=== PATIENT | female | born 1940 | race Hispanic/Latino ===

== ENCOUNTER 2021-02-22 10:42 | Inpatient (IN) | payer MEDICARE ==
--- NOTE | 2021-02-22 10:52 | Emergency Department Report ---
ED Shortness of Breath HPI - General Stated Complaint: SOB Time Seen by Provider: 02/22/21 10:47 - History of Present Illness Initial Comments: Patient presents by ambulance secondary to shortness of breath. She was at dialysis today and started feeling short of breath more so than usual. She was found to be hypoxic in the 70s on her nasal cannula. EMS was called. They did transition her ultimately to BiPAP and her pulse ox came up to 99%. Patient had been admitted last week secondary to COVID-19 infection. She was hypoxic. She was in the hospital for 6 days at another facility. She ultimately was able to go home on a nasal cannula at 3 L. She states she started feeling short of breath yesterday but it worsened today while at dialysis. They did not complete her dialysis treatment. They were using her AV fistula in the left arm. The right arm is clotted off and they have not been using that AV fistula. Patient denies chest pain. She has had no fever. She states that she does feel better on BiPAP currently. - Related Data Home Medications Medication Instructions Recorded Confirmed Last Taken AtorvaSTATin [Lipitor] 10 mg PO QHS 02/22/21 02/22/21 Unknown Calcium Acetate [Phoslo] 1,334 mg PO TID 02/22/21 02/22/21 Unknown Cetirizine HCl [Cetirizine 10mg 10 mg PO QDAY 02/22/21 02/22/21 Unknown chew] L. Acidophilus/Bifid. Animalis 1 each PO QDAY 02/22/21 02/22/21 Unknown [Dialyvite Chewable Probiotic] Levothyroxine [Synthroid] 50 mcg PO QAM 02/22/21 02/22/21 Unknown Pantoprazole [Protonix] 40 mg PO QDAY 02/22/21 02/22/21 Unknown Sucralfate [Carafate] 1 gm PO Q6HR 02/22/21 02/22/21 Unknown Temazepam [Restoril] 7.5 mg PO QHS 02/22/21 02/22/21 Unknown amLODIPine [Norvasc] 5 mg PO DAILY 02/22/21 02/22/21 Unknown atenoloL [Tenormin] 10 mg PO DAILY 02/22/21 02/22/21 Unknown traMADoL [Ultram] 50 mg PO Q6HR PRN 02/22/21 02/22/21 Unknown Allergies Allergy/AdvReac Type Severity Reaction Status Date / Time amoxicillin Allergy Unknown Verified 02/22/21 11:14 codeine Allergy Unknown Verified 02/22/21 11:14 Penicillins Allergy Unknown Verified 02/22/21 11:14 Sulfa (Sulfonamide Allergy Unknown Verified 02/22/21 11:14 Antibiotics) ED Review of Systems ROS: Stated complaint: SOB Other details as noted in HPI Comment: All other systems reviewed and negative Constitutional: denies: fever Eyes: denies: eye pain ENT: denies: throat pain Respiratory: denies: cough Cardiovascular: denies: chest pain Endocrine: denies: unexplained weight loss Gastrointestinal: denies: abdominal pain Musculoskeletal: denies: back pain Skin: denies: rash Neurological: denies: headache Hematological/Lymphatic: denies: easy bruising ED Past Medical Hx - Medications Home Medications: Home Medications Medication Instructions Recorded Confirmed Last Taken Type AtorvaSTATin [Lipitor] 10 mg PO QHS 02/22/21 02/22/21 Unknown History Calcium Acetate [Phoslo] 1,334 mg PO TID 02/22/21 02/22/21 Unknown History Cetirizine HCl [Cetirizine 10mg 10 mg PO QDAY 02/22/21 02/22/21 Unknown History chew] L. Acidophilus/Bifid. Animalis 1 each PO QDAY 02/22/21 02/22/21 Unknown History [Dialyvite Chewable Probiotic] Levothyroxine [Synthroid] 50 mcg PO QAM 02/22/21 02/22/21 Unknown History Pantoprazole [Protonix] 40 mg PO QDAY 02/22/21 02/22/21 Unknown History Sucralfate [Carafate] 1 gm PO Q6HR 02/22/21 02/22/21 Unknown History Temazepam [Restoril] 7.5 mg PO QHS 02/22/21 02/22/21 Unknown History amLODIPine [Norvasc] 5 mg PO DAILY 02/22/21 02/22/21 Unknown History atenoloL [Tenormin] 10 mg PO DAILY 02/22/21 02/22/21 Unknown History traMADoL [Ultram] 50 mg PO Q6HR PRN 02/22/21 02/22/21 Unknown History ED Physical Exam - General General appearance: alert, in distress (Mild on BiPAP) - Head Head exam: Present: atraumatic, normocephalic, normal inspection - Eye Eye exam: Present: normal appearance, EOMI. Absent: scleral icterus - ENT ENT exam: Present: normal exam, normal orophraynx, mucous membranes moist - Neck Neck exam: Present: normal inspection, other (No JVD). Absent: meningismus - Respiratory Respiratory exam: Present: respiratory distress (Mild) - Cardiovascular Cardiovascular Exam: Present: regular rate, normal rhythm - GI/Abdominal GI/Abdominal exam: Present: soft. Absent: distended, tenderness - Extremities Exam Extremities exam: Present: normal capillary refill - Back Exam Back exam: Absent: CVA tenderness (R), CVA tenderness (L) - Neurological Exam Neurological exam: Present: alert, oriented X3. Absent: motor sensory deficit - Psychiatric Psychiatric exam: Present: normal affect, normal mood - Skin Skin exam: Present: warm, dry ED Course Vital Signs 02/22/21 02/22/21 02/22/21 10:57 11:01 11:15 Temperature Pulse Rate 85 92 H 78 Respiratory 31 H 26 H 32 H Rate Blood Pressure 140/34 140/34 O2 Sat by Pulse 91 87 93 Oximetry 02/22/21 02/22/21 02/22/21 11:18 11:31 11:45 Temperature 97.8 F Pulse Rate 83 83 Respiratory 29 H 32 H Rate Blood Pressure 140/34 140/34 O2 Sat by Pulse 92 96 Oximetry 02/22/21 02/22/21 12:01 12:15 Temperature Pulse Rate 75 73 Respiratory 30 H 24 Rate Blood Pressure 150/70 140/34 O2 Sat by Pulse 98 89 Oximetry - Reevaluation(s) Reevaluation #1: 02/22/21 10:41 Sonu met upon arrival. IV and labs were ordered. BiPAP was continued. Reevaluation #2: 02/22/21 12:42 X-ray and labs have been reviewed. BNP is still pending. Case was discussed with Dr. Greco for admission. He is concerned for the patient's respiratory status and requested a blood gas. This is been completed. Clinically, this appears to be pulmonary edema. We will proceed with admission. ED Medical Decision Making - Lab Data Result diagrams: 02/22/21 11:31 02/22/21 11:31 - EKG Data -: EKG Interpreted by Me EKG shows normal: sinus rhythm Rate: normal - EKG Data 02/22/21 11:13 EKG shows a normal sinus rhythm at 79. Intervals are normal including a QRS of 95 and a QT corrected of 1-22. Patient has nonspecific T wave flattening. There is significant artifact noted. There is no ST elevation to suggest infarct. There is no ST depression suggestive of ischemia. There is no ectopy. - Medical Decision Making Patient presented by ambulance with respiratory distress. She has multiple issues that could be complicating this. She does have a recent diagnosis of coronavirus and is hypoxic from that. This could be related to a Covid infection. She does have leukocytosis. She has not had a fever, but certainly pneumonia could be a complicating factor. She does have tachypnea associated with this. She is also a renal failure patient that did not get dialysis completed today. This could be volume overload. Troponin is elevated and this could certainly represent some degree of NSTEMI or cardiac strain. Given the recent Covid infection and elevated D-dimer, there would also have to be consideration given to possible pulmonary embolism. These have been discussed with Dr. Greco, the hospitalist. He will admit and help discern the fundamental issues that is causing the patient to be hypoxic and dyspneic. Critical Care Time: Yes Critical care attestation.: If time is entered above; I have spent that time in minutes in the direct care of this critically ill patient, excluding procedure time. Critical Care Time: Critical care time of 55 minutes exclusive of all procedures based on respiratory failure and volume overload. ED Disposition Clinical Impression: Hypoxia, COVID-19 virus infection, ESRD (end stage renal disease) on dialysis Respiratory failure Qualifiers: Chronicity: acute Respiratory failure complication: hypoxia Qualified Code(s): J96.01 - Acute respiratory failure with hypoxia Leukocytosis Qualifiers: Leukocytosis type: other Qualified Code(s): D72.828 - Other elevated white blood cell count Pulmonary edema Qualifiers: Chronicity: acute Qualified Code(s): J81.0 - Acute pulmonary edema Disposition: 09 ADMITTED INPATIENT Is pt being admited?: Yes Does the pt Need Aspirin: Yes Condition: Stable Instructions: Pulmonary Edema (ED)
--- NOTE | 2021-02-22 11:37 | XRay Report ---
CHEST 1 VIEW 02/22/2021 10:17 AM INDICATION / CLINICAL INFORMATION: Hypoxia. COMPARISON: None available. FINDINGS: SUPPORT DEVICES: None. HEART / MEDIASTINUM: There is moderate cardiomegaly. Pulmonary vasculature is difficult to evaluate. There is calcification in the thoracic aorta without aneurysm. LUNGS / PLEURA: There are moderate diffuse patchy parenchymal opacities throughout both lungs, slight ly greater on the right than the left. No pleural effusion. No pneumothorax. ADDITIONAL FINDINGS: No significant additional findings. IMPRESSION: Moderate diffuse patchy parenchymal opacities throughout both lungs are nonspecific. Diff erential diagnosis includes atypical causes of pneumonia, asymmetric edema, and diffuse alveolar zainab ge. Signer Name: Everett Paul MD Signed: 02/22/2021 11:32 AM Workstation Name: [id number]
[2021-02-22 11:49] LABS: Hematocrit 30.5 % (30.3-42.9); Mean Corpuscular HGB Conc 33 % (30-34); Mean Corpuscular Volume 101 fl (79-97); Platelet Count 189 K/mm3 (140-440); Red Blood Count 3.01 M/mm3 (3.65-5.03); Red Cell Distribution Width 14.5 % (13.2-15.2)
[2021-02-22 11:59] LABS: Calcium 9.4 mg/dL (8.4-10.2)
[2021-02-22] MEDS ORDERED: ASPIRIN 325 MG TAB PO ONE (12:47)
--- NOTE | 2021-02-22 13:38 | History and Physical Report ---
History of Present Illness Chief complaint: I am having a hard time breathing History of present illness: 80 YO Female with ESRD on HD(T,R,Sa), GERD, Vascular Dementia, Cerebral Atherosclerosis, HTN, HLD, Hypothyroidism, Coronavirus Infection diagnosed 2 weeks ago presents to ED for evaluation. Patient reports "I am having a hard time breathing". Patient states that she has experienced fatigue, malaise, shortness of breath, body aches over the past 2 days with persistent and worsening symptoms over the same timeframe. Patient states that she presented to her dialysis clinic today for her routine scheduled dialysis and while undergoing dialysis the patient experienced worsening of the aforementioned symptoms. EMS was notified and upon arrival the patient was found to be in distress and subsequently placed on supplemental oxygen and transported to [facility] for further care and evaluation of the aforementioned symptoms. The patient was seen and evaluated in the emergency department. All lab and imaging studies reviewed. The patient was found to have a pulse oximetry of 86% while on supplemental oxygen via nasal cannula and was subsequently placed on high flow supplemental oxygen with mild improvement in symptoms. Patient symptoms found to be consistent with acute hypoxemic respiratory failure. Patient underwent chest x-ray which revealed bilateral pneumonia. Patient also found to have clinical symptoms consistent with CHF decompensation. Patient admitted to IMCU and initiated on pneumonia protocol as well as CHF protocol. Patient also found to have end-stage renal disease in need of urgent dialysis. Nephrology team consulted in ED. Patient denies fever, chills, palpitations, skin rash, recent ill contacts. No prior admission for review. All medication listed at time of admission has been reconciled. Advanced care planning conducted in ED. Pulmonology team consulted in ED. Cardiology team consulted in ED Past History Past Medical History: ESRD, GERD, hypertension, hyperlipidemia Past Surgical History: Other (Dialysis access) Social history: . denies: smoking, alcohol abuse, prescription drug abuse Family history: hypertension Medications and Allergies Allergies Allergy/AdvReac Type Severity Reaction Status Date / Time amoxicillin Allergy Unknown Verified 02/22/21 11:14 codeine Allergy Unknown Verified 02/22/21 11:14 Penicillins Allergy Unknown Verified 02/22/21 11:14 Sulfa (Sulfonamide Allergy Unknown Verified 02/22/21 11:14 Antibiotics) Home Medications Medication Instructions Recorded Confirmed Last Taken Type AtorvaSTATin [Lipitor] 10 mg PO QHS 02/22/21 02/22/21 Unknown History Calcium Acetate [Phoslo] 1,334 mg PO TID 02/22/21 02/22/21 Unknown History Cetirizine HCl [Cetirizine 10mg 10 mg PO QDAY 02/22/21 02/22/21 Unknown History chew] L. Acidophilus/Bifid. Animalis 1 each PO QDAY 02/22/21 02/22/21 Unknown History [Dialyvite Chewable Probiotic] Levothyroxine [Synthroid] 50 mcg PO QAM 02/22/21 02/22/21 Unknown History Pantoprazole [Protonix] 40 mg PO QDAY 02/22/21 02/22/21 Unknown History Sucralfate [Carafate] 1 gm PO Q6HR 02/22/21 02/22/21 Unknown History Temazepam [Restoril] 7.5 mg PO QHS 02/22/21 02/22/21 Unknown History amLODIPine [Norvasc] 5 mg PO DAILY 02/22/21 02/22/21 Unknown History atenoloL [Tenormin] 10 mg PO DAILY 02/22/21 02/22/21 Unknown History traMADoL [Ultram] 50 mg PO Q6HR PRN 02/22/21 02/22/21 Unknown History Review of Systems Constitutional: fatigue, weakness, malaise, lethargy, no weight loss, no weight gain, no fever, no chills Ears, nose, mouth and throat: no ear pain, no ear discharge, no nose pain Breasts: no change in shape Cardiovascular: orthopnea, shortness of breath, dyspnea on exertion, paroxysmal nocturnal dyspnea, decreased exercise tolerance, no chest pain, no rapid/irregular heart beat, no syncope Respiratory: no cough, no cough with sputum, no hemoptysis Gastrointestinal: no abdominal pain, no nausea, no vomiting, no constipation, no change in bowel habits Genitourinary Female: no pelvic pain, no flank pain, no dysuria, no urinary frequency, no urgency Rectal: no pain, no incontinence, no bleeding Musculoskeletal: no neck stiffness, no neck pain, no low back pain, no leg numbness/tingling, no redness of joints Integumentary: no rash, no redness, no sores Neurological: no head injury, no paralysis, no parathesias, no seizures, no tremors Psychiatric: no change in sleep habits, no insomnia, no hypersomnia, no change in libido, no hallucinations Endocrine: no cold intolerance, no polyphagia, no polydipsia, no polyuria, no excessive sweating, no weight change Hematologic/Lymphatic: no easy bruising, no easy bleeding, no lymphadenopathy Allergic/Immunologic: no urticaria, no wheezing Exam - Constitutional Vitals: Temp Pulse Resp BP Pulse Ox 97.8 F 73 24 140/34 99 02/22/21 11:18 02/22/21 12:15 02/22/21 12:15 02/22/21 12:15 02/22/21 13:22 General appearance: Present: mild distress, obese - EENT Eyes: Present: PERRL ENT: hearing intact, clear oral mucosa - Neck Neck: Present: supple, normal ROM - Respiratory Respiratory effort: labored, accessory muscle use Respiratory: bilateral: diminished, rhonchi - Cardiovascular Rhythm: regular Heart Sounds: Present: S1 & S2. Absent: rub, click - Extremities Extremities: pulses symmetrical Extremity abnormal: edema Peripheral Pulses: within normal limits - Abdominal General gastrointestinal: Present: soft, non-tender, non-distended, normal bowel sounds Female genitourinary: Present: normal - Integumentary Integumentary: Present: clear, warm, dry - Musculoskeletal Musculoskeletal: generalized weakness - Psychiatric Psychiatric: appropriate mood/affect, intact judgment & insight - Neurologic Neurologic: CNII-XII intact, moves all extremities HEART Score - HEART Score Troponin: Troponin T 0.097 ng/mL (0.00-0.029) H 02/22/21 11:31 Results - Labs CBC & Chem 7: 02/22/21 11:31 02/22/21 11:31 Labs: Abnormal lab results 02/22/21 02/22/21 02/22/21 Range/Units 11:31 11:31 11:31 WBC 12.9 H (4.5-11.0) K/mm3 RBC 3.01 L (3.65-5.03) M/mm3 Hgb 10.0 L (10.1-14.3) gm/dl MCV 101 H (79-97) fl MCH 33 H (28-32) pg D-Dimer 902.74 H (0-234) ng/mlDDU ABG pH (7.320-7.450) POC ABG pO2 (83-108) mmHg ABG Hemoglobin (12.0-17.5) ABG Oxyhemoglobin (94-98) ABG Sodium (136.0-145.0) mmol/L BUN 32 H (7-17) mg/dL Creatinine 4.7 H (0.6-1.2) mg/dL Troponin T 0.097 H (0.00-0.029) ng/mL NT-Pro-B Natriuret Pep 07247 H (0-900) pg/mL 02/22/21 Range/Units 13:21 WBC (4.5-11.0) K/mm3 RBC (3.65-5.03) M/mm3 Hgb (10.1-14.3) gm/dl MCV (79-97) fl MCH (28-32) pg D-Dimer (0-234) ng/mlDDU ABG pH 7.478 H (7.320-7.450) POC ABG pO2 70.7 L (83-108) mmHg ABG Hemoglobin 9.4 L (12.0-17.5) ABG Oxyhemoglobin 93.7 L (94-98) ABG Sodium 131.6 L (136.0-145.0) mmol/L BUN (7-17) mg/dL Creatinine (0.6-1.2) mg/dL Troponin T (0.00-0.029) ng/mL NT-Pro-B Natriuret Pep (0-900) pg/mL Assessment and Plan - Patient Problems (1) Acute hypoxemic respiratory failure Current Visit: Yes Status: Acute Plan to address problem: Supplemental oxygen, pulse oximetry, high flow supplemental oxygen at this time, pulmonary toilet, supportive care, chest x-ray. (2) CHF (congestive heart failure) Current Visit: Yes Status: Acute Qualifiers: Heart failure type: systolic Heart failure chronicity: acute Qualified Code(s): I50.21 - Acute systolic (congestive) heart failure Plan to address problem: Strict I's/O, monitor urine output every shift, blood pressure control, afterload reduction, echocardiogram ordered and is pending at time of admission, thyroid panel, magnesium level. Cardiology team consulted. (3) Pneumonia Current Visit: Yes Status: Acute Plan to address problem: Pneumonia protocol: Chest x-ray, CBC, CMP, supplemental oxygen, pulse oximetry, IV antibiotic therapy, nebulizer therapy, blood culture. (4) COVID-19 virus infection Current Visit: Yes Status: Acute Plan to address problem: Coronavirus protocol: IV antibiotic therapy, IV steroid therapy, supplemental oxygen, pulse oximetry, vitamin D therapy, vitamin C therapy, zinc therapy, prophylactic anticoagulation. (5) ESRD (end stage renal disease) on dialysis Current Visit: Yes Status: Acute Plan to address problem: Nephrology team consulted in ED, dialysis as per renal team, avoid nephrotoxic agents (6) DVT prophylaxis Current Visit: Yes Status: Acute Plan to address problem: SCDs bilateral lower extremities while in bed, prophylactic anticoagulation (7) Advance care planning Current Visit: Yes Status: Acute Plan to address problem: Disease education conducted, care plan discussed, diagnoses discussed, prognosis discussed, patient is full code, patient knowledges understanding and agree with care plan, +30 minutes.
[2021-02-22] MEDS ORDERED: ALBUTEROL 2.5 MG/3 ML NEBU IH PRN (14:26)
[2021-02-22] MEDS: AZITHROMYCIN/NS 500 MG/250 ML 500 MG/250 ML BAG IV SCH (15:49)
[2021-02-22] MEDS: FUROSEMIDE 20 MG/2 ML INJ IV SCH (17:45)
[2021-02-22] MEDS: ALPRAZolam 0.5 MG TAB PO PRN (17:45)
[2021-02-22] MEDS: oxyCODONE /ACETAMINOPHEN 5-325MG TAB PO PRN (17:50)
[2021-02-22] MEDS: SUCRALFATE 1 GM TAB PO SCH (18:54)
[2021-02-22] MEDS: CALCIUM ACETATE 667 MG CAP PO SCH (22:19)
[2021-02-22] MEDS: ASCORBIC ACID 500 MG TAB PO SCH (22:20)
[2021-02-22] MEDS: HEPARIN 5,000 UNIT/1 ML VIAL SUB-Q SCH (22:20)
[2021-02-22] MEDS: ZINC SULFATE 220 MG CAP PO SCH (22:20)
[2021-02-22] MEDS: methylPREDNISolone Sod Succinate 40 MG/1 ML INJ IV SCH (22:45)
[2021-02-23] MEDS: SUCRALFATE 1 GM TAB PO SCH ×4 (00:38→18:00)
[2021-02-23] MEDS: HYDROmorphone 1 MG/1 ML INJ IV PRN (01:55)
[2021-02-23 04:02] LABS: Basophils % (Auto) 0.7 % (0.0-1.8); Eosinophils % (Auto) 0.1 % (0.0-4.3); Hematocrit 25.1 % (30.3-42.9); Hemoglobin 8.3 gm/dl (10.1-14.3); Lymphocytes # (Auto) 0.3 K/mm3 (1.2-5.4); Lymphocytes % (Auto) 5.7 % (13.4-35.0); Mean Corpuscular HGB Conc 33 % (30-34); Mean Corpuscular Volume 100 fl (79-97); Monocytes # (Auto) 0.2 K/mm3 (0.0-0.8); Monocytes % (Auto) 3.7 % (0.0-7.3); Platelet Count 166 K/mm3 (140-440); Red Cell Distribution Width 14.5 % (13.2-15.2)
[2021-02-23 04:24] LABS: Calcium 8.8 mg/dL (8.4-10.2)
[2021-02-23] MEDS: ALPRAZolam 0.5 MG TAB PO PRN (06:52)
[2021-02-23] MEDS: FUROSEMIDE 20 MG/2 ML INJ IV SCH ×2 (07:04→18:02)
[2021-02-23] MEDS: methylPREDNISolone Sod Succinate 40 MG/1 ML INJ IV SCH ×3 (07:05→21:38)
--- NOTE | 2021-02-23 08:27 | Progress Note ---
Assessment and Plan Assessment and plan: #Acute on chronic hypoxic respiratory failure -currently on nasal cannula 10 L/min -diagnosed with Covid 2 weeks ago -discharge from outside hospital Wednesday -Pulmonology consulted, assistance appreciated -steroids -etiology secondary to COVID versus CHF #Congestive heart failure -Patient does not report previous history of CHF -BNP 70,000 -Euvolemic on exam -TTE ordered -Cardiology consulted assistance appreciated #Pneumonia -Continue antibiotics #COVID-19 infection -diagnosed 2 weeks ago -patient was discharged from outside hospital on last week -IV steroids #ESRD on HD -T//S schedule -only completed half session on 02/22 -HD today -Nephrology consulted, assistance appreciated History Interval history: No acute events. Stable on 10 L. Denies pain discomfort. Hospitalist Physical - Physical exam Narrative exam: GENERAL: Obese. Lying in bed in no acute distress. HEENT: NC @ 10LPM CHEST/LUNGS: Coarse breath sounds bilaterally. HEART/CARDIOVASCULAR: RRR. No murmur, rubs or gallops appreciated. ABDOMEN: +BS. NT/ND. SKIN: Bruising at LUE. [place] intact at old R AVF NEURO: No focal motor deficit. Follows all commands. MUSCULOSKELETAL: No joint effusion EXTREMITIES: R and L upper extremity AVF. No cyanosis, clubbing or edema. PSYCH: Cooperative. - Constitutional Vitals: Temp Pulse Resp BP Pulse Ox 97.9 F 54 L 22 99/45 99 02/22/21 19:54 02/22/21 19:01 02/22/21 19:01 02/22/21 19:01 02/22/21 20:25 General appearance: Present: mild distress, obese - Allied Health Allied health notes reviewed: nursing HEART Score - HEART Score Troponin: Troponin T 0.097 ng/mL (0.00-0.029) H 02/22/21 11:31 Results - Labs CBC & Chem 7: 02/23/21 03:40 02/23/21 03:40 Labs: Laboratory Last Values WBC 5.1 K/mm3 (4.5-11.0) 02/23/21 03:40 RBC 2.50 M/mm3 (3.65-5.03) L 02/23/21 03:40 Hgb 8.3 gm/dl (10.1-14.3) L 02/23/21 03:40 Hct 25.1 % (30.3-42.9) L 02/23/21 03:40 MCV 100 fl (79-97) H 02/23/21 03:40 MCH 33 pg (28-32) H 02/23/21 03:40 MCHC 33 % (30-34) 02/23/21 03:40 RDW 14.5 % (13.2-15.2) 02/23/21 03:40 Plt Count 166 K/mm3 (140-440) 02/23/21 03:40 Lymph % (Auto) 5.7 % (13.4-35.0) L 02/23/21 03:40 [place] % (Auto) 3.7 % (0.0-7.3) 02/23/21 03:40 Eos % (Auto) 0.1 % (0.0-4.3) 02/23/21 03:40 Baso % (Auto) 0.7 % (0.0-1.8) 02/23/21 03:40 Lymph # (Auto) 0.3 K/mm3 (1.2-5.4) L 02/23/21 03:40 Blaine # (Auto) 0.2 K/mm3 (0.0-0.8) 02/23/21 03:40 Eos # (Auto) 0.0 K/mm3 (0.0-0.4) 02/23/21 03:40 Baso # (Auto) 0.0 K/mm3 (0.0-0.1) 02/23/21 03:40 Seg Neutrophils % 89.8 % (40.0-70.0) H 02/23/21 03:40 Seg Neutrophils # 4.5 K/mm3 (1.8-7.7) 02/23/21 03:40 D-Dimer 902.74 ng/mlDDU (0-234) H 02/22/21 11:31 ABG pH 7.478 (7.320-7.450) H 02/22/21 13:21 POC ABG pCO2 33.5 mmHg (32.0-48.0) 02/22/21 13:21 POC ABG pO2 70.7 mmHg (83-108) L 02/22/21 13:21 POC ABG HCO3 24.3 02/22/21 13:21 ABG O2 Saturation 94.6 (0-100) 02/22/21 13:21 POC ABG Base Excess 1.0 02/22/21 13:21 ABG Hemoglobin 9.4 (12.0-17.5) L 02/22/21 13:21 ABG Oxyhemoglobin 93.7 (94-98) L 02/22/21 13:21 ABG Methemoglobin 0.3 (0.0-1.5) 02/22/21 13:21 ABG Sodium 131.6 mmol/L (136.0-145.0) L 02/22/21 13:21 ABG Potassium 4.0 mmol/L (3.40-4.50) 02/22/21 13:21 ABG Chloride 100.0 mmol/L (98-107) 02/22/21 13:21 ABG Glucose 87 mg/dL (65-95) 02/22/21 13:21 Carboxyhemoglobin 0.6 (0.5-1.5) 02/22/21 13:21 FiO2 % 70.0 02/22/21 13:21 Sodium 136 mmol/L (137-145) L 02/23/21 03:40 Potassium 4.9 mmol/L (3.6-5.0) 02/23/21 03:40 Chloride 99.1 mmol/L (98-107) 02/23/21 03:40 Carbon Dioxide 24 mmol/L (22-30) 02/23/21 03:40 Anion Gap 18 mmol/L 02/23/21 03:40 BUN 45 mg/dL (7-17) H 02/23/21 03:40 Creatinine 5.9 mg/dL (0.6-1.2) H 02/23/21 03:40 Estimated GFR 7 ml/min 02/23/21 03:40 BUN/Creatinine Ratio 8 % 02/23/21 03:40 Glucose 133 mg/dL (65-100) H 02/23/21 03:40 Calcium 8.8 mg/dL (8.4-10.2) 02/23/21 03:40 Troponin T 0.097 ng/mL (0.00-0.029) H 02/22/21 11:31 NT-Pro-B Natriuret Pep 73441 pg/mL (0-900) H 02/22/21 11:31 Arterial Blood Glucose 87 mg/dL (65-95) 02/22/21 13:21 Arterial Blood Ionized Calcium 4.7 mg/dL (4.6-5.3) 02/22/21 13:21 Active Medications - Current Medications Current Medications: Generic Name Dose Route Start Last Admin Trade Name Freq PRN Reason Stop Dose Admin Acetaminophen 650 mg 02/22/21 15:00 Acetaminophen 325 Mg Tab PO Q4H PRN Pain MILD(1-3)/Fever >100.5/GAUTAM Albuterol 2.5 mg 02/22/21 14:26 Albuterol 2.5 Mg/3 Ml Nebu IH Q4HRT PRN Shortness Of Breath Alprazolam 0.5 mg 02/22/21 14:29 02/23/21 06:52 Alprazolam 0.5 Mg Tab PO 0.5 mg Q8H PRN Administration Anxiety Amlodipine Besylate 5 mg 02/23/21 10:00 Amlodipine 5 Mg Tab PO DAILY DEVAN Ascorbic Acid 500 mg 02/22/21 22:00 02/22/21 22:20 Ascorbic Acid 500 Mg Tab PO 500 mg BID DEVAN Administration Atorvastatin Calcium 10 mg 02/22/21 22:00 02/22/21 22:20 Atorvastatin 10 Mg Tab PO 10 mg QHS DEVAN Administration Calcium Acetate 1,334 mg 02/22/21 20:00 02/22/21 22:19 Calcium Acetate 667 Mg Cap PO 1,334 mg TID DEVAN Administration Cetirizine HCl 10 mg 02/23/21 10:00 Cetirizine 10 Mg Tab PO DAILY DEVAN Cholecalciferol 1,000 unit 02/23/21 10:00 Cholecalciferol (Vit D3) 1000 Unit (25 Mcg) Tab PO QDAY DEVAN Furosemide 20 mg 02/22/21 18:00 02/23/21 07:04 Furosemide 20 Mg/2 Ml Inj IV 20 mg BID@0600,1800 DEVAN Administration Heparin Sodium (Porcine) 5,000 unit 02/22/21 22:00 02/22/21 22:20 Heparin 5,000 Unit/1 Ml Vial SUB-Q 5,000 unit Q12HR DEVAN Administration Hydromorphone HCl 0.5 mg 02/22/21 14:26 02/23/21 01:55 Hydromorphone 1 Mg/1 Ml Inj IV 0.5 mg Q12H PRN Administration Pain , Severe (7-10) Azithromycin 500 mg in 250 mls @ 250 mls/hr 02/22/21 15:00 02/22/21 15:49 Zithromax/Ns IV 250 mls/hr Q24H DEVAN Administration Protocol Levothyroxine Sodium 50 mcg 02/23/21 10:00 Levothyroxine 50 Mcg Tab PO QAM DEVAN Methylprednisolone Sodium Succinate 40 mg 02/22/21 22:00 02/23/21 07:05 Methylprednisolone Sod Succinate 40 Mg/1 Ml Inj IV 40 mg Q8HR DEVAN Administration Multivit/Ca Carb/B Cmplx/FA/Prenat 1 cap 02/23/21 10:00 Folic Acid/Vit B Comp W-C 1 Mg (Renal Caps) PO QDAY DEVAN Ondansetron HCl 4 mg 02/22/21 15:00 Ondansetron 4 Mg/2 Ml Inj IV Q8H PRN Nausea And Vomiting Oxycodone/Acetaminophen 1 tab 02/22/21 14:26 02/22/21 17:50 Oxycodone /Acetaminophen 5-325mg Tab PO 1 tab Q12H PRN Administration Pain, Moderate (4-6) Pantoprazole Sodium 40 mg 02/23/21 10:00 Pantoprazole 40 Mg Tab PO QDAY DEVAN Sodium Chloride 10 ml 02/22/21 22:00 02/22/21 22:20 Sodium Chloride 0.9% 10 Ml Flush Syringe IV 10 ml BID DEVAN Administration Sodium Chloride 10 ml 02/22/21 14:26 Sodium Chloride 0.9% 10 Ml Flush Syringe IV PRN PRN LINE FLUSH Sucralfate 1 gm 02/22/21 18:00 02/23/21 07:05 Sucralfate 1 Gm Tab PO 1 gm Q6HR DEVAN Administration Tramadol HCl 50 mg 02/22/21 15:00 Tramadol 50 Mg Tab PO Q6HR PRN PAIN Zinc Sulfate 220 mg 02/22/21 22:00 02/22/21 22:20 Zinc Sulfate 220 Mg Cap PO 220 mg BID DEVAN Administration
[2021-02-23] MEDS ORDERED: atenoloL 25 MG TAB PO SCH (10:00)
[2021-02-23] MEDS ORDERED: CHOLECALCIFEROL (VIT D3) 400 UNIT TAB PO SCH (10:00)
[2021-02-23] MEDS ORDERED: [UNRECOGNIZED DRUG - MIXTURE] PO SCH (10:00)
[2021-02-23] MEDS ORDERED: CETIRIZINE HCL 10 MG PO SCH (10:00)
[2021-02-23] MEDS: CALCIUM ACETATE 667 MG CAP PO SCH ×2 (10:34→16:29)
[2021-02-23] MEDS: ASCORBIC ACID 500 MG TAB PO SCH ×2 (10:35→21:38)
[2021-02-23] MEDS: CHOLECALCIFEROL (VIT D3) 1000 UNIT (25 mcg) TAB PO SCH (10:36)
[2021-02-23] MEDS: PANTOPRAZOLE 40 MG TAB PO SCH (10:36)
[2021-02-23] MEDS: ZINC SULFATE 220 MG CAP PO SCH ×2 (10:37→21:38)
[2021-02-23] MEDS: LEVOTHYROXINE 50 MCG TAB PO SCH (10:38)
[2021-02-23] MEDS: FOLIC ACID/VIT B COMP W-C 1 MG (RENAL CAPS) PO SCH (10:39)
[2021-02-23] MEDS: HEPARIN 5,000 UNIT/1 ML VIAL SUB-Q SCH ×2 (10:48→21:38)
[2021-02-23] MEDS: amLODIPine 5 MG TAB PO SCH ×2 (11:39→12:31)
--- NOTE | 2021-02-23 11:50 | Consultation ---
History of Present Illness History of present illness: This is an 80 yo female w hx of esrd onhd, copd who is admitted for sob. She reports that 5 weeks ago she moved into independent living facilty. A few weeks ago she had some pnd and chest congestion. She then had a revision of her graft. She reports that her pnd and chestion was worse. Since then she has had worsening of symptoms. She had complete HD treatment on but with her Sat t x she was unable to complete and was brought to the er bc of worening resp status and hypoxia. She was placed on o2. Presently she is feeling better she reports compliance with meds and fluid restrictions. Past History Past Medical History: ESRD, GERD, hypertension, hyperlipidemia Past Surgical History: Other (Dialysis access) Social history: . denies: smoking, alcohol abuse, prescription drug abus e Family history: hypertension Medications and Allergies Allergies Allergy/AdvReac Type Severity Reaction Status Date / Time amoxicillin Allergy Unknown Verified 02/22/21 11:14 codeine Allergy Unknown Verified 02/22/21 11:14 Penicillins Allergy Unknown Verified 02/22/21 11:14 Sulfa (Sulfonamide Allergy Unknown Verified 02/22/21 11:14 Antibiotics) Home Medications Medication Instructions Recorded Confirmed Last Taken Type AtorvaSTATin [Lipitor] 10 mg PO QHS 02/22/21 02/22/21 Unknown History Calcium Acetate [Phoslo] 1,334 mg PO TID 02/22/21 02/22/21 Unknown History Cetirizine HCl [Cetirizine 10mg 10 mg PO QDAY 02/22/21 02/22/21 Unknown History chew] L. Acidophilus/Bifid. Animalis 1 each PO QDAY 02/22/21 02/22/21 Unknown History [Dialyvite Chewable Probiotic] Levothyroxine [Synthroid] 50 mcg PO QAM 02/22/21 02/22/21 Unknown History Pantoprazole [Protonix] 40 mg PO QDAY 02/22/21 02/22/21 Unknown History Sucralfate [Carafate] 1 gm PO Q6HR 02/22/21 02/22/21 Unknown History Temazepam [Restoril] 7.5 mg PO QHS 02/22/21 02/22/21 Unknown History amLODIPine [Norvasc] 5 mg PO DAILY 02/22/21 02/22/21 Unknown History atenoloL [Tenormin] 10 mg PO DAILY 02/22/21 02/22/21 Unknown History traMADoL [Ultram] 50 mg PO Q6HR PRN 02/22/21 02/22/21 Unknown History Active Meds: Active Medications Acetaminophen (Acetaminophen 325 Mg Tab) 650 mg PO Q4H PRN PRN Reason: Pain MILD(1-3)/Fever >100.5/GAUTAM Albuterol (Albuterol 2.5 Mg/3 Ml Nebu) 2.5 mg IH Q4HRT PRN PRN Reason: Shortness Of Breath Alprazolam (Alprazolam 0.5 Mg Tab) 0.5 mg PO Q8H PRN PRN Reason: Anxiety Last Admin: 02/23/21 06:52 Dose: 0.5 mg Documented by: Amlodipine Besylate (Amlodipine 5 Mg Tab) 5 mg PO DAILY [facility] Last Admin: 02/23/21 11:39 Dose: Not Given Documented by: Ascorbic Acid (Ascorbic Acid 500 Mg Tab) 500 mg PO BID [facility] Last Admin: 02/23/21 10:35 Dose: 500 mg Documented by: Atorvastatin Calcium (Atorvastatin 10 Mg Tab) 10 mg PO QHS [facility] Last Admin: 02/22/21 22:20 Dose: 10 mg Documented by: Calcium Acetate (Calcium Acetate 667 Mg Cap) 1,334 mg PO TIDWM [facility] Cetirizine HCl (Cetirizine 10 Mg Tab) 10 mg PO DAILY [facility] Cholecalciferol (Cholecalciferol (Vit D3) 1000 Unit (25 Mcg) Tab) 1,000 unit PO QDAY [facility] Last Admin: 02/23/21 10:36 Dose: 1,000 unit Documented by: Furosemide (Furosemide 20 Mg/2 Ml Inj) 20 mg IV BID@0600,1800 [facility] Last Admin: 02/23/21 07:04 Dose: 20 mg Documented by: Heparin Sodium (Porcine) (Heparin 5,000 Unit/1 Ml Vial) 5,000 unit SUB-Q Q12HR [facility] Last Admin: 02/23/21 10:48 Dose: 5,000 unit Documented by: Hydromorphone HCl (Hydromorphone 1 Mg/1 Ml Inj) 0.5 mg IV Q12H PRN PRN Reason: Pain , Severe (7-10) Last Admin: 02/23/21 01:55 Dose: 0.5 mg Documented by: Azithromycin (Zithromax/Ns) 500 mg in 250 mls @ 250 mls/hr IV Q24H [facility]; Protocol Last Infusion: 02/22/21 16:49 Dose: Infused Documented by: Levothyroxine Sodium (Levothyroxine 50 Mcg Tab) 50 mcg PO QAM [facility] Last Admin: 02/23/21 10:38 Dose: 50 mcg Documented by: Methylprednisolone Sodium Succinate (Methylprednisolone Sod Succinate 40 Mg/1 Ml Inj) 40 mg IV Q8HR [facility] Last Admin: 02/23/21 07:05 Dose: 40 mg Documented by: Multivit/Ca Carb/B Cmplx/FA/Prenat (Folic Acid/Vit B Comp W-C 1 Mg (Renal Caps)) 1 cap PO QDAY [facility] Last Admin: 02/23/21 10:39 Dose: 1 cap Documented by: Ondansetron HCl (Ondansetron 4 Mg/2 Ml Inj) 4 mg IV Q8H PRN PRN Reason: Nausea And Vomiting Oxycodone/Acetaminophen (Oxycodone /Acetaminophen 5-325mg Tab) 1 tab PO Q12H PRN PRN Reason: Pain, Moderate (4-6) Last Admin: 02/22/21 17:50 Dose: 1 tab Documented by: Pantoprazole Sodium (Pantoprazole 40 Mg Tab) 40 mg PO QDAY [facility] Last Admin: 02/23/21 10:36 Dose: 40 mg Documented by: Sodium Chloride (Sodium Chloride 0.9% 10 Ml Flush Syringe) 10 ml IV BID [facility] Last Admin: 02/23/21 10:38 Dose: 10 ml Documented by: Sodium Chloride (Sodium Chloride 0.9% 10 Ml Flush Syringe) 10 ml IV PRN PRN PRN Reason: LINE FLUSH Sucralfate (Sucralfate 1 Gm Tab) 1 gm PO Q6HR [facility] Last Admin: 02/23/21 07:05 Dose: 1 gm Documented by: Tramadol HCl (Tramadol 50 Mg Tab) 50 mg PO Q6HR PRN PRN Reason: PAIN Zinc Sulfate (Zinc Sulfate 220 Mg Cap) 220 mg PO BID [facility] Last Admin: 02/23/21 10:37 Dose: 220 mg Documented by: Review of Systems Respiratory: shortness of breath, dyspnea on exertion, home oxygen Physical Examination Vital signs: Vital Signs Pulse Resp Pulse Ox 85 31 H 91 02/22/21 10:57 02/22/21 10:57 02/22/21 10:57 General appearance: no acute distress, alert ENT: oropharynx moist Neck: supple Ascultation: Bilateral: rales Cardiovascular: regular rate and rhythm Gastrointestinal: normoactive bowel sounds, non-tender, non-distended Extremities: no cyanosis mood appropriate, affect normal Results - Laboratory Findings CBC and BMP: 02/23/21 03:40 02/23/21 03:40 ABG ABG pH 7.478 (7.320-7.450) H 02/22/21 13:21 POC ABG pCO2 33.5 mmHg (32.0-48.0) 02/22/21 13:21 POC ABG pO2 70.7 mmHg (83-108) L 02/22/21 13:21 POC ABG HCO3 24.3 02/22/21 13:21 ABG O2 Saturation 94.6 (0-100) 02/22/21 13:21 PT/INR, D-dimer D-Dimer 902.74 ng/mlDDU (0-234) H 02/22/21 11:31 Abnormal lab findings: Abnormal Labs 02/22/21 02/22/21 02/22/21 11:31 11:31 11:31 WBC 12.9 H RBC 3.01 L Hgb 10.0 L Hct MCV 101 H MCH 33 H Lymph % (Auto) Lymph # (Auto) Seg Neutrophils % D-Dimer 902.74 H ABG pH POC ABG pO2 ABG Hemoglobin ABG Oxyhemoglobin ABG Sodium Sodium BUN 32 H Creatinine 4.7 H Glucose Troponin T 0.097 H NT-Pro-B Natriuret Pep 02382 H 02/22/21 02/23/21 02/23/21 13:21 03:40 03:40 WBC RBC 2.50 L Hgb 8.3 L Hct 25.1 L MCV 100 H MCH 33 H Lymph % (Auto) 5.7 L Lymph # (Auto) 0.3 L Seg Neutrophils % 89.8 H D-Dimer ABG pH 7.478 H POC ABG pO2 70.7 L ABG Hemoglobin 9.4 L ABG Oxyhemoglobin 93.7 L ABG Sodium 131.6 L Sodium 136 L BUN 45 H Creatinine 5.9 H Glucose 133 H Troponin T NT-Pro-B Natriuret Pep - Diagnostic Findings Chest x-ray: report reviewed, image reviewed Assessment and Plan - Patient Problems (1) Acute hypoxemic respiratory failure Current Visit: Yes Status: Acute (2) CHF (congestive heart failure) Current Visit: Yes Status: Acute Qualifiers: Heart failure type: systolic Heart failure chronicity: acute Qualified Code(s): I50.21 - Acute systolic (congestive) heart failure (3) ESRD (end stage renal disease) on dialysis Current Visit: Yes Status: Acute (4) Hypoxia Current Visit: Yes Status: Acute (5) Leukocytosis Current Visit: Yes Status: Acute Qualifiers: Leukocytosis type: other Qualified Code(s): D72.828 - Other elevated white blood cell count (6) Pneumonia Current Visit: Yes Status: Acute (7) Pulmonary edema Current Visit: Yes Status: Acute Qualifiers: Chronicity: acute Qualified Code(s): J81.0 - Acute pulmonary edema
--- NOTE | 2021-02-23 13:08 | Electrocardiograph Report ---
[facility] Test Date: 2021-02-22 Test Time: 11:06:07 Pat Name: YANIQUE CALDERON Department: Room: [place] [address] Gender: F [employer] Assistant: RAUL : 1940 Requested By: YOSEPH VEGA Order Number: [id number] Reading MD: Peng Munoz Measurements Intervals [place] Rate: 79 P: 43 NC: 196 QRS: 26 QRSD: 95 T: QT: 368 QTc: 422 Interpretive Statements Sinus rhythm Left atrial enlargement Nonspecific repol abnormality, lateral leads No previous ECG available for comparison Electronically Signed On 02-23-2021 13:08:37 EDT by Peng Munoz
[2021-02-23] MEDS: oxyCODONE /ACETAMINOPHEN 5-325MG TAB PO PRN (14:58)
[2021-02-23] MEDS: AZITHROMYCIN/NS 500 MG/250 ML 500 MG/250 ML BAG IV SCH (14:59)
[2021-02-23] MEDS: CETIRIZINE 10 MG TAB PO SCH (14:59)
[2021-02-23] MEDS ORDERED: hydrALAZINE 10 MG TAB PO PRN (22:06)
[2021-02-23] MEDS ORDERED: hydrALAZINE 20 MG/1 ML INJ IV PRN (22:27)
[2021-02-24] MEDS: SUCRALFATE 1 GM TAB PO SCH ×4 (01:06→17:38)
[2021-02-24] MEDS: traMADol 50 MG TAB PO PRN (01:19)
[2021-02-24] MEDS: ALPRAZolam 0.5 MG TAB PO PRN ×2 (01:35→22:12)
[2021-02-24] MEDS: FUROSEMIDE 20 MG/2 ML INJ IV SCH ×2 (06:38→17:31)
[2021-02-24] MEDS: methylPREDNISolone Sod Succinate 40 MG/1 ML INJ IV SCH ×3 (06:39→22:12)
[2021-02-24] MEDS: CALCIUM ACETATE 667 MG CAP PO SCH ×3 (08:02→16:46)
--- NOTE | 2021-02-24 08:07 | Progress Note ---
Assessment and Plan Assessment and plan: #Acute on chronic hypoxic respiratory failure -transitioned to high flow nasal cannula, patient was saturating in high 80s -diagnosed with Covid 2 weeks ago -Pulmonology consulted, assistance appreciated -steroids -etiology secondary to COVID versus CHF #Congestive heart failure -Patient does not report previous history of CHF -BNP 70,000 -Euvolemic on exam -TTE ordered -Cardiology consulted assistance appreciated #Pneumonia -Continue antibiotics #COVID-19 infection -diagnosed 2 weeks ago -patient was discharged from outside hospital on last week -IV steroids #ESRD on HD -// schedule -only completed half session on 02/22 -HD today -Nephrology consulted, assistance appreciated Total Time Spent with Patient (Minutes): 30 minutes History Interval history: No acute events. Now on high flow nasal cannula. Denies any discomfort or complaints at this time. Hospitalist Physical - Physical exam Narrative exam: GENERAL: Obese. Lying in bed in no acute distress. HEENT: HFNC @30 LPM, FiO2 100% CHEST/LUNGS: Coarse breath sounds bilaterally. HEART/CARDIOVASCULAR: RRR. No murmur, rubs or gallops appreciated. ABDOMEN: +BS. NT/ND. SKIN: Bruising at LUE. [place] intact at old R AVF NEURO: No focal motor deficit. Follows all commands. EXTREMITIES: R and L upper extremity AVF. No cyanosis, clubbing or edema. PSYCH: Cooperative. - Constitutional Vitals: Temp Pulse Resp BP Pulse Ox 97.6 F 61 17 127/53 91 02/23/21 10:42 02/24/21 07:31 02/24/21 07:31 02/24/21 07:31 02/24/21 07:59 General appearance: Present: mild distress, obese HEART Score - HEART Score Troponin: Troponin T 0.097 ng/mL (0.00-0.029) H 02/22/21 11:31 Results - Labs CBC & Chem 7: 02/23/21 03:40 02/23/21 03:40 Labs: Laboratory Last Values WBC 5.1 K/mm3 (4.5-11.0) 02/23/21 03:40 RBC 2.50 M/mm3 (3.65-5.03) L 02/23/21 03:40 Hgb 8.3 gm/dl (10.1-14.3) L 02/23/21 03:40 Hct 25.1 % (30.3-42.9) L 02/23/21 03:40 MCV 100 fl (79-97) H 02/23/21 03:40 MCH 33 pg (28-32) H 02/23/21 03:40 MCHC 33 % (30-34) 02/23/21 03:40 RDW 14.5 % (13.2-15.2) 02/23/21 03:40 Plt Count 166 K/mm3 (140-440) 02/23/21 03:40 Lymph % (Auto) 5.7 % (13.4-35.0) L 02/23/21 03:40 Nelson % (Auto) 3.7 % (0.0-7.3) 02/23/21 03:40 Eos % (Auto) 0.1 % (0.0-4.3) 02/23/21 03:40 Baso % (Auto) 0.7 % (0.0-1.8) 02/23/21 03:40 Lymph # (Auto) 0.3 K/mm3 (1.2-5.4) L 02/23/21 03:40 Nelson # (Auto) 0.2 K/mm3 (0.0-0.8) 02/23/21 03:40 Eos # (Auto) 0.0 K/mm3 (0.0-0.4) 02/23/21 03:40 Baso # (Auto) 0.0 K/mm3 (0.0-0.1) 02/23/21 03:40 Seg Neutrophils % 89.8 % (40.0-70.0) H 02/23/21 03:40 Seg Neutrophils # 4.5 K/mm3 (1.8-7.7) 02/23/21 03:40 D-Dimer 902.74 ng/mlDDU (0-234) H 02/22/21 11:31 ABG pH 7.478 (7.320-7.450) H 02/22/21 13:21 POC ABG pCO2 33.5 mmHg (32.0-48.0) 02/22/21 13:21 POC ABG pO2 70.7 mmHg (83-108) L 02/22/21 13:21 POC ABG HCO3 24.3 02/22/21 13:21 ABG O2 Saturation 94.6 (0-100) 02/22/21 13:21 POC ABG Base Excess 1.0 02/22/21 13:21 ABG Hemoglobin 9.4 (12.0-17.5) L 02/22/21 13:21 ABG Oxyhemoglobin 93.7 (94-98) L 02/22/21 13:21 ABG Methemoglobin 0.3 (0.0-1.5) 02/22/21 13:21 ABG Sodium 131.6 mmol/L (136.0-145.0) L 02/22/21 13:21 ABG Potassium 4.0 mmol/L (3.40-4.50) 02/22/21 13:21 ABG Chloride 100.0 mmol/L (98-107) 02/22/21 13:21 ABG Glucose 87 mg/dL (65-95) 02/22/21 13:21 Carboxyhemoglobin 0.6 (0.5-1.5) 02/22/21 13:21 FiO2 % 70.0 02/22/21 13:21 Sodium 136 mmol/L (137-145) L 02/23/21 03:40 Potassium 4.9 mmol/L (3.6-5.0) 02/23/21 03:40 Chloride 99.1 mmol/L (98-107) 02/23/21 03:40 Carbon Dioxide 24 mmol/L (22-30) 02/23/21 03:40 Anion Gap 18 mmol/L 02/23/21 03:40 BUN 45 mg/dL (7-17) H 02/23/21 03:40 Creatinine 5.9 mg/dL (0.6-1.2) H 02/23/21 03:40 Estimated GFR 7 ml/min 02/23/21 03:40 BUN/Creatinine Ratio 8 % 02/23/21 03:40 Glucose 133 mg/dL (65-100) H 02/23/21 03:40 Calcium 8.8 mg/dL (8.4-10.2) 02/23/21 03:40 Troponin T 0.097 ng/mL (0.00-0.029) H 02/22/21 11:31 NT-Pro-B Natriuret Pep 64347 pg/mL (0-900) H 02/22/21 11:31 Arterial Blood Glucose 87 mg/dL (65-95) 02/22/21 13:21 Arterial Blood Ionized Calcium 4.7 mg/dL (4.6-5.3) 02/22/21 13:21 Active Medications - Current Medications Current Medications: Generic Name Dose Route Start Last Admin Trade Name Freq PRN Reason Stop Dose Admin Acetaminophen 650 mg 02/22/21 15:00 Acetaminophen 325 Mg Tab PO Q4H PRN Pain MILD(1-3)/Fever >100.5/GAUTAM Albuterol 2.5 mg 02/22/21 14:26 02/23/21 21:41 Albuterol 2.5 Mg/3 Ml Nebu IH 2.5 mg Q4HRT PRN Administration Shortness Of Breath Alprazolam 0.5 mg 02/22/21 14:29 02/24/21 01:35 Alprazolam 0.5 Mg Tab PO 0.5 mg Q8H PRN Administration Anxiety Amlodipine Besylate 5 mg 02/23/21 10:00 02/23/21 12:31 Amlodipine 5 Mg Tab PO 5 mg DAILY DEVAN Administration Ascorbic Acid 500 mg 02/22/21 22:00 02/23/21 21:38 Ascorbic Acid 500 Mg Tab PO 500 mg BID DEVAN Administration Atorvastatin Calcium 10 mg 02/22/21 22:00 02/23/21 21:38 Atorvastatin 10 Mg Tab PO 10 mg QHS DEVAN Administration Calcium Acetate 1,334 mg 02/23/21 17:00 02/24/21 08:02 Calcium Acetate 667 Mg Cap PO 1,334 mg TIDWM DEVAN Administration Cetirizine HCl 10 mg 02/23/21 10:00 02/23/21 14:59 Cetirizine 10 Mg Tab PO Not Given DAILY DEVAN Cholecalciferol 1,000 unit 02/23/21 10:00 02/23/21 10:36 Cholecalciferol (Vit D3) 1000 Unit (25 Mcg) Tab PO 1,000 unit QDAY DEVAN Administration Furosemide 20 mg 02/22/21 18:00 02/24/21 06:38 Furosemide 20 Mg/2 Ml Inj IV 20 mg BID@0600,1800 DEVAN Administration Heparin Sodium (Porcine) 5,000 unit 02/22/21 22:00 02/23/21 21:38 Heparin 5,000 Unit/1 Ml Vial SUB-Q 5,000 unit Q12HR DEVAN Administration Hydralazine HCl 10 mg 02/23/21 22:06 Hydralazine 10 Mg Tab PO Q4H PRN HTN Hydralazine HCl 10 mg 02/23/21 22:27 Hydralazine 20 Mg/1 Ml Inj IV Q4HR PRN Blood Pressure Hydromorphone HCl 0.5 mg 02/22/21 14:26 02/23/21 01:55 Hydromorphone 1 Mg/1 Ml Inj IV 0.5 mg Q12H PRN Administration Pain , Severe (7-10) Azithromycin 500 mg in 250 mls @ 250 mls/hr 02/22/21 15:00 02/23/21 15:59 Zithromax/Ns IV Infused Q24H DEVAN Infusion Protocol Levothyroxine Sodium 50 mcg 02/23/21 10:00 02/23/21 10:38 Levothyroxine 50 Mcg Tab PO 50 mcg QAM DEVAN Administration Methylprednisolone Sodium Succinate 40 mg 02/22/21 22:00 02/24/21 06:39 Methylprednisolone Sod Succinate 40 Mg/1 Ml Inj IV 40 mg Q8HR DEVAN Administration Multivit/Ca Carb/B Cmplx/FA/Prenat 1 cap 02/23/21 10:00 02/23/21 10:39 Folic Acid/Vit B Comp W-C 1 Mg (Renal Caps) PO 1 cap QDAY DEVAN Administration Ondansetron HCl 4 mg 02/22/21 15:00 Ondansetron 4 Mg/2 Ml Inj IV Q8H PRN Nausea And Vomiting Oxycodone/Acetaminophen 1 tab 02/22/21 14:26 02/23/21 14:58 Oxycodone /Acetaminophen 5-325mg Tab PO 1 tab Q12H PRN Administration Pain, Moderate (4-6) Pantoprazole Sodium 40 mg 02/23/21 10:00 02/23/21 10:36 Pantoprazole 40 Mg Tab PO 40 mg QDAY DEVAN Administration Sodium Chloride 10 ml 02/22/21 22:00 02/23/21 21:38 Sodium Chloride 0.9% 10 Ml Flush Syringe IV 10 ml BID DEVAN Administration Sodium Chloride 10 ml 02/22/21 14:26 Sodium Chloride 0.9% 10 Ml Flush Syringe IV PRN PRN LINE FLUSH Sucralfate 1 gm 02/22/21 18:00 02/24/21 06:37 Sucralfate 1 Gm Tab PO 1 gm Q6HR DEVAN Administration Tramadol HCl 50 mg 02/22/21 15:00 Tramadol 50 Mg Tab PO Q6HR PRN PAIN Zinc Sulfate 220 mg 02/22/21 22:00 02/23/21 21:38 Zinc Sulfate 220 Mg Cap PO 220 mg BID DEVAN Administration
[2021-02-24] MEDS: HEPARIN 5,000 UNIT/1 ML VIAL SUB-Q SCH ×2 (09:30→22:12)
[2021-02-24] MEDS: amLODIPine 5 MG TAB PO SCH (09:30)
[2021-02-24] MEDS: ZINC SULFATE 220 MG CAP PO SCH ×2 (09:32→22:12)
[2021-02-24] MEDS: PANTOPRAZOLE 40 MG TAB PO SCH (09:32)
[2021-02-24] MEDS: CHOLECALCIFEROL (VIT D3) 1000 UNIT (25 mcg) TAB PO SCH (09:32)
[2021-02-24] MEDS: ASCORBIC ACID 500 MG TAB PO SCH ×2 (09:32→22:12)
[2021-02-24] MEDS: FOLIC ACID/VIT B COMP W-C 1 MG (RENAL CAPS) PO SCH (09:47)
[2021-02-24] MEDS: LEVOTHYROXINE 50 MCG TAB PO SCH (09:50)
[2021-02-24] MEDS: CETIRIZINE 10 MG TAB PO SCH (09:50)
--- NOTE | 2021-02-24 10:54 | Consultation ---
History of Present Illness - Reason for Consult Consult date: 02/24/21 end stage renal disease - History of Present Illness This is a 80 year old female who presents to the hospital with a chief complaint of shortness of breath and bodyaches for a few days. Patient was recently diagnosed with COVID infection at another hospital 2 weeks ago. Her COVID test here is currently pending. Patient states her Machine Engineer is Dr. Sibley from [facility]. Patient has ESRD and on HD every ,,. Her treatment was terminated early on Wednesday per report. We are being consulted for management of this patient's ESRD. Past History Past Medical History: dialysis, ESRD, GERD, hypertension, hyperlipidemia Past Surgical History: Other (Dialysis access) Social history: . denies: smoking, alcohol abuse, prescription drug abuse Family history: hypertension Medications and Allergies Allergies Allergy/AdvReac Type Severity Reaction Status Date / Time amoxicillin Allergy Unknown Verified 02/22/21 11:14 codeine Allergy Unknown Verified 02/22/21 11:14 Penicillins Allergy Unknown Verified 02/22/21 11:14 Sulfa (Sulfonamide Allergy Unknown Verified 02/22/21 11:14 Antibiotics) Home Medications Medication Instructions Recorded Confirmed Last Taken Type AtorvaSTATin [Lipitor] 10 mg PO QHS 02/22/21 02/22/21 Unknown History Calcium Acetate [Phoslo] 1,334 mg PO TID 02/22/21 02/22/21 Unknown History Cetirizine HCl [Cetirizine 10mg 10 mg PO QDAY 02/22/21 02/22/21 Unknown History chew] L. Acidophilus/Bifid. Animalis 1 each PO QDAY 02/22/21 02/22/21 Unknown History [Dialyvite Chewable Probiotic] Levothyroxine [Synthroid] 50 mcg PO QAM 02/22/21 02/22/21 Unknown History Pantoprazole [Protonix] 40 mg PO QDAY 02/22/21 02/22/21 Unknown History Sucralfate [Carafate] 1 gm PO Q6HR 02/22/21 02/22/21 Unknown History Temazepam [Restoril] 7.5 mg PO QHS 02/22/21 02/22/21 Unknown History amLODIPine [Norvasc] 5 mg PO DAILY 02/22/21 02/22/21 Unknown History atenoloL [Tenormin] 10 mg PO DAILY 02/22/21 02/22/21 Unknown History traMADoL [Ultram] 50 mg PO Q6HR PRN 02/22/21 02/22/21 Unknown History Active Meds: Active Medications Acetaminophen (Acetaminophen 325 Mg Tab) 650 mg PO Q4H PRN PRN Reason: Pain MILD(1-3)/Fever >100.5/GAUTAM Albuterol (Albuterol 2.5 Mg/3 Ml Nebu) 2.5 mg IH Q4HRT PRN PRN Reason: Shortness Of Breath Last Admin: 02/23/21 21:41 Dose: 2.5 mg Documented by: Alprazolam (Alprazolam 0.5 Mg Tab) 0.5 mg PO Q8H PRN PRN Reason: Anxiety Last Admin: 02/24/21 01:35 Dose: 0.5 mg Documented by: Amlodipine Besylate (Amlodipine 5 Mg Tab) 5 mg PO DAILY [facility] Last Admin: 02/24/21 09:30 Dose: Not Given Documented by: Ascorbic Acid (Ascorbic Acid 500 Mg Tab) 500 mg PO BID [facility] Last Admin: 02/24/21 09:32 Dose: 500 mg Documented by: Atorvastatin Calcium (Atorvastatin 10 Mg Tab) 10 mg PO QHS [facility] Last Admin: 02/23/21 21:38 Dose: 10 mg Documented by: Calcium Acetate (Calcium Acetate 667 Mg Cap) 1,334 mg PO TIDWM [facility] Last Admin: 02/24/21 08:02 Dose: 1,334 mg Documented by: Cetirizine HCl (Cetirizine 10 Mg Tab) 10 mg PO DAILY [facility] Last Admin: 02/24/21 09:50 Dose: 10 mg Documented by: Cholecalciferol (Cholecalciferol (Vit D3) 1000 Unit (25 Mcg) Tab) 1,000 unit PO QDAY [facility] Last Admin: 02/24/21 09:32 Dose: 1,000 unit Documented by: Furosemide (Furosemide 20 Mg/2 Ml Inj) 20 mg IV BID@0600,1800 [facility] Last Admin: 02/24/21 06:38 Dose: 20 mg Documented by: Heparin Sodium (Porcine) (Heparin 5,000 Unit/1 Ml Vial) 5,000 unit SUB-Q Q12HR [facility] Last Admin: 02/24/21 09:30 Dose: 5,000 unit Documented by: Hydralazine HCl (Hydralazine 10 Mg Tab) 10 mg PO Q4H PRN PRN Reason: SBP >/=165; DBP >/=110 Hydralazine HCl (Hydralazine 20 Mg/1 Ml Inj) 10 mg IV Q4HR PRN PRN Reason: SBP >/=165; DBP >/=110 Hydromorphone HCl (Hydromorphone 1 Mg/1 Ml Inj) 0.5 mg IV Q12H PRN PRN Reason: Pain , Severe (7-10) Last Admin: 02/23/21 01:55 Dose: 0.5 mg Documented by: Azithromycin (Zithromax/Ns) 500 mg in 250 mls @ 250 mls/hr IV Q24H [facility]; Protocol Stop: 02/26/21 15:59 Last Infusion: 02/23/21 15:59 Dose: Infused Documented by: Levothyroxine Sodium (Levothyroxine 50 Mcg Tab) 50 mcg PO QAM [facility] Last Admin: 02/24/21 09:50 Dose: 50 mcg Documented by: Methylprednisolone Sodium Succinate (Methylprednisolone Sod Succinate 40 Mg/1 Ml Inj) 40 mg IV Q8HR [facility] Stop: 03/04/21 14:01 Last Admin: 02/24/21 06:39 Dose: 40 mg Documented by: Multivit/Ca Carb/B Cmplx/FA/Prenat (Folic Acid/Vit B Comp W-C 1 Mg (Renal Caps)) 1 cap PO QDAY [facility] Last Admin: 02/24/21 09:47 Dose: 1 cap Documented by: Ondansetron HCl (Ondansetron 4 Mg/2 Ml Inj) 4 mg IV Q8H PRN PRN Reason: Nausea And Vomiting Oxycodone/Acetaminophen (Oxycodone /Acetaminophen 5-325mg Tab) 1 tab PO Q12H PRN PRN Reason: Pain, Moderate (4-6) Last Admin: 02/23/21 14:58 Dose: 1 tab Documented by: Pantoprazole Sodium (Pantoprazole 40 Mg Tab) 40 mg PO QDAY [facility] Last Admin: 02/24/21 09:32 Dose: 40 mg Documented by: Sodium Chloride (Sodium Chloride 0.9% 10 Ml Flush Syringe) 10 ml IV BID [facility] Last Admin: 02/24/21 09:30 Dose: 10 ml Documented by: Sodium Chloride (Sodium Chloride 0.9% 10 Ml Flush Syringe) 10 ml IV PRN PRN PRN Reason: LINE FLUSH Sucralfate (Sucralfate 1 Gm Tab) 1 gm PO Q6HR [facility] Last Admin: 02/24/21 06:37 Dose: 1 gm Documented by: Tramadol HCl (Tramadol 50 Mg Tab) 50 mg PO Q6HR PRN PRN Reason: Pain, Moderate (4-6) Zinc Sulfate (Zinc Sulfate 220 Mg Cap) 220 mg PO BID [facility] Last Admin: 02/24/21 09:32 Dose: 220 mg Documented by: Review of Systems Constitutional: fatigue, weakness, no weight loss, no weight gain, no fever, no chills, no sweats Ears, nose, mouth and throat: no ear pain, no ear discharge, no tinnitis, no decreased hearing, no nose pain, no nasal congestion, no nasal discharge Breasts: deferred Cardiovascular: edema, shortness of breath, no chest pain, no orthopnea, no palpitations Respiratory: shortness of breath, dyspnea on exertion, no cough, no cough with sputum, no excessive sputum Gastrointestinal: no abdominal pain, no nausea, no vomiting, no diarrhea, no constipation, no change in bowel habits Genitourinary Female: no pelvic pain, no flank pain, no menorrhagia, no dysuria, no urinary frequency, no urgency Rectal: no pain, no incontinence, no bleeding Musculoskeletal: no neck stiffness, no neck pain, no shooting arm pain, no arm numbness/tingling, no low back pain, no shooting leg pain Integumentary: no rash, no pruritis, no redness, no sores, no wounds Neurological: weakness, no head injury, no transient paralysis, no paralysis, no parathesias, no numbness, no tingling, no syncope Psychiatric: no anxiety, no memory loss, no change in sleep habits, no sleep disturbances, no insomnia, no hypersomnia, no change in appetite Endocrine: no cold intolerance, no heat intolerance, no polyphagia, no excessive thirst, no polydipsia, no polyuria Hematologic/Lymphatic: no easy bruising, no easy bleeding, no lymphadenopathy, no lymphedema Exam - Vital Signs Vital signs: Vital Signs Pulse Resp Pulse Ox 85 31 H 91 02/22/21 10:57 02/22/21 10:57 02/22/21 10:57 - General Appearance General appearance: well-developed, appears stated age, fatigue EENT: ATNC, PERRL, hearing intact, vision intact Neck: Present: neck supple, trachea midline Respiratory: Decreased Breath Sounds Heart: S1S2 Gastrointestinal: Present: normoactive bowel sounds Integumentary: warm and dry Neurologic: alert and oriented x3 Musculoskeletal: Present: joint swelling Results - Lab Results 02/23/21 03:40 02/23/21 03:40 Most recent lab results ABG pH 7.478 (7.320-7.450) H 02/22/21 13:21 ABG O2 Saturation 94.6 (0-100) 02/22/21 13:21 Calcium 8.8 mg/dL (8.4-10.2) 02/23/21 03:40 Assessment and Plan Assessment: End Stage Renal Disease on Hemodialysis Acute Hypoxic Respiratory failure Recent COVID-19 Infection Hypertension CHF Plan: Hemodialysis today for UF and clearance Patient consented to continuation of hemodialysis throughout hospitalization Fluid restriction of 1 liter per day Obtain daily weights Monitor I/O's daily Renally dose medications Assess dialysis needs daily Plan of care reviewed by Dr. Young
[2021-02-24] MEDS ORDERED: SODIUM CHLORIDE 0.9% 100 ML IV PRN (11:55)
[2021-02-24] MEDS: AZITHROMYCIN/NS 500 MG/250 ML 500 MG/250 ML BAG IV SCH (14:44)
--- NOTE | 2021-02-24 16:42 | Consultation ---
History of Present Illness Consult date: 02/24/21 Requesting physician: NEYMAR MCGUIRE Consult reason: congestive heart failure History of present illness: Patient is an 80 y/o female with a PMHx of ESRD on HD,HTN, hypothyroidism, chronic respiratory failure, interstitial lung disease, and COVID+ diagnosed last week. The patient reports progressively worsening SOB, malaise, aches, and fatigue for several days. Patient was at dialysis on 02/22 when her symptoms worsened. EMS was notified and she was brought to [facility]. CXR showed bilateral PNA. Of note the patient was admitted at [facility] on 02/14/2021 where she was diagnosed with COVID. She was discharged on 02/19/2021 with home O2. Cardiology is being consulted for CHF. The patient is previously unknown to our practice. Past History Past Medical History: dialysis, ESRD, GERD, hypertension, hyperlipidemia, other (interstitial lung disease) Past Surgical History: Other (Dialysis access) Social history: . denies: smoking, alcohol abuse, prescription drug abuse Family history: hypertension Medications and Allergies Allergies Allergy/AdvReac Type Severity Reaction Status Date / Time amoxicillin Allergy Unknown Verified 02/22/21 11:14 codeine Allergy Unknown Verified 02/22/21 11:14 Penicillins Allergy Unknown Verified 02/22/21 11:14 Sulfa (Sulfonamide Allergy Unknown Verified 02/22/21 11:14 Antibiotics) Home Medications Medication Instructions Recorded Confirmed Last Taken Type AtorvaSTATin [Lipitor] 10 mg PO QHS 02/22/21 02/22/21 Unknown History Calcium Acetate [Phoslo] 1,334 mg PO TID 02/22/21 02/22/21 Unknown History Cetirizine HCl [Cetirizine 10mg 10 mg PO QDAY 02/22/21 02/22/21 Unknown History chew] L. Acidophilus/Bifid. Animalis 1 each PO QDAY 02/22/21 02/22/21 Unknown History [Dialyvite Chewable Probiotic] Levothyroxine [Synthroid] 50 mcg PO QAM 02/22/21 02/22/21 Unknown History Pantoprazole [Protonix] 40 mg PO QDAY 02/22/21 02/22/21 Unknown History Sucralfate [Carafate] 1 gm PO Q6HR 02/22/21 02/22/21 Unknown History Temazepam [Restoril] 7.5 mg PO QHS 02/22/21 02/22/21 Unknown History amLODIPine [Norvasc] 5 mg PO DAILY 02/22/21 02/22/21 Unknown History atenoloL [Tenormin] 10 mg PO DAILY 02/22/21 02/22/21 Unknown History traMADoL [Ultram] 50 mg PO Q6HR PRN 02/22/21 02/22/21 Unknown History Active Meds: Active Medications Acetaminophen (Acetaminophen 325 Mg Tab) 650 mg PO Q4H PRN PRN Reason: Pain MILD(1-3)/Fever >100.5/GAUTAM Albuterol (Albuterol 2.5 Mg/3 Ml Nebu) 2.5 mg IH Q4HRT PRN PRN Reason: Shortness Of Breath Last Admin: 02/23/21 21:41 Dose: 2.5 mg Documented by: Alprazolam (Alprazolam 0.5 Mg Tab) 0.5 mg PO Q8H PRN PRN Reason: Anxiety Last Admin: 02/24/21 01:35 Dose: 0.5 mg Documented by: Amlodipine Besylate (Amlodipine 5 Mg Tab) 5 mg PO DAILY [facility] Last Admin: 02/24/21 09:30 Dose: Not Given Documented by: Ascorbic Acid (Ascorbic Acid 500 Mg Tab) 500 mg PO BID [facility] Last Admin: 02/24/21 09:32 Dose: 500 mg Documented by: Atorvastatin Calcium (Atorvastatin 10 Mg Tab) 10 mg PO QHS [facility] Last Admin: 02/23/21 21:38 Dose: 10 mg Documented by: Calcium Acetate (Calcium Acetate 667 Mg Cap) 1,334 mg PO TIDWM [facility] Last Admin: 02/24/21 13:45 Dose: 1,334 mg Documented by: Cetirizine HCl (Cetirizine 10 Mg Tab) 10 mg PO DAILY [facility] Last Admin: 02/24/21 09:50 Dose: 10 mg Documented by: Cholecalciferol (Cholecalciferol (Vit D3) 1000 Unit (25 Mcg) Tab) 1,000 unit PO QDAY [facility] Last Admin: 02/24/21 09:32 Dose: 1,000 unit Documented by: Furosemide (Furosemide 20 Mg/2 Ml Inj) 20 mg IV BID@0600,1800 [facility] Last Admin: 02/24/21 06:38 Dose: 20 mg Documented by: Guaifenesin (Guaifenesin 200 Mg Tab) 200 mg PO Q6H PRN PRN Reason: Cough Heparin Sodium (Porcine) (Heparin 5,000 Unit/1 Ml Vial) 5,000 unit SUB-Q Q12HR [facility] Last Admin: 02/24/21 09:30 Dose: 5,000 unit Documented by: Hydralazine HCl (Hydralazine 10 Mg Tab) 10 mg PO Q4H PRN PRN Reason: SBP >/=165; DBP >/=110 Hydralazine HCl (Hydralazine 20 Mg/1 Ml Inj) 10 mg IV Q4HR PRN PRN Reason: SBP >/=165; DBP >/=110 Hydromorphone HCl (Hydromorphone 1 Mg/1 Ml Inj) 0.5 mg IV Q12H PRN PRN Reason: Pain , Severe (7-10) Last Admin: 02/23/21 01:55 Dose: 0.5 mg Documented by: Azithromycin (Zithromax/Ns) 500 mg in 250 mls @ 250 mls/hr IV Q24H [facility]; Protocol Stop: 02/26/21 15:59 Last Admin: 02/24/21 14:44 Dose: 250 mls/hr Documented by: Sodium Chloride (Nacl 0.9%) 100 mls @ 999 mls/hr IV JUAN PRN PRN Reason: Hypotension Levothyroxine Sodium (Levothyroxine 50 Mcg Tab) 50 mcg PO QAM [facility] Last Admin: 02/24/21 09:50 Dose: 50 mcg Documented by: Methylprednisolone Sodium Succinate (Methylprednisolone Sod Succinate 40 Mg/1 Ml Inj) 40 mg IV Q8HR [facility] Stop: 03/04/21 14:01 Last Admin: 02/24/21 13:45 Dose: 40 mg Documented by: Multivit/Ca Carb/B Cmplx/FA/Prenat (Folic Acid/Vit B Comp W-C 1 Mg (Renal Caps)) 1 cap PO QDAY [facility] Last Admin: 02/24/21 09:47 Dose: 1 cap Documented by: Ondansetron HCl (Ondansetron 4 Mg/2 Ml Inj) 4 mg IV Q8H PRN PRN Reason: Nausea And Vomiting Oxycodone/Acetaminophen (Oxycodone /Acetaminophen 5-325mg Tab) 1 tab PO Q12H PRN PRN Reason: Pain, Moderate (4-6) Last Admin: 02/23/21 14:58 Dose: 1 tab Documented by: Pantoprazole Sodium (Pantoprazole 40 Mg Tab) 40 mg PO QDAY [facility] Last Admin: 02/24/21 09:32 Dose: 40 mg Documented by: Sodium Chloride (Sodium Chloride 0.9% 10 Ml Flush Syringe) 10 ml IV BID [facility] Last Admin: 02/24/21 09:30 Dose: 10 ml Documented by: Sodium Chloride (Sodium Chloride 0.9% 10 Ml Flush Syringe) 10 ml IV PRN PRN PRN Reason: LINE FLUSH Sucralfate (Sucralfate 1 Gm Tab) 1 gm PO Q6HR [facility] Last Admin: 02/24/21 13:45 Dose: 1 gm Documented by: Tramadol HCl (Tramadol 50 Mg Tab) 50 mg PO Q6HR PRN PRN Reason: Pain, Moderate (4-6) Zinc Sulfate (Zinc Sulfate 220 Mg Cap) 220 mg PO BID [facility] Last Admin: 02/24/21 09:32 Dose: 220 mg Documented by: Review of Systems All systems: negative Constitutional: fatigue, malaise, no weight loss, no weight gain, no fever, no chills Ears, nose, mouth and throat: no nasal congestion, no nasal discharge, no sinus pressure, no sinus pain Cardiovascular: shortness of breath, dyspnea on exertion, no chest pain, no orthopnea, no palpitations Respiratory: cough, shortness of breath, dyspnea on exertion Gastrointestinal: no nausea, no vomiting, no diarrhea Musculoskeletal: no neck stiffness, no neck pain, no shooting arm pain, no arm numbness/tingling Integumentary: no rash, no pruritis, no redness Neurological: no head injury, no transient paralysis, no paralysis, no weakness Psychiatric: no anxiety, no memory loss Endocrine: no cold intolerance, no heat intolerance Hematologic/Lymphatic: no easy bruising, no easy bleeding Physical Examination Vital Signs Pulse Resp Pulse Ox 85 31 H 91 02/22/21 10:57 02/22/21 10:57 02/22/21 10:57 General appearance: no acute distress HEENT: Positive: PERRL Neck: Positive: neck supple Cardiac: Positive: Reg Rate and Rhythm, Audible Murmur Lungs: Positive: Decreased Breath Sounds Neuro: Positive: Grossly Intact Abdomen: Positive: Soft, Active Bowel Sounds Extremities: Present: upper extr. pulses, lower extr. pulses Results 02/23/21 03:40 02/23/21 03:40 - Imaging and Cardiology Echo: pending EKG: report reviewed, image reviewed EKG interpretations - Telemetry EKG Rhythm: Sinus Rhythm - EKG Sinus rhythms and dysrhythmias: sinus rhythm Assessment and Plan Patient is a 80 y/o female with PMHx of of ESRD on HD,HTN, hypothyroidism, chronic respiratory failure, interstitial lung disease, and COVID+ CHF * BNP noted to be elevated in setting of missing incomplete HD session. EKG shows sinus 79 with no acute ischemic changes. * Troponins minimally elevated in setting of incomplete HD session. Patient has no complaint of chest pain * Echo 06/11/2020- LVEF of 60-65%. LV diastolic function is indeterminate given severe MAC. Diastolic predominant pulmonary venous flow suggesting elevated filling pressures. RV systolic function is normal. LA is severely-enlarged in volume. RA is mildly-enlarged in volume. Aortic valve with moderately- thickened and calcified leaflets. Mild to moderate aortic stenosis. No aortic regurgitation. Mitral valve with severely thickened and calcified leaflets (image 80). Severe calcific non-rheumatic mitral stenosis (MG = 10mmHg at 67 BPM). No mitral regurgitation. Severe concentric mitral annular calcification extending into the leaflets, the aortomitral continuity and he posterior left atrium. Calcified pap muscle. Normal tricuspid valve morphology. No tricuspid regurgitation. Pulmonic valve not well seen. No pulmonic regurgitation * Echo pending HTN * Patient currently on Amlodipine 5mg PO QD ESRD on HD * Nephrology following h/o COVID PNA Acute on Chronic Respiratory failure * COVD PCR pending * Patient at [place] last week for COVID * Pulmonology consulted Echo pending. Patient seen in conjunction with Dr. Marcum who agrees with this plan of care
--- NOTE | 2021-02-24 16:44 | Progress Note ---
Assessment and Plan 80 y/o female with ESRD and ILD, now with worsening volume overload secondary to incomplete dialysis and not having HD yesterday, plus COVID with combination respiratory failure from volume and COVID. 1. Needs HD 2. Just left hospital less than a week ago, should be still on on steroids 3. wean FiO2 for sats >88%. Was discharged on 4 liters. 4. Guarded prognosis Subjective Date of service: 02/24/21 Interval history: No acute events. Objective Vital Signs - 12hr 02/24/21 02/24/21 02/24/21 04:31 05:01 05:31 Pulse Rate 143 H 65 68 Respiratory 17 22 23 Rate Blood Pressure 43/24 126/48 115/64 O2 Sat by Pulse 97 97 95 Oximetry 02/24/21 02/24/21 02/24/21 06:01 06:31 07:01 Pulse Rate 72 70 65 Respiratory 24 16 22 Rate Blood Pressure 131/43 121/46 114/58 O2 Sat by Pulse 97 94 97 Oximetry 02/24/21 02/24/21 02/24/21 07:31 07:59 08:01 Pulse Rate 61 66 Respiratory 17 24 Rate Blood Pressure 127/53 147/44 O2 Sat by Pulse 96 91 82 L Oximetry 02/24/21 02/24/21 02/24/21 08:31 09:01 09:09 Pulse Rate 69 75 Respiratory 26 H 24 Rate Blood Pressure 135/39 150/50 O2 Sat by Pulse 85 81 L 97 Oximetry 02/24/21 02/24/21 02/24/21 09:31 10:01 10:31 Pulse Rate 66 68 65 Respiratory 23 14 18 Rate Blood Pressure 110/89 188/88 158/66 O2 Sat by Pulse 92 98 99 Oximetry 02/24/21 02/24/21 02/24/21 11:01 11:31 11:57 Pulse Rate 66 68 Respiratory 14 20 Rate Blood Pressure 169/70 156/78 O2 Sat by Pulse 98 99 96 Oximetry 02/24/21 02/24/21 02/24/21 12:01 12:31 13:01 Pulse Rate 74 76 68 Respiratory 25 H 26 H 25 H Rate Blood Pressure 137/80 179/74 179/74 O2 Sat by Pulse 97 93 96 Oximetry 02/24/21 13:31 Pulse Rate 79 Respiratory 23 Rate Blood Pressure 179/74 O2 Sat by Pulse 90 Oximetry Constitutional: no acute distress, alert ENT: oropharynx moist Neck: supple Ascultation: Bilateral: rales Cardiovascular: regular rate and rhythm Gastrointestinal: normoactive bowel sounds, non-tender, non-distended Extremities: no cyanosis Psychiatric: mood appropriate, affect normal CBC and BMP: 03/03/21 08:41 03/03/21 08:41 ABG, PT/INR, D-dimer: ABG ABG pH 7.478 (7.320-7.450) H 02/22/21 13:21 POC ABG pCO2 33.5 mmHg (32.0-48.0) 02/22/21 13:21 POC ABG pO2 70.7 mmHg (83-108) L 02/22/21 13: POC ABG HCO3 24.3 02/22/21 13:21 ABG O2 Saturation 94.6 (0-100) 02/22/21 13:21 PT/INR, D-dimer D-Dimer 902.74 ng/mlDDU (0-234) H 02/22/21 11:31 Abnormal lab findings: Abnormal Labs 02/22/21 02/22/21 02/22/21 11:31 11:31 11:31 WBC 12.9 H RBC 3.01 L Hgb 10.0 L Hct MCV 101 H MCH 33 H Lymph % (Auto) Lymph # (Auto) Seg Neutrophils % D-Dimer 902.74 H ABG pH POC ABG pO2 ABG Hemoglobin ABG Oxyhemoglobin ABG Sodium Sodium BUN 32 H Creatinine 4.7 H Glucose Troponin T 0.097 H NT-Pro-B Natriuret Pep 45814 H Coronavirus (PCR) 02/22/21 02/23/21 02/23/21 13:21 03:40 03:40 WBC RBC 2.50 L Hgb 8.3 L Hct 25.1 L MCV 100 H MCH 33 H Lymph % (Auto) 5.7 L Lymph # (Auto) 0.3 L Seg Neutrophils % 89.8 H D-Dimer ABG pH 7.478 H POC ABG pO2 70.7 L ABG Hemoglobin 9.4 L ABG Oxyhemoglobin 93.7 L ABG Sodium 131.6 L Sodium 136 L BUN 45 H Creatinine 5.9 H Glucose 133 H Troponin T NT-Pro-B Natriuret Pep Coronavirus (PCR) 02/24/21 Unknown WBC RBC Hgb Hct MCV MCH Lymph % (Auto) Lymph # (Auto) Seg Neutrophils % D-Dimer ABG pH POC ABG pO2 ABG Hemoglobin ABG Oxyhemoglobin ABG Sodium Sodium BUN Creatinine Glucose Troponin T NT-Pro-B Natriuret Pep Coronavirus (PCR) Positive A
[2021-02-24] MEDS: ACETAMINOPHEN 325 MG TAB PO PRN (22:12)
[2021-02-25] MEDS: SUCRALFATE 1 GM TAB PO SCH ×6 (03:04→22:44)
[2021-02-25] MEDS: methylPREDNISolone Sod Succinate 40 MG/1 ML INJ IV SCH ×3 (06:07→22:30)
[2021-02-25] MEDS: FUROSEMIDE 20 MG/2 ML INJ IV SCH ×2 (06:08→18:22)
[2021-02-25] MEDS: CALCIUM ACETATE 667 MG CAP PO SCH ×3 (09:23→18:22)
[2021-02-25] MEDS: PANTOPRAZOLE 40 MG TAB PO SCH (09:23)
[2021-02-25] MEDS: FOLIC ACID/VIT B COMP W-C 1 MG (RENAL CAPS) PO SCH (09:23)
[2021-02-25] MEDS: ASCORBIC ACID 500 MG TAB PO SCH ×2 (09:23→22:30)
[2021-02-25] MEDS: ZINC SULFATE 220 MG CAP PO SCH ×2 (09:24→22:30)
[2021-02-25] MEDS: amLODIPine 5 MG TAB PO SCH (09:24)
[2021-02-25] MEDS: CHOLECALCIFEROL (VIT D3) 1000 UNIT (25 mcg) TAB PO SCH (09:24)
[2021-02-25] MEDS: HEPARIN 5,000 UNIT/1 ML VIAL SUB-Q SCH (09:25)
[2021-02-25] MEDS: CETIRIZINE 10 MG TAB PO SCH (09:25)
[2021-02-25] MEDS: LEVOTHYROXINE 50 MCG TAB PO SCH (09:25)
--- NOTE | 2021-02-25 09:49 | Progress Note ---
Assessment and Plan 80 y/o female with ESRD and ILD, now with worsening volume overload secondary to incomplete dialysis and not having HD yesterday, plus COVID with combination respiratory failure from volume and COVID. 1. Needs HD 2. Just left hospital less than a week ago, should be still on on steroids 3. wean FiO2 for sats >88%. Was discharged on 4 liters. 4. Guarded prognosis Subjective Date of service: 02/25/21 Interval history: No acute events. Did not get HD on yesterday. Still on HFNC at 30 and 70 but sat is 97. Currently lying on side. Objective Vital Signs - 12hr 02/24/21 02/24/21 02/24/21 22:01 22:31 23:01 Pulse Rate 86 93 H 84 Pulse Rate [ From Monitor] Pulse Rate [ Right Posterior Tibial] Respiratory 17 28 H 22 Rate Blood Pressure 172/76 172/76 172/76 O2 Sat by Pulse 93 93 96 Oximetry 02/24/21 02/25/21 02/25/21 23:31 00:01 00:31 Pulse Rate 90 83 78 Pulse Rate [ From Monitor] Pulse Rate [ Right Posterior Tibial] Respiratory 23 22 21 Rate Blood Pressure 172/76 172/76 172/76 O2 Sat by Pulse 96 97 96 Oximetry 02/25/21 02/25/21 02/25/21 01:01 02:16 02:35 Pulse Rate 90 78 Pulse Rate [ From Monitor] Pulse Rate [ 85 Right Posterior Tibial] Respiratory 29 H 22 19 Rate Blood Pressure 172/76 172/76 126/60 O2 Sat by Pulse 76 L 98 100 Oximetry 02/25/21 02/25/21 02/25/21 03:00 03:01 03:56 Pulse Rate 97 H Pulse Rate [ 85 From Monitor] Pulse Rate [ 85 Right Posterior Tibial] Respiratory 22 22 Rate Blood Pressure 137/63 O2 Sat by Pulse 100 100 96 Oximetry 02/25/21 02/25/21 02/25/21 04:30 05:36 05:45 Pulse Rate 74 79 Pulse Rate [ From Monitor] Pulse Rate [ 87 Right Posterior Tibial] Respiratory 20 22 19 Rate Blood Pressure 108/45 O2 Sat by Pulse 97 97 98 Oximetry 02/25/21 02/25/21 02/25/21 06:01 06:10 06:31 Pulse Rate 94 H 82 82 Pulse Rate [ From Monitor] Pulse Rate [ Right Posterior Tibial] Respiratory 21 20 Rate Blood Pressure 107/44 93/43 O2 Sat by Pulse 96 Oximetry 02/25/21 02/25/21 02/25/21 07:01 08:50 09:02 Pulse Rate 76 Pulse Rate [ From Monitor] Pulse Rate [ Right Posterior Tibial] Respiratory 19 Rate Blood Pressure 110/51 O2 Sat by Pulse 99 96 97 Oximetry 02/25/21 09:24 Pulse Rate 70 Pulse Rate [ From Monitor] Pulse Rate [ Right Posterior Tibial] Respiratory Rate Blood Pressure 90/39 O2 Sat by Pulse Oximetry Constitutional: no acute distress, alert ENT: oropharynx moist Neck: supple Ascultation: Bilateral: rales Cardiovascular: regular rate and rhythm Gastrointestinal: normoactive bowel sounds, non-tender, non-distended Extremities: no cyanosis Psychiatric: mood appropriate, affect normal CBC and BMP: 02/23/21 03:40 02/23/21 03:40 ABG, PT/INR, D-dimer: ABG ABG pH 7.478 (7.320-7.450) H 02/22/21 13:21 POC ABG pCO2 33.5 mmHg (32.0-48.0) 02/22/21 13:21 POC ABG pO2 70.7 mmHg (83-108) L 02/22/21 13:21 POC ABG HCO3 24.3 02/22/21 13:21 ABG O2 Saturation 94.6 (0-100) 02/22/21 13:21 PT/INR, D-dimer D-Dimer 902.74 ng/mlDDU (0-234) H 02/22/21 11:31 Abnormal lab findings: Abnormal Labs 02/22/21 02/22/21 02/22/21 11:31 11:31 11:31 WBC 12.9 H RBC 3.01 L Hgb 10.0 L Hct MCV 101 H MCH 33 H Lymph % (Auto) Lymph # (Auto) Seg Neutrophils % D-Dimer 902.74 H ABG pH POC ABG pO2 ABG Hemoglobin ABG Oxyhemoglobin ABG Sodium Sodium BUN 32 H Creatinine 4.7 H Glucose Troponin T 0.097 H NT-Pro-B Natriuret Pep 51473 H Coronavirus (PCR) 02/22/21 02/23/21 02/23/21 13:21 03:40 03:40 WBC RBC 2.50 L Hgb 8.3 L Hct 25.1 L MCV 100 H MCH 33 H Lymph % (Auto) 5.7 L Lymph # (Auto) 0.3 L Seg Neutrophils % 89.8 H D-Dimer ABG pH 7.478 H POC ABG pO2 70.7 L ABG Hemoglobin 9.4 L ABG Oxyhemoglobin 93.7 L ABG Sodium 131.6 L Sodium 136 L BUN 45 H Creatinine 5.9 H Glucose 133 H Troponin T NT-Pro-B Natriuret Pep Coronavirus (PCR) 02/24/21 Unknown WBC RBC Hgb Hct MCV MCH Lymph % (Auto) Lymph # (Auto) Seg Neutrophils % D-Dimer ABG pH POC ABG pO2 ABG Hemoglobin ABG Oxyhemoglobin ABG Sodium Sodium BUN Creatinine Glucose Troponin T NT-Pro-B Natriuret Pep Coronavirus (PCR) Positive A
[2021-02-25] MEDS ORDERED: HYDROCORTISONE SOD SUCC 100 MG/2 ML VIAL IV SCH (11:00)
--- NOTE | 2021-02-25 11:42 | Electrocardiograph Report ---
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
--- NOTE | 2021-02-25 12:22 | Progress Note ---
Assessment and Plan Patient is a 80 y/o female with PMHx of of ESRD on HD,HTN, hypothyroidism, chronic respiratory failure, interstitial lung disease, and COVID+ Volume overload * BNP noted to be elevated in setting of missing incomplete HD session. EKG shows sinus 79 with no acute ischemic changes. * Troponins minimally elevated in setting of incomplete HD session. Patient has no complaint of chest pain * Echo 06/11/2020- LVEF of 60-65%. LV diastolic function is indeterminate given severe MAC. Diastolic predominant pulmonary venous flow suggesting elevated filling pressures. RV systolic function is normal. LA is severely-enlarged in volume. RA is mildly-enlarged in volume. Aortic valve with moderately- thickened and calcified leaflets. Mild to moderate aortic stenosis. No aortic regurgitation. Mitral valve with severely thickened and calcified leaflets (image 80). Severe calcific non-rheumatic mitral stenosis (MG = 10mmHg at 67 BPM). No mitral regurgitation. Severe concentric mitral annular calcification extending into the leaflets, the aortomitral continuity and he posterior left atrium. Calcified pap muscle. Normal tricuspid valve morphology. No tricuspid regurgitation. Pulmonic valve not well seen. No pulmonic regurgitation * Echo- - EF 50 to 55%, mild diastolic dysfunction impaired relaxation pattern, right ventricle systolic function is normal, right ventricle mildly dilated left and right atrium are normal in size, there is aortic valve leaflet calcification no aortic valvular stenosis, mitral valve leaflets are calcified mild mitral regurgitation, moderate mitral stenosis, mild to moderate tricuspid regurgitation. COVID-19 PNA Acute on Chronic Respiratory failure * COVD PCR positive * Patient at [facility] last week for COVID * Pulmonology following New onset Afib * Telemetry reviewed: Patient currently afib 70s * Most recent EKG: shows Afib rate [address]-T abnormalities HTN * Patient currently on Amlodipine 5mg PO QD ESRD on HD * Nephrology following Plan: In setting of new onset afib initiated amio 200mg PO BID and Eliquis for anticoagualtion. BMP,LFT, and CBC in AM Patient seen in conjunction with Dr. Marcum who agrees with this plan of care. will continue to follow - Patient Problems (1) Afib Current Visit: Yes Status: Acute (2) Acute hypoxemic respiratory failure Current Visit: Yes Status: Acute (3) COVID-19 virus infection Current Visit: Yes Status: Acute (4) ESRD (end stage renal disease) on dialysis Current Visit: Yes Status: Acute (5) Hypoxia Current Visit: Yes Status: Acute (6) Leukocytosis Current Visit: Yes Status: Acute Qualifiers: Leukocytosis type: other Qualified Code(s): D72.828 - Other elevated white blood cell count (7) Pneumonia Current Visit: Yes Status: Acute (8) Pulmonary edema Current Visit: Yes Status: Acute Qualifiers: Chronicity: acute Qualified Code(s): J81.0 - Acute pulmonary edema Subjective Date of service: 02/25/21 Principal diagnosis: ESRD, Volume overload, AFIB Interval history: Patient lying in bed. Patient now Afib 70s on monitor Objective Last Vital Signs Temp 97.1 F L 02/25/21 08:00 Pulse 77 02/25/21 11:01 Resp 27 H 02/25/21 11:01 BP 90/14 02/25/21 11:01 Pulse Ox 95 02/25/21 11:01 - Physical Examination General: No Apparent Distress HEENT: Positive: PERRL Neck: Positive: neck supple Cardiac: Positive: irregularly irregular, Systolic Murmur Lungs: Positive: Decreased Breath Sounds Neuro: Positive: Grossly Intact Abdomen: Positive: Soft, Active Bowel Sounds Extremities: Present: upper extr. pulses, lower extr. pulses - Imaging and Cardiology EKG: report reviewed, image reviewed Echo: report reviewed - Telemetry EKG Rhythm: Atrial Fibrillation - EKG Supraventricular dysrhythmia: atrial fibrillation Repolarization changes or abnormalities: nonspecific abnormality, ST segment, and/or T wave
--- NOTE | 2021-02-25 12:58 | Progress Note ---
Assessment and Plan End Stage Renal Disease on Hemodialysis Acute Hypoxic Respiratory failure Recent COVID-19 Infection Hypertension CHF Plan: Hemodialysis today for UF and clearance, will order again for tomorrow Fluid restriction of 1 liter per day Obtain daily weights Monitor I/O's daily Renally dose medications Assess dialysis needs daily Subjective Date of service: 02/25/21 Principal diagnosis: ESRD, Volume overload, AFIB Interval history: cont to require Oxygen Objective - Vital Signs Vital signs: Vital Signs - 12hr 02/25/21 02/25/21 02/25/21 01:01 02:16 02:35 Temperature Pulse Rate 90 78 Pulse Rate [ From Monitor] Pulse Rate [ 85 Right Posterior Tibial] Respiratory 29 H 22 19 Rate Blood Pressure 172/76 172/76 126/60 O2 Sat by Pulse 76 L 98 100 Oximetry 02/25/21 02/25/21 02/25/21 03:00 03:01 03:56 Temperature Pulse Rate 97 H Pulse Rate [ 85 From Monitor] Pulse Rate [ 85 Right Posterior Tibial] Respiratory 22 22 Rate Blood Pressure 137/63 O2 Sat by Pulse 100 100 96 Oximetry 02/25/21 02/25/21 02/25/21 04:30 05:36 05:45 Temperature Pulse Rate 74 79 Pulse Rate [ From Monitor] Pulse Rate [ 87 Right Posterior Tibial] Respiratory 20 22 19 Rate Blood Pressure 108/45 O2 Sat by Pulse 97 97 98 Oximetry 02/25/21 02/25/21 02/25/21 06:01 06:10 06:31 Temperature Pulse Rate 94 H 82 82 Pulse Rate [ From Monitor] Pulse Rate [ Right Posterior Tibial] Respiratory 21 20 Rate Blood Pressure 107/44 93/43 O2 Sat by Pulse 96 Oximetry 02/25/21 02/25/21 02/25/21 07:01 07:31 07:39 Temperature Pulse Rate 76 99 H Pulse Rate [ 72 From Monitor] Pulse Rate [ Right Posterior Tibial] Respiratory 19 20 22 Rate Blood Pressure 110/51 110/51 O2 Sat by Pulse 99 100 Oximetry 02/25/21 02/25/21 02/25/21 08:00 08:01 08:31 Temperature 97.1 F L Pulse Rate 78 84 Pulse Rate [ From Monitor] Pulse Rate [ Right Posterior Tibial] Respiratory 25 H 18 Rate Blood Pressure 117/52 117/52 O2 Sat by Pulse 96 96 Oximetry 02/25/21 02/25/21 02/25/21 08:50 09:01 09:02 Temperature Pulse Rate 70 Pulse Rate [ From Monitor] Pulse Rate [ Right Posterior Tibial] Respiratory 21 Rate Blood Pressure 90/39 O2 Sat by Pulse 96 97 97 Oximetry 02/25/21 02/25/21 02/25/21 09:24 09:31 10:00 Temperature Pulse Rate 70 69 78 Pulse Rate [ From Monitor] Pulse Rate [ Right Posterior Tibial] Respiratory 20 Rate Blood Pressure 90/39 90/39 O2 Sat by Pulse 97 Oximetry 02/25/21 02/25/21 02/25/21 10:01 10:30 11:00 Temperature Pulse Rate 71 76 Pulse Rate [ 72 From Monitor] Pulse Rate [ Right Posterior Tibial] Respiratory 21 19 22 Rate Blood Pressure 85/40 93/45 O2 Sat by Pulse 97 96 100 Oximetry 02/25/21 02/25/21 11:01 12:00 Temperature 97.0 F L Pulse Rate 77 Pulse Rate [ From Monitor] Pulse Rate [ Right Posterior Tibial] Respiratory 27 H Rate Blood Pressure 90/14 O2 Sat by Pulse 95 Oximetry - Lab 02/23/21 03:40 02/23/21 03:40 Most recent lab results ABG pH 7.478 (7.320-7.450) H 02/22/21 13:21 ABG O2 Saturation 94.6 (0-100) 02/22/21 13:21 Calcium 8.8 mg/dL (8.4-10.2) 02/23/21 03:40 Medications & Allergies - Medications Allergies/Adverse Reactions: Allergies amoxicillin Allergy (Verified 02/22/21 11:14) Unknown codeine Allergy (Verified 02/22/21 11:14) Unknown Penicillins Allergy (Verified 02/22/21 11:14) Unknown Sulfa (Sulfonamide Antibiotics) Allergy (Verified 02/22/21 11:14) Unknown Home Medications: Home Medications Medication Instructions Recorded Confirmed Last Taken Type AtorvaSTATin [Lipitor] 10 mg PO QHS 02/22/21 02/22/21 Unknown History Calcium Acetate [Phoslo] 1,334 mg PO TID 02/22/21 02/22/21 Unknown History Cetirizine HCl [Cetirizine 10mg 10 mg PO QDAY 02/22/21 02/22/21 Unknown History chew] L. Acidophilus/Bifid. Animalis 1 each PO QDAY 02/22/21 02/22/21 Unknown History [Dialyvite Chewable Probiotic] Levothyroxine [Synthroid] 50 mcg PO QAM 02/22/21 02/22/21 Unknown History Pantoprazole [Protonix] 40 mg PO QDAY 02/22/21 02/22/21 Unknown History Sucralfate [Carafate] 1 gm PO Q6HR 02/22/21 02/22/21 Unknown History Temazepam [Restoril] 7.5 mg PO QHS 02/22/21 02/22/21 Unknown History amLODIPine [Norvasc] 5 mg PO DAILY 02/22/21 02/22/21 Unknown History atenoloL [Tenormin] 10 mg PO DAILY 02/22/21 02/22/21 Unknown History traMADoL [Ultram] 50 mg PO Q6HR PRN 02/22/21 02/22/21 Unknown History Active Medications: Generic Name Dose Route Start Last Admin Trade Name Freq PRN Reason Stop Dose Admin Acetaminophen 650 mg 02/22/21 15:00 02/24/21 22:12 Acetaminophen 325 Mg Tab PO 650 mg Q4H PRN Administration Pain MILD(1-3)/Fever >100.5/GAUTAM Albuterol 2.5 mg 02/22/21 14:26 02/23/21 21:41 Albuterol 2.5 Mg/3 Ml Nebu IH 2.5 mg Q4HRT PRN Administration Shortness Of Breath Alprazolam 0.5 mg 02/22/21 14:29 02/24/21 22:12 Alprazolam 0.5 Mg Tab PO 0.5 mg Q8H PRN Administration Anxiety Amiodarone HCl 200 mg 02/25/21 12:00 Amiodarone 200 Mg Tab PO BID DEVAN Amlodipine Besylate 5 mg 02/23/21 10:00 02/25/21 09:24 Amlodipine 5 Mg Tab PO Not Given DAILY DEVAN Apixaban 2.5 mg 02/25/21 22:00 Apixaban 2.5 Mg Tab PO Q12HR [facility] Protocol Ascorbic Acid 500 mg 02/22/21 22:00 02/25/21 09:23 Ascorbic Acid 500 Mg Tab PO 500 mg BID DEVAN Administration Atorvastatin Calcium 10 mg 02/22/21 22:00 02/24/21 23:27 Atorvastatin 10 Mg Tab PO Not Given QHS [facility] Calcium Acetate 1,334 mg 02/23/21 17:00 02/25/21 11:56 Calcium Acetate 667 Mg Cap PO 1,334 mg TIDWM DEVAN Administration Cetirizine HCl 10 mg 02/23/21 10:00 02/25/21 09:25 Cetirizine 10 Mg Tab PO 10 mg DAILY DEVAN Administration Cholecalciferol 1,000 unit 02/23/21 10:00 02/25/21 09:24 Cholecalciferol (Vit D3) 1000 Unit (25 Mcg) Tab PO 1,000 unit QDAY DEVAN Administration Furosemide 20 mg 02/22/21 18:00 02/25/21 06:08 Furosemide 20 Mg/2 Ml Inj IV 20 mg BID@0600,1800 DEVAN Administration Guaifenesin 200 mg 02/24/21 13:10 Guaifenesin 200 Mg Tab PO Q6H PRN Cough Hydralazine HCl 10 mg 02/23/21 22:06 Hydralazine 10 Mg Tab PO Q4H PRN SBP >/=165; DBP >/=110 Hydralazine HCl 10 mg 02/23/21 22:27 Hydralazine 20 Mg/1 Ml Inj IV Q4HR PRN SBP >/=165; DBP >/=110 Hydrocortisone Sodium Succinate 100 mg 02/25/21 11:00 02/25/21 11:56 Hydrocortisone Sod Succ 100 Mg/2 Ml Vial IV 02/25/21 15:00 100 mg ONCE@1100 DEVAN Administration Hydromorphone HCl 0.5 mg 02/22/21 14:26 02/23/21 01:55 Hydromorphone 1 Mg/1 Ml Inj IV 0.5 mg Q12H PRN Administration Pain , Severe (7-10) Azithromycin 500 mg in 250 mls @ 250 mls/hr 02/22/21 15:00 02/24/21 14:44 Zithromax/Ns IV 02/26/21 15:59 250 mls/hr Q24H DEVAN Administration Protocol Sodium Chloride 100 mls @ 999 mls/hr 02/24/21 11:55 Nacl 0.9% IV JUAN PRN Hypotension Levothyroxine Sodium 50 mcg 02/23/21 10:00 02/25/21 09:25 Levothyroxine 50 Mcg Tab PO 50 mcg QAM [facility] Administration Methylprednisolone Sodium Succinate 40 mg 02/22/21 22:00 02/25/21 06:07 Methylprednisolone Sod Succinate 40 Mg/1 Ml Inj IV 03/04/21 14:01 40 mg Q8HR DEVAN Administration Multivit/Ca Carb/B Cmplx/FA/Prenat 1 cap 02/23/21 10:00 02/25/21 09:23 Folic Acid/Vit B Comp W-C 1 Mg (Renal Caps) PO 1 cap QDAY DEVAN Administration Ondansetron HCl 4 mg 02/22/21 15:00 Ondansetron 4 Mg/2 Ml Inj IV Q8H PRN Nausea And Vomiting Oxycodone/Acetaminophen 1 tab 02/22/21 14:26 02/23/21 14:58 Oxycodone /Acetaminophen 5-325mg Tab PO 1 tab Q12H PRN Administration Pain, Moderate (4-6) Pantoprazole Sodium 40 mg 02/23/21 10:00 02/25/21 09:23 Pantoprazole 40 Mg Tab PO 40 mg QDAY DEVAN Administration Sodium Chloride 10 ml 02/22/21 22:00 02/25/21 09:25 Sodium Chloride 0.9% 10 Ml Flush Syringe IV 10 ml BID DEVAN Administration Sodium Chloride 10 ml 02/22/21 14:26 Sodium Chloride 0.9% 10 Ml Flush Syringe IV PRN PRN LINE FLUSH Sucralfate 1 gm 02/22/21 18:00 02/25/21 11:56 Sucralfate 1 Gm Tab PO Not Given Q6HR DEVAN Tramadol HCl 50 mg 02/22/21 15:00 Tramadol 50 Mg Tab PO Q6HR PRN Pain, Moderate (4-6) Zinc Sulfate 220 mg 02/22/21 22:00 02/25/21 09:24 Zinc Sulfate 220 Mg Cap PO 220 mg BID DEVAN Administration
[2021-02-25] MEDS: AZITHROMYCIN/NS 500 MG/250 ML 500 MG/250 ML BAG IV SCH (14:16)
[2021-02-25] MEDS: AMIODARONE 200 MG TAB PO SCH ×2 (14:16→22:30)
--- NOTE | 2021-02-25 18:10 | Progress Note ---
Assessment and Plan Assessment and plan: #Acute on chronic hypoxic respiratory failure -transitioned to high flow nasal cannula, patient was saturating in high 80s -diagnosed with Covid 2 weeks ago -Pulmonology consulted, assistance appreciated -Continue steroids -etiology secondary to COVID versus CHF #Congestive heart failure -Patient does not report previous history of CHF -BNP 70,000 -Euvolemic on exam -TTE ordered -Cardiology consulted assistance appreciated #Pneumonia -Continue antibiotics #COVID-19 infection -diagnosed 2 weeks ago -patient was discharged from outside hospital on last week -IV steroids #ESRD on HD -// schedule -only completed half session on 02/22 -HD unable to be performed today due to low blood pressures; will reassess tomorrow -Nephrology consulted, assistance appreciated Disposition Plan: Pending clinical improvement Total Time Spent with Patient (Minutes): 30 History Interval history: Patient was unable to receive hemodialysis today or yesterday. No acute events over night. The patient denies fevers, chills, nausea, vomiting, abdominal pain, chest pain/pressure, shortness of breath, urinary symptoms, weakness, or confusion. Hospitalist Physical - Constitutional Vitals: Temp Pulse Resp BP Pulse Ox 97.0 F L 72 24 89/36 88 02/25/21 12:00 02/25/21 17:31 02/25/21 17:31 02/25/21 17:31 02/25/21 17:31 General appearance: Present: no acute distress - EENT Eyes: Present: PERRL, EOM intact ENT: hearing intact, clear oral mucosa, dentition normal - Neck Neck: Present: supple, normal ROM - Respiratory Respiratory effort: normal Respiratory: bilateral: diminished, rhonchi - Cardiovascular Rhythm: regular Heart Sounds: Present: S1 & S2 - Extremities Extremities: no ischemia, pulses intact, pulses symmetrical, No edema Peripheral Pulses: within normal limits - Abdominal General gastrointestinal: soft, non-tender, non-distended, normal bowel sounds - Integumentary Integumentary: Present: clear, warm, dry - Psychiatric Psychiatric: appropriate mood/affect, intact judgment & insight, memory intact, cooperative - Neurologic Neurologic: CNII-XII intact, moves all extremities - Allied Health Allied health notes reviewed: nursing HEART Score - HEART Score History: Moderately suspicious EKG: Non-specific Age: > 65 Risk factors: > 3 risk factors or hx of atherosclerotic disease Troponin: Troponin T 0.097 ng/mL (0.00-0.029) H 02/22/21 11:31 Troponin: < normal limit HEART Score: 6 - Critical Actions Critical Actions: 4-6 pts:12-16.6% risk of adverse cardiac event. Should be admitted Results - Labs CBC & Chem 7: 02/23/21 03:40 02/23/21 03:40 Labs: Laboratory Last Values WBC 5.1 K/mm3 (4.5-11.0) 02/23/21 03:40 RBC 2.50 M/mm3 (3.65-5.03) L 02/23/21 03:40 Hgb 8.3 gm/dl (10.1-14.3) L 02/23/21 03:40 Hct 25.1 % (30.3-42.9) L 02/23/21 03:40 MCV 100 fl (79-97) H 02/23/21 03:40 MCH 33 pg (28-32) H 02/23/21 03:40 MCHC 33 % (30-34) 02/23/21 03:40 RDW 14.5 % (13.2-15.2) 02/23/21 03:40 Plt Count 166 K/mm3 (140-440) 02/23/21 03:40 Lymph % (Auto) 5.7 % (13.4-35.0) L 02/23/21 03:40 Teller % (Auto) 3.7 % (0.0-7.3) 02/23/21 03:40 Eos % (Auto) 0.1 % (0.0-4.3) 02/23/21 03:40 Baso % (Auto) 0.7 % (0.0-1.8) 02/23/21 03:40 Lymph # (Auto) 0.3 K/mm3 (1.2-5.4) L 02/23/21 03:40 Teller # (Auto) 0.2 K/mm3 (0.0-0.8) 02/23/21 03:40 Eos # (Auto) 0.0 K/mm3 (0.0-0.4) 02/23/21 03:40 Baso # (Auto) 0.0 K/mm3 (0.0-0.1) 02/23/21 03:40 Seg Neutrophils % 89.8 % (40.0-70.0) H 02/23/21 03:40 Seg Neutrophils # 4.5 K/mm3 (1.8-7.7) 02/23/21 03:40 D-Dimer 902.74 ng/mlDDU (0-234) H 02/22/21 11:31 ABG pH 7.478 (7.320-7.450) H 02/22/21 13:21 POC ABG pCO2 33.5 mmHg (32.0-48.0) 02/22/21 13:21 POC ABG pO2 70.7 mmHg (83-108) L 02/22/21 13:21 POC ABG HCO3 24.3 02/22/21 13:21 ABG O2 Saturation 94.6 (0-100) 02/22/21 13:21 POC ABG Base Excess 1.0 02/22/21 13:21 ABG Hemoglobin 9.4 (12.0-17.5) L 02/22/21 13:21 ABG Oxyhemoglobin 93.7 (94-98) L 02/22/21 13:21 ABG Methemoglobin 0.3 (0.0-1.5) 02/22/21 13:21 ABG Sodium 131.6 mmol/L (136.0-145.0) L 02/22/21 13:21 ABG Potassium 4.0 mmol/L (3.40-4.50) 02/22/21 13:21 ABG Chloride 100.0 mmol/L (98-107) 02/22/21 13:21 ABG Glucose 87 mg/dL (65-95) 02/22/21 13:21 Carboxyhemoglobin 0.6 (0.5-1.5) 02/22/21 13:21 FiO2 % 70.0 02/22/21 13:21 Sodium 136 mmol/L (137-145) L 02/23/21 03:40 Potassium 4.9 mmol/L (3.6-5.0) 02/23/21 03:40 Chloride 99.1 mmol/L (98-107) 02/23/21 03:40 Carbon Dioxide 24 mmol/L (22-30) 02/23/21 03:40 Anion Gap 18 mmol/L 02/23/21 03:40 BUN 45 mg/dL (7-17) H 02/23/21 03:40 Creatinine 5.9 mg/dL (0.6-1.2) H 02/23/21 03:40 Estimated GFR 7 ml/min 02/23/21 03:40 BUN/Creatinine Ratio 8 % 02/23/21 03:40 Glucose 133 mg/dL (65-100) H 02/23/21 03:40 Calcium 8.8 mg/dL (8.4-10.2) 02/23/21 03:40 Troponin T 0.097 ng/mL (0.00-0.029) H 02/22/21 11:31 NT-Pro-B Natriuret Pep 31261 pg/mL (0-900) H 02/22/21 11:31 Arterial Blood Glucose 87 mg/dL (65-95) 02/22/21 13:21 Arterial Blood Ionized Calcium 4.7 mg/dL (4.6-5.3) 02/22/21 13:21 Coronavirus (PCR) Positive (Negative) A 02/24/21 Unknown Bullard/IV: Voiding Method Incontinent Active Medications - Current Medications Current Medications: Generic Name Dose Route Start Last Admin Trade Name Freq PRN Reason Stop Dose Admin Acetaminophen 650 mg 02/22/21 15:00 02/24/21 22:12 Acetaminophen 325 Mg Tab PO 650 mg Q4H PRN Administration Pain MILD(1-3)/Fever >100.5/GAUTAM Albuterol 2.5 mg 02/22/21 14:26 02/23/21 21:41 Albuterol 2.5 Mg/3 Ml Nebu IH 2.5 mg Q4HRT PRN Administration Shortness Of Breath Alprazolam 0.5 mg 02/22/21 14:29 02/24/21 22:12 Alprazolam 0.5 Mg Tab PO 0.5 mg Q8H PRN Administration Anxiety Amiodarone HCl 200 mg 02/25/21 12:00 02/25/21 14:16 Amiodarone 200 Mg Tab PO 200 mg BID EDVAN Administration Amlodipine Besylate 5 mg 02/23/21 10:00 02/25/21 09:24 Amlodipine 5 Mg Tab PO Not Given DAILY DEVAN Apixaban 2.5 mg 02/25/21 22:00 Apixaban 2.5 Mg Tab PO Q12HR [facility] Protocol Ascorbic Acid 500 mg 02/22/21 22:00 02/25/21 09:23 Ascorbic Acid 500 Mg Tab PO 500 mg BID DEVAN Administration Atorvastatin Calcium 10 mg 02/22/21 22:00 02/24/21 23:27 Atorvastatin 10 Mg Tab PO Not Given QHS [facility] Calcium Acetate 1,334 mg 02/23/21 17:00 02/25/21 11:56 Calcium Acetate 667 Mg Cap PO 1,334 mg TIDWM DEVAN Administration Cetirizine HCl 10 mg 02/23/21 10:00 02/25/21 09:25 Cetirizine 10 Mg Tab PO 10 mg DAILY DEVAN Administration Cholecalciferol 1,000 unit 02/23/21 10:00 02/25/21 09:24 Cholecalciferol (Vit D3) 1000 Unit (25 Mcg) Tab PO 1,000 unit QDAY [facility] Administration Furosemide 20 mg 02/22/21 18:00 02/25/21 06:08 Furosemide 20 Mg/2 Ml Inj IV 20 mg BID@0600,1800 DEVAN Administration Guaifenesin 200 mg 02/24/21 13:10 Guaifenesin 200 Mg Tab PO Q6H PRN Cough Hydralazine HCl 10 mg 02/23/21 22:06 Hydralazine 10 Mg Tab PO Q4H PRN SBP >/=165; DBP >/=110 Hydralazine HCl 10 mg 02/23/21 22:27 Hydralazine 20 Mg/1 Ml Inj IV Q4HR PRN SBP >/=165; DBP >/=110 Hydromorphone HCl 0.5 mg 02/22/21 14:26 02/23/21 01:55 Hydromorphone 1 Mg/1 Ml Inj IV 0.5 mg Q12H PRN Administration Pain , Severe (7-10) Azithromycin 500 mg in 250 mls @ 250 mls/hr 02/22/21 15:00 02/25/21 14:16 Zithromax/Ns IV 02/26/21 15:59 250 mls/hr Q24H DEVAN Administration Protocol Sodium Chloride 100 mls @ 999 mls/hr 02/24/21 11:55 Nacl 0.9% IV JUAN PRN Hypotension Levothyroxine Sodium 50 mcg 02/23/21 10:00 02/25/21 09:25 Levothyroxine 50 Mcg Tab PO 50 mcg QAM DEVAN Administration Methylprednisolone Sodium Succinate 40 mg 02/22/21 22:00 02/25/21 14:16 Methylprednisolone Sod Succinate 40 Mg/1 Ml Inj IV 03/04/21 14:01 40 mg Q8HR DEVAN Administration Multivit/Ca Carb/B Cmplx/FA/Prenat 1 cap 02/23/21 10:00 02/25/21 09:23 Folic Acid/Vit B Comp W-C 1 Mg (Renal Caps) PO 1 cap QDAY DEVAN Administration Ondansetron HCl 4 mg 02/22/21 15:00 Ondansetron 4 Mg/2 Ml Inj IV Q8H PRN Nausea And Vomiting Oxycodone/Acetaminophen 1 tab 02/22/21 14:26 02/23/21 14:58 Oxycodone /Acetaminophen 5-325mg Tab PO 1 tab Q12H PRN Administration Pain, Moderate (4-6) Pantoprazole Sodium 40 mg 02/23/21 10:00 02/25/21 09:23 Pantoprazole 40 Mg Tab PO 40 mg QDAY DEVAN Administration Sodium Chloride 10 ml 02/22/21 22:00 02/25/21 09:25 Sodium Chloride 0.9% 10 Ml Flush Syringe IV 10 ml BID DEVAN Administration Sodium Chloride 10 ml 02/22/21 14:26 Sodium Chloride 0.9% 10 Ml Flush Syringe IV PRN PRN LINE FLUSH Sucralfate 1 gm 02/22/21 18:00 02/25/21 11:56 Sucralfate 1 Gm Tab PO Not Given Q6HR DEVAN Tramadol HCl 50 mg 02/22/21 15:00 Tramadol 50 Mg Tab PO Q6HR PRN Pain, Moderate (4-6) Zinc Sulfate 220 mg 02/22/21 22:00 02/25/21 09:24 Zinc Sulfate 220 Mg Cap PO 220 mg BID DEVAN Administration
[2021-02-25] MEDS ORDERED: APIXABAN 5 MG TAB PO SCH (22:00)
[2021-02-25] MEDS: APIXABAN 2.5 MG TAB PO SCH (22:30)
[2021-02-25] MEDS: guaiFENesin 200 MG TAB PO PRN (22:34)
[2021-02-25] MEDS: ACETAMINOPHEN 325 MG TAB PO PRN (23:35)
[2021-02-25] MEDS: ONDANSETRON 4 MG/2 ML INJ IV PRN (23:35)
[2021-02-26] MEDS: SUCRALFATE 1 GM TAB PO SCH ×4 (03:09→18:27)
[2021-02-26 03:28] LABS: Hematocrit 27.2 % (30.3-42.9); Hemoglobin 8.7 gm/dl (10.1-14.3); Mean Corpuscular HGB Conc 32 % (30-34); Mean Corpuscular Volume 101 fl (79-97); Platelet Count 201 K/mm3 (140-440); Red Blood Count 2.71 M/mm3 (3.65-5.03); Red Cell Distribution Width 14.7 % (13.2-15.2)
[2021-02-26 03:37] LABS: INR 1.28 (0.87-1.13)
[2021-02-26 03:38] LABS: Partial Thromboplastin Time 34.2 Sec. (24.2-36.6)
[2021-02-26 03:39] LABS: Alanine Aminotransferase 47 units/L (7-56); Albumin 2.8 g/dL (3.9-5); Blood Urea Nitrogen 98 mg/dL (7-17); Calcium 9.4 mg/dL (8.4-10.2); Hemolysis Index 16
[2021-02-26 03:41] LABS: BUN/Creatinine Ratio 11; Bilirubin,Direct < 0.2 mg/dL (0-0.2)
[2021-02-26 04:29] LABS: Total Cells Counted 100
[2021-02-26 04:32] LABS: Burr Cells 1+; Hepatitis C Virus Antibody Non-Reactive (NonReactive); Ovalocytes 1+; Target Cells Few
[2021-02-26 04:35] LABS: Platelet Estimate Consistent w Auto
[2021-02-26 04:36] LABS: Hepatitis B Surface Antigen Nonreactive (Negative)
[2021-02-26] MEDS: FUROSEMIDE 20 MG/2 ML INJ IV SCH (05:43)
[2021-02-26] MEDS: methylPREDNISolone Sod Succinate 40 MG/1 ML INJ IV SCH ×3 (05:43→21:18)
[2021-02-26] MEDS: guaiFENesin 200 MG TAB PO PRN (05:44)
[2021-02-26] MEDS: ACETAMINOPHEN 325 MG TAB PO PRN (05:44)
[2021-02-26] MEDS: APIXABAN 2.5 MG TAB PO SCH ×2 (09:07→21:09)
[2021-02-26] MEDS: ASCORBIC ACID 500 MG TAB PO SCH ×2 (09:07→21:09)
[2021-02-26] MEDS: CETIRIZINE 10 MG TAB PO SCH (09:07)
[2021-02-26] MEDS: ZINC SULFATE 220 MG CAP PO SCH ×2 (09:07→21:09)
[2021-02-26] MEDS: CHOLECALCIFEROL (VIT D3) 1000 UNIT (25 mcg) TAB PO SCH (09:07)
[2021-02-26] MEDS: CALCIUM ACETATE 667 MG CAP PO SCH ×3 (09:07→18:27)
[2021-02-26] MEDS: FOLIC ACID/VIT B COMP W-C 1 MG (RENAL CAPS) PO SCH (09:07)
[2021-02-26] MEDS: PANTOPRAZOLE 40 MG TAB PO SCH (09:07)
[2021-02-26] MEDS: LEVOTHYROXINE 50 MCG TAB PO SCH (09:08)
--- NOTE | 2021-02-26 09:11 | Progress Note ---
Assessment and Plan 80 y/o female with ESRD and ILD, now with worsening volume overload secondary to incomplete dialysis and not having HD yesterday, plus COVID with combination respiratory failure from volume and COVID. 1. Needs HD 2. Just left hospital less than a week ago, should be still on on steroids 3. wean FiO2 for sats >88%. Was discharged on 4 liters. 4. Guarded prognosis Subjective Date of service: 02/26/21 Principal diagnosis: ESRD, Volume overload, AFIB Interval history: Did not get HD yesterday secondary to marginal BP's. Objective Vital Signs - 12hr 02/25/21 02/25/21 02/25/21 21:30 22:01 22:21 Temperature Pulse Rate 71 76 75 Pulse Rate [ From Monitor] Respiratory 19 23 21 Rate Blood Pressure 107/39 107/39 107/39 O2 Sat by Pulse 97 97 92 Oximetry 02/25/21 02/25/21 02/25/21 22:31 23:01 23:31 Temperature Pulse Rate 74 69 76 Pulse Rate [ From Monitor] Respiratory 22 15 19 Rate Blood Pressure 107/39 95/47 143/112 O2 Sat by Pulse 94 94 94 Oximetry 02/25/21 02/26/21 02/26/21 23:56 00:00 00:25 Temperature 97.5 F L Pulse Rate 69 73 Pulse Rate [ 69 From Monitor] Respiratory 21 Rate Blood Pressure 152/57 O2 Sat by Pulse 95 Oximetry 02/26/21 02/26/21 02/26/21 00:31 01:01 01:31 Temperature Pulse Rate 70 72 72 Pulse Rate [ From Monitor] Respiratory 19 16 22 Rate Blood Pressure 162/62 162/62 139/59 O2 Sat by Pulse 95 93 95 Oximetry 02/26/21 02/26/21 02/26/21 02:00 02:30 03:01 Temperature Pulse Rate 70 66 69 Pulse Rate [ From Monitor] Respiratory 20 14 19 Rate Blood Pressure 141/55 139/80 139/80 O2 Sat by Pulse 94 93 94 Oximetry 02/26/21 02/26/21 02/26/21 03:02 03:30 03:44 Temperature 97.7 F Pulse Rate 71 Pulse Rate [ From Monitor] Respiratory 18 Rate Blood Pressure 121/52 O2 Sat by Pulse 96 94 Oximetry 02/26/21 02/26/21 02/26/21 04:00 04:01 04:30 Temperature Pulse Rate 70 68 81 Pulse Rate [ From Monitor] Respiratory 23 15 Rate Blood Pressure 121/52 104/73 O2 Sat by Pulse 96 89 Oximetry 02/26/21 02/26/21 02/26/21 05:00 05:31 06:01 Temperature Pulse Rate 70 69 71 Pulse Rate [ From Monitor] Respiratory 19 22 20 Rate Blood Pressure 108/67 108/67 92/38 O2 Sat by Pulse 93 95 Oximetry 02/26/21 02/26/21 02/26/21 06:31 07:00 07:30 Temperature Pulse Rate 67 69 69 Pulse Rate [ From Monitor] Respiratory 26 H 12 20 Rate Blood Pressure 92/38 110/41 112/44 O2 Sat by Pulse 93 100 96 Oximetry 02/26/21 07:52 Temperature 97.6 F Pulse Rate Pulse Rate [ From Monitor] Respiratory Rate Blood Pressure O2 Sat by Pulse Oximetry Constitutional: no acute distress, alert ENT: oropharynx moist Neck: supple Ascultation: Bilateral: rales Cardiovascular: regular rate and rhythm Gastrointestinal: normoactive bowel sounds, non-tender, non-distended Extremities: no cyanosis Psychiatric: mood appropriate, affect normal CBC and BMP: 03/03/21 08:41 03/03/21 08:41 ABG, PT/INR, D-dimer: ABG ABG pH 7.478 (7.320-7.450) H 02/22/21 13:21 POC ABG pCO2 33.5 mmHg (32.0-48.0) 02/22/21 13:21 POC ABG pO2 70.7 mmHg (83-108) L 02/22/21 13:21 POC ABG HCO3 24.3 02/22/21 13:21 ABG O2 Saturation 94.6 (0-100) 02/22/21 13:21 PT/INR, D-dimer PT 16.5 Sec. (12.2-14.9) H 02/26/21 03:06 INR 1.28 (0.87-1.13) H 02/26/21 03:06 D-Dimer 902.74 ng/mlDDU (0-234) H 02/22/21 11:31 Abnormal lab findings: Abnormal Labs 02/22/21 02/22/21 02/22/21 11:31 11:31 11:31 WBC 12.9 H RBC 3.01 L Hgb 10.0 L Hct MCV 101 H MCH 33 H Lymph % (Auto) Lymph # (Auto) Seg Neutrophils % Seg Neuts % (Manual) Lymphocytes % (Manual) Seg Neutrophils # Man Lymphocytes # (Manual) PT INR D-Dimer 902.74 H ABG pH POC ABG pO2 ABG Hemoglobin ABG Oxyhemoglobin ABG Sodium Sodium Potassium Chloride Carbon Dioxide BUN 32 H Creatinine 4.7 H Glucose Phosphorus Magnesium Troponin T 0.097 H NT-Pro-B Natriuret Pep 63952 H Total Protein Albumin Coronavirus (PCR) 02/22/21 02/23/21 02/23/21 13:21 03:40 03:40 WBC RBC 2.50 L Hgb 8.3 L Hct 25.1 L MCV 100 H MCH 33 H Lymph % (Auto) 5.7 L Lymph # (Auto) 0.3 L Seg Neutrophils % 89.8 H Seg Neuts % (Manual) Lymphocytes % (Manual) Seg Neutrophils # Man Lymphocytes # (Manual) PT INR D-Dimer ABG pH 7.478 H POC ABG pO2 70.7 L ABG Hemoglobin 9.4 L ABG Oxyhemoglobin 93.7 L ABG Sodium 131.6 L Sodium 136 L Potassium Chloride Carbon Dioxide BUN 45 H Creatinine 5.9 H Glucose 133 H Phosphorus Magnesium Troponin T NT-Pro-B Natriuret Pep Total Protein Albumin Coronavirus (PCR) 02/24/21 02/26/21 02/26/21 Unknown 03:06 03:06 WBC 11.5 H RBC 2.71 L Hgb 8.7 L Hct 27.2 L MCV 101 H MCH Lymph % (Auto) Lymph # (Auto) Seg Neutrophils % Seg Neuts % (Manual) 95.0 H Lymphocytes % (Manual) 5.0 L Seg Neutrophils # Man 10.9 H Lymphocytes # (Manual) 0.6 L PT 16.5 H INR 1.28 H D-Dimer ABG pH POC ABG pO2 ABG Hemoglobin ABG Oxyhemoglobin ABG Sodium Sodium Potassium Chloride Carbon Dioxide BUN Creatinine Glucose Phosphorus Magnesium Troponin T NT-Pro-B Natriuret Pep Total Protein Albumin Coronavirus (PCR) Positive A 02/26/21 03:06 WBC RBC Hgb Hct MCV MCH Lymph % (Auto) Lymph # (Auto) Seg Neutrophils % Seg Neuts % (Manual) Lymphocytes % (Manual) Seg Neutrophils # Man Lymphocytes # (Manual) PT INR D-Dimer ABG pH POC ABG pO2 ABG Hemoglobin ABG Oxyhemoglobin ABG Sodium Sodium 130 L Potassium 6.0 H D Chloride 92.6 L Carbon Dioxide 17 L D BUN 98 H Creatinine 8.6 H Glucose 181 H Phosphorus 5.10 H Magnesium 2.50 H Troponin T NT-Pro-B Natriuret Pep Total Protein 6.0 L Albumin 2.8 L Coronavirus (PCR)
[2021-02-26] MEDS ORDERED: SODIUM POLYSTYRENE 15 GM/60 ML ORAL LIQD PO SCH (10:00)
--- NOTE | 2021-02-26 10:09 | Electrocardiograph Report ---
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
--- NOTE | 2021-02-26 13:19 | Progress Note ---
Assessment and Plan Patient is a 80 y/o female with PMHx of of ESRD on HD,HTN, hypothyroidism, chronic respiratory failure, interstitial lung disease, and COVID+ Volume overload * BNP noted to be elevated in setting of missing incomplete HD session. EKG shows sinus 79 with no acute ischemic changes. * Troponins minimally elevated in setting of incomplete HD session. Patient has no complaint of chest pain * Echo 06/11/2020- LVEF of 60-65%. LV diastolic function is indeterminate given severe MAC. Diastolic predominant pulmonary venous flow suggesting elevated filling pressures. RV systolic function is normal. LA is severely-enlarged in volume. RA is mildly-enlarged in volume. Aortic valve with moderately- thickened and calcified leaflets. Mild to moderate aortic stenosis. No aortic regurgitation. Mitral valve with severely thickened and calcified leaflets (image 80). Severe calcific non-rheumatic mitral stenosis (MG = 10mmHg at 67 BPM). No mitral regurgitation. Severe concentric mitral annular calcification extending into the leaflets, the aortomitral continuity and he posterior left atrium. Calcified pap muscle. Normal tricuspid valve morphology. No tricuspid regurgitation. Pulmonic valve not well seen. No pulmonic regurgitation * Echo- - EF 50 to 55%, mild diastolic dysfunction impaired relaxation pattern, right ventricle systolic function is normal, right ventricle mildly dilated left and right atrium are normal in size, there is aortic valve leaflet calcification no aortic valvular stenosis, mitral valve leaflets are calcified mild mitral regurgitation, moderate mitral stenosis, mild to moderate tricuspid regurgitation. COVID-19 PNA Acute on Chronic Respiratory failure * COVD PCR positive * Patient at [facility] last week for COVID * Pulmonology following New onset Afib * Telemetry reviewed: Patient currently afib 60s-70s * Most recent EKG: shows Afib rate [address]-T abnormalities HTN * Patient currently hypotensive. Agree with holding BP meds ESRD on HD * Nephrology following Plan: Continue amio 200mg PO BID and Eliquis for anticoagualtion. BMP,LFT, and CBC in AM Patient seen in conjunction with Dr. Marcum who agrees with this plan of care. Will continue to follow - Patient Problems (1) Afib Current Visit: Yes Status: Acute (2) Acute hypoxemic respiratory failure Current Visit: Yes Status: Acute (3) COVID-19 virus infection Current Visit: Yes Status: Acute (4) ESRD (end stage renal disease) on dialysis Current Visit: Yes Status: Acute (5) Hypoxia Current Visit: Yes Status: Acute (6) Leukocytosis Current Visit: Yes Status: Acute Qualifiers: Leukocytosis type: other Qualified Code(s): D72.828 - Other elevated white blood cell count (7) Pneumonia Current Visit: Yes Status: Acute (8) Pulmonary edema Current Visit: Yes Status: Acute Qualifiers: Chronicity: acute Qualified Code(s): J81.0 - Acute pulmonary edema Subjective Date of service: 02/26/21 Principal diagnosis: ESRD, Volume overload, AFIB Interval history: Patient lying in bed. Patient Afib 60s-70s on monitor Objective Last Vital Signs Temp 97.5 F L 02/26/21 12:00 Pulse 65 02/26/21 11:01 Resp 17 02/26/21 11:01 BP 114/32 02/26/21 11:01 Pulse Ox 97 02/26/21 11:01 - Physical Examination General: No Apparent Distress HEENT: Positive: PERRL Neck: Positive: neck supple Cardiac: Positive: irregularly irregular Lungs: Positive: Decreased Breath Sounds Neuro: Positive: Grossly Intact Abdomen: Positive: Soft, Active Bowel Sounds Extremities: Present: upper extr. pulses, lower extr. pulses - Labs and Meds Cardiac Enzymes 02/26/21 Range/Units 03:06 AST 20 (5-40) units/L Coagulation 02/26/21 Range/Units 03:06 PT 16.5 H (12.2-14.9) Sec. INR 1.28 H (0.87-1.13) APTT 34.2 (24.2-36.6) Sec. CBC 02/26/21 Range/Units 03:06 WBC 11.5 H (4.5-11.0) K/mm3 RBC 2.71 L (3.65-5.03) M/mm3 Hgb 8.7 L (10.1-14.3) gm/dl Hct 27.2 L (30.3-42.9) % Plt Count 201 (140-440) K/mm3 Comprehensive Metabolic Panel 02/26/21 Range/Units 03:06 Sodium 130 L (137-145) mmol/L Potassium 6.0 H D (3.6-5.0) mmol/L Chloride 92.6 L (98-107) mmol/L Carbon Dioxide 17 L D (22-30) mmol/L BUN 98 H (7-17) mg/dL Creatinine 8.6 H (0.6-1.2) mg/dL Glucose 181 H (65-100) mg/dL Calcium 9.4 (8.4-10.2) mg/dL Direct Bilirubin < 0.2 (0-0.2) mg/dL Indirect Bilirubin 0.1 mg/dL AST 20 (5-40) units/L ALT 47 (7-56) units/L Alkaline Phosphatase 88 (35-129) units/L Total Protein 6.0 L (6.3-8.2) g/dL Albumin 2.8 L (3.9-5) g/dL - Imaging and Cardiology EKG: report reviewed, image reviewed Echo: report reviewed - Telemetry EKG Rhythm: Atrial Fibrillation - EKG Supraventricular dysrhythmia: atrial fibrillation Repolarization changes or abnormalities: nonspecific abnormality, ST segment, and/or T wave
[2021-02-26] MEDS: AZITHROMYCIN/NS 500 MG/250 ML 500 MG/250 ML BAG IV SCH (14:16)
--- NOTE | 2021-02-26 14:48 | Progress Note ---
Assessment and Plan End Stage Renal Disease on Hemodialysis Acute Hypoxic Respiratory failure Recent COVID-19 Infection Hypertension CHF Plan: will attempt HD again today Fluid restriction of 1 liter per day Obtain daily weights Monitor I/O's daily Renally dose medications Assess dialysis needs daily Subjective Date of service: 02/26/21 Principal diagnosis: ESRD, Volume overload, AFIB Interval history: HD yesterday could not be done due to low BP Objective - Vital Signs Vital signs: Vital Signs - 12hr 02/26/21 02/26/21 02/26/21 03:01 03:02 03:30 Temperature Pulse Rate 69 71 Pulse Rate [ From Monitor] Respiratory 19 18 Rate Blood Pressure 139/80 121/52 O2 Sat by Pulse 94 96 94 Oximetry 02/26/21 02/26/21 02/26/21 03:44 04:00 04:01 Temperature 97.7 F Pulse Rate 70 68 Pulse Rate [ From Monitor] Respiratory 23 Rate Blood Pressure 121/52 O2 Sat by Pulse 96 Oximetry 02/26/21 02/26/21 02/26/21 04:30 05:00 05:31 Temperature Pulse Rate 81 70 69 Pulse Rate [ From Monitor] Respiratory 15 19 22 Rate Blood Pressure 104/73 108/67 108/67 O2 Sat by Pulse 89 93 Oximetry 02/26/21 02/26/21 02/26/21 06:01 06:31 07:00 Temperature Pulse Rate 71 67 69 Pulse Rate [ 76 From Monitor] Respiratory 20 26 H 20 Rate Blood Pressure 92/38 92/38 110/41 O2 Sat by Pulse 95 93 96 Oximetry 02/26/21 02/26/21 02/26/21 07:30 07:52 08:01 Temperature 97.6 F Pulse Rate 69 72 Pulse Rate [ From Monitor] Respiratory 20 20 Rate Blood Pressure 112/44 107/38 O2 Sat by Pulse 96 95 Oximetry 02/26/21 02/26/21 02/26/21 08:30 09:01 09:31 Temperature Pulse Rate 69 74 75 Pulse Rate [ From Monitor] Respiratory 21 22 25 H Rate Blood Pressure 123/42 115/46 130/35 O2 Sat by Pulse 96 94 98 Oximetry 02/26/21 02/26/21 02/26/21 10:00 10:01 10:30 Temperature Pulse Rate 76 72 70 Pulse Rate [ From Monitor] Respiratory 18 19 Rate Blood Pressure 119/48 126/94 O2 Sat by Pulse 98 96 Oximetry 02/26/21 02/26/21 02/26/21 11:00 11:01 11:31 Temperature Pulse Rate 65 68 Pulse Rate [ 78 From Monitor] Respiratory 22 17 20 Rate Blood Pressure 114/32 131/47 O2 Sat by Pulse 95 97 95 Oximetry 02/26/21 02/26/21 02/26/21 12:00 12:01 12:31 Temperature 97.5 F L Pulse Rate 71 78 Pulse Rate [ From Monitor] Respiratory 22 20 Rate Blood Pressure 117/52 127/49 O2 Sat by Pulse 95 90 Oximetry 02/26/21 02/26/21 13:01 13:31 Temperature Pulse Rate 73 71 Pulse Rate [ From Monitor] Respiratory 21 20 Rate Blood Pressure 127/49 128/76 O2 Sat by Pulse 96 95 Oximetry - Lab 02/26/21 03:06 02/26/21 03:06 Most recent lab results ABG pH 7.478 (7.320-7.450) H 02/22/21 13:21 ABG O2 Saturation 94.6 (0-100) 02/22/21 13:21 Calcium 9.4 mg/dL (8.4-10.2) 02/26/21 03:06 Phosphorus 5.10 mg/dL (2.5-4.5) H 02/26/21 03:06 Magnesium 2.50 mg/dL (1.7-2.3) H 02/26/21 03:06 Medications & Allergies - Medications Allergies/Adverse Reactions: Allergies amoxicillin Allergy (Verified 02/22/21 11:14) Unknown codeine Allergy (Verified 02/22/21 11:14) Unknown Penicillins Allergy (Verified 02/22/21 11:14) Unknown Sulfa (Sulfonamide Antibiotics) Allergy (Verified 02/22/21 11:14) Unknown Home Medications: Home Medications Medication Instructions Recorded Confirmed Last Taken Type AtorvaSTATin [Lipitor] 10 mg PO QHS 02/22/21 02/22/21 Unknown History Calcium Acetate [Phoslo] 1,334 mg PO TID 02/22/21 02/22/21 Unknown History Cetirizine HCl [Cetirizine 10mg 10 mg PO QDAY 02/22/21 02/22/21 Unknown History chew] L. Acidophilus/Bifid. Animalis 1 each PO QDAY 02/22/21 02/22/21 Unknown History [Dialyvite Chewable Probiotic] Levothyroxine [Synthroid] 50 mcg PO QAM 02/22/21 02/22/21 Unknown History Pantoprazole [Protonix] 40 mg PO QDAY 02/22/21 02/22/21 Unknown History Sucralfate [Carafate] 1 gm PO Q6HR 02/22/21 02/22/21 Unknown History Temazepam [Restoril] 7.5 mg PO QHS 02/22/21 02/22/21 Unknown History amLODIPine [Norvasc] 5 mg PO DAILY 02/22/21 02/22/21 Unknown History atenoloL [Tenormin] 10 mg PO DAILY 02/22/21 02/22/21 Unknown History traMADoL [Ultram] 50 mg PO Q6HR PRN 02/22/21 02/22/21 Unknown History Active Medications: Generic Name Dose Route Start Last Admin Trade Name Freq PRN Reason Stop Dose Admin Acetaminophen 650 mg 02/22/21 15:00 02/26/21 05:44 Acetaminophen 325 Mg Tab PO 650 mg Q4H PRN Administration Pain MILD(1-3)/Fever >100.5/GAUTAM Albuterol 2.5 mg 02/22/21 14:26 02/23/21 21:41 Albuterol 2.5 Mg/3 Ml Nebu IH 2.5 mg Q4HRT PRN Administration Shortness Of Breath Alprazolam 0.5 mg 02/22/21 14:29 02/24/21 22:12 Alprazolam 0.5 Mg Tab PO 0.5 mg Q8H PRN Administration Anxiety Amiodarone HCl 200 mg 02/25/21 12:00 02/25/21 22:30 Amiodarone 200 Mg Tab PO Not Given BID DEVAN Apixaban 2.5 mg 02/25/21 22:00 02/26/21 09:07 Apixaban 2.5 Mg Tab PO 2.5 mg Q12HR DEVAN Administration Protocol Ascorbic Acid 500 mg 02/22/21 22:00 02/26/21 09:07 Ascorbic Acid 500 Mg Tab PO 500 mg BID DEVAN Administration Atorvastatin Calcium 10 mg 02/22/21 22:00 02/25/21 22:29 Atorvastatin 10 Mg Tab PO 10 mg QHS DEVAN Administration Calcium Acetate 1,334 mg 02/23/21 17:00 02/26/21 13:47 Calcium Acetate 667 Mg Cap PO 1,334 mg TIDWM DEVAN Administration Cetirizine HCl 10 mg 02/23/21 10:00 02/26/21 09:07 Cetirizine 10 Mg Tab PO 10 mg DAILY DEVAN Administration Cholecalciferol 1,000 unit 02/23/21 10:00 02/26/21 09:07 Cholecalciferol (Vit D3) 1000 Unit (25 Mcg) Tab PO 1,000 unit QDAY DEVAN Administration Guaifenesin 200 mg 02/24/21 13:10 02/26/21 05:44 Guaifenesin 200 Mg Tab PO 200 mg Q6H PRN Administration Cough Hydralazine HCl 10 mg 02/23/21 22:06 Hydralazine 10 Mg Tab PO Q4H PRN SBP >/=165; DBP >/=110 Hydralazine HCl 10 mg 02/23/21 22:27 Hydralazine 20 Mg/1 Ml Inj IV Q4HR PRN SBP >/=165; DBP >/=110 Hydromorphone HCl 0.5 mg 02/22/21 14:26 02/23/21 01:55 Hydromorphone 1 Mg/1 Ml Inj IV 0.5 mg Q12H PRN Administration Pain , Severe (7-10) Azithromycin 500 mg in 250 mls @ 250 mls/hr 02/22/21 15:00 02/26/21 14:16 Zithromax/Ns IV 02/26/21 15:59 250 mls/hr Q24H DEVAN Administration Protocol Sodium Chloride 100 mls @ 999 mls/hr 02/24/21 11:55 Nacl 0.9% IV JUAN PRN Hypotension Levothyroxine Sodium 50 mcg 02/23/21 10:00 02/26/21 09:08 Levothyroxine 50 Mcg Tab PO 50 mcg QAM DEVAN Administration Methylprednisolone Sodium Succinate 40 mg 02/22/21 22:00 02/26/21 13:47 Methylprednisolone Sod Succinate 40 Mg/1 Ml Inj IV 03/04/21 14:01 40 mg Q8HR DEVAN Administration Multivit/Ca Carb/B Cmplx/FA/Prenat 1 cap 02/23/21 10:00 02/26/21 09:07 Folic Acid/Vit B Comp W-C 1 Mg (Renal Caps) PO 1 cap QDAY DEVAN Administration Ondansetron HCl 4 mg 02/22/21 15:00 02/25/21 23:35 Ondansetron 4 Mg/2 Ml Inj IV 4 mg Q8H PRN Administration Nausea And Vomiting Oxycodone/Acetaminophen 1 tab 02/22/21 14:26 02/23/21 14:58 Oxycodone /Acetaminophen 5-325mg Tab PO 1 tab Q12H PRN Administration Pain, Moderate (4-6) Pantoprazole Sodium 40 mg 02/23/21 10:00 02/26/21 09:07 Pantoprazole 40 Mg Tab PO 40 mg QDAY DEVAN Administration Sodium Chloride 10 ml 02/22/21 22:00 02/26/21 09:06 Sodium Chloride 0.9% 10 Ml Flush Syringe IV 10 ml BID DEVAN Administration Sodium Chloride 10 ml 02/22/21 14:26 Sodium Chloride 0.9% 10 Ml Flush Syringe IV PRN PRN LINE FLUSH Sucralfate 1 gm 02/22/21 18:00 02/26/21 13:47 Sucralfate 1 Gm Tab PO 1 gm Q6HR DEVAN Administration Tramadol HCl 50 mg 02/22/21 15:00 Tramadol 50 Mg Tab PO Q6HR PRN Pain, Moderate (4-6) Zinc Sulfate 220 mg 02/22/21 22:00 02/26/21 09:07 Zinc Sulfate 220 Mg Cap PO 220 mg BID DEVAN Administration
--- NOTE | 2021-02-26 14:57 | Progress Note ---
Assessment and Plan Assessment and plan: #Acute on chronic hypoxic respiratory failure -Transitioned from high flow nasal cannula to 5 L nasal cannula; saturating in 80s -diagnosed with Covid 2 weeks ago -Pulmonology consulted, assistance appreciated -Continue steroids -etiology secondary to COVID versus CHF #Hyperkalemia -Potassium 6 -Hyperkalemia worsened due to inability to obtain hemodialysis yesterday -Status post Kayexalate x1 this morning with EKG -Pending repeat potassium -Should improve if hemodialysis is performed today #Congestive heart failure -Patient does not report previous history of CHF -BNP 70,000 -Euvolemic on exam -TTE ordered -Cardiology consulted assistance appreciated #Pneumonia -Continue antibiotics #COVID-19 infection -diagnosed 2 weeks ago -patient was discharged from outside hospital on last week -IV steroids #ESRD on HD - schedule -only completed half session on 02/22 -HD unable to be performed today due to low blood pressures; undergoing hemodialysis today -Nephrology consulted, assistance appreciated Disposition Plan: Continue medical management History Interval history: Patient unable to receive hemodialysis yesterday due to low blood pressures. Hospitalist Physical - Constitutional Vitals: Temp Pulse Resp BP Pulse Ox 97.5 F L 71 20 128/76 95 02/26/21 12:00 02/26/21 13:31 02/26/21 13:31 02/26/21 13:31 02/26/21 13:31 General appearance: Present: no acute distress - EENT Eyes: Present: PERRL, EOM intact ENT: hearing intact, clear oral mucosa, dentition normal - Neck Neck: Present: supple, normal ROM - Respiratory Respiratory effort: normal Respiratory: bilateral: diminished, negative: CTA, rales, rhonchi, wheezing, other - Cardiovascular Rhythm: regular Heart Sounds: Present: S1 & S2 - Extremities Extremities: no ischemia, pulses intact, pulses symmetrical, No edema, normal temperature, normal color Peripheral Pulses: within normal limits - Abdominal General gastrointestinal: soft, non-tender, non-distended, normal bowel sounds - Integumentary Integumentary: Present: clear, warm, dry - Psychiatric Psychiatric: appropriate mood/affect, intact judgment & insight, memory intact, cooperative - Neurologic Neurologic: CNII-XII intact - Allied Health Allied health notes reviewed: nursing HEART Score - HEART Score History: Moderately suspicious EKG: Non-specific Age: > 65 Risk factors: > 3 risk factors or hx of atherosclerotic disease Troponin: Troponin T 0.097 ng/mL (0.00-0.029) H 02/22/21 11:31 Troponin: < normal limit HEART Score: 6 - Critical Actions Critical Actions: 4-6 pts:12-16.6% risk of adverse cardiac event. Should be admitted Results - Labs CBC & Chem 7: 02/26/21 03:06 02/26/21 03:06 Labs: Laboratory Last Values WBC 11.5 K/mm3 (4.5-11.0) H 02/26/21 03:06 RBC 2.71 M/mm3 (3.65-5.03) L 02/26/21 03:06 Hgb 8.7 gm/dl (10.1-14.3) L 02/26/21 03:06 Hct 27.2 % (30.3-42.9) L 02/26/21 03:06 MCV 101 fl (79-97) H 02/26/21 03:06 MCH 32 pg (28-32) 02/26/21 03:06 MCHC 32 % (30-34) 02/26/21 03:06 RDW 14.7 % (13.2-15.2) 02/26/21 03:06 Plt Count 201 K/mm3 (140-440) 02/26/21 03:06 Lymph % (Auto) 5.7 % (13.4-35.0) L 02/23/21 03:40 [place] % (Auto) 3.7 % (0.0-7.3) 02/23/21 03:40 Eos % (Auto) 0.1 % (0.0-4.3) 02/23/21 03:40 Baso % (Auto) 0.7 % (0.0-1.8) 02/23/21 03:40 Lymph # (Auto) 0.3 K/mm3 (1.2-5.4) L 02/23/21 03:40 [place] # (Auto) 0.2 K/mm3 (0.0-0.8) 02/23/21 03:40 Eos # (Auto) 0.0 K/mm3 (0.0-0.4) 02/23/21 03:40 Baso # (Auto) 0.0 K/mm3 (0.0-0.1) 02/23/21 03:40 Add Manual Diff Complete 02/26/21 03:06 Total Counted 100 02/26/21 03:06 Seg Neutrophils % Database Technician 02/26/21 03:06 Seg Neuts % (Manual) 95.0 % (40.0-70.0) H 02/26/21 03:06 Lymphocytes % (Manual) 5.0 % (13.4-35.0) L 02/26/21 03:06 Nucleated RBC % Not Reportable 02/26/21 03:06 Seg Neutrophils # 4.5 K/mm3 (1.8-7.7) 02/23/21 03:40 Seg Neutrophils # Man 10.9 K/mm3 (1.8-7.7) H 02/26/21 03:06 Band Neutrophils # 0.0 K/mm3 02/26/21 03:06 Lymphocytes # (Manual) 0.6 K/mm3 (1.2-5.4) L 02/26/21 03:06 Abs React Lymphs (Man) 0.0 K/mm3 02/26/21 03:06 Monocytes # (Manual) 0.0 K/mm3 (0.0-0.8) 02/26/21 03:06 Eosinophils # (Manual) 0.0 K/mm3 (0.0-0.4) 02/26/21 03:06 Basophils # (Manual) 0.0 K/mm3 (0.0-0.1) 02/26/21 03:06 Metamyelocytes # 0.0 K/mm3 02/26/21 03:06 Myelocytes # 0.0 K/mm3 02/26/21 03:06 Promyelocytes # 0.0 K/mm3 02/26/21 03:06 Blast Cells # 0.0 K/mm3 02/26/21 03:06 WBC Morphology Not Reportable 02/26/21 03:06 Hypersegmented Neuts Not Reportable 02/26/21 03:06 Hyposegmented Neuts Not Reportable 02/26/21 03:06 Hypogranular Neuts Not Reportable 02/26/21 03:06 Smudge Cells Not Reportable 02/26/21 03:06 Toxic Granulation Not Reportable 02/26/21 03:06 Toxic Vacuolation Not Reportable 02/26/21 03:06 Dohle Bodies Not Reportable 02/26/21 03:06 Pelger-Huet Anomaly Not Reportable 02/26/21 03:06 Sumeet Rods Not Reportable 02/26/21 03:06 Platelet Estimate Consistent w auto 02/26/21 03:06 Clumped Platelets Not Reportable 02/26/21 03:06 Plt Clumps, EDTA Not Reportable 02/26/21 03:06 Large Platelets Not Reportable 02/26/21 03:06 Giant Platelets Not Reportable 02/26/21 03:06 Platelet Satelliting Not Reportable 02/26/21 03:06 Plt Morphology Comment Not Reportable 02/26/21 03:06 RBC Morphology Not Reportable 02/26/21 03:06 Dimorphic RBCs Not Reportable 02/26/21 03:06 Polychromasia Not Reportable 02/26/21 03:06 Hypochromasia Not Reportable 02/26/21 03:06 Poikilocytosis Not Reportable 02/26/21 03:06 Anisocytosis Not Reportable 02/26/21 03:06 Microcytosis Not Reportable 02/26/21 03:06 Macrocytosis Not Reportable 02/26/21 03:06 Spherocytes Not Reportable 02/26/21 03:06 Pappenheimer Bodies Not Reportable 02/26/21 03:06 Sickle Cells Not Reportable 02/26/21 03:06 Target Cells Few 02/26/21 03:06 Tear Drop Cells Not Reportable 02/26/21 03:06 Ovalocytes 1+ 02/26/21 03:06 Helmet Cells Not Reportable 02/26/21 03:06 Amezquita-Concepcion Bodies Not Reportable 02/26/21 03:06 [place] Rings Not Reportable 02/26/21 03:06 Gopi Cells 1+ 02/26/21 03:06 Bite Cells Not Reportable 02/26/21 03:06 Crenated Cell Not Reportable 02/26/21 03:06 Elliptocytes Not Reportable 02/26/21 03:06 Acanthocytes (Spur) Not Reportable 02/26/21 03:06 Rouleaux Not Reportable 02/26/21 03:06 Hemoglobin C Crystals Not Reportable 02/26/21 03:06 Schistocytes Not Reportable 02/26/21 03:06 Malaria parasites Not Reportable 02/26/21 03:06 Ervin Bodies Not Reportable 02/26/21 03:06 Hem Pathologist Commnt No 02/26/21 03:06 PT 16.5 Sec. (12.2-14.9) H 02/26/21 03:06 INR 1.28 (0.87-1.13) H 02/26/21 03:06 APTT 34.2 Sec. (24.2-36.6) 02/26/21 03:06 D-Dimer 902.74 ng/mlDDU (0-234) H 02/22/21 11:31 ABG pH 7.478 (7.320-7.450) H 02/22/21 13:21 POC ABG pCO2 33.5 mmHg (32.0-48.0) 02/22/21 13:21 POC ABG pO2 70.7 mmHg (83-108) L 02/22/21 13:21 POC ABG HCO3 24.3 02/22/21 13:21 ABG O2 Saturation 94.6 (0-100) 02/22/21 13:21 POC ABG Base Excess 1.0 02/22/21 13:21 ABG Hemoglobin 9.4 (12.0-17.5) L 02/22/21 13:21 ABG Oxyhemoglobin 93.7 (94-98) L 02/22/21 13:21 ABG Methemoglobin 0.3 (0.0-1.5) 02/22/21 13:21 ABG Sodium 131.6 mmol/L (136.0-145.0) L 02/22/21 13:21 ABG Potassium 4.0 mmol/L (3.40-4.50) 02/22/21 13:21 ABG Chloride 100.0 mmol/L (98-107) 02/22/21 13:21 ABG Glucose 87 mg/dL (65-95) 02/22/21 13:21 Carboxyhemoglobin 0.6 (0.5-1.5) 02/22/21 13:21 FiO2 % 70.0 02/22/21 13:21 Sodium 130 mmol/L (137-145) L 02/26/21 03:06 Potassium 6.0 mmol/L (3.6-5.0) H D 02/26/21 03:06 Chloride 92.6 mmol/L (98-107) L 02/26/21 03:06 Carbon Dioxide 17 mmol/L (22-30) L D 02/26/21 03:06 Anion Gap 26 mmol/L 02/26/21 03:06 BUN 98 mg/dL (7-17) H 02/26/21 03:06 Creatinine 8.6 mg/dL (0.6-1.2) H 02/26/21 03:06 Estimated GFR 4 ml/min 02/26/21 03:06 BUN/Creatinine Ratio 11 % 02/26/21 03:06 Glucose 181 mg/dL (65-100) H 02/26/21 03:06 Calcium 9.4 mg/dL (8.4-10.2) 02/26/21 03:06 Phosphorus 5.10 mg/dL (2.5-4.5) H 02/26/21 03:06 Magnesium 2.50 mg/dL (1.7-2.3) H 02/26/21 03:06 Total Bilirubin 0.30 mg/dL (0.1-1.2) 02/26/21 03:06 Direct Bilirubin < 0.2 mg/dL (0-0.2) 02/26/21 03:06 Indirect Bilirubin 0.1 mg/dL 02/26/21 03:06 AST 20 units/L (5-40) 02/26/21 03:06 ALT 47 units/L (7-56) 02/26/21 03:06 Alkaline Phosphatase 88 units/L (35-129) 02/26/21 03:06 Troponin T 0.097 ng/mL (0.00-0.029) H 02/22/21 11:31 C-Reactive Protein 4.60 mg/dL (0.00-1.30) H 02/26/21 09:08 NT-Pro-B Natriuret Pep 55899 pg/mL (0-900) H 02/22/21 11:31 Total Protein 6.0 g/dL (6.3-8.2) L 02/26/21 03:06 Albumin 2.8 g/dL (3.9-5) L 02/26/21 03:06 Albumin/Globulin Ratio 0.9 % 02/26/21 03:06 Arterial Blood Glucose 87 mg/dL (65-95) 02/22/21 13:21 Arterial Blood Ionized Calcium 4.7 mg/dL (4.6-5.3) 02/22/21 13:21 Coronavirus (PCR) Positive (Negative) A 02/24/21 Unknown Hepatitis A IgM Ab Non-reactive (NonReactive) 02/26/21 03:06 Hep Bs Antigen Nonreactive (Negative) 02/26/21 03:06 Hep B Core IgM Ab Non-reactive (NonReactive) 02/26/21 03:06 Hepatitis C Antibody Non-reactive (NonReactive) 02/26/21 03:06 [place]/IV: Voiding Method Incontinent Active Medications - Current Medications Current Medications: Generic Name Dose Route Start Last Admin Trade Name Freq PRN Reason Stop Dose Admin Acetaminophen 650 mg 02/22/21 15:00 02/26/21 05:44 Acetaminophen 325 Mg Tab PO 650 mg Q4H PRN Administration Pain MILD(1-3)/Fever >100.5/GAUTAM Albuterol 2.5 mg 02/22/21 14:26 02/23/21 21:41 Albuterol 2.5 Mg/3 Ml Nebu IH 2.5 mg Q4HRT PRN Administration Shortness Of Breath Alprazolam 0.5 mg 02/22/21 14:29 02/24/21 22:12 Alprazolam 0.5 Mg Tab PO 0.5 mg Q8H PRN Administration Anxiety Amiodarone HCl 200 mg 02/25/21 12:00 02/25/21 22:30 Amiodarone 200 Mg Tab PO Not Given BID DEVAN Apixaban 2.5 mg 02/25/21 22:00 02/26/21 09:07 Apixaban 2.5 Mg Tab PO 2.5 mg Q12HR DEVAN Administration Protocol Ascorbic Acid 500 mg 02/22/21 22:00 02/26/21 09:07 Ascorbic Acid 500 Mg Tab PO 500 mg BID DEVAN Administration Atorvastatin Calcium 10 mg 02/22/21 22:00 02/25/21 22:29 Atorvastatin 10 Mg Tab PO 10 mg QHS DEVAN Administration Calcium Acetate 1,334 mg 02/23/21 17:00 02/26/21 13:47 Calcium Acetate 667 Mg Cap PO 1,334 mg TIDWM DEVAN Administration Cetirizine HCl 10 mg 02/23/21 10:00 02/26/21 09:07 Cetirizine 10 Mg Tab PO 10 mg DAILY DEVAN Administration Cholecalciferol 1,000 unit 02/23/21 10:00 02/26/21 09:07 Cholecalciferol (Vit D3) 1000 Unit (25 Mcg) Tab PO 1,000 unit QDAY DEVAN Administration Guaifenesin 200 mg 02/24/21 13:10 02/26/21 05:44 Guaifenesin 200 Mg Tab PO 200 mg Q6H PRN Administration Cough Hydralazine HCl 10 mg 02/23/21 22:06 Hydralazine 10 Mg Tab PO Q4H PRN SBP >/=165; DBP >/=110 Hydralazine HCl 10 mg 02/23/21 22:27 Hydralazine 20 Mg/1 Ml Inj IV Q4HR PRN SBP >/=165; DBP >/=110 Hydromorphone HCl 0.5 mg 02/22/21 14:26 02/23/21 01:55 Hydromorphone 1 Mg/1 Ml Inj IV 0.5 mg Q12H PRN Administration Pain , Severe (7-10) Azithromycin 500 mg in 250 mls @ 250 mls/hr 02/22/21 15:00 02/26/21 14:16 Zithromax/Ns IV 02/26/21 15:59 250 mls/hr Q24H DEVAN Administration Protocol Sodium Chloride 100 mls @ 999 mls/hr 02/24/21 11:55 Nacl 0.9% IV JUAN PRN Hypotension Levothyroxine Sodium 50 mcg 02/23/21 10:00 02/26/21 09:08 Levothyroxine 50 Mcg Tab PO 50 mcg QAM DEVAN Administration Methylprednisolone Sodium Succinate 40 mg 02/22/21 22:00 02/26/21 13:47 Methylprednisolone Sod Succinate 40 Mg/1 Ml Inj IV 03/04/21 14:01 40 mg Q8HR DEVAN Administration Multivit/Ca Carb/B Cmplx/FA/Prenat 1 cap 02/23/21 10:00 02/26/21 09:07 Folic Acid/Vit B Comp W-C 1 Mg (Renal Caps) PO 1 cap QDAY DEVAN Administration Ondansetron HCl 4 mg 02/22/21 15:00 02/25/21 23:35 Ondansetron 4 Mg/2 Ml Inj IV 4 mg Q8H PRN Administration Nausea And Vomiting Oxycodone/Acetaminophen 1 tab 02/22/21 14:26 02/23/21 14:58 Oxycodone /Acetaminophen 5-325mg Tab PO 1 tab Q12H PRN Administration Pain, Moderate (4-6) Pantoprazole Sodium 40 mg 02/23/21 10:00 02/26/21 09:07 Pantoprazole 40 Mg Tab PO 40 mg QDAY DEVAN Administration Sodium Chloride 10 ml 02/22/21 22:00 02/26/21 09:06 Sodium Chloride 0.9% 10 Ml Flush Syringe IV 10 ml BID DEVAN Administration Sodium Chloride 10 ml 02/22/21 14:26 Sodium Chloride 0.9% 10 Ml Flush Syringe IV PRN PRN LINE FLUSH Sucralfate 1 gm 02/22/21 18:00 02/26/21 13:47 Sucralfate 1 Gm Tab PO 1 gm Q6HR DEVAN Administration Tramadol HCl 50 mg 02/22/21 15:00 Tramadol 50 Mg Tab PO Q6HR PRN Pain, Moderate (4-6) Zinc Sulfate 220 mg 02/22/21 22:00 02/26/21 09:07 Zinc Sulfate 220 Mg Cap PO 220 mg BID DEVAN Administration
[2021-02-26] MEDS ORDERED: SODIUM CHLORIDE 0.9% 1000 ML 1,000 ML ONE (17:27)
[2021-02-26] MEDS: AMIODARONE 200 MG TAB PO SCH ×2 (18:24→21:05)
[2021-02-27] MEDS: SUCRALFATE 1 GM TAB PO SCH ×5 (00:30→23:00)
[2021-02-27 05:50] LABS: Hematocrit 25.1 % (30.3-42.9); Hemoglobin 8.5 gm/dl (10.1-14.3); Mean Corpuscular HGB Conc 34 % (30-34); Mean Corpuscular Volume 99 fl (79-97); Platelet Count 161 K/mm3 (140-440); Red Blood Count 2.55 M/mm3 (3.65-5.03); Red Cell Distribution Width 13.9 % (13.2-15.2)
[2021-02-27] MEDS: methylPREDNISolone Sod Succinate 40 MG/1 ML INJ IV SCH ×3 (06:07→22:07)
[2021-02-27 06:20] LABS: Alanine Aminotransferase 46 units/L (7-56); Albumin 2.8 g/dL (3.9-5); Blood Urea Nitrogen 60 mg/dL (7-17); Calcium 8.7 mg/dL (8.4-10.2); Hemolysis Index 3
[2021-02-27 06:27] LABS: BUN/Creatinine Ratio 10; Bilirubin,Direct < 0.2 mg/dL (0-0.2)
[2021-02-27] MEDS: CALCIUM ACETATE 667 MG CAP PO SCH ×3 (08:20→17:19)
[2021-02-27] MEDS: CHOLECALCIFEROL (VIT D3) 1000 UNIT (25 mcg) TAB PO SCH (09:53)
[2021-02-27] MEDS: FOLIC ACID/VIT B COMP W-C 1 MG (RENAL CAPS) PO SCH (09:53)
[2021-02-27] MEDS: CETIRIZINE 10 MG TAB PO SCH (09:54)
[2021-02-27] MEDS: PANTOPRAZOLE 40 MG TAB PO SCH (09:54)
[2021-02-27] MEDS: APIXABAN 2.5 MG TAB PO SCH ×2 (09:54→22:08)
[2021-02-27] MEDS: ZINC SULFATE 220 MG CAP PO SCH ×2 (09:54→22:07)
[2021-02-27] MEDS: ASCORBIC ACID 500 MG TAB PO SCH ×2 (09:54→22:07)
[2021-02-27] MEDS: LEVOTHYROXINE 50 MCG TAB PO SCH (09:56)
[2021-02-27] MEDS: AMIODARONE 200 MG TAB PO SCH ×2 (09:59→23:25)
[2021-02-27] MEDS: HYDROmorphone 1 MG/1 ML INJ IV PRN (11:36)
[2021-02-27] MEDS: oxyCODONE /ACETAMINOPHEN 5-325MG TAB PO PRN (11:52)
[2021-02-27] MEDS: ONDANSETRON 4 MG/2 ML INJ IV PRN ×2 (11:53→17:25)
--- NOTE | 2021-02-27 12:04 | Progress Note ---
Assessment and Plan End Stage Renal Disease on Hemodialysis Acute Hypoxic Respiratory failure Recent COVID-19 Infection Hypertension CHF Plan: HD again today for clearance and volume removal Fluid restriction of 1 liter per day Obtain daily weights Monitor I/O's daily Renally dose medications Assess dialysis needs daily Subjective Date of service: 02/27/21 Principal diagnosis: ESRD, Volume overload, AFIB Interval history: tolerated HD yesterday Objective - Vital Signs Vital signs: Vital Signs - 12hr 02/27/21 02/27/21 02/27/21 00:31 01:00 01:30 Temperature Pulse Rate 87 94 H 88 Respiratory 20 20 20 Rate Blood Pressure 112/58 90/55 99/57 O2 Sat by Pulse 96 96 96 Oximetry 02/27/21 02/27/21 02/27/21 02:00 02:31 03:01 Temperature Pulse Rate 92 H 95 H 93 H Respiratory 21 21 20 Rate Blood Pressure 92/55 105/54 86/55 O2 Sat by Pulse 94 96 94 Oximetry 02/27/21 02/27/21 02/27/21 03:31 03:42 04:00 Temperature 97.5 F L Pulse Rate 85 100 H Respiratory 19 21 Rate Blood Pressure 105/72 116/78 O2 Sat by Pulse 95 95 Oximetry 02/27/21 02/27/21 02/27/21 04:30 05:01 05:31 Temperature Pulse Rate 94 H 103 H 104 H Respiratory 18 15 21 Rate Blood Pressure 99/37 113/94 118/56 O2 Sat by Pulse 95 96 96 Oximetry 02/27/21 02/27/21 02/27/21 06:01 06:30 07:01 Temperature Pulse Rate 99 H 93 H 95 H Respiratory 20 23 20 Rate Blood Pressure 126/56 133/77 67/43 O2 Sat by Pulse 96 90 94 Oximetry 02/27/21 02/27/21 02/27/21 07:30 08:00 08:01 Temperature 97.6 F Pulse Rate 96 H 94 H Respiratory 20 19 Rate Blood Pressure 86/39 120/81 O2 Sat by Pulse 98 95 Oximetry 02/27/21 02/27/21 02/27/21 08:31 09:00 09:31 Temperature Pulse Rate 105 H 101 H 99 H Respiratory 20 20 18 Rate Blood Pressure 108/24 107/75 103/46 O2 Sat by Pulse 94 95 97 Oximetry 02/27/21 02/27/21 02/27/21 10:01 10:31 11:01 Temperature Pulse Rate 98 H 103 H 95 H Respiratory 17 23 Rate Blood Pressure 104/49 107/56 128/38 O2 Sat by Pulse 97 97 82 L Oximetry - Lab 02/27/21 05:12 02/27/21 05:12 Most recent lab results ABG pH 7.478 (7.320-7.450) H 02/22/21 13:21 ABG O2 Saturation 94.6 (0-100) 02/22/21 13:21 Calcium 8.7 mg/dL (8.4-10.2) 02/27/21 05:12 Phosphorus 5.10 mg/dL (2.5-4.5) H 02/26/21 03:06 Magnesium 2.50 mg/dL (1.7-2.3) H 02/26/21 03:06 Medications & Allergies - Medications Allergies/Adverse Reactions: Allergies amoxicillin Allergy (Verified 02/22/21 11:14) Unknown codeine Allergy (Verified 02/22/21 11:14) Unknown Penicillins Allergy (Verified 02/22/21 11:14) Unknown Sulfa (Sulfonamide Antibiotics) Allergy (Verified 02/22/21 11:14) Unknown Home Medications: Home Medications Medication Instructions Recorded Confirmed Last Taken Type AtorvaSTATin [Lipitor] 10 mg PO QHS 02/22/21 02/22/21 Unknown History Calcium Acetate [Phoslo] 1,334 mg PO TID 02/22/21 02/22/21 Unknown History Cetirizine HCl [Cetirizine 10mg 10 mg PO QDAY 02/22/21 02/22/21 Unknown History chew] L. Acidophilus/Bifid. Animalis 1 each PO QDAY 02/22/21 02/22/21 Unknown History [Dialyvite Chewable Probiotic] Levothyroxine [Synthroid] 50 mcg PO QAM 02/22/21 02/22/21 Unknown History Pantoprazole [Protonix] 40 mg PO QDAY 02/22/21 02/22/21 Unknown History Sucralfate [Carafate] 1 gm PO Q6HR 02/22/21 02/22/21 Unknown History Temazepam [Restoril] 7.5 mg PO QHS 02/22/21 02/22/21 Unknown History amLODIPine [Norvasc] 5 mg PO DAILY 02/22/21 02/22/21 Unknown History atenoloL [Tenormin] 10 mg PO DAILY 02/22/21 02/22/21 Unknown History traMADoL [Ultram] 50 mg PO Q6HR PRN 02/22/21 02/22/21 Unknown History Active Medications: Generic Name Dose Route Start Last Admin Trade Name Freq PRN Reason Stop Dose Admin Acetaminophen 650 mg 02/22/21 15:00 02/26/21 05:44 Acetaminophen 325 Mg Tab PO 650 mg Q4H PRN Administration Pain MILD(1-3)/Fever >100.5/GAUTAM Albuterol 2.5 mg 02/22/21 14:26 02/23/21 21:41 Albuterol 2.5 Mg/3 Ml Nebu IH 2.5 mg Q4HRT PRN Administration Shortness Of Breath Alprazolam 0.5 mg 02/22/21 14:29 02/24/21 22:12 Alprazolam 0.5 Mg Tab PO 0.5 mg Q8H PRN Administration Anxiety Amiodarone HCl 200 mg 02/27/21 22:00 Amiodarone 200 Mg Tab PO BID DEVAN Apixaban 2.5 mg 02/25/21 22:00 02/27/21 09:54 Apixaban 2.5 Mg Tab PO 2.5 mg Q12HR DEVAN Administration Protocol Ascorbic Acid 500 mg 02/22/21 22:00 02/27/21 09:54 Ascorbic Acid 500 Mg Tab PO 500 mg BID DEVAN Administration Atorvastatin Calcium 10 mg 02/22/21 22:00 02/26/21 21:09 Atorvastatin 10 Mg Tab PO 10 mg QHS DEVAN Administration Calcium Acetate 1,334 mg 02/23/21 17:00 02/27/21 11:35 Calcium Acetate 667 Mg Cap PO 1,334 mg TIDWM DEVAN Administration Cetirizine HCl 10 mg 02/23/21 10:00 02/27/21 09:54 Cetirizine 10 Mg Tab PO 10 mg DAILY DEVAN Administration Cholecalciferol 1,000 unit 02/23/21 10:00 02/27/21 09:53 Cholecalciferol (Vit D3) 1000 Unit (25 Mcg) Tab PO 1,000 unit QDAY DEVAN Administration Guaifenesin 200 mg 02/24/21 13:10 02/26/21 05:44 Guaifenesin 200 Mg Tab PO 200 mg Q6H PRN Administration Cough Hydralazine HCl 10 mg 02/23/21 22:06 Hydralazine 10 Mg Tab PO Q4H PRN SBP >/=165; DBP >/=110 Hydralazine HCl 10 mg 02/23/21 22:27 Hydralazine 20 Mg/1 Ml Inj IV Q4HR PRN SBP >/=165; DBP >/=110 Hydromorphone HCl 0.5 mg 02/22/21 14:26 02/23/21 01:55 Hydromorphone 1 Mg/1 Ml Inj IV 0.5 mg Q12H PRN Administration Pain , Severe (7-10) Levothyroxine Sodium 50 mcg 02/23/21 10:00 02/27/21 09:56 Levothyroxine 50 Mcg Tab PO 50 mcg QAM DEVAN Administration Methylprednisolone Sodium Succinate 40 mg 02/22/21 22:00 02/27/21 06:07 Methylprednisolone Sod Succinate 40 Mg/1 Ml Inj IV 03/04/21 14:01 40 mg Q8HR DEVAN Administration Multivit/Ca Carb/B Cmplx/FA/Prenat 1 cap 02/23/21 10:00 02/27/21 09:53 Folic Acid/Vit B Comp W-C 1 Mg (Renal Caps) PO 1 cap QDAY DEVAN Administration Ondansetron HCl 4 mg 02/22/21 15:00 02/27/21 11:53 Ondansetron 4 Mg/2 Ml Inj IV 4 mg Q8H PRN Administration Nausea And Vomiting Oxycodone/Acetaminophen 1 tab 02/22/21 14:26 02/27/21 11:52 Oxycodone /Acetaminophen 5-325mg Tab PO 1 tab Q12H PRN Administration Pain, Moderate (4-6) Pantoprazole Sodium 40 mg 02/23/21 10:00 02/27/21 09:54 Pantoprazole 40 Mg Tab PO 40 mg QDAY DEVAN Administration Sodium Chloride 10 ml 02/22/21 22:00 02/27/21 09:56 Sodium Chloride 0.9% 10 Ml Flush Syringe IV 10 ml BID DEVAN Administration Sodium Chloride 10 ml 02/22/21 14:26 Sodium Chloride 0.9% 10 Ml Flush Syringe IV PRN PRN LINE FLUSH Sucralfate 1 gm 02/22/21 18:00 02/27/21 11:36 Sucralfate 1 Gm Tab PO 1 gm Q6HR DEVAN Administration Tramadol HCl 50 mg 02/22/21 15:00 Tramadol 50 Mg Tab PO Q6HR PRN Pain, Moderate (4-6) Zinc Sulfate 220 mg 02/22/21 22:00 02/27/21 09:54 Zinc Sulfate 220 Mg Cap PO 220 mg BID DEVAN Administration
--- NOTE | 2021-02-27 12:49 | Progress Note ---
Assessment and Plan Assessment and plan: #Acute on chronic hypoxic respiratory failure-improving -Weaned from 5 L nasal cannula to 4 L nasal cannula; saturating at 92 -diagnosed with Covid 2 weeks ago -Pulmonology consulted, assistance appreciated -Continue steroids -etiology secondary to COVID versus CHF #Hyperkalemia-improving -Potassium 5.1 -Likely improved after obtaining hemodialysis yesterday -We will likely improve if hemodialysis is performed again today -We will continue to monitor #Congestive heart failure -Patient does not report previous history of CHF -BNP 70,000 -Euvolemic on exam -TTE ordered -Cardiology consulted assistance appreciated #COVID-19 pneumonia -Antibiotic course completed -Patient currently stable; will continue to monitor #COVID-19 infection -diagnosed 2 weeks ago -patient was discharged from outside hospital on last week -IV steroids #ESRD on HD - schedule -only completed half session on 02/22; last hemodialysis session on 02/27/2020 -Need for hemodialysis as assessed daily by nephrology -Nephrology consulted, assistance appreciated Disposition Plan: Pending transfer to floor History Interval history: No acute events overnight. The patient tolerated hemodialysis yesterday. Hospitalist Physical - Constitutional Vitals: Temp Pulse Resp BP Pulse Ox 97.6 F 99 H 21 116/69 95 02/27/21 08:00 02/27/21 12:00 02/27/21 12:00 02/27/21 12:00 02/27/21 12:00 General appearance: Present: no acute distress - EENT Eyes: Present: PERRL, EOM intact ENT: hearing intact, clear oral mucosa, dentition normal - Neck Neck: Present: supple, normal ROM - Respiratory Respiratory: bilateral: diminished, negative: CTA, rales, wheezing Details: Currently on 4 L nasal cannula - Cardiovascular Rhythm: regular Heart Sounds: Present: S1 & S2 - Extremities Extremities: no ischemia, pulses intact, pulses symmetrical, No edema, normal temperature, normal color Peripheral Pulses: within normal limits - Abdominal General gastrointestinal: soft, non-tender, non-distended, normal bowel sounds - Integumentary Integumentary: Present: clear (Appropriate age-related skin change), warm, dry - Psychiatric Psychiatric: appropriate mood/affect, intact judgment & insight, memory intact, cooperative - Neurologic Neurologic: CNII-XII intact, moves all extremities - Allied Health Allied health notes reviewed: nursing HEART Score - HEART Score History: Moderately suspicious EKG: Non-specific Age: > 65 Risk factors: > 3 risk factors or hx of atherosclerotic disease Troponin: Troponin T 0.097 ng/mL (0.00-0.029) H 02/22/21 11:31 Troponin: < normal limit HEART Score: 6 - Critical Actions Critical Actions: 4-6 pts:12-16.6% risk of adverse cardiac event. Should be admitted Results - Labs CBC & Chem 7: 02/27/21 05:12 02/27/21 05:12 Labs: Laboratory Last Values WBC 10.5 K/mm3 (4.5-11.0) 02/27/21 05:12 RBC 2.55 M/mm3 (3.65-5.03) L 02/27/21 05:12 Hgb 8.5 gm/dl (10.1-14.3) L 02/27/21 05:12 Hct 25.1 % (30.3-42.9) L 02/27/21 05:12 MCV 99 fl (79-97) H 02/27/21 05:12 MCH 33 pg (28-32) H 02/27/21 05:12 MCHC 34 % (30-34) 02/27/21 05:12 RDW 13.9 % (13.2-15.2) 02/27/21 05:12 Plt Count 161 K/mm3 (140-440) 02/27/21 05:12 Lymph % (Auto) 5.7 % (13.4-35.0) L 02/23/21 03:40 [place] % (Auto) 3.7 % (0.0-7.3) 02/23/21 03:40 Eos % (Auto) 0.1 % (0.0-4.3) 02/23/21 03:40 Baso % (Auto) 0.7 % (0.0-1.8) 02/23/21 03:40 Lymph # (Auto) 0.3 K/mm3 (1.2-5.4) L 02/23/21 03:40 [place] # (Auto) 0.2 K/mm3 (0.0-0.8) 02/23/21 03:40 Eos # (Auto) 0.0 K/mm3 (0.0-0.4) 02/23/21 03:40 Baso # (Auto) 0.0 K/mm3 (0.0-0.1) 02/23/21 03:40 Add Manual Diff Complete 02/26/21 03:06 Total Counted 100 02/26/21 03:06 Seg Neutrophils % Inpatient Services Director 02/26/21 03:06 Seg Neuts % (Manual) 95.0 % (40.0-70.0) H 02/26/21 03:06 Lymphocytes % (Manual) 5.0 % (13.4-35.0) L 02/26/21 03:06 Nucleated RBC % Not Reportable 02/26/21 03:06 Seg Neutrophils # 4.5 K/mm3 (1.8-7.7) 02/23/21 03:40 Seg Neutrophils # Man 10.9 K/mm3 (1.8-7.7) H 02/26/21 03:06 Band Neutrophils # 0.0 K/mm3 02/26/21 03:06 Lymphocytes # (Manual) 0.6 K/mm3 (1.2-5.4) L 02/26/21 03:06 Abs React Lymphs (Man) 0.0 K/mm3 02/26/21 03:06 Monocytes # (Manual) 0.0 K/mm3 (0.0-0.8) 02/26/21 03:06 Eosinophils # (Manual) 0.0 K/mm3 (0.0-0.4) 02/26/21 03:06 Basophils # (Manual) 0.0 K/mm3 (0.0-0.1) 02/26/21 03:06 Metamyelocytes # 0.0 K/mm3 02/26/21 03:06 Myelocytes # 0.0 K/mm3 02/26/21 03:06 Promyelocytes # 0.0 K/mm3 02/26/21 03:06 Blast Cells # 0.0 K/mm3 02/26/21 03:06 WBC Morphology Not Reportable 02/26/21 03:06 Hypersegmented Neuts Not Reportable 02/26/21 03:06 Hyposegmented Neuts Not Reportable 02/26/21 03:06 Hypogranular Neuts Not Reportable 02/26/21 03:06 Smudge Cells Not Reportable 02/26/21 03:06 Toxic Granulation Not Reportable 02/26/21 03:06 Toxic Vacuolation Not Reportable 02/26/21 03:06 Dohle Bodies Not Reportable 02/26/21 03:06 Pelger-Huet Anomaly Not Reportable 02/26/21 03:06 Sumeet Rods Not Reportable 02/26/21 03:06 Platelet Estimate Consistent w auto 02/26/21 03:06 Clumped Platelets Not Reportable 02/26/21 03:06 Plt Clumps, EDTA Not Reportable 02/26/21 03:06 Large Platelets Not Reportable 02/26/21 03:06 Giant Platelets Not Reportable 02/26/21 03:06 Platelet Satelliting Not Reportable 02/26/21 03:06 Plt Morphology Comment Not Reportable 02/26/21 03:06 RBC Morphology Not Reportable 02/26/21 03:06 Dimorphic RBCs Not Reportable 02/26/21 03:06 Polychromasia Not Reportable 02/26/21 03:06 Hypochromasia Not Reportable 02/26/21 03:06 Poikilocytosis Not Reportable 02/26/21 03:06 Anisocytosis Not Reportable 02/26/21 03:06 Microcytosis Not Reportable 02/26/21 03:06 Macrocytosis Not Reportable 02/26/21 03:06 Spherocytes Not Reportable 02/26/21 03:06 Pappenheimer Bodies Not Reportable 02/26/21 03:06 Sickle Cells Not Reportable 02/26/21 03:06 Target Cells Few 02/26/21 03:06 Tear Drop Cells Not Reportable 02/26/21 03:06 Ovalocytes 1+ 02/26/21 03:06 Helmet Cells Not Reportable 02/26/21 03:06 [place] Bodies Not Reportable 02/26/21 03:06 [place] Rings Not Reportable 02/26/21 03:06 [place] Cells 1+ 02/26/21 03:06 Bite Cells Not Reportable 02/26/21 03:06 Crenated Cell Not Reportable 02/26/21 03:06 Elliptocytes Not Reportable 02/26/21 03:06 Acanthocytes (Spur) Not Reportable 02/26/21 03:06 Rouleaux Not Reportable 02/26/21 03:06 Hemoglobin C Crystals Not Reportable 02/26/21 03:06 Schistocytes Not Reportable 02/26/21 03:06 Malaria parasites Not Reportable 02/26/21 03:06 Ervin Bodies Not Reportable 02/26/21 03:06 Hem Pathologist Commnt No 02/26/21 03:06 PT 16.5 Sec. (12.2-14.9) H 02/26/21 03:06 INR 1.28 (0.87-1.13) H 02/26/21 03:06 APTT 34.2 Sec. (24.2-36.6) 02/26/21 03:06 D-Dimer 902.74 ng/mlDDU (0-234) H 02/22/21 11:31 ABG pH 7.478 (7.320-7.450) H 02/22/21 13:21 POC ABG pCO2 33.5 mmHg (32.0-48.0) 02/22/21 13:21 POC ABG pO2 70.7 mmHg (83-108) L 02/22/21 13:21 POC ABG HCO3 24.3 02/22/21 13:21 ABG O2 Saturation 94.6 (0-100) 02/22/21 13:21 POC ABG Base Excess 1.0 02/22/21 13:21 ABG Hemoglobin 9.4 (12.0-17.5) L 02/22/21 13:21 ABG Oxyhemoglobin 93.7 (94-98) L 02/22/21 13:21 ABG Methemoglobin 0.3 (0.0-1.5) 02/22/21 13:21 ABG Sodium 131.6 mmol/L (136.0-145.0) L 02/22/21 13:21 ABG Potassium 4.0 mmol/L (3.40-4.50) 02/22/21 13:21 ABG Chloride 100.0 mmol/L (98-107) 02/22/21 13:21 ABG Glucose 87 mg/dL (65-95) 02/22/21 13:21 Carboxyhemoglobin 0.6 (0.5-1.5) 02/22/21 13:21 FiO2 % 70.0 02/22/21 13:21 Sodium 132 mmol/L (137-145) L 02/27/21 05:12 Potassium 5.1 mmol/L (3.6-5.0) H 02/27/21 05:12 Chloride 93.3 mmol/L (98-107) L 02/27/21 05:12 Carbon Dioxide 24 mmol/L (22-30) D 02/27/21 05:12 Anion Gap 20 mmol/L 02/27/21 05:12 BUN 60 mg/dL (7-17) H 02/27/21 05:12 Creatinine 5.8 mg/dL (0.6-1.2) H 02/27/21 05:12 Estimated GFR 7 ml/min 02/27/21 05:12 BUN/Creatinine Ratio 10 % 02/27/21 05:12 Glucose 183 mg/dL (65-100) H 02/27/21 05:12 POC Glucose 210 mg/dL (70-105) H 02/27/21 11:52 Calcium 8.7 mg/dL (8.4-10.2) 02/27/21 05:12 Phosphorus 5.10 mg/dL (2.5-4.5) H 02/26/21 03:06 Magnesium 2.50 mg/dL (1.7-2.3) H 02/26/21 03:06 Total Bilirubin 0.40 mg/dL (0.1-1.2) 02/27/21 05:12 Direct Bilirubin < 0.2 mg/dL (0-0.2) 02/27/21 05:12 Indirect Bilirubin 0.2 mg/dL 02/27/21 05:12 AST 18 units/L (5-40) 02/27/21 05:12 ALT 46 units/L (7-56) 02/27/21 05:12 Alkaline Phosphatase 82 units/L (35-129) 02/27/21 05:12 Troponin T 0.097 ng/mL (0.00-0.029) H 02/22/21 11:31 C-Reactive Protein 4.60 mg/dL (0.00-1.30) H 02/26/21 09:08 NT-Pro-B Natriuret Pep 06841 pg/mL (0-900) H 02/22/21 11:31 Total Protein 5.4 g/dL (6.3-8.2) L 02/27/21 05:12 Albumin 2.8 g/dL (3.9-5) L 02/27/21 05:12 Albumin/Globulin Ratio 1.1 % 02/27/21 05:12 Arterial Blood Glucose 87 mg/dL (65-95) 02/22/21 13:21 Arterial Blood Ionized Calcium 4.7 mg/dL (4.6-5.3) 02/22/21 13:21 Coronavirus (PCR) Positive (Negative) A 02/24/21 Unknown Hepatitis A IgM Ab Non-reactive (NonReactive) 02/26/21 03:06 Hep Bs Antigen Nonreactive (Negative) 02/26/21 03:06 Hep B Core IgM Ab Non-reactive (NonReactive) 02/26/21 03:06 Hepatitis C Antibody Non-reactive (NonReactive) 02/26/21 03:06 [place]/IV: Voiding Method Incontinent Active Medications - Current Medications Current Medications: Generic Name Dose Route Start Last Admin Trade Name Freq PRN Reason Stop Dose Admin Acetaminophen 650 mg 02/22/21 15:00 02/26/21 05:44 Acetaminophen 325 Mg Tab PO 650 mg Q4H PRN Administration Pain MILD(1-3)/Fever >100.5/GAUTAM Albuterol 2.5 mg 02/22/21 14:26 02/23/21 21:41 Albuterol 2.5 Mg/3 Ml Nebu IH 2.5 mg Q4HRT PRN Administration Shortness Of Breath Alprazolam 0.5 mg 02/22/21 14:29 02/24/21 22:12 Alprazolam 0.5 Mg Tab PO 0.5 mg Q8H PRN Administration Anxiety Amiodarone HCl 200 mg 02/27/21 22:00 Amiodarone 200 Mg Tab PO BID DEVAN Apixaban 2.5 mg 02/25/21 22:00 02/27/21 09:54 Apixaban 2.5 Mg Tab PO 2.5 mg Q12HR DEVAN Administration Protocol Ascorbic Acid 500 mg 02/22/21 22:00 02/27/21 09:54 Ascorbic Acid 500 Mg Tab PO 500 mg BID DEVAN Administration Atorvastatin Calcium 10 mg 02/22/21 22:00 02/26/21 21:09 Atorvastatin 10 Mg Tab PO 10 mg QHS DEVAN Administration Calcium Acetate 1,334 mg 02/23/21 17:00 02/27/21 11:35 Calcium Acetate 667 Mg Cap PO 1,334 mg TIDWM DEVAN Administration Cetirizine HCl 10 mg 02/23/21 10:00 02/27/21 09:54 Cetirizine 10 Mg Tab PO 10 mg DAILY DEVAN Administration Cholecalciferol 1,000 unit 02/23/21 10:00 02/27/21 09:53 Cholecalciferol (Vit D3) 1000 Unit (25 Mcg) Tab PO 1,000 unit QDAY DEVAN Administration Guaifenesin 200 mg 02/24/21 13:10 02/26/21 05:44 Guaifenesin 200 Mg Tab PO 200 mg Q6H PRN Administration Cough Hydralazine HCl 10 mg 02/23/21 22:06 Hydralazine 10 Mg Tab PO Q4H PRN SBP >/=165; DBP >/=110 Hydralazine HCl 10 mg 02/23/21 22:27 Hydralazine 20 Mg/1 Ml Inj IV Q4HR PRN SBP >/=165; DBP >/=110 Hydromorphone HCl 0.5 mg 02/22/21 14:26 02/23/21 01:55 Hydromorphone 1 Mg/1 Ml Inj IV 0.5 mg Q12H PRN Administration Pain , Severe (7-10) Levothyroxine Sodium 50 mcg 02/23/21 10:00 02/27/21 09:56 Levothyroxine 50 Mcg Tab PO 50 mcg QAM DEVAN Administration Methylprednisolone Sodium Succinate 40 mg 02/22/21 22:00 02/27/21 06:07 Methylprednisolone Sod Succinate 40 Mg/1 Ml Inj IV 03/04/21 14:01 40 mg Q8HR DEVAN Administration Multivit/Ca Carb/B Cmplx/FA/Prenat 1 cap 02/23/21 10:00 02/27/21 09:53 Folic Acid/Vit B Comp W-C 1 Mg (Renal Caps) PO 1 cap QDAY DEVAN Administration Ondansetron HCl 4 mg 02/22/21 15:00 02/27/21 11:53 Ondansetron 4 Mg/2 Ml Inj IV 4 mg Q8H PRN Administration Nausea And Vomiting Oxycodone/Acetaminophen 1 tab 02/22/21 14:26 02/27/21 11:52 Oxycodone /Acetaminophen 5-325mg Tab PO 1 tab Q12H PRN Administration Pain, Moderate (4-6) Pantoprazole Sodium 40 mg 02/23/21 10:00 02/27/21 09:54 Pantoprazole 40 Mg Tab PO 40 mg QDAY DEVAN Administration Sodium Chloride 10 ml 02/22/21 22:00 02/27/21 09:56 Sodium Chloride 0.9% 10 Ml Flush Syringe IV 10 ml BID DEVAN Administration Sodium Chloride 10 ml 02/22/21 14:26 Sodium Chloride 0.9% 10 Ml Flush Syringe IV PRN PRN LINE FLUSH Sucralfate 1 gm 02/22/21 18:00 02/27/21 11:36 Sucralfate 1 Gm Tab PO 1 gm Q6HR DEVAN Administration Tramadol HCl 50 mg 02/22/21 15:00 Tramadol 50 Mg Tab PO Q6HR PRN Pain, Moderate (4-6) Zinc Sulfate 220 mg 02/22/21 22:00 02/27/21 09:54 Zinc Sulfate 220 Mg Cap PO 220 mg BID DEVAN Administration
--- NOTE | 2021-02-27 13:17 | Progress Note ---
Assessment and Plan 80 y/o female with ESRD and ILD, now with worsening volume overload secondary to incomplete dialysis and not having HD yesterday, plus COVID with combination respiratory failure from volume and COVID. 02/27/21: Agree with transfer to COVID floor. HD per renal. Continue steroids. Prone if tolerated. 1. Needs HD 2. Just left hospital less than a week ago, should be still on on steroids 3. wean FiO2 for sats >88%. Was discharged on 4 liters. 4. Guarded prognosis Subjective Date of service: 02/27/21 Principal diagnosis: ESRD, Volume overload, AFIB Interval history: Down to 4 liters nasal cannula. Objective Vital Signs - 12hr 02/27/21 02/27/21 02/27/21 01:30 02:00 02:31 Temperature Pulse Rate 88 92 H 95 H Respiratory 20 21 21 Rate Blood Pressure 99/57 92/55 105/54 O2 Sat by Pulse 96 94 96 Oximetry 02/27/21 02/27/21 02/27/21 03:01 03:31 03:42 Temperature 97.5 F L Pulse Rate 93 H 85 Respiratory 20 19 Rate Blood Pressure 86/55 105/72 O2 Sat by Pulse 94 95 Oximetry 02/27/21 02/27/21 02/27/21 04:00 04:30 05:01 Temperature Pulse Rate 100 H 94 H 103 H Respiratory 21 18 15 Rate Blood Pressure 116/78 99/37 113/94 O2 Sat by Pulse 95 95 96 Oximetry 02/27/21 02/27/21 02/27/21 05:31 06:01 06:30 Temperature Pulse Rate 104 H 99 H 93 H Respiratory 21 20 23 Rate Blood Pressure 118/56 126/56 133/77 O2 Sat by Pulse 96 96 90 Oximetry 02/27/21 02/27/21 02/27/21 07:01 07:30 08:00 Temperature 97.6 F Pulse Rate 95 H 96 H Respiratory 20 20 Rate Blood Pressure 67/43 86/39 O2 Sat by Pulse 94 98 96 Oximetry 02/27/21 02/27/21 02/27/21 08:01 08:31 09:00 Temperature Pulse Rate 94 H 105 H 101 H Respiratory 19 20 20 Rate Blood Pressure 120/81 108/24 107/75 O2 Sat by Pulse 95 94 95 Oximetry 02/27/21 02/27/21 02/27/21 09:31 10:00 10:01 Temperature Pulse Rate 99 H 104 H 98 H Respiratory 18 17 Rate Blood Pressure 103/46 104/49 O2 Sat by Pulse 97 97 Oximetry 02/27/21 02/27/21 02/27/21 10:31 11:01 11:31 Temperature Pulse Rate 103 H 95 H 98 H Respiratory 21 23 14 Rate Blood Pressure 107/56 128/38 94/71 O2 Sat by Pulse 97 82 L 82 L Oximetry 02/27/21 12:00 Temperature Pulse Rate 99 H Respiratory 21 Rate Blood Pressure 116/69 O2 Sat by Pulse 95 Oximetry Constitutional: no acute distress, alert ENT: oropharynx moist Neck: supple Ascultation: Bilateral: rales Cardiovascular: regular rate and rhythm Gastrointestinal: normoactive bowel sounds, non-tender, non-distended Extremities: no cyanosis Psychiatric: mood appropriate, affect normal CBC and BMP: 02/27/21 05:12 02/27/21 05:12 ABG, PT/INR, D-dimer: ABG ABG pH 7.478 (7.320-7.450) H 02/22/21 13:21 POC ABG pCO2 33.5 mmHg (32.0-48.0) 02/22/21 13:21 POC ABG pO2 70.7 mmHg (83-108) L 02/22/21 13:21 POC ABG HCO3 24.3 02/22/21 13:21 ABG O2 Saturation 94.6 (0-100) 02/22/21 13:21 PT/INR, D-dimer PT 16.5 Sec. (12.2-14.9) H 02/26/21 03:06 INR 1.28 (0.87-1.13) H 02/26/21 03:06 D-Dimer 902.74 ng/mlDDU (0-234) H 02/22/21 11:31 Abnormal lab findings: Abnormal Labs 02/22/21 02/22/21 02/22/21 11:31 11:31 11:31 WBC 12.9 H RBC 3.01 L Hgb 10.0 L Hct MCV 101 H MCH 33 H Lymph % (Auto) Lymph # (Auto) Seg Neutrophils % Seg Neuts % (Manual) Lymphocytes % (Manual) Seg Neutrophils # Man Lymphocytes # (Manual) PT INR D-Dimer 902.74 H ABG pH POC ABG pO2 ABG Hemoglobin ABG Oxyhemoglobin ABG Sodium Sodium Potassium Chloride Carbon Dioxide BUN 32 H Creatinine 4.7 H Glucose POC Glucose Phosphorus Magnesium Troponin T 0.097 H C-Reactive Protein NT-Pro-B Natriuret Pep 27113 H Total Protein Albumin Coronavirus (PCR) 02/22/21 02/23/21 02/23/21 13:21 03:40 03:40 WBC RBC 2.50 L Hgb 8.3 L Hct 25.1 L MCV 100 H MCH 33 H Lymph % (Auto) 5.7 L Lymph # (Auto) 0.3 L Seg Neutrophils % 89.8 H Seg Neuts % (Manual) Lymphocytes % (Manual) Seg Neutrophils # Man Lymphocytes # (Manual) PT INR D-Dimer ABG pH 7.478 H POC ABG pO2 70.7 L ABG Hemoglobin 9.4 L ABG Oxyhemoglobin 93.7 L ABG Sodium 131.6 L Sodium 136 L Potassium Chloride Carbon Dioxide BUN 45 H Creatinine 5.9 H Glucose 133 H POC Glucose Phosphorus Magnesium Troponin T C-Reactive Protein NT-Pro-B Natriuret Pep Total Protein Albumin Coronavirus (PCR) 02/24/21 02/26/21 02/26/21 Unknown 03:06 03:06 WBC 11.5 H RBC 2.71 L Hgb 8.7 L Hct 27.2 L MCV 101 H MCH Lymph % (Auto) Lymph # (Auto) Seg Neutrophils % Seg Neuts % (Manual) 95.0 H Lymphocytes % (Manual) 5.0 L Seg Neutrophils # Man 10.9 H Lymphocytes # (Manual) 0.6 L PT 16.5 H INR 1.28 H D-Dimer ABG pH POC ABG pO2 ABG Hemoglobin ABG Oxyhemoglobin ABG Sodium Sodium Potassium Chloride Carbon Dioxide BUN Creatinine Glucose POC Glucose Phosphorus Magnesium Troponin T C-Reactive Protein NT-Pro-B Natriuret Pep Total Protein Albumin Coronavirus (PCR) Positive A 02/26/21 02/26/21 02/26/21 03:06 09:08 16:30 WBC RBC Hgb Hct MCV MCH Lymph % (Auto) Lymph # (Auto) Seg Neutrophils % Seg Neuts % (Manual) Lymphocytes % (Manual) Seg Neutrophils # Man Lymphocytes # (Manual) PT INR D-Dimer ABG pH POC ABG pO2 ABG Hemoglobin ABG Oxyhemoglobin ABG Sodium Sodium 130 L Potassium 6.0 H D 6.3 H* Chloride 92.6 L Carbon Dioxide 17 L D BUN 98 H Creatinine 8.6 H Glucose 181 H POC Glucose Phosphorus 5.10 H Magnesium 2.50 H Troponin T C-Reactive Protein 4.60 H NT-Pro-B Natriuret Pep Total Protein 6.0 L Albumin 2.8 L Coronavirus (PCR) 02/27/21 02/27/21 02/27/21 05:12 05:12 07:58 WBC RBC 2.55 L Hgb 8.5 L Hct 25.1 L MCV 99 H MCH 33 H Lymph % (Auto) Lymph # (Auto) Seg Neutrophils % Seg Neuts % (Manual) Lymphocytes % (Manual) Seg Neutrophils # Man Lymphocytes # (Manual) PT INR D-Dimer ABG pH POC ABG pO2 ABG Hemoglobin ABG Oxyhemoglobin ABG Sodium Sodium 132 L Potassium 5.1 H Chloride 93.3 L Carbon Dioxide BUN 60 H Creatinine 5.8 H Glucose 183 H POC Glucose 165 H Phosphorus Magnesium Troponin T C-Reactive Protein NT-Pro-B Natriuret Pep Total Protein 5.4 L Albumin 2.8 L Coronavirus (PCR) 02/27/21 11:52 WBC RBC Hgb Hct MCV MCH Lymph % (Auto) Lymph # (Auto) Seg Neutrophils % Seg Neuts % (Manual) Lymphocytes % (Manual) Seg Neutrophils # Man Lymphocytes # (Manual) PT INR D-Dimer ABG pH POC ABG pO2 ABG Hemoglobin ABG Oxyhemoglobin ABG Sodium Sodium Potassium Chloride Carbon Dioxide BUN Creatinine Glucose POC Glucose 210 H Phosphorus Magnesium Troponin T C-Reactive Protein NT-Pro-B Natriuret Pep Total Protein Albumin Coronavirus (PCR)
--- NOTE | 2021-02-27 13:45 | Progress Note ---
Assessment and Plan Patient is a 80 y/o female with PMHx of of ESRD on HD,HTN, hypothyroidism, chronic respiratory failure, interstitial lung disease, and COVID+ ESRD on HD Volume overload * BNP noted to be elevated in setting of missing incomplete HD session. EKG shows sinus 79 with no acute ischemic changes. * Troponins minimally elevated in setting of incomplete HD session. Patient has no complaint of chest pain * Echo 06/11/2020- LVEF of 60-65%. LV diastolic function is indeterminate given severe MAC. Diastolic predominant pulmonary venous flow suggesting elevated filling pressures. RV systolic function is normal. LA is severely-enlarged in volume. RA is mildly-enlarged in volume. Aortic valve with moderately- thickened and calcified leaflets. Mild to moderate aortic stenosis. No aortic regurgitation. Mitral valve with severely thickened and calcified leaflets (image 80). Severe calcific non-rheumatic mitral stenosis (MG = 10mmHg at 67 BPM). No mitral regurgitation. Severe concentric mitral annular calcification extending into the leaflets, the aortomitral continuity and he posterior left atrium. Calcified pap muscle. Normal tricuspid valve morphology. No tricuspid regurgitation. Pulmonic valve not well seen. No pulmonic regurgitation * Echo- - EF 50 to 55%, mild diastolic dysfunction impaired relaxation pattern, right ventricle systolic function is normal, right ventricle mildly dilated left and right atrium are normal in size, there is aortic valve leaflet calcification no aortic valvular stenosis, mitral valve leaflets are calcified mild mitral regurgitation, moderate mitral stenosis, mild to moderate tricuspid regurgitation. * Nephrology following COVID-19 PNA Acute on Chronic Respiratory failure * COVD PCR positive * Patient at [facility] last week for COVID * Pulmonology following New onset Afib * Telemetry reviewed: Patient currently afib 90s * Most recent EKG: shows Afib rate [address]-T abnormalities HTN * Patient currently hypotensive. Agree with holding BP meds Plan: Continue amio 200mg PO BID and Eliquis for anticoagualtion. BMP,LFT, and CBC in AM Patient seen in conjunction with Dr. Marcum who agrees with this plan of care. Will continue to follow - Patient Problems (1) Afib Current Visit: Yes Status: Acute (2) Acute hypoxemic respiratory failure Current Visit: Yes Status: Acute (3) COVID-19 virus infection Current Visit: Yes Status: Acute (4) ESRD (end stage renal disease) on dialysis Current Visit: Yes Status: Acute (5) Hypoxia Current Visit: Yes Status: Acute (6) Leukocytosis Current Visit: Yes Status: Acute Qualifiers: Leukocytosis type: other Qualified Code(s): D72.828 - Other elevated white blood cell count (7) Pneumonia Current Visit: Yes Status: Acute (8) Pulmonary edema Current Visit: Yes Status: Acute Qualifiers: Chronicity: acute Qualified Code(s): J81.0 - Acute pulmonary edema Subjective Date of service: 02/27/21 Principal diagnosis: ESRD, Volume overload, AFIB Interval history: Patient lying in bed. Patient Afib 90s on monitor Objective Last Vital Signs Temp 97.6 F 02/27/21 08:00 Pulse 99 H 02/27/21 12:00 Resp 21 02/27/21 12:00 BP 116/69 02/27/21 12:00 Pulse Ox 95 02/27/21 12:00 - Physical Examination General: No Apparent Distress HEENT: Positive: PERRL Neck: Positive: neck supple Cardiac: Positive: irregularly irregular Lungs: Positive: Decreased Breath Sounds Neuro: Positive: Grossly Intact Abdomen: Positive: Soft, Active Bowel Sounds Extremities: Present: upper extr. pulses, lower extr. pulses - Labs and Meds Cardiac Enzymes 02/27/21 Range/Units 05:12 AST 18 (5-40) units/L CBC 02/27/21 Range/Units 05:12 WBC 10.5 (4.5-11.0) K/mm3 RBC 2.55 L (3.65-5.03) M/mm3 Hgb 8.5 L (10.1-14.3) gm/dl Hct 25.1 L (30.3-42.9) % Plt Count 161 (140-440) K/mm3 Comprehensive Metabolic Panel 02/26/21 02/27/21 Range/Units 16:30 05:12 Sodium 132 L (137-145) mmol/L Potassium 6.3 H* 5.1 H (3.6-5.0) mmol/L Chloride 93.3 L (98-107) mmol/L Carbon Dioxide 24 D (22-30) mmol/L BUN 60 H (7-17) mg/dL Creatinine 5.8 H (0.6-1.2) mg/dL Glucose 183 H (65-100) mg/dL Calcium 8.7 (8.4-10.2) mg/dL Direct Bilirubin < 0.2 (0-0.2) mg/dL Indirect Bilirubin 0.2 mg/dL AST 18 (5-40) units/L ALT 46 (7-56) units/L Alkaline Phosphatase 82 (35-129) units/L Total Protein 5.4 L (6.3-8.2) g/dL Albumin 2.8 L (3.9-5) g/dL - Imaging and Cardiology EKG: report reviewed, image reviewed Echo: report reviewed - Telemetry EKG Rhythm: Atrial Fibrillation - EKG Supraventricular dysrhythmia: atrial fibrillation Repolarization changes or abnormalities: nonspecific abnormality, ST segment, and/or T wave
[2021-02-27] MEDS: guaiFENesin 200 MG TAB PO PRN (22:06)
[2021-02-27] MEDS: ALPRAZolam 0.5 MG TAB PO PRN (22:07)
[2021-02-27] MEDS: traMADol 50 MG TAB PO PRN (22:07)
[2021-02-28] MEDS ORDERED: SODIUM CHLORIDE 0.9% 250ML 250 ML IV ONE (05:51)
[2021-02-28] MEDS: SUCRALFATE 1 GM TAB PO SCH ×4 (06:19→18:58)
[2021-02-28] MEDS: methylPREDNISolone Sod Succinate 40 MG/1 ML INJ IV SCH ×3 (06:19→21:41)
--- NOTE | 2021-02-28 06:31 | Progress Note ---
Assessment and Plan Assessment and plan: #Acute on chronic hypoxic respiratory failure-improving -Weaned from 5 L nasal cannula to 4 L nasal cannula; saturating at 92 -diagnosed with Covid 2 weeks ago -Pulmonology consulted, assistance appreciated -Continue steroids -etiology secondary to COVID versus CHF #Hyperkalemia-improving -Potassium 5.1 -Likely improved after obtaining hemodialysis yesterday -We will likely improve if hemodialysis is performed again today -We will continue to monitor #Congestive heart failure -Patient does not report previous history of CHF -BNP 70,000 -Euvolemic on exam -TTE ordered -Cardiology consulted assistance appreciated #COVID-19 pneumonia -Antibiotic course completed -Patient currently stable; will continue to monitor #COVID-19 infection -diagnosed 2 weeks ago -patient was discharged from outside hospital on last week -IV steroids #ESRD on HD - schedule -only completed half session on 02/22; last hemodialysis session on 02/27/2020 -Need for hemodialysis as assessed daily by nephrology -Nephrology consulted, assistance appreciated Hospitalist Physical - Constitutional Vitals: Temp Pulse Resp BP Pulse Ox 97.9 F 106 H 18 93/52 93 02/28/21 05:00 02/28/21 05:00 02/28/21 05:00 02/28/21 05:00 02/28/21 05:17 General appearance: Present: no acute distress HEART Score - HEART Score EKG: Non-specific Age: > 65 Risk factors: > 3 risk factors or hx of atherosclerotic disease Troponin: Troponin T 0.097 ng/mL (0.00-0.029) H 02/22/21 11:31 Troponin: < normal limit - Critical Actions Critical Actions: 4-6 pts:12-16.6% risk of adverse cardiac event. Should be admitted Results - Labs CBC & Chem 7: 02/27/21 05:12 02/27/21 05:12 Labs: Laboratory Last Values WBC 10.5 K/mm3 (4.5-11.0) 02/27/21 05:12 RBC 2.55 M/mm3 (3.65-5.03) L 02/27/21 05:12 Hgb 8.5 gm/dl (10.1-14.3) L 02/27/21 05:12 Hct 25.1 % (30.3-42.9) L 02/27/21 05:12 MCV 99 fl (79-97) H 02/27/21 05:12 MCH 33 pg (28-32) H 02/27/21 05:12 MCHC 34 % (30-34) 02/27/21 05:12 RDW 13.9 % (13.2-15.2) 02/27/21 05:12 Plt Count 161 K/mm3 (140-440) 02/27/21 05:12 Lymph % (Auto) 5.7 % (13.4-35.0) L 02/23/21 03:40 [place] % (Auto) 3.7 % (0.0-7.3) 02/23/21 03:40 Eos % (Auto) 0.1 % (0.0-4.3) 02/23/21 03:40 Baso % (Auto) 0.7 % (0.0-1.8) 02/23/21 03:40 Lymph # (Auto) 0.3 K/mm3 (1.2-5.4) L 02/23/21 03:40 [place] # (Auto) 0.2 K/mm3 (0.0-0.8) 02/23/21 03:40 Eos # (Auto) 0.0 K/mm3 (0.0-0.4) 02/23/21 03:40 Baso # (Auto) 0.0 K/mm3 (0.0-0.1) 02/23/21 03:40 Add Manual Diff Complete 02/26/21 03:06 Total Counted 100 02/26/21 03:06 Seg Neutrophils % Assisted Living Coordinator 02/26/21 03:06 Seg Neuts % (Manual) 95.0 % (40.0-70.0) H 02/26/21 03:06 Lymphocytes % (Manual) 5.0 % (13.4-35.0) L 02/26/21 03:06 Nucleated RBC % Not Reportable 02/26/21 03:06 Seg Neutrophils # 4.5 K/mm3 (1.8-7.7) 02/23/21 03:40 Seg Neutrophils # Man 10.9 K/mm3 (1.8-7.7) H 02/26/21 03:06 Band Neutrophils # 0.0 K/mm3 02/26/21 03:06 Lymphocytes # (Manual) 0.6 K/mm3 (1.2-5.4) L 02/26/21 03:06 Abs React Lymphs (Man) 0.0 K/mm3 02/26/21 03:06 Monocytes # (Manual) 0.0 K/mm3 (0.0-0.8) 02/26/21 03:06 Eosinophils # (Manual) 0.0 K/mm3 (0.0-0.4) 02/26/21 03:06 Basophils # (Manual) 0.0 K/mm3 (0.0-0.1) 02/26/21 03:06 Metamyelocytes # 0.0 K/mm3 02/26/21 03:06 Myelocytes # 0.0 K/mm3 02/26/21 03:06 Promyelocytes # 0.0 K/mm3 02/26/21 03:06 Blast Cells # 0.0 K/mm3 02/26/21 03:06 WBC Morphology Not Reportable 02/26/21 03:06 Hypersegmented Neuts Not Reportable 02/26/21 03:06 Hyposegmented Neuts Not Reportable 02/26/21 03:06 Hypogranular Neuts Not Reportable 02/26/21 03:06 Smudge Cells Not Reportable 02/26/21 03:06 Toxic Granulation Not Reportable 02/26/21 03:06 Toxic Vacuolation Not Reportable 02/26/21 03:06 Dohle Bodies Not Reportable 02/26/21 03:06 Pelger-Huet Anomaly Not Reportable 02/26/21 03:06 Sumeet Rods Not Reportable 02/26/21 03:06 Platelet Estimate Consistent w auto 02/26/21 03:06 Clumped Platelets Not Reportable 02/26/21 03:06 Plt Clumps, EDTA Not Reportable 02/26/21 03:06 Large Platelets Not Reportable 02/26/21 03:06 Giant Platelets Not Reportable 02/26/21 03:06 Platelet Satelliting Not Reportable 02/26/21 03:06 Plt Morphology Comment Not Reportable 02/26/21 03:06 RBC Morphology Not Reportable 02/26/21 03:06 Dimorphic RBCs Not Reportable 02/26/21 03:06 Polychromasia Not Reportable 02/26/21 03:06 Hypochromasia Not Reportable 02/26/21 03:06 Poikilocytosis Not Reportable 02/26/21 03:06 Anisocytosis Not Reportable 02/26/21 03:06 Microcytosis Not Reportable 02/26/21 03:06 Macrocytosis Not Reportable 02/26/21 03:06 Spherocytes Not Reportable 02/26/21 03:06 Pappenheimer Bodies Not Reportable 02/26/21 03:06 Sickle Cells Not Reportable 02/26/21 03:06 Target Cells Few 02/26/21 03:06 Tear Drop Cells Not Reportable 02/26/21 03:06 Ovalocytes 1+ 02/26/21 03:06 Helmet Cells Not Reportable 02/26/21 03:06 Amezquita-Ferguson Bodies Not Reportable 02/26/21 03:06 [place] Rings Not Reportable 02/26/21 03:06 Gopi Cells 1+ 02/26/21 03:06 Bite Cells Not Reportable 02/26/21 03:06 Crenated Cell Not Reportable 02/26/21 03:06 Elliptocytes Not Reportable 02/26/21 03:06 Acanthocytes (Spur) Not Reportable 02/26/21 03:06 Rouleaux Not Reportable 02/26/21 03:06 Hemoglobin C Crystals Not Reportable 02/26/21 03:06 Schistocytes Not Reportable 02/26/21 03:06 Malaria parasites Not Reportable 02/26/21 03:06 Ervin Bodies Not Reportable 02/26/21 03:06 Hem Pathologist Commnt No 02/26/21 03:06 PT 16.5 Sec. (12.2-14.9) H 02/26/21 03:06 INR 1.28 (0.87-1.13) H 02/26/21 03:06 APTT 34.2 Sec. (24.2-36.6) 02/26/21 03:06 D-Dimer 902.74 ng/mlDDU (0-234) H 02/22/21 11:31 ABG pH 7.478 (7.320-7.450) H 02/22/21 13:21 POC ABG pCO2 33.5 mmHg (32.0-48.0) 02/22/21 13:21 POC ABG pO2 70.7 mmHg (83-108) L 02/22/21 13:21 POC ABG HCO3 24.3 02/22/21 13:21 ABG O2 Saturation 94.6 (0-100) 02/22/21 13:21 POC ABG Base Excess 1.0 02/22/21 13:21 ABG Hemoglobin 9.4 (12.0-17.5) L 02/22/21 13:21 ABG Oxyhemoglobin 93.7 (94-98) L 02/22/21 13:21 ABG Methemoglobin 0.3 (0.0-1.5) 02/22/21 13:21 ABG Sodium 131.6 mmol/L (136.0-145.0) L 02/22/21 13:21 ABG Potassium 4.0 mmol/L (3.40-4.50) 02/22/21 13:21 ABG Chloride 100.0 mmol/L (98-107) 02/22/21 13:21 ABG Glucose 87 mg/dL (65-95) 02/22/21 13:21 Carboxyhemoglobin 0.6 (0.5-1.5) 02/22/21 13:21 FiO2 % 70.0 02/22/21 13:21 Sodium 132 mmol/L (137-145) L 02/27/21 05:12 Potassium 5.1 mmol/L (3.6-5.0) H 02/27/21 05:12 Chloride 93.3 mmol/L (98-107) L 02/27/21 05:12 Carbon Dioxide 24 mmol/L (22-30) D 02/27/21 05:12 Anion Gap 20 mmol/L 02/27/21 05:12 BUN 60 mg/dL (7-17) H 02/27/21 05:12 Creatinine 5.8 mg/dL (0.6-1.2) H 02/27/21 05:12 Estimated GFR 7 ml/min 02/27/21 05:12 BUN/Creatinine Ratio 10 % 02/27/21 05:12 Glucose 183 mg/dL (65-100) H 02/27/21 05:12 POC Glucose 210 mg/dL (70-105) H 02/27/21 11:52 Calcium 8.7 mg/dL (8.4-10.2) 02/27/21 05:12 Phosphorus 5.10 mg/dL (2.5-4.5) H 02/26/21 03:06 Magnesium 2.50 mg/dL (1.7-2.3) H 02/26/21 03:06 Total Bilirubin 0.40 mg/dL (0.1-1.2) 02/27/21 05:12 Direct Bilirubin < 0.2 mg/dL (0-0.2) 02/27/21 05:12 Indirect Bilirubin 0.2 mg/dL 02/27/21 05:12 AST 18 units/L (5-40) 02/27/21 05:12 ALT 46 units/L (7-56) 02/27/21 05:12 Alkaline Phosphatase 82 units/L (35-129) 02/27/21 05:12 Troponin T 0.097 ng/mL (0.00-0.029) H 02/22/21 11:31 C-Reactive Protein 4.60 mg/dL (0.00-1.30) H 02/26/21 09:08 NT-Pro-B Natriuret Pep 78739 pg/mL (0-900) H 02/22/21 11:31 Total Protein 5.4 g/dL (6.3-8.2) L 02/27/21 05:12 Albumin 2.8 g/dL (3.9-5) L 02/27/21 05:12 Albumin/Globulin Ratio 1.1 % 02/27/21 05:12 Arterial Blood Glucose 87 mg/dL (65-95) 02/22/21 13:21 Arterial Blood Ionized Calcium 4.7 mg/dL (4.6-5.3) 02/22/21 13:21 Coronavirus (PCR) Positive (Negative) A 02/24/21 Unknown Hepatitis A IgM Ab Non-reactive (NonReactive) 02/26/21 03:06 Hep Bs Antigen Nonreactive (Negative) 02/26/21 03:06 Hep B Core IgM Ab Non-reactive (NonReactive) 02/26/21 03:06 Hepatitis C Antibody Non-reactive (NonReactive) 02/26/21 03:06 [place]/IV: Voiding Method Diaper Active Medications - Current Medications Current Medications: Generic Name Dose Route Start Last Admin Trade Name Freq PRN Reason Stop Dose Admin Acetaminophen 650 mg 02/22/21 15:00 02/26/21 05:44 Acetaminophen 325 Mg Tab PO 650 mg Q4H PRN Administration Pain MILD(1-3)/Fever >100.5/GAUTAM Albuterol 2.5 mg 02/22/21 14:26 02/23/21 21:41 Albuterol 2.5 Mg/3 Ml Nebu IH 2.5 mg Q4HRT PRN Administration Shortness Of Breath Alprazolam 0.5 mg 02/22/21 14:29 02/27/21 22:07 Alprazolam 0.5 Mg Tab PO 0.5 mg Q8H PRN Administration Anxiety Amiodarone HCl 200 mg 02/27/21 22:00 02/27/21 23:25 Amiodarone 200 Mg Tab PO Not Given BID DEVAN Apixaban 2.5 mg 02/25/21 22:00 02/27/21 22:08 Apixaban 2.5 Mg Tab PO 2.5 mg Q12HR DEVAN Administration Protocol Ascorbic Acid 500 mg 02/22/21 22:00 02/27/21 22:07 Ascorbic Acid 500 Mg Tab PO 500 mg BID DEVAN Administration Atorvastatin Calcium 10 mg 02/22/21 22:00 02/27/21 22:08 Atorvastatin 10 Mg Tab PO 10 mg QHS DEVAN Administration Calcium Acetate 1,334 mg 02/23/21 17:00 02/27/21 17:19 Calcium Acetate 667 Mg Cap PO Not Given TIDWM [facility] Cetirizine HCl 10 mg 02/23/21 10:00 02/27/21 09:54 Cetirizine 10 Mg Tab PO 10 mg DAILY DEVAN Administration Cholecalciferol 1,000 unit 02/23/21 10:00 02/27/21 09:53 Cholecalciferol (Vit D3) 1000 Unit (25 Mcg) Tab PO 1,000 unit QDAY DEVAN Administration Guaifenesin 200 mg 02/24/21 13:10 02/27/21 22:06 Guaifenesin 200 Mg Tab PO 200 mg Q6H PRN Administration Cough Hydralazine HCl 10 mg 02/23/21 22:06 Hydralazine 10 Mg Tab PO Q4H PRN SBP >/=165; DBP >/=110 Hydralazine HCl 10 mg 02/23/21 22:27 Hydralazine 20 Mg/1 Ml Inj IV Q4HR PRN SBP >/=165; DBP >/=110 Hydromorphone HCl 0.5 mg 02/22/21 14:26 02/23/21 01:55 Hydromorphone 1 Mg/1 Ml Inj IV 0.5 mg Q12H PRN Administration Pain , Severe (7-10) Levothyroxine Sodium 50 mcg 02/23/21 10:00 02/27/21 09:56 Levothyroxine 50 Mcg Tab PO 50 mcg QAM DEVAN Administration Methylprednisolone Sodium Succinate 40 mg 02/22/21 22:00 02/28/21 06:19 Methylprednisolone Sod Succinate 40 Mg/1 Ml Inj IV 03/04/21 14:01 40 mg Q8HR DEVAN Administration Midodrine 10 mg 02/28/21 10:00 Midodrine 5 Mg Tab PO BID DEVAN Multivit/Ca Carb/B Cmplx/FA/Prenat 1 cap 02/23/21 10:00 02/27/21 09:53 Folic Acid/Vit B Comp W-C 1 Mg (Renal Caps) PO 1 cap QDAY DEVAN Administration Ondansetron HCl 4 mg 02/22/21 15:00 02/27/21 17:25 Ondansetron 4 Mg/2 Ml Inj IV 4 mg Q8H PRN Administration Nausea And Vomiting Oxycodone/Acetaminophen 1 tab 02/22/21 14:26 02/27/21 11:52 Oxycodone /Acetaminophen 5-325mg Tab PO 1 tab Q12H PRN Administration Pain, Moderate (4-6) Pantoprazole Sodium 40 mg 02/23/21 10:00 02/27/21 09:54 Pantoprazole 40 Mg Tab PO 40 mg QDAY DEVAN Administration Sodium Chloride 10 ml 02/22/21 22:00 02/27/21 22:06 Sodium Chloride 0.9% 10 Ml Flush Syringe IV 10 ml BID DEVAN Administration Sodium Chloride 10 ml 02/22/21 14:26 Sodium Chloride 0.9% 10 Ml Flush Syringe IV PRN PRN LINE FLUSH Sucralfate 1 gm 02/22/21 18:00 02/28/21 06:19 Sucralfate 1 Gm Tab PO 1 gm Q6HR DEVAN Administration Tramadol HCl 50 mg 02/22/21 15:00 02/27/21 22:07 Tramadol 50 Mg Tab PO 50 mg Q6HR PRN Administration Pain, Moderate (4-6) Zinc Sulfate 220 mg 02/22/21 22:00 02/27/21 22:07 Zinc Sulfate 220 Mg Cap PO 220 mg BID DEVAN Administration Nutrition/Malnutrition Assess - Dietary Evaluation Nutrition/Malnutrition Findings: Nutrition Notes Start: 02/27/21 13:22 Freq: Status: Active Protocol: Document 02/27/21 13:30 EB (Rec: 02/27/21 13:50 EB [id number]) Nutrition Notes Need for Assessment generated from: LOS Initial or Follow up Assessment Current Diagnosis CKD (stage V CKD),Heart Failure,Respiratory Failure Other Pertinent Diagnosis Covid +, Pneumonia, A. fib Current Diet Cardiac Labs/Tests K 5.1 Glu 183 Na 132 BUN 60 Cr 5.8 Pertinent Medications Vit. C Vit. D Solu-medrol Zinc Height 5 ft 2.99 in Weight 85.5 kg [place] Body Weight (kg) 52.25 BMI 33.4 Intake Prior to Admission Fair Weight Status Obese Subjective/Other Information RD screen for LOS. Skin risk documented in chart is 14. Pt ESRD on HD, T, Amalia, Sat. Per nurse notes, pt is able to feed herself, but has low appetite. Per RN report today via phone, pt appetite has declined and will only drink Nepro. Percent of energy/protein needs met: 31%/27% Burn Absent Trauma Absent GI Symptoms Nausea Current % PO Poor (25-49%) Minimum of two criteria No #1 Nutrition Diagnosis Increased nutrient needs ( specify in comment below) Comments: Protein Etiology ESRD As Evidenced by Signs and Symptoms on HD T, Th, Sat Is patient on ventilator? No Is Patient Ambulatory and/or Out of Bed No REE-([facility]-confined to bed) 1553.556 Kcal/Kg value to use for calculation 21 Approximate Energy Requirements Using 1796 kcal/Kg Calculation Used for Recommendations Kcal/kg Additional Notes Protein: 78-104 g/day (1.5-2 g /kg IBW) Fluids 1 mL/kcal or per MD order Nutrition Intervention Add Supplement/Snack (indicate name/kcal Nepro TID /protein ) Provides kCal: 1,260 Provides Protein (gm) 57 Goal #1 Meet at least 75-100% of syed and protein needs via PO and ONS intake Anticipated Discharge Needs: Renal/Cardiac diet Follow-Up By: 03/03/[address] to follow for PO and ONS intake - Attestation Statement I have reviewed and agreed w/ Malnutrition eval & tx plan: Yes
[2021-02-28] MEDS: CALCIUM ACETATE 667 MG CAP PO SCH ×3 (08:00→18:58)
[2021-02-28 08:42] LABS: Mean Corpuscular HGB Conc 33 % (30-34); Mean Corpuscular Volume 97 fl (79-97); Platelet Count 148 K/mm3 (140-440); Red Blood Count 2.47 M/mm3 (3.65-5.03); Red Cell Distribution Width 14.7 % (13.2-15.2)
[2021-02-28 09:09] LABS: Calcium 8.7 mg/dL (8.4-10.2)
[2021-02-28] MEDS ORDERED: AMIODARONE 200 MG TAB PO SCH (10:00)
--- NOTE | 2021-02-28 11:09 | Progress Note ---
Assessment and Plan End Stage Renal Disease on Hemodialysis Acute Hypoxic Respiratory failure Recent COVID-19 Infection Hypertension CHF Plan: no indication for HD today Fluid restriction of 1 liter per day Obtain daily weights Monitor I/O's daily Renally dose medications Assess dialysis needs daily Subjective Date of service: 02/28/21 Principal diagnosis: ESRD, Volume overload, AFIB Interval history: low blood pressure reported this AM Objective - Vital Signs Vital signs: Vital Signs - 12hr 02/28/21 02/28/21 05:00 05:17 Temperature 97.9 F Pulse Rate 106 H Respiratory 18 Rate Blood Pressure 93/52 O2 Sat by Pulse 97 93 Oximetry - Lab 02/28/21 08:33 02/28/21 08:33 Most recent lab results ABG pH 7.478 (7.320-7.450) H 02/22/21 13:21 ABG O2 Saturation 94.6 (0-100) 02/22/21 13:21 Calcium 8.7 mg/dL (8.4-10.2) 02/28/21 08:33 Phosphorus 4.90 mg/dL (2.5-4.5) H 02/28/21 08:33 Magnesium 1.90 mg/dL (1.7-2.3) 02/28/21 08:33 Medications & Allergies - Medications Allergies/Adverse Reactions: Allergies amoxicillin Allergy (Verified 02/22/21 11:14) Unknown codeine Allergy (Verified 02/22/21 11:14) Unknown Penicillins Allergy (Verified 02/22/21 11:14) Unknown Sulfa (Sulfonamide Antibiotics) Allergy (Verified 02/22/21 11:14) Unknown Home Medications: Home Medications Medication Instructions Recorded Confirmed Last Taken Type AtorvaSTATin [Lipitor] 10 mg PO QHS 02/22/21 02/22/21 Unknown History Calcium Acetate [Phoslo] 1,334 mg PO TID 02/22/21 02/22/21 Unknown History Cetirizine HCl [Cetirizine 10mg 10 mg PO QDAY 02/22/21 02/22/21 Unknown History chew] L. Acidophilus/Bifid. Animalis 1 each PO QDAY 02/22/21 02/22/21 Unknown History [Dialyvite Chewable Probiotic] Levothyroxine [Synthroid] 50 mcg PO QAM 02/22/21 02/22/21 Unknown History Pantoprazole [Protonix] 40 mg PO QDAY 02/22/21 02/22/21 Unknown History Sucralfate [Carafate] 1 gm PO Q6HR 02/22/21 02/22/21 Unknown History Temazepam [Restoril] 7.5 mg PO QHS 02/22/21 02/22/21 Unknown History amLODIPine [Norvasc] 5 mg PO DAILY 02/22/21 02/22/21 Unknown History atenoloL [Tenormin] 10 mg PO DAILY 02/22/21 02/22/21 Unknown History traMADoL [Ultram] 50 mg PO Q6HR PRN 02/22/21 02/22/21 Unknown History Active Medications: Generic Name Dose Route Start Last Admin Trade Name Freq PRN Reason Stop Dose Admin Acetaminophen 650 mg 02/22/21 15:00 02/26/21 05:44 Acetaminophen 325 Mg Tab PO 650 mg Q4H PRN Administration Pain MILD(1-3)/Fever >100.5/GAUTAM Albuterol 2.5 mg 02/22/21 14:26 02/23/21 21:41 Albuterol 2.5 Mg/3 Ml Nebu IH 2.5 mg Q4HRT PRN Administration Shortness Of Breath Alprazolam 0.5 mg 02/22/21 14:29 02/27/21 22:07 Alprazolam 0.5 Mg Tab PO 0.5 mg Q8H PRN Administration Anxiety Amiodarone HCl 200 mg 02/27/21 22:00 02/27/21 23:25 Amiodarone 200 Mg Tab PO Not Given BID DEVAN Apixaban 2.5 mg 02/25/21 22:00 02/27/21 22:08 Apixaban 2.5 Mg Tab PO 2.5 mg Q12HR DEVAN Administration Protocol Ascorbic Acid 500 mg 02/22/21 22:00 02/27/21 22:07 Ascorbic Acid 500 Mg Tab PO 500 mg BID DEVAN Administration Atorvastatin Calcium 10 mg 02/22/21 22:00 02/27/21 22:08 Atorvastatin 10 Mg Tab PO 10 mg QHS DEVAN Administration Calcium Acetate 1,334 mg 02/23/21 17:00 02/27/21 17:19 Calcium Acetate 667 Mg Cap PO Not Given TIDWM DEVAN Cetirizine HCl 10 mg 02/23/21 10:00 02/27/21 09:54 Cetirizine 10 Mg Tab PO 10 mg DAILY DEVAN Administration Cholecalciferol 1,000 unit 02/23/21 10:00 02/27/21 09:53 Cholecalciferol (Vit D3) 1000 Unit (25 Mcg) Tab PO 1,000 unit QDAY DEVAN Administration Docusate Sodium 100 mg 02/28/21 11:00 Docusate Sodium 100 Mg Cap PO BID DEVAN Guaifenesin 200 mg 02/24/21 13:10 02/27/21 22:06 Guaifenesin 200 Mg Tab PO 200 mg Q6H PRN Administration Cough Hydralazine HCl 10 mg 02/23/21 22:06 Hydralazine 10 Mg Tab PO Q4H PRN SBP >/=165; DBP >/=110 Hydralazine HCl 10 mg 02/23/21 22:27 Hydralazine 20 Mg/1 Ml Inj IV Q4HR PRN SBP >/=165; DBP >/=110 Hydromorphone HCl 0.5 mg 02/22/21 14:26 02/23/21 01:55 Hydromorphone 1 Mg/1 Ml Inj IV 0.5 mg Q12H PRN Administration Pain , Severe (7-10) Levothyroxine Sodium 50 mcg 02/23/21 10:00 02/27/21 09:56 Levothyroxine 50 Mcg Tab PO 50 mcg QAM [facility] Administration Methylprednisolone Sodium Succinate 40 mg 02/22/21 22:00 02/28/21 06:19 Methylprednisolone Sod Succinate 40 Mg/1 Ml Inj IV 03/04/21 14:01 40 mg Q8HR DEVAN Administration Midodrine 10 mg 02/28/21 10:00 Midodrine 5 Mg Tab PO BID@1000,1800 [facility] Multivit/Ca Carb/B Cmplx/FA/Prenat 1 cap 02/23/21 10:00 02/27/21 09:53 Folic Acid/Vit B Comp W-C 1 Mg (Renal Caps) PO 1 cap QDAY DEVAN Administration Ondansetron HCl 4 mg 02/22/21 15:00 02/27/21 17:25 Ondansetron 4 Mg/2 Ml Inj IV 4 mg Q8H PRN Administration Nausea And Vomiting Oxycodone/Acetaminophen 1 tab 02/22/21 14:26 02/27/21 11:52 Oxycodone /Acetaminophen 5-325mg Tab PO 1 tab Q12H PRN Administration Pain, Moderate (4-6) Pantoprazole Sodium 40 mg 02/23/21 10:00 02/27/21 09:54 Pantoprazole 40 Mg Tab PO 40 mg QDAY DEVAN Administration Senna 8.6 mg 02/28/21 11:00 Sennosides 8.6 Mg Tab PO Q12H DEVAN Sodium Chloride 10 ml 02/22/21 22:00 02/27/21 22:06 Sodium Chloride 0.9% 10 Ml Flush Syringe IV 10 ml BID DEVAN Administration Sodium Chloride 10 ml 02/22/21 14:26 Sodium Chloride 0.9% 10 Ml Flush Syringe IV PRN PRN LINE FLUSH Sucralfate 1 gm 02/22/21 18:00 02/28/21 06:19 Sucralfate 1 Gm Tab PO 1 gm Q6HR DEVAN Administration Tramadol HCl 50 mg 02/22/21 15:00 02/27/21 22:07 Tramadol 50 Mg Tab PO 50 mg Q6HR PRN Administration Pain, Moderate (4-6) Zinc Sulfate 220 mg 02/22/21 22:00 02/27/21 22:07 Zinc Sulfate 220 Mg Cap PO 220 mg BID DEVAN Administration
[2021-02-28] MEDS: CETIRIZINE 10 MG TAB PO SCH (11:38)
[2021-02-28] MEDS: CHOLECALCIFEROL (VIT D3) 1000 UNIT (25 mcg) TAB PO SCH (11:38)
[2021-02-28] MEDS: FOLIC ACID/VIT B COMP W-C 1 MG (RENAL CAPS) PO SCH (11:38)
[2021-02-28] MEDS: APIXABAN 2.5 MG TAB PO SCH ×2 (11:39→21:44)
[2021-02-28] MEDS: ASCORBIC ACID 500 MG TAB PO SCH ×2 (11:39→21:41)
[2021-02-28] MEDS: ZINC SULFATE 220 MG CAP PO SCH ×2 (11:39→21:41)
[2021-02-28] MEDS: SENNOSIDES 8.6 MG TAB PO SCH ×2 (11:39→23:10)
[2021-02-28] MEDS: PANTOPRAZOLE 40 MG TAB PO SCH (11:39)
[2021-02-28] MEDS: LEVOTHYROXINE 50 MCG TAB PO SCH (11:41)
[2021-02-28] MEDS: DOCUSATE SODIUM 100 MG CAP PO SCH ×2 (11:41→21:44)
--- NOTE | 2021-02-28 11:43 | Progress Note ---
Assessment and Plan Assessment and plan: #Acute on chronic hypoxic respiratory failure-resolved -Currently on 3 L nasal cannula (baseline home oxygen requirements); saturating at 94+% -diagnosed with Covid 2 weeks ago; patient is technically out of infectious timeframe. -Pulmonology consulted, assistance appreciated -etiology secondary to COVID versus CHF #Hyperkalemia-stable -Potassium 4.8 -Likely improved after obtaining hemodialysis yesterday -We will likely improve if hemodialysis is performed again today -We will continue to monitor #Congestive heart failure-stable -Patient does not report previous history of CHF -BNP 70,000 -Euvolemic on exam -TTE ordered -Cardiology consulted assistance appreciated #COVID-19 pneumonia-resolved -Antibiotic course completed -Patient currently stable; will continue to monitor #COVID-19 infection-stable -diagnosed 2 weeks ago -patient was discharged from outside hospital on last week -IV steroids (completed) #ESRD on HD -/ schedule -Need for hemodialysis as assessed daily by nephrology -Nephrology consulted, assistance appreciated #Constipation -Increasing bowel regimen to include docusate and senna; patient prefers not to use MiraLAX #Discharge planning -Pending repeat COVID-19 test in order to be accepted back at assisted living facility -Pending PT evaluation; patient utilizes rolling walker at home -Patient states she is ready for discharge whenever deemed medically cleared Disposition Plan: Pending PT and repeat Covid test. Close to discharge. History Interval history: No acute events overnight Hospitalist Physical - Constitutional Vitals: Temp Pulse Resp BP Pulse Ox 97.9 F 106 H 18 93/52 93 02/28/21 05:00 02/28/21 05:00 02/28/21 05:00 02/28/21 05:00 02/28/21 05:17 General appearance: Present: no acute distress - EENT Eyes: Present: PERRL, EOM intact ENT: hearing intact, clear oral mucosa, dentition normal - Neck Neck: Present: supple, normal ROM - Respiratory Respiratory effort: normal Respiratory: bilateral: rhonchi, negative: diminished, rales, wheezing - Cardiovascular Rhythm: irregularly irregular Heart Sounds: Present: S1 & S2 Details: Permacath and upper chest with clean dry site of insertion - Extremities Extremities: no ischemia, pulses intact, pulses symmetrical, No edema, normal temperature, normal color Extremity abnormal: edema, cyanosis, clubbing Peripheral Pulses: within normal limits - Abdominal General gastrointestinal: soft, non-tender, non-distended, normal bowel sounds - Integumentary Integumentary: Present: clear (Age-appropriate skin change), warm, dry - Psychiatric Psychiatric: appropriate mood/affect, intact judgment & insight, memory intact, cooperative - Neurologic Neurologic: CNII-XII intact, moves all extremities - Allied Health Allied health notes reviewed: nursing HEART Score - HEART Score EKG: Non-specific Age: > 65 Risk factors: > 3 risk factors or hx of atherosclerotic disease Troponin: Troponin T 0.097 ng/mL (0.00-0.029) H 02/22/21 11:31 Troponin: < normal limit - Critical Actions Critical Actions: 4-6 pts:12-16.6% risk of adverse cardiac event. Should be admitted Results - Labs CBC & Chem 7: 02/28/21 08:33 02/28/21 08:33 Labs: Laboratory Last Values WBC 11.1 K/mm3 (4.5-11.0) H 02/28/21 08:33 RBC 2.47 M/mm3 (3.65-5.03) L 02/28/21 08:33 Hgb 8.0 gm/dl (10.1-14.3) L 02/28/21 08:33 Hct 24.0 % (30.3-42.9) L 02/28/21 08:33 MCV 97 fl (79-97) 02/28/21 08:33 MCH 32 pg (28-32) 02/28/21 08:33 MCHC 33 % (30-34) 02/28/21 08:33 RDW 14.7 % (13.2-15.2) 02/28/21 08:33 Plt Count 148 K/mm3 (140-440) 02/28/21 08:33 Lymph % (Auto) 5.7 % (13.4-35.0) L 02/23/21 03:40 Graves % (Auto) 3.7 % (0.0-7.3) 02/23/21 03:40 Eos % (Auto) 0.1 % (0.0-4.3) 02/23/21 03:40 Baso % (Auto) 0.7 % (0.0-1.8) 02/23/21 03:40 Lymph # (Auto) 0.3 K/mm3 (1.2-5.4) L 02/23/21 03:40 Graves # (Auto) 0.2 K/mm3 (0.0-0.8) 02/23/21 03:40 Eos # (Auto) 0.0 K/mm3 (0.0-0.4) 02/23/21 03:40 Baso # (Auto) 0.0 K/mm3 (0.0-0.1) 02/23/21 03:40 Add Manual Diff Complete 02/26/21 03:06 Total Counted 100 02/26/21 03:06 Seg Neutrophils % Internet Programmer 02/28/21 08:33 Seg Neuts % (Manual) 95.0 % (40.0-70.0) H 02/26/21 03:06 Lymphocytes % (Manual) 5.0 % (13.4-35.0) L 02/26/21 03:06 Nucleated RBC % Not Reportable 02/26/21 03:06 Seg Neutrophils # 4.5 K/mm3 (1.8-7.7) 02/23/21 03:40 Seg Neutrophils # Man 10.9 K/mm3 (1.8-7.7) H 02/26/21 03:06 Band Neutrophils # 0.0 K/mm3 02/26/21 03:06 Lymphocytes # (Manual) 0.6 K/mm3 (1.2-5.4) L 02/26/21 03:06 Abs React Lymphs (Man) 0.0 K/mm3 02/26/21 03:06 Monocytes # (Manual) 0.0 K/mm3 (0.0-0.8) 02/26/21 03:06 Eosinophils # (Manual) 0.0 K/mm3 (0.0-0.4) 02/26/21 03:06 Basophils # (Manual) 0.0 K/mm3 (0.0-0.1) 02/26/21 03:06 Metamyelocytes # 0.0 K/mm3 02/26/21 03:06 Myelocytes # 0.0 K/mm3 02/26/21 03:06 Promyelocytes # 0.0 K/mm3 02/26/21 03:06 Blast Cells # 0.0 K/mm3 02/26/21 03:06 WBC Morphology Not Reportable 02/26/21 03:06 Hypersegmented Neuts Not Reportable 02/26/21 03:06 Hyposegmented Neuts Not Reportable 02/26/21 03:06 Hypogranular Neuts Not Reportable 02/26/21 03:06 Smudge Cells Not Reportable 02/26/21 03:06 Toxic Granulation Not Reportable 02/26/21 03:06 Toxic Vacuolation Not Reportable 02/26/21 03:06 Dohle Bodies Not Reportable 02/26/21 03:06 Pelger-Huet Anomaly Not Reportable 02/26/21 03:06 Sumeet Rods Not Reportable 02/26/21 03:06 Platelet Estimate Consistent w auto 02/26/21 03:06 Clumped Platelets Not Reportable 02/26/21 03:06 Plt Clumps, EDTA Not Reportable 02/26/21 03:06 Large Platelets Not Reportable 02/26/21 03:06 Giant Platelets Not Reportable 02/26/21 03:06 Platelet Satelliting Not Reportable 02/26/21 03:06 Plt Morphology Comment Not Reportable 02/26/21 03:06 RBC Morphology Not Reportable 02/26/21 03:06 Dimorphic RBCs Not Reportable 02/26/21 03:06 Polychromasia Not Reportable 02/26/21 03:06 Hypochromasia Not Reportable 02/26/21 03:06 Poikilocytosis Not Reportable 02/26/21 03:06 Anisocytosis Not Reportable 02/26/21 03:06 Microcytosis Not Reportable 02/26/21 03:06 Macrocytosis Not Reportable 02/26/21 03:06 Spherocytes Not Reportable 02/26/21 03:06 Pappenheimer Bodies Not Reportable 02/26/21 03:06 Sickle Cells Not Reportable 02/26/21 03:06 Target Cells Few 02/26/21 03:06 Tear Drop Cells Not Reportable 02/26/21 03:06 Ovalocytes 1+ 02/26/21 03:06 Helmet Cells Not Reportable 02/26/21 03:06 [place] Anchor Bodies Not Reportable 02/26/21 03:06 [place] Rings Not Reportable 02/26/21 03:06 [place]is Cells 1+ 02/26/21 03:06 Bite Cells Not Reportable 02/26/21 03:06 Crenated Cell Not Reportable 02/26/21 03:06 Elliptocytes Not Reportable 02/26/21 03:06 Acanthocytes (Spur) Not Reportable 02/26/21 03:06 Rouleaux Not Reportable 02/26/21 03:06 Hemoglobin C Crystals Not Reportable 02/26/21 03:06 Schistocytes Not Reportable 02/26/21 03:06 Malaria parasites Not Reportable 02/26/21 03:06 Ervin Bodies Not Reportable 02/26/21 03:06 Hem Pathologist Commnt No 02/26/21 03:06 PT 16.5 Sec. (12.2-14.9) H 02/26/21 03:06 INR 1.28 (0.87-1.13) H 02/26/21 03:06 APTT 34.2 Sec. (24.2-36.6) 02/26/21 03:06 D-Dimer 902.74 ng/mlDDU (0-234) H 02/22/21 11:31 ABG pH 7.478 (7.320-7.450) H 02/22/21 13:21 POC ABG pCO2 33.5 mmHg (32.0-48.0) 02/22/21 13:21 POC ABG pO2 70.7 mmHg (83-108) L 02/22/21 13:21 POC ABG HCO3 24.3 02/22/21 13:21 ABG O2 Saturation 94.6 (0-100) 02/22/21 13:21 POC ABG Base Excess 1.0 02/22/21 13:21 ABG Hemoglobin 9.4 (12.0-17.5) L 02/22/21 13:21 ABG Oxyhemoglobin 93.7 (94-98) L 02/22/21 13:21 ABG Methemoglobin 0.3 (0.0-1.5) 02/22/21 13:21 ABG Sodium 131.6 mmol/L (136.0-145.0) L 02/22/21 13:21 ABG Potassium 4.0 mmol/L (3.40-4.50) 02/22/21 13:21 ABG Chloride 100.0 mmol/L (98-107) 02/22/21 13:21 ABG Glucose 87 mg/dL (65-95) 02/22/21 13:21 Carboxyhemoglobin 0.6 (0.5-1.5) 02/22/21 13:21 FiO2 % 70.0 02/22/21 13:21 Sodium 134 mmol/L (137-145) L 02/28/21 08:33 Potassium 4.8 mmol/L (3.6-5.0) 02/28/21 08:33 Chloride 96.7 mmol/L (98-107) L 02/28/21 08:33 Carbon Dioxide 24 mmol/L (22-30) 02/28/21 08:33 Anion Gap 18 mmol/L 02/28/21 08:33 BUN 56 mg/dL (7-17) H 02/28/21 08:33 Creatinine 4.4 mg/dL (0.6-1.2) H 02/28/21 08:33 Creatinine 4.5 mg/dL (0.6-1.2) H 02/28/21 08:33 Estimated GFR 9 ml/min 02/28/21 08:33 Estimated GFR 10 ml/min 02/28/21 08:33 BUN/Creatinine Ratio 13 % 02/28/21 08:33 Glucose 196 mg/dL (65-100) H 02/28/21 08:33 POC Glucose 210 mg/dL (70-105) H 02/27/21 11:52 Calcium 8.7 mg/dL (8.4-10.2) 02/28/21 08:33 Phosphorus 4.90 mg/dL (2.5-4.5) H 02/28/21 08:33 Magnesium 1.90 mg/dL (1.7-2.3) 02/28/21 08:33 Total Bilirubin 0.40 mg/dL (0.1-1.2) 02/27/21 05:12 Direct Bilirubin < 0.2 mg/dL (0-0.2) 02/27/21 05:12 Indirect Bilirubin 0.2 mg/dL 02/27/21 05:12 AST 18 units/L (5-40) 02/27/21 05:12 ALT 46 units/L (7-56) 02/27/21 05:12 Alkaline Phosphatase 82 units/L (35-129) 02/27/21 05:12 Troponin T 0.097 ng/mL (0.00-0.029) H 02/22/21 11:31 C-Reactive Protein 4.60 mg/dL (0.00-1.30) H 02/26/21 09:08 NT-Pro-B Natriuret Pep 21372 pg/mL (0-900) H 02/22/21 11:31 Total Protein 5.4 g/dL (6.3-8.2) L 02/27/21 05:12 Albumin 2.8 g/dL (3.9-5) L 02/27/21 05:12 Albumin/Globulin Ratio 1.1 % 02/27/21 05:12 Arterial Blood Glucose 87 mg/dL (65-95) 02/22/21 13:21 Arterial Blood Ionized Calcium 4.7 mg/dL (4.6-5.3) 02/22/21 13:21 Nasal Screen MRSA (PCR) Negative (Negative) 02/25/21 06:30 Coronavirus (PCR) Positive (Negative) A 02/24/21 Unknown Hepatitis A IgM Ab Non-reactive (NonReactive) 02/26/21 03:06 Hep Bs Antigen Nonreactive (Negative) 02/26/21 03:06 Hep B Core IgM Ab Non-reactive (NonReactive) 02/26/21 03:06 Hepatitis C Antibody Non-reactive (NonReactive) 02/26/21 03:06 [place]/IV: Voiding Method Diaper Active Medications - Current Medications Current Medications: Generic Name Dose Route Start Last Admin Trade Name Freq PRN Reason Stop Dose Admin Acetaminophen 650 mg 02/22/21 15:00 02/26/21 05:44 Acetaminophen 325 Mg Tab PO 650 mg Q4H PRN Administration Pain MILD(1-3)/Fever >100.5/GAUTAM Albuterol 2.5 mg 02/22/21 14:26 02/23/21 21:41 Albuterol 2.5 Mg/3 Ml Nebu IH 2.5 mg Q4HRT PRN Administration Shortness Of Breath Alprazolam 0.5 mg 02/22/21 14:29 02/27/21 22:07 Alprazolam 0.5 Mg Tab PO 0.5 mg Q8H PRN Administration Anxiety Amiodarone HCl 200 mg 02/27/21 22:00 02/27/21 23:25 Amiodarone 200 Mg Tab PO Not Given BID DEVAN Apixaban 2.5 mg 02/25/21 22:00 02/27/21 22:08 Apixaban 2.5 Mg Tab PO 2.5 mg Q12HR DEVAN Administration Protocol Ascorbic Acid 500 mg 02/22/21 22:00 02/27/21 22:07 Ascorbic Acid 500 Mg Tab PO 500 mg BID DEVAN Administration Atorvastatin Calcium 10 mg 02/22/21 22:00 02/27/21 22:08 Atorvastatin 10 Mg Tab PO 10 mg QHS DEVAN Administration Calcium Acetate 1,334 mg 02/23/21 17:00 02/27/21 17:19 Calcium Acetate 667 Mg Cap PO Not Given [facility] Cetirizine HCl 10 mg 02/23/21 10:00 02/27/21 09:54 Cetirizine 10 Mg Tab PO 10 mg DAILY DEVAN Administration Cholecalciferol 1,000 unit 02/23/21 10:00 02/27/21 09:53 Cholecalciferol (Vit D3) 1000 Unit (25 Mcg) Tab PO 1,000 unit [facility] Administration Docusate Sodium 100 mg 02/28/21 11:00 Docusate Sodium 100 Mg Cap PO BID DEVAN Guaifenesin 200 mg 02/24/21 13:10 02/27/21 22:06 Guaifenesin 200 Mg Tab PO 200 mg Q6H PRN Administration Cough Hydralazine HCl 10 mg 02/23/21 22:06 Hydralazine 10 Mg Tab PO Q4H PRN SBP >/=165; DBP >/=110 Hydralazine HCl 10 mg 02/23/21 22:27 Hydralazine 20 Mg/1 Ml Inj IV Q4HR PRN SBP >/=165; DBP >/=110 Hydromorphone HCl 0.5 mg 02/22/21 14:26 02/23/21 01:55 Hydromorphone 1 Mg/1 Ml Inj IV 0.5 mg Q12H PRN Administration Pain , Severe (7-10) Levothyroxine Sodium 50 mcg 02/23/21 10:00 02/27/21 09:56 Levothyroxine 50 Mcg Tab PO 50 mcg QAM DEVAN Administration Methylprednisolone Sodium Succinate 40 mg 02/22/21 22:00 02/28/21 06:19 Methylprednisolone Sod Succinate 40 Mg/1 Ml Inj IV 03/04/21 14:01 40 mg Q8HR DEVAN Administration Midodrine 10 mg 02/28/21 10:00 Midodrine 5 Mg Tab PO BID@1000,1800 [facility] Multivit/Ca Carb/B Cmplx/FA/Prenat 1 cap 02/23/21 10:00 02/27/21 09:53 Folic Acid/Vit B Comp W-C 1 Mg (Renal Caps) PO 1 cap QDAY DEVAN Administration Ondansetron HCl 4 mg 02/22/21 15:00 02/27/21 17:25 Ondansetron 4 Mg/2 Ml Inj IV 4 mg Q8H PRN Administration Nausea And Vomiting Oxycodone/Acetaminophen 1 tab 02/22/21 14:26 02/27/21 11:52 Oxycodone /Acetaminophen 5-325mg Tab PO 1 tab Q12H PRN Administration Pain, Moderate (4-6) Pantoprazole Sodium 40 mg 02/23/21 10:00 02/27/21 09:54 Pantoprazole 40 Mg Tab PO 40 mg QDAY DEVAN Administration Senna 8.6 mg 02/28/21 11:00 Sennosides 8.6 Mg Tab PO Q12H DEVAN Sodium Chloride 10 ml 02/22/21 22:00 02/27/21 22:06 Sodium Chloride 0.9% 10 Ml Flush Syringe IV 10 ml BID DEVAN Administration Sodium Chloride 10 ml 02/22/21 14:26 Sodium Chloride 0.9% 10 Ml Flush Syringe IV PRN PRN LINE FLUSH Sucralfate 1 gm 02/22/21 18:00 02/28/21 06:19 Sucralfate 1 Gm Tab PO 1 gm Q6HR DEVAN Administration Tramadol HCl 50 mg 02/22/21 15:00 02/27/21 22:07 Tramadol 50 Mg Tab PO 50 mg Q6HR PRN Administration Pain, Moderate (4-6) Zinc Sulfate 220 mg 02/22/21 22:00 02/27/21 22:07 Zinc Sulfate 220 Mg Cap PO 220 mg BID DEVAN Administration Nutrition/Malnutrition Assess - Dietary Evaluation Nutrition/Malnutrition Findings: Nutrition Notes Start: 02/27/21 13:22 Freq: Status: Active Protocol: Document 02/27/21 13:30 EB (Rec: 02/27/21 13:50 EB [id number]) Nutrition Notes Need for Assessment generated from: LOS Initial or Follow up Assessment Current Diagnosis CKD (stage V CKD),Heart Failure,Respiratory Failure Other Pertinent Diagnosis Covid +, Pneumonia, A. fib Current Diet Cardiac Labs/Tests K 5.1 Glu 183 Na 132 BUN 60 Cr 5.8 Pertinent Medications Vit. C Vit. D Solu-medrol Zinc Height 5 ft 2.99 in Weight 85.5 kg [place] Body Weight (kg) 52.25 BMI 33.4 Intake Prior to Admission Fair Weight Status Obese Subjective/Other Information RD screen for LOS. Skin risk documented in chart is 14. Pt ESRD on HD, T, Amalia, Sat. Per nurse notes, pt is able to feed herself, but has low appetite. Per RN report today via phone, pt appetite has declined and will only drink Nepro. Percent of energy/protein needs met: 31%/27% Burn Absent Trauma Absent GI Symptoms Nausea Current % PO Poor (25-49%) Minimum of two criteria No #1 Nutrition Diagnosis Increased nutrient needs ( specify in comment below) Comments: Protein Etiology ESRD As Evidenced by Signs and Symptoms on HD T, Th, Sat Is patient on ventilator? No Is Patient Ambulatory and/or Out of Bed No REE-(We[place]-St. Jeor-confined to bed) 1553.556 Kcal/Kg value to use for calculation 21 Approximate Energy Requirements Using 1796 kcal/Kg Calculation Used for Recommendations Kcal/kg Additional Notes Protein: 78-104 g/day (1.5-2 g /kg IBW) Fluids 1 mL/kcal or per MD order Nutrition Intervention Add Supplement/Snack (indicate name/kcal Nepro TID /protein ) Provides kCal: 1,260 Provides Protein (gm) 57 Goal #1 Meet at least 75-100% of syed and protein needs via PO and ONS intake Anticipated Discharge Needs: Renal/Cardiac diet Follow-Up By: 03/03/[address] to follow for PO and ONS intake - Attestation Statement I have reviewed and agreed w/ Malnutrition eval & tx plan: Yes
[2021-02-28] MEDS: MIDODRINE 5 MG TAB PO SCH ×3 (11:47→18:58)
[2021-02-28] MEDS: AMIODARONE 200 MG TAB PO SCH ×2 (11:48→21:44)
--- NOTE | 2021-02-28 12:23 | Progress Note ---
Assessment and Plan Patient is a 80 y/o female with PMHx of of ESRD on HD,HTN, hypothyroidism, chronic respiratory failure, interstitial lung disease, and COVID+ ESRD on HD Volume overload * BNP noted to be elevated in setting of missing incomplete HD session. EKG shows sinus 79 with no acute ischemic changes. * Troponins minimally elevated in setting of incomplete HD session. Patient has no complaint of chest pain * Echo 06/11/2020- LVEF of 60-65%. LV diastolic function is indeterminate given severe MAC. Diastolic predominant pulmonary venous flow suggesting elevated filling pressures. RV systolic function is normal. LA is severely-enlarged in volume. RA is mildly-enlarged in volume. Aortic valve with moderately- thickened and calcified leaflets. Mild to moderate aortic stenosis. No aortic regurgitation. Mitral valve with severely thickened and calcified leaflets (image 80). Severe calcific non-rheumatic mitral stenosis (MG = 10mmHg at 67 BPM). No mitral regurgitation. Severe concentric mitral annular calcification extending into the leaflets, the aortomitral continuity and he posterior left atrium. Calcified pap muscle. Normal tricuspid valve morphology. No tricuspid regurgitation. Pulmonic valve not well seen. No pulmonic regurgitation * Echo- - EF 50 to 55%, mild diastolic dysfunction impaired relaxation pattern, right ventricle systolic function is normal, right ventricle mildly dilated left and right atrium are normal in size, there is aortic valve leaflet calcification no aortic valvular stenosis, mitral valve leaflets are calcified mild mitral regurgitation, moderate mitral stenosis, mild to moderate tricuspid regurgitation. * Nephrology following COVID-19 PNA Acute on Chronic Respiratory failure * COVD PCR positive * Patient at [facility] last week for COVID * Pulmonology following New onset Afib * Telemetry reviewed: Patient currently afib 90s * Most recent EKG: shows Afib rate [address]-T abnormalities HTN * Patient currently hypotensive. Agree with holding BP meds Plan: Continue amio 200mg PO BID and Eliquis for anticoagualtion. Patient seen in conjunction with Dr. Marcum who agrees with this plan of care. Will see as needed over the weekend - Patient Problems (1) Afib Current Visit: Yes Status: Acute (2) Acute hypoxemic respiratory failure Current Visit: Yes Status: Acute (3) COVID-19 virus infection Current Visit: Yes Status: Acute (4) ESRD (end stage renal disease) on dialysis Current Visit: Yes Status: Acute (5) Hypoxia Current Visit: Yes Status: Acute (6) Leukocytosis Current Visit: Yes Status: Acute Qualifiers: Leukocytosis type: other Qualified Code(s): D72.828 - Other elevated white blood cell count (7) Pneumonia Current Visit: Yes Status: Acute (8) Pulmonary edema Current Visit: Yes Status: Acute Qualifiers: Chronicity: acute Qualified Code(s): J81.0 - Acute pulmonary edema Subjective Date of service: 02/28/21 Principal diagnosis: ESRD, Volume overload, AFIB Interval history: Patient lying in bed reports feeling much better Patient Afib 90s on monitor Objective Last Vital Signs Temp 97.9 F 02/28/21 05:00 Pulse 106 H 02/28/21 05:00 Resp 18 02/28/21 05:00 BP 93/52 02/28/21 05:00 Pulse Ox 93 02/28/21 05:17 - Physical Examination General: No Apparent Distress HEENT: Positive: PERRL Neck: Positive: neck supple Cardiac: Positive: Irregularly Regular Lungs: Positive: Decreased Breath Sounds Neuro: Positive: Grossly Intact Abdomen: Positive: Soft, Active Bowel Sounds Skin: Positive: Bruising. Negative: Rash, Suspicious Lesions, Ulceration Extremities: Present: upper extr. pulses, lower extr. pulses. Absent: edema - Labs and Meds CBC 02/28/21 Range/Units 08:33 WBC 11.1 H (4.5-11.0) K/mm3 RBC 2.47 L (3.65-5.03) M/mm3 Hgb 8.0 L (10.1-14.3) gm/dl Hct 24.0 L (30.3-42.9) % Plt Count 148 (140-440) K/mm3 Comprehensive Metabolic Panel 02/28/21 02/28/21 Range/Units 08:33 08:33 Sodium 134 L (137-145) mmol/L Potassium 4.8 (3.6-5.0) mmol/L Chloride 96.7 L (98-107) mmol/L Carbon Dioxide 24 (22-30) mmol/L BUN 56 H (7-17) mg/dL Creatinine 4.5 H 4.4 H (0.6-1.2) mg/dL Glucose 196 H (65-100) mg/dL Calcium 8.7 (8.4-10.2) mg/dL - Imaging and Cardiology EKG: report reviewed, image reviewed Echo: report reviewed - Telemetry EKG Rhythm: Atrial Fibrillation - EKG Supraventricular dysrhythmia: atrial fibrillation Repolarization changes or abnormalities: nonspecific abnormality, ST segment, and/or T wave
--- NOTE | 2021-02-28 12:33 | Progress Note ---
Assessment and Plan 80 y/o female with ESRD and ILD, now with worsening volume overload secondary to incomplete dialysis and not having HD yesterday, plus COVID with combination respiratory failure from volume and COVID. 03/01/21: COntinue supplemental oxygen. 4 liters is what she was discharged with from [facility]. Patient was on steroids in [place] so should be close to completing 10 days of therapy. HD per renal. Hopeful discharge soon. 02/28/21: Wean FiO2 as tolerated. HD per renal. 02/27/21: Agree with transfer to COVID floor. HD per renal. Continue steroids. Prone if tolerated. 1. Needs HD 2. Just left hospital less than a week ago, should be still on on steroids 3. wean FiO2 for sats >88%. Was discharged on 4 liters. 4. Guarded prognosis Subjective Date of service: 02/28/21 Principal diagnosis: ESRD, Volume overload, AFIB Interval history: Successful transfer to floor. Pulm status is stable to improved. Objective Vital Signs - 12hr 02/28/21 02/28/21 05:00 05:17 Temperature 97.9 F Pulse Rate 106 H Respiratory 18 Rate Blood Pressure 93/52 O2 Sat by Pulse 97 93 Oximetry Constitutional: no acute distress, alert ENT: oropharynx moist Neck: supple Ascultation: Bilateral: rales Cardiovascular: regular rate and rhythm Gastrointestinal: normoactive bowel sounds, non-tender, non-distended Extremities: no cyanosis Psychiatric: mood appropriate, affect normal CBC and BMP: 03/01/21 09:40 03/01/21 09:40 ABG, PT/INR, D-dimer: ABG ABG pH 7.478 (7.320-7.450) H 02/22/21 13:21 POC ABG pCO2 33.5 mmHg (32.0-48.0) 02/22/21 13:21 POC ABG pO2 70.7 mmHg (83-108) L 02/22/21 13: POC ABG HCO3 24.3 02/22/21 13:21 ABG O2 Saturation 94.6 (0-100) 02/22/21 13:21 PT/INR, D-dimer PT 16.5 Sec. (12.2-14.9) H 02/26/21 03:06 INR 1.28 (0.87-1.13) H 02/26/21 03:06 D-Dimer 902.74 ng/mlDDU (0-234) H 02/22/21 11:31 Abnormal lab findings: Abnormal Labs 02/22/21 02/22/21 02/22/21 11:31 11:31 11:31 WBC 12.9 H RBC 3.01 L Hgb 10.0 L Hct MCV 101 H MCH 33 H Lymph % (Auto) Lymph # (Auto) Seg Neutrophils % Seg Neuts % (Manual) Lymphocytes % (Manual) Seg Neutrophils # Man Lymphocytes # (Manual) PT INR D-Dimer 902.74 H ABG pH POC ABG pO2 ABG Hemoglobin ABG Oxyhemoglobin ABG Sodium Sodium Potassium Chloride Carbon Dioxide BUN 32 H Creatinine 4.7 H Glucose POC Glucose Phosphorus Magnesium Troponin T 0.097 H C-Reactive Protein NT-Pro-B Natriuret Pep 44980 H Total Protein Albumin Coronavirus (PCR) 02/22/21 02/23/21 02/23/21 13:21 03:40 03:40 WBC RBC 2.50 L Hgb 8.3 L Hct 25.1 L MCV 100 H MCH 33 H Lymph % (Auto) 5.7 L Lymph # (Auto) 0.3 L Seg Neutrophils % 89.8 H Seg Neuts % (Manual) Lymphocytes % (Manual) Seg Neutrophils # Man Lymphocytes # (Manual) PT INR D-Dimer ABG pH 7.478 H POC ABG pO2 70.7 L ABG Hemoglobin 9.4 L ABG Oxyhemoglobin 93.7 L ABG Sodium 131.6 L Sodium 136 L Potassium Chloride Carbon Dioxide BUN 45 H Creatinine 5.9 H Glucose 133 H POC Glucose Phosphorus Magnesium Troponin T C-Reactive Protein NT-Pro-B Natriuret Pep Total Protein Albumin Coronavirus (PCR) 02/24/21 02/26/21 02/26/21 Unknown 03:06 03:06 WBC 11.5 H RBC 2.71 L Hgb 8.7 L Hct 27.2 L MCV 101 H MCH Lymph % (Auto) Lymph # (Auto) Seg Neutrophils % Seg Neuts % (Manual) 95.0 H Lymphocytes % (Manual) 5.0 L Seg Neutrophils # Man 10.9 H Lymphocytes # (Manual) 0.6 L PT 16.5 H INR 1.28 H D-Dimer ABG pH POC ABG pO2 ABG Hemoglobin ABG Oxyhemoglobin ABG Sodium Sodium Potassium Chloride Carbon Dioxide BUN Creatinine Glucose POC Glucose Phosphorus Magnesium Troponin T C-Reactive Protein NT-Pro-B Natriuret Pep Total Protein Albumin Coronavirus (PCR) Positive A 02/26/21 02/26/21 02/26/21 03:06 09:08 16:30 WBC RBC Hgb Hct MCV MCH Lymph % (Auto) Lymph # (Auto) Seg Neutrophils % Seg Neuts % (Manual) Lymphocytes % (Manual) Seg Neutrophils # Man Lymphocytes # (Manual) PT INR D-Dimer ABG pH POC ABG pO2 ABG Hemoglobin ABG Oxyhemoglobin ABG Sodium Sodium 130 L Potassium 6.0 H D 6.3 H* Chloride 92.6 L Carbon Dioxide 17 L D BUN 98 H Creatinine 8.6 H Glucose 181 H POC Glucose Phosphorus 5.10 H Magnesium 2.50 H Troponin T C-Reactive Protein 4.60 H NT-Pro-B Natriuret Pep Total Protein 6.0 L Albumin 2.8 L Coronavirus (PCR) 02/27/21 02/27/21 02/27/21 05:12 05:12 07:58 WBC RBC 2.55 L Hgb 8.5 L Hct 25.1 L MCV 99 H MCH 33 H Lymph % (Auto) Lymph # (Auto) Seg Neutrophils % Seg Neuts % (Manual) Lymphocytes % (Manual) Seg Neutrophils # Man Lymphocytes # (Manual) PT INR D-Dimer ABG pH POC ABG pO2 ABG Hemoglobin ABG Oxyhemoglobin ABG Sodium Sodium 132 L Potassium 5.1 H Chloride 93.3 L Carbon Dioxide BUN 60 H Creatinine 5.8 H Glucose 183 H POC Glucose 165 H Phosphorus Magnesium Troponin T C-Reactive Protein NT-Pro-B Natriuret Pep Total Protein 5.4 L Albumin 2.8 L Coronavirus (PCR) 02/27/21 02/28/21 02/28/21 11:52 08:33 08:33 WBC 11.1 H RBC 2.47 L Hgb 8.0 L Hct 24.0 L MCV MCH Lymph % (Auto) Lymph # (Auto) Seg Neutrophils % Seg Neuts % (Manual) Lymphocytes % (Manual) Seg Neutrophils # Man Lymphocytes # (Manual) PT INR D-Dimer ABG pH POC ABG pO2 ABG Hemoglobin ABG Oxyhemoglobin ABG Sodium Sodium Potassium Chloride Carbon Dioxide BUN Creatinine 4.5 H Glucose POC Glucose 210 H Phosphorus Magnesium Troponin T C-Reactive Protein NT-Pro-B Natriuret Pep Total Protein Albumin Coronavirus (PCR) 02/28/21 08:33 WBC RBC Hgb Hct MCV MCH Lymph % (Auto) Lymph # (Auto) Seg Neutrophils % Seg Neuts % (Manual) Lymphocytes % (Manual) Seg Neutrophils # Man Lymphocytes # (Manual) PT INR D-Dimer ABG pH POC ABG pO2 ABG Hemoglobin ABG Oxyhemoglobin ABG Sodium Sodium 134 L Potassium Chloride 96.7 L Carbon Dioxide BUN 56 H Creatinine 4.4 H Glucose 196 H POC Glucose Phosphorus 4.90 H Magnesium Troponin T C-Reactive Protein NT-Pro-B Natriuret Pep Total Protein Albumin Coronavirus (PCR)
[2021-02-28] MEDS: ALPRAZolam 0.5 MG TAB PO PRN (15:13)
[2021-02-28 20:12] LABS: Band Neutrophils # (Manual) 0.3 K/mm3; Ovalocytes 2+; Platelet Estimate Consistent w Auto; Total Cells Counted 100
[2021-02-28] MEDS: ONDANSETRON 4 MG/2 ML INJ IV PRN (21:42)
[2021-02-28] MEDS: oxyCODONE /ACETAMINOPHEN 5-325MG TAB PO PRN (21:54)
[2021-03-01] MEDS: SUCRALFATE 1 GM TAB PO SCH ×5 (00:32→22:59)
[2021-03-01] MEDS: methylPREDNISolone Sod Succinate 40 MG/1 ML INJ IV SCH ×3 (05:33→22:59)
[2021-03-01] MEDS: MIDODRINE 5 MG TAB PO SCH ×2 (09:44→18:24)
[2021-03-01] MEDS: CALCIUM ACETATE 667 MG CAP PO SCH ×3 (09:44→16:47)
[2021-03-01] MEDS: FOLIC ACID/VIT B COMP W-C 1 MG (RENAL CAPS) PO SCH (09:44)
[2021-03-01] MEDS: APIXABAN 2.5 MG TAB PO SCH ×2 (09:45→22:59)
[2021-03-01] MEDS: DOCUSATE SODIUM 100 MG CAP PO SCH ×2 (09:45→22:59)
[2021-03-01] MEDS: ASCORBIC ACID 500 MG TAB PO SCH ×2 (09:45→23:02)
[2021-03-01] MEDS: PANTOPRAZOLE 40 MG TAB PO SCH (09:45)
[2021-03-01] MEDS: CETIRIZINE 10 MG TAB PO SCH (09:45)
[2021-03-01] MEDS: ZINC SULFATE 220 MG CAP PO SCH ×2 (09:45→22:59)
[2021-03-01] MEDS: CHOLECALCIFEROL (VIT D3) 1000 UNIT (25 mcg) TAB PO SCH (09:45)
[2021-03-01] MEDS: LEVOTHYROXINE 50 MCG TAB PO SCH (09:57)
[2021-03-01] MEDS: SENNOSIDES 8.6 MG TAB PO SCH (10:12)
[2021-03-01 10:27] LABS: Hematocrit 26.8 % (30.3-42.9); Hemoglobin 8.6 gm/dl (10.1-14.3); Mean Corpuscular HGB Conc 32 % (30-34); Mean Corpuscular Volume 101 fl (79-97); Platelet Count 151 K/mm3 (140-440); Red Blood Count 2.65 M/mm3 (3.65-5.03); Red Cell Distribution Width 14.8 % (13.2-15.2)
[2021-03-01 10:44] LABS: C-Reactive Protein 0.9 mg/dL (0.00-1.30); Calcium 9.1 mg/dL (8.4-10.2)
--- NOTE | 2021-03-01 11:12 | Progress Note ---
Assessment and Plan End Stage Renal Disease on Hemodialysis Acute Hypoxic Respiratory failure Recent COVID-19 Infection Hypertension CHF Plan: HD today Fluid restriction of 1 liter per day Low K diet Obtain daily weights Monitor I/O's daily Renally dose medications Assess dialysis needs daily Subjective Date of service: 03/01/21 Principal diagnosis: ESRD, Volume overload, AFIB Interval history: HD today, NAD. Objective - Exam Narrative Exam: General appearance: Present: no acute distress - EENT Eyes: Present: PERRL, EOM intact ENT: hearing intact, clear oral mucosa, dentition normal - Neck Neck: Present: supple, normal ROM - Respiratory Respiratory effort: normal Respiratory: bilateral: rhonchi, negative: diminished, rales, wheezing - Cardiovascular Rhythm: irregularly irregular Heart Sounds: Present: S1 & S2 Details: Permacath and upper chest with clean dry site of insertion - Extremities Extremities: no ischemia, pulses intact, pulses symmetrical, No edema, normal temperature, normal color Extremity abnormal: edema, cyanosis, clubbing Peripheral Pulses: within normal limits - Abdominal General gastrointestinal: soft, non-tender, non-distended, normal bowel sounds - Integumentary Integumentary: Present: clear (Age-appropriate skin change), warm, dry - Psychiatric Psychiatric: appropriate mood/affect, intact judgment & insight, memory intact, cooperative - Neurologic Neurologic: CNII-XII intact, moves all extremities - Allied Health Allied health notes reviewed: nursing - Vital Signs Vital signs: Vital Signs - 12hr 02/28/21 03/01/21 03/01/21 23:56 04:14 06:05 Temperature 97.8 F 98.2 F Pulse Rate 97 H 99 H Respiratory 18 18 Rate Blood Pressure 80/37 86/32 96/46 O2 Sat by Pulse 94 98 Oximetry 03/01/21 06:06 Temperature Pulse Rate Respiratory Rate Blood Pressure 107/50 O2 Sat by Pulse Oximetry - Lab 03/01/21 09:40 03/01/21 09:40 Most recent lab results ABG pH 7.478 (7.320-7.450) H 02/22/21 13:21 ABG O2 Saturation 94.6 (0-100) 02/22/21 13:21 Calcium 9.1 mg/dL (8.4-10.2) 03/01/21 09:40 Phosphorus 6.40 mg/dL (2.5-4.5) H D 03/01/21 09:40 Magnesium 2.10 mg/dL (1.7-2.3) 03/01/21 09:40 Medications & Allergies - Medications Allergies/Adverse Reactions: Allergies amoxicillin Allergy (Verified 02/22/21 11:14) Unknown codeine Allergy (Verified 02/22/21 11:14) Unknown Penicillins Allergy (Verified 02/22/21 11:14) Unknown Sulfa (Sulfonamide Antibiotics) Allergy (Verified 02/22/21 11:14) Unknown Home Medications: Home Medications Medication Instructions Recorded Confirmed Last Taken Type AtorvaSTATin [Lipitor] 10 mg PO QHS 02/22/21 02/22/21 Unknown History Calcium Acetate [Phoslo] 1,334 mg PO TID 02/22/21 02/22/21 Unknown History Cetirizine HCl [Cetirizine 10mg 10 mg PO QDAY 02/22/21 02/22/21 Unknown History chew] L. Acidophilus/Bifid. Animalis 1 each PO QDAY 02/22/21 02/22/21 Unknown History [Dialyvite Chewable Probiotic] Levothyroxine [Synthroid] 50 mcg PO QAM 02/22/21 02/22/21 Unknown History Pantoprazole [Protonix] 40 mg PO QDAY 02/22/21 02/22/21 Unknown History Sucralfate [Carafate] 1 gm PO Q6HR 02/22/21 02/22/21 Unknown History Temazepam [Restoril] 7.5 mg PO QHS 02/22/21 02/22/21 Unknown History amLODIPine [Norvasc] 5 mg PO DAILY 02/22/21 02/22/21 Unknown History atenoloL [Tenormin] 10 mg PO DAILY 02/22/21 02/22/21 Unknown History traMADoL [Ultram] 50 mg PO Q6HR PRN 02/22/21 02/22/21 Unknown History Active Medications: Generic Name Dose Route Start Last Admin Trade Name Freq PRN Reason Stop Dose Admin Acetaminophen 650 mg 02/22/21 15:00 02/26/21 05:44 Acetaminophen 325 Mg Tab PO 650 mg Q4H PRN Administration Pain MILD(1-3)/Fever >100.5/GAUTAM Albuterol 2.5 mg 02/22/21 14:26 02/23/21 21:41 Albuterol 2.5 Mg/3 Ml Nebu IH 2.5 mg Q4HRT PRN Administration Shortness Of Breath Alprazolam 0.5 mg 02/22/21 14:29 02/28/21 15:13 Alprazolam 0.5 Mg Tab PO 0.5 mg Q8H PRN Administration Anxiety Amiodarone HCl 200 mg 02/27/21 22:00 02/28/21 21:44 Amiodarone 200 Mg Tab PO 200 mg BID DEVAN Administration Apixaban 2.5 mg 02/25/21 22:00 03/01/21 09:45 Apixaban 2.5 Mg Tab PO 2.5 mg Q12HR DEVAN Administration Protocol Ascorbic Acid 500 mg 02/22/21 22:00 03/01/21 09:45 Ascorbic Acid 500 Mg Tab PO 500 mg BID DEVAN Administration Atorvastatin Calcium 10 mg 02/22/21 22:00 02/28/21 21:41 Atorvastatin 10 Mg Tab PO 10 mg QHS DEVAN Administration Calcium Acetate 1,334 mg 02/23/21 17:00 03/01/21 09:44 Calcium Acetate 667 Mg Cap PO 1,334 mg TIDWM DEVAN Administration Cetirizine HCl 10 mg 02/23/21 10:00 03/01/21 09:45 Cetirizine 10 Mg Tab PO 10 mg DAILY DEVAN Administration Cholecalciferol 1,000 unit 02/23/21 10:00 03/01/21 09:45 Cholecalciferol (Vit D3) 1000 Unit (25 Mcg) Tab PO 1,000 unit QDAY DEVAN Administration Docusate Sodium 100 mg 02/28/21 11:00 03/01/21 09:45 Docusate Sodium 100 Mg Cap PO 100 mg BID DEVAN Administration Guaifenesin 200 mg 02/24/21 13:10 02/27/21 22:06 Guaifenesin 200 Mg Tab PO 200 mg Q6H PRN Administration Cough Hydralazine HCl 10 mg 02/23/21 22:06 Hydralazine 10 Mg Tab PO Q4H PRN SBP >/=165; DBP >/=110 Hydralazine HCl 10 mg 02/23/21 22:27 Hydralazine 20 Mg/1 Ml Inj IV Q4HR PRN SBP >/=165; DBP >/=110 Hydromorphone HCl 0.5 mg 02/22/21 14:26 02/23/21 01:55 Hydromorphone 1 Mg/1 Ml Inj IV 0.5 mg Q12H PRN Administration Pain , Severe (7-10) Levothyroxine Sodium 50 mcg 02/23/21 10:00 03/01/21 09:57 Levothyroxine 50 Mcg Tab PO Not Given QAM DEVAN Methylprednisolone Sodium Succinate 40 mg 02/22/21 22:00 03/01/21 05:33 Methylprednisolone Sod Succinate 40 Mg/1 Ml Inj IV 03/04/21 14:01 40 mg Q8HR DEVAN Administration Midodrine 10 mg 02/28/21 10:00 03/01/21 09:44 Midodrine 5 Mg Tab PO 10 mg BID@1000,1800 DEVAN Administration Multivit/Ca Carb/B Cmplx/FA/Prenat 1 cap 02/23/21 10:00 03/01/21 09:44 Folic Acid/Vit B Comp W-C 1 Mg (Renal Caps) PO 1 cap QDAY DEVAN Administration Ondansetron HCl 4 mg 02/22/21 15:00 02/28/21 21:42 Ondansetron 4 Mg/2 Ml Inj IV 4 mg Q8H PRN Administration Nausea And Vomiting Oxycodone/Acetaminophen 1 tab 02/22/21 14:26 02/28/21 21:54 Oxycodone /Acetaminophen 5-325mg Tab PO 1 tab Q12H PRN Administration Pain, Moderate (4-6) Pantoprazole Sodium 40 mg 02/23/21 10:00 03/01/21 09:45 Pantoprazole 40 Mg Tab PO 40 mg QDAY DEVAN Administration Senna 8.6 mg 02/28/21 11:00 03/01/21 10:12 Sennosides 8.6 Mg Tab PO Not Given Q12H DEVAN Sodium Chloride 10 ml 02/22/21 22:00 03/01/21 09:46 Sodium Chloride 0.9% 10 Ml Flush Syringe IV 10 ml BID DEVAN Administration Sodium Chloride 10 ml 02/22/21 14:26 Sodium Chloride 0.9% 10 Ml Flush Syringe IV PRN PRN LINE FLUSH Sucralfate 1 gm 02/22/21 18:00 03/01/21 05:33 Sucralfate 1 Gm Tab PO 1 gm Q6HR DEVAN Administration Tramadol HCl 50 mg 02/22/21 15:00 02/27/21 22:07 Tramadol 50 Mg Tab PO 50 mg Q6HR PRN Administration Pain, Moderate (4-6) Zinc Sulfate 220 mg 02/22/21 22:00 03/01/21 09:45 Zinc Sulfate 220 Mg Cap PO 220 mg BID DEVAN Administration
--- NOTE | 2021-03-01 12:22 | Electrocardiograph Report ---
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
[2021-03-01] MEDS: AMIODARONE 200 MG TAB PO SCH (12:47)
[2021-03-01] MEDS ORDERED: DEXTROSE 50% IN WATER (25GM) 50 ML SYRINGE IV PRN (13:28)
--- NOTE | 2021-03-01 13:32 | Progress Note ---
Assessment and Plan Assessment and plan: #Acute on chronic hypoxic respiratory failure-resolved -Currently on 3-4 L nasal cannula (baseline home oxygen requirements); saturating at 94+% -diagnosed with Covid 2 weeks ago; patient is technically out of infectious timeframe. -Pulmonology consulted, assistance appreciated -etiology secondary to COVID versus CHF #Hyperkalemia-stable -Potassium 5.6 (will be resolved with hemodialysis -Likely improved after obtaining hemodialysis yesterday -We will likely improve if hemodialysis is performed again today -We will continue to monitor #Congestive heart failure-stable -Patient does not report previous history of CHF -BNP 70,000 -Euvolemic on exam -TTE ordered -Cardiology consulted assistance appreciated #COVID-19 pneumonia-resolved -Antibiotic course completed -Patient currently stable; will continue to monitor #COVID-19 infection-stable -diagnosed 2 weeks ago -patient was discharged from outside hospital on last week -IV steroids (completed) #ESRD on HD -// schedule -Need for hemodialysis as assessed daily by nephrology -Nephrology consulted, assistance appreciated #Constipation -Increasing bowel regimen to include docusate and senna; patient prefers not to use MiraLAX #Discharge planning -Pending repeat COVID-19 test in order to be accepted back at assisted living facility -Pending PT evaluation; patient utilizes rolling walker at home -Patient states she is ready for discharge whenever deemed medically cleared Disposition Plan: Pending PT evaluation in order to be safely discharged History Interval history: No acute events overnight Hospitalist Physical - Constitutional Vitals: Temp Pulse Resp BP Pulse Ox 97.7 F 80 18 123/37 94 03/01/21 11:21 03/01/21 12:53 03/01/21 11:21 03/01/21 12:53 03/01/21 13:20 General appearance: Present: no acute distress - EENT Eyes: Present: PERRL, EOM intact ENT: hearing intact, clear oral mucosa, dentition normal - Neck Neck: Present: supple, normal ROM - Respiratory Respiratory effort: normal (Currently on 4 to 5 L nasal can) - Cardiovascular Rhythm: irregularly irregular Heart Sounds: Present: S1 & S2 - Extremities Extremities: no ischemia, pulses intact, pulses symmetrical, No edema, normal temperature, normal color Peripheral Pulses: within normal limits - Abdominal General gastrointestinal: soft, non-tender, non-distended, normal bowel sounds - Integumentary Integumentary: Present: clear (Age-related skin change), warm, dry - Psychiatric Psychiatric: appropriate mood/affect, intact judgment & insight, memory intact, cooperative - Neurologic Neurologic: CNII-XII intact, moves all extremities - Allied Health Allied health notes reviewed: nursing HEART Score - HEART Score EKG: Non-specific Age: > 65 Risk factors: > 3 risk factors or hx of atherosclerotic disease Troponin: Troponin T 0.097 ng/mL (0.00-0.029) H 02/22/21 11:31 Troponin: < normal limit - Critical Actions Critical Actions: 4-6 pts:12-16.6% risk of adverse cardiac event. Should be admitted Results - Labs CBC & Chem 7: 03/01/21 09:40 03/01/21 09:40 Labs: Laboratory Last Values WBC 13.9 K/mm3 (4.5-11.0) H 03/01/21 09:40 RBC 2.65 M/mm3 (3.65-5.03) L 03/01/21 09:40 Hgb 8.6 gm/dl (10.1-14.3) L 03/01/21 09:40 Hct 26.8 % (30.3-42.9) L 03/01/21 09:40 MCV 101 fl (79-97) H 03/01/21 09:40 MCH 32 pg (28-32) 03/01/21 09:40 MCHC 32 % (30-34) 03/01/21 09:40 RDW 14.8 % (13.2-15.2) 03/01/21 09:40 Plt Count 151 K/mm3 (140-440) 03/01/21 09:40 Lymph % (Auto) 5.7 % (13.4-35.0) L 02/23/21 03:40 [place] % (Auto) 3.7 % (0.0-7.3) 02/23/21 03:40 Eos % (Auto) 0.1 % (0.0-4.3) 02/23/21 03:40 Baso % (Auto) 0.7 % (0.0-1.8) 02/23/21 03:40 Lymph # (Auto) 0.3 K/mm3 (1.2-5.4) L 02/23/21 03:40 [place] # (Auto) 0.2 K/mm3 (0.0-0.8) 02/23/21 03:40 Eos # (Auto) 0.0 K/mm3 (0.0-0.4) 02/23/21 03:40 Baso # (Auto) 0.0 K/mm3 (0.0-0.1) 02/23/21 03:40 Add Manual Diff Complete 02/28/21 08:33 Total Counted 100 02/28/21 08:33 Seg Neutrophils % Purchasing/Receiving 03/01/21 09:40 Seg Neuts % (Manual) 94.0 % (40.0-70.0) H 02/28/21 08:33 Band Neutrophils % 3.0 % 02/28/21 08:33 Lymphocytes % (Manual) 5.0 % (13.4-35.0) L 02/26/21 03:06 Reactive Lymphs % (Man) 1.0 % 02/28/21 08:33 Monocytes % (Manual) 2.0 % (0.0-7.3) 02/28/21 08:33 Nucleated RBC % Not Reportable 02/28/21 08:33 Seg Neutrophils # 4.5 K/mm3 (1.8-7.7) 02/23/21 03:40 Seg Neutrophils # Man 10.4 K/mm3 (1.8-7.7) H 02/28/21 08:33 Band Neutrophils # 0.3 K/mm3 02/28/21 08:33 Lymphocytes # (Manual) 0.0 K/mm3 (1.2-5.4) L 02/28/21 08:33 Abs React Lymphs (Man) 0.1 K/mm3 02/28/21 08:33 Monocytes # (Manual) 0.2 K/mm3 (0.0-0.8) 02/28/21 08:33 Eosinophils # (Manual) 0.0 K/mm3 (0.0-0.4) 02/28/21 08:33 Basophils # (Manual) 0.0 K/mm3 (0.0-0.1) 02/28/21 08:33 Metamyelocytes # 0.0 K/mm3 02/28/21 08:33 Myelocytes # 0.0 K/mm3 02/28/21 08:33 Promyelocytes # 0.0 K/mm3 02/28/21 08:33 Blast Cells # 0.0 K/mm3 02/28/21 08:33 WBC Morphology TNR 03/01/21 09:40 Hypersegmented Neuts Not Reportable 02/28/21 08:33 Hyposegmented Neuts Not Reportable 02/28/21 08:33 Hypogranular Neuts Not Reportable 02/28/21 08:33 Smudge Cells Not Reportable 02/28/21 08:33 Toxic Granulation Not Reportable 02/28/21 08:33 Toxic Vacuolation Not Reportable 02/28/21 08:33 Dohle Bodies Not Reportable 02/28/21 08:33 Pelger-Huet Anomaly Not Reportable 02/28/21 08:33 Sumeet Rods Not Reportable 02/28/21 08:33 Platelet Estimate Consistent w auto 02/28/21 08:33 Clumped Platelets Not Reportable 02/28/21 08:33 Plt Clumps, EDTA Not Reportable 02/28/21 08:33 Large Platelets Not Reportable 02/28/21 08:33 Giant Platelets Not Reportable 02/28/21 08:33 Platelet Satelliting Not Reportable 02/28/21 08:33 Plt Morphology Comment Not Reportable 02/28/21 08:33 RBC Morphology Not Reportable 02/28/21 08:33 Dimorphic RBCs Not Reportable 02/28/21 08:33 Polychromasia Not Reportable 02/28/21 08:33 Hypochromasia Not Reportable 02/28/21 08:33 Poikilocytosis Not Reportable 02/28/21 08:33 Anisocytosis Not Reportable 02/28/21 08:33 Microcytosis Not Reportable 02/28/21 08:33 Macrocytosis Not Reportable 02/28/21 08:33 Spherocytes Not Reportable 02/28/21 08:33 Pappenheimer Bodies Not Reportable 02/28/21 08:33 Sickle Cells Not Reportable 02/28/21 08:33 Target Cells Not Reportable 02/28/21 08:33 Tear Drop Cells Not Reportable 02/28/21 08:33 Ovalocytes 2+ 02/28/21 08:33 Helmet Cells Not Reportable 02/28/21 08:33 Amezquita-Stephan Bodies Not Reportable 02/28/21 08:33 [place] Rings Not Reportable 02/28/21 08:33 Gopi Cells Not Reportable 02/28/21 08:33 Bite Cells Not Reportable 02/28/21 08:33 Crenated Cell Not Reportable 02/28/21 08:33 Elliptocytes Not Reportable 02/28/21 08:33 Acanthocytes (Spur) Not Reportable 02/28/21 08:33 Rouleaux Not Reportable 02/28/21 08:33 Hemoglobin C Crystals Not Reportable 02/28/21 08:33 Schistocytes Not Reportable 02/28/21 08:33 Malaria parasites Not Reportable 02/28/21 08:33 Ervin Bodies Not Reportable 02/28/21 08:33 Hem Pathologist Commnt No 02/28/21 08:33 PT 16.5 Sec. (12.2-14.9) H 02/26/21 03:06 INR 1.28 (0.87-1.13) H 02/26/21 03:06 APTT 34.2 Sec. (24.2-36.6) 02/26/21 03:06 D-Dimer 721.62 ng/mlDDU (0-234) H 03/01/21 09:40 ABG pH 7.478 (7.320-7.450) H 02/22/21 13:21 POC ABG pCO2 33.5 mmHg (32.0-48.0) 02/22/21 13:21 POC ABG pO2 70.7 mmHg (83-108) L 02/22/21 13:21 POC ABG HCO3 24.3 02/22/21 13:21 ABG O2 Saturation 94.6 (0-100) 02/22/21 13:21 POC ABG Base Excess 1.0 02/22/21 13:21 ABG Hemoglobin 9.4 (12.0-17.5) L 02/22/21 13:21 ABG Oxyhemoglobin 93.7 (94-98) L 02/22/21 13:21 ABG Methemoglobin 0.3 (0.0-1.5) 02/22/21 13:21 ABG Sodium 131.6 mmol/L (136.0-145.0) L 02/22/21 13:21 ABG Potassium 4.0 mmol/L (3.40-4.50) 02/22/21 13:21 ABG Chloride 100.0 mmol/L (98-107) 02/22/21 13:21 ABG Glucose 87 mg/dL (65-95) 02/22/21 13:21 Carboxyhemoglobin 0.6 (0.5-1.5) 02/22/21 13:21 FiO2 % 70.0 02/22/21 13:21 Sodium 133 mmol/L (137-145) L 03/01/21 09:40 Potassium 5.6 mmol/L (3.6-5.0) H 03/01/21 09:40 Chloride 93.8 mmol/L (98-107) L 03/01/21 09:40 Carbon Dioxide 24 mmol/L (22-30) 03/01/21 09:40 Anion Gap 21 mmol/L 03/01/21 09:40 BUN 89 mg/dL (7-17) H 03/01/21 09:40 Creatinine 5.9 mg/dL (0.6-1.2) H 03/01/21 09:40 Estimated GFR 7 ml/min 03/01/21 09:40 BUN/Creatinine Ratio 15 % 03/01/21 09:40 Glucose 203 mg/dL (65-100) H 03/01/21 09:40 POC Glucose 210 mg/dL (70-105) H 02/27/21 11:52 Calcium 9.1 mg/dL (8.4-10.2) 03/01/21 09:40 Phosphorus 6.40 mg/dL (2.5-4.5) H D 03/01/21 09:40 Magnesium 2.10 mg/dL (1.7-2.3) 03/01/21 09:40 Ferritin 2112.0 ng/mL (10.0-200.0) H 03/01/21 09:40 Total Bilirubin 0.40 mg/dL (0.1-1.2) 02/27/21 05:12 Direct Bilirubin < 0.2 mg/dL (0-0.2) 02/27/21 05:12 Indirect Bilirubin 0.2 mg/dL 02/27/21 05:12 AST 18 units/L (5-40) 02/27/21 05:12 ALT 46 units/L (7-56) 02/27/21 05:12 Alkaline Phosphatase 82 units/L (35-129) 02/27/21 05:12 Lactate Dehydrogenase 284 units/L (91-180) H 03/01/21 09:40 Troponin T 0.097 ng/mL (0.00-0.029) H 02/22/21 11:31 C-Reactive Protein 0.90 mg/dL (0.00-1.30) 03/01/21 09:40 NT-Pro-B Natriuret Pep 36663 pg/mL (0-900) H 02/22/21 11:31 Total Protein 5.4 g/dL (6.3-8.2) L 02/27/21 05:12 Albumin 2.8 g/dL (3.9-5) L 02/27/21 05:12 Albumin/Globulin Ratio 1.1 % 02/27/21 05:12 Arterial Blood Glucose 87 mg/dL (65-95) 02/22/21 13:21 Arterial Blood Ionized Calcium 4.7 mg/dL (4.6-5.3) 02/22/21 13:21 Nasal Screen MRSA (PCR) Negative (Negative) 02/25/21 06:30 Coronavirus (PCR) Positive (Negative) A 02/24/21 Unknown Hepatitis A IgM Ab Non-reactive (NonReactive) 02/26/21 03:06 Hep Bs Antigen Nonreactive (Negative) 02/26/21 03:06 Hep B Core IgM Ab Non-reactive (NonReactive) 02/26/21 03:06 Hepatitis C Antibody Non-reactive (NonReactive) 02/26/21 03:06 [place]/IV: Voiding Method Diaper Active Medications - Current Medications Current Medications: Generic Name Dose Route Start Last Admin Trade Name Freq PRN Reason Stop Dose Admin Acetaminophen 650 mg 02/22/21 15:00 02/26/21 05:44 Acetaminophen 325 Mg Tab PO 650 mg Q4H PRN Administration Pain MILD(1-3)/Fever >100.5/GAUTAM Albuterol 2.5 mg 02/22/21 14:26 02/23/21 21:41 Albuterol 2.5 Mg/3 Ml Nebu IH 2.5 mg Q4HRT PRN Administration Shortness Of Breath Alprazolam 0.5 mg 02/22/21 14:29 02/28/21 15:13 Alprazolam 0.5 Mg Tab PO 0.5 mg Q8H PRN Administration Anxiety Amiodarone HCl 200 mg 02/27/21 22:00 03/01/21 12:47 Amiodarone 200 Mg Tab PO 200 mg BID DEVAN Administration Apixaban 2.5 mg 02/25/21 22:00 03/01/21 09:45 Apixaban 2.5 Mg Tab PO 2.5 mg Q12HR DEVAN Administration Protocol Ascorbic Acid 500 mg 02/22/21 22:00 03/01/21 09:45 Ascorbic Acid 500 Mg Tab PO 500 mg BID DEVAN Administration Atorvastatin Calcium 10 mg 02/22/21 22:00 02/28/21 21:41 Atorvastatin 10 Mg Tab PO 10 mg QHS DEVAN Administration Calcium Acetate 1,334 mg 02/23/21 17:00 03/01/21 12:04 Calcium Acetate 667 Mg Cap PO Not Given TIDWM DEVAN Cetirizine HCl 10 mg 02/23/21 10:00 03/01/21 09:45 Cetirizine 10 Mg Tab PO 10 mg DAILY DEVAN Administration Cholecalciferol 1,000 unit 02/23/21 10:00 03/01/21 09:45 Cholecalciferol (Vit D3) 1000 Unit (25 Mcg) Tab PO 1,000 unit QDAY DEVAN Administration Dextrose 50 ml 03/01/21 13:28 Dextrose 50% In Water (25gm) 50 Ml Syringe IV Q30MIN PRN Hypoglycemia Protocol Docusate Sodium 100 mg 02/28/21 11:00 03/01/21 09:45 Docusate Sodium 100 Mg Cap PO 100 mg BID DEVAN Administration Guaifenesin 200 mg 02/24/21 13:10 02/27/21 22:06 Guaifenesin 200 Mg Tab PO 200 mg Q6H PRN Administration Cough Hydralazine HCl 10 mg 02/23/21 22:06 Hydralazine 10 Mg Tab PO Q4H PRN SBP >/=165; DBP >/=110 Hydralazine HCl 10 mg 02/23/21 22:27 Hydralazine 20 Mg/1 Ml Inj IV Q4HR PRN SBP >/=165; DBP >/=110 Hydromorphone HCl 0.5 mg 02/22/21 14:26 02/23/21 01:55 Hydromorphone 1 Mg/1 Ml Inj IV 0.5 mg Q12H PRN Administration Pain , Severe (7-10) Insulin Human Regular 0 units 03/01/21 16:30 Insulin Regular, Human 100 Units/1 Ml SUB-Q ACHS [facility] Protocol Levothyroxine Sodium 50 mcg 02/23/21 10:00 03/01/21 09:57 Levothyroxine 50 Mcg Tab PO Not Given QAM DEVAN Methylprednisolone Sodium Succinate 40 mg 02/22/21 22:00 03/01/21 05:33 Methylprednisolone Sod Succinate 40 Mg/1 Ml Inj IV 03/04/21 14:01 40 mg Q8HR DEVAN Administration Midodrine 10 mg 02/28/21 10:00 03/01/21 09:44 Midodrine 5 Mg Tab PO 10 mg BID@1000,1800 DEVAN Administration Multivit/Ca Carb/B Cmplx/FA/Prenat 1 cap 02/23/21 10:00 03/01/21 09:44 Folic Acid/Vit B Comp W-C 1 Mg (Renal Caps) PO 1 cap QDAY DEVAN Administration Ondansetron HCl 4 mg 02/22/21 15:00 02/28/21 21:42 Ondansetron 4 Mg/2 Ml Inj IV 4 mg Q8H PRN Administration Nausea And Vomiting Oxycodone/Acetaminophen 1 tab 02/22/21 14:26 02/28/21 21:54 Oxycodone /Acetaminophen 5-325mg Tab PO 1 tab Q12H PRN Administration Pain, Moderate (4-6) Pantoprazole Sodium 40 mg 02/23/21 10:00 03/01/21 09:45 Pantoprazole 40 Mg Tab PO 40 mg QDAY DEVAN Administration Senna 8.6 mg 02/28/21 11:00 03/01/21 10:12 Sennosides 8.6 Mg Tab PO Not Given Q12H DEVAN Sodium Chloride 10 ml 02/22/21 22:00 03/01/21 09:46 Sodium Chloride 0.9% 10 Ml Flush Syringe IV 10 ml BID DEVAN Administration Sodium Chloride 10 ml 02/22/21 14:26 Sodium Chloride 0.9% 10 Ml Flush Syringe IV PRN PRN LINE FLUSH Sucralfate 1 gm 02/22/21 18:00 03/01/21 12:47 Sucralfate 1 Gm Tab PO 1 gm Q6HR DEVAN Administration Tramadol HCl 50 mg 02/22/21 15:00 02/27/21 22:07 Tramadol 50 Mg Tab PO 50 mg Q6HR PRN Administration Pain, Moderate (4-6) Zinc Sulfate 220 mg 02/22/21 22:00 03/01/21 09:45 Zinc Sulfate 220 Mg Cap PO 220 mg BID DEVAN Administration Nutrition/Malnutrition Assess - Dietary Evaluation Nutrition/Malnutrition Findings: Nutrition Notes Start: 02/27/21 13:22 Freq: Status: Active Protocol: Document 02/27/21 13:30 EB (Rec: 02/27/21 13:50 EB [id number]) Nutrition Notes Need for Assessment generated from: LOS Initial or Follow up Assessment Current Diagnosis CKD (stage V CKD),Heart Failure,Respiratory Failure Other Pertinent Diagnosis Covid +, Pneumonia, A. fib Current Diet Cardiac Labs/Tests K 5.1 Glu 183 Na 132 BUN 60 Cr 5.8 Pertinent Medications Vit. C Vit. D Solu-medrol Zinc Height 5 ft 2.99 in Weight 85.5 kg [place] Body Weight (kg) 52.25 BMI 33.4 Intake Prior to Admission Fair Weight Status Obese Subjective/Other Information RD screen for LOS. Skin risk documented in chart is 14. Pt ESRD on HD, T, Amalia, Sat. Per nurse notes, pt is able to feed herself, but has low appetite. Per RN report today via phone, pt appetite has declined and will only drink Nepro. Percent of energy/protein needs met: 31%/27% Burn Absent Trauma Absent GI Symptoms Nausea Current % PO Poor (25-49%) Minimum of two criteria No #1 Nutrition Diagnosis Increased nutrient needs ( specify in comment below) Comments: Protein Etiology ESRD As Evidenced by Signs and Symptoms on HD T, Th, Sat Is patient on ventilator? No Is Patient Ambulatory and/or Out of Bed No REE-([facility]-confined to bed) 1553.556 Kcal/Kg value to use for calculation 21 Approximate Energy Requirements Using 1796 kcal/Kg Calculation Used for Recommendations Kcal/kg Additional Notes Protein: 78-104 g/day (1.5-2 g /kg IBW) Fluids 1 mL/kcal or per MD order Nutrition Intervention Add Supplement/Snack (indicate name/kcal Nepro TID /protein ) Provides kCal: 1,260 Provides Protein (gm) 57 Goal #1 Meet at least 75-100% of syed and protein needs via PO and ONS intake Anticipated Discharge Needs: Renal/Cardiac diet Follow-Up By: 03/03/[address] to follow for PO and ONS intake - Attestation Statement I have reviewed and agreed w/ Malnutrition eval & tx plan: Yes
[2021-03-01] MEDS: INSULIN REGULAR, HUMAN 100 UNITS/1 ML SUB-Q SCH ×2 (16:30→23:25)
[2021-03-01 16:36] LABS: Total Cells Counted 100
[2021-03-01 16:37] LABS: Anisocytosis 1+; Band Neutrophils # (Manual) 0.1 K/mm3; Ovalocytes 1+
[2021-03-01] MEDS: ALPRAZolam 0.5 MG TAB PO PRN (22:59)
[2021-03-02] MEDS: AMIODARONE 200 MG TAB PO SCH ×3 (01:33→22:03)
[2021-03-02] MEDS: SENNOSIDES 8.6 MG TAB PO SCH ×2 (01:34→11:00)
[2021-03-02] MEDS: SUCRALFATE 1 GM TAB PO SCH ×3 (05:30→17:23)
[2021-03-02] MEDS: methylPREDNISolone Sod Succinate 40 MG/1 ML INJ IV SCH ×3 (05:30→21:41)
[2021-03-02] MEDS: INSULIN REGULAR, HUMAN 100 UNITS/1 ML SUB-Q SCH ×4 (07:30→21:59)
[2021-03-02] MEDS: CALCIUM ACETATE 667 MG CAP PO SCH ×3 (08:00→17:22)
--- NOTE | 2021-03-02 09:33 | Progress Note ---
Assessment and Plan End Stage Renal Disease on Hemodialysis Acute Hypoxic Respiratory failure Recent COVID-19 Infection Hypertension CHF Plan: s/p HD yesterday, no HD today K 5.2, Kayxelate ordered. Fluid restriction of 1 liter per day Low K diet Obtain daily weights Monitor I/O's daily Renally dose medications Assess dialysis needs daily Subjective Date of service: 03/02/21 Principal diagnosis: ESRD, Volume overload, AFIB Interval history: Tolerated HD yesterday, NAD. Objective - Exam Narrative Exam: General appearance: Present: no acute distress - EENT Eyes: Present: PERRL, EOM intact ENT: hearing intact, clear oral mucosa, dentition normal - Neck Neck: Present: supple, normal ROM - Respiratory Respiratory effort: normal Respiratory: bilateral: rhonchi, negative: diminished, rales, wheezing - Cardiovascular Rhythm: irregularly irregular Heart Sounds: Present: S1 & S2 Details: Permacath and upper chest with clean dry site of insertion - Extremities Extremities: no ischemia, pulses intact, pulses symmetrical, No edema, normal temperature, normal color Extremity abnormal: edema, cyanosis, clubbing Peripheral Pulses: within normal limits - Abdominal General gastrointestinal: soft, non-tender, non-distended, normal bowel sounds - Integumentary Integumentary: Present: clear (Age-appropriate skin change), warm, dry - Psychiatric Psychiatric: appropriate mood/affect, intact judgment & insight, memory intact, cooperative - Neurologic Neurologic: CNII-XII intact, moves all extremities - Allied Health Allied health notes reviewed: nursing - Vital Signs Vital signs: Vital Signs - 12hr 03/01/21 03/01/21 03/01/21 21:45 21:55 22:20 Temperature 98.2 F Pulse Rate 90 90 92 H Respiratory 18 Rate Blood Pressure 124/40 108/42 107/34 O2 Sat by Pulse Oximetry O2 Sat by Pulse 99 Oximetry [ Anterior Bilateral Throughout] O2 Sat by Pulse 99 Oximetry [ Posterior Bilateral Throughout] 03/02/21 03/02/21 01:00 06:09 Temperature 97.8 F Pulse Rate 88 Respiratory 18 Rate Blood Pressure 102/43 O2 Sat by Pulse 98 96 Oximetry O2 Sat by Pulse Oximetry [ Anterior Bilateral Throughout] O2 Sat by Pulse Oximetry [ Posterior Bilateral Throughout] - Lab 03/02/21 10:22 03/02/21 10:22 Most recent lab results ABG pH 7.478 (7.320-7.450) H 02/22/21 13:21 ABG O2 Saturation 94.6 (0-100) 02/22/21 13:21 Calcium 9.1 mg/dL (8.4-10.2) 03/01/21 09:40 Phosphorus 6.40 mg/dL (2.5-4.5) H D 03/01/21 09:40 Magnesium 2.10 mg/dL (1.7-2.3) 03/01/21 09:40 Medications & Allergies - Medications Allergies/Adverse Reactions: Allergies amoxicillin Allergy (Verified 02/22/21 11:14) Unknown codeine Allergy (Verified 02/22/21 11:14) Unknown Penicillins Allergy (Verified 02/22/21 11:14) Unknown Sulfa (Sulfonamide Antibiotics) Allergy (Verified 02/22/21 11:14) Unknown Home Medications: Home Medications Medication Instructions Recorded Confirmed Last Taken Type AtorvaSTATin [Lipitor] 10 mg PO QHS 02/22/21 02/22/21 Unknown History Calcium Acetate [Phoslo] 1,334 mg PO TID 02/22/21 02/22/21 Unknown History Cetirizine HCl [Cetirizine 10mg 10 mg PO QDAY 02/22/21 02/22/21 Unknown History chew] L. Acidophilus/Bifid. Animalis 1 each PO QDAY 02/22/21 02/22/21 Unknown History [Dialyvite Chewable Probiotic] Levothyroxine [Synthroid] 50 mcg PO QAM 02/22/21 02/22/21 Unknown History Pantoprazole [Protonix] 40 mg PO QDAY 02/22/21 02/22/21 Unknown History Sucralfate [Carafate] 1 gm PO Q6HR 02/22/21 02/22/21 Unknown History Temazepam [Restoril] 7.5 mg PO QHS 02/22/21 02/22/21 Unknown History amLODIPine [Norvasc] 5 mg PO DAILY 02/22/21 02/22/21 Unknown History atenoloL [Tenormin] 10 mg PO DAILY 02/22/21 02/22/21 Unknown History traMADoL [Ultram] 50 mg PO Q6HR PRN 02/22/21 02/22/21 Unknown History Active Medications: Generic Name Dose Route Start Last Admin Trade Name Freq PRN Reason Stop Dose Admin Acetaminophen 650 mg 02/22/21 15:00 02/26/21 05:44 Acetaminophen 325 Mg Tab PO 650 mg Q4H PRN Administration Pain MILD(1-3)/Fever >100.5/GAUTAM Albuterol 2.5 mg 02/22/21 14:26 02/23/21 21:41 Albuterol 2.5 Mg/3 Ml Nebu IH 2.5 mg Q4HRT PRN Administration Shortness Of Breath Alprazolam 0.5 mg 02/22/21 14:29 03/01/21 22:59 Alprazolam 0.5 Mg Tab PO 0.5 mg Q8H PRN Administration Anxiety Amiodarone HCl 200 mg 02/27/21 22:00 03/02/21 01:33 Amiodarone 200 Mg Tab PO Not Given BID DEVAN Apixaban 2.5 mg 02/25/21 22:00 03/01/21 22:59 Apixaban 2.5 Mg Tab PO 2.5 mg Q12HR DEVAN Administration Protocol Ascorbic Acid 500 mg 02/22/21 22:00 03/01/21 23:02 Ascorbic Acid 500 Mg Tab PO 500 mg BID DEVAN Administration Atorvastatin Calcium 10 mg 02/22/21 22:00 03/01/21 23:00 Atorvastatin 10 Mg Tab PO 10 mg QHS DEVAN Administration Calcium Acetate 1,334 mg 02/23/21 17:00 03/01/21 16:47 Calcium Acetate 667 Mg Cap PO Not Given TIDWM DEVAN Cetirizine HCl 10 mg 02/23/21 10:00 03/01/21 09:45 Cetirizine 10 Mg Tab PO 10 mg DAILY DEVAN Administration Cholecalciferol 1,000 unit 02/23/21 10:00 03/01/21 09:45 Cholecalciferol (Vit D3) 1000 Unit (25 Mcg) Tab PO 1,000 unit QDAY DEVAN Administration Dextrose 50 ml 03/01/21 13:28 Dextrose 50% In Water (25gm) 50 Ml Syringe IV Q30MIN PRN Hypoglycemia Protocol Docusate Sodium 100 mg 02/28/21 11:00 03/01/21 22:59 Docusate Sodium 100 Mg Cap PO 100 mg BID DEVAN Administration Guaifenesin 200 mg 02/24/21 13:10 09/23/21 22:06 Guaifenesin 200 Mg Tab PO 200 mg Q6H PRN Administration Cough Hydralazine HCl 10 mg 02/23/21 22:06 Hydralazine 10 Mg Tab PO Q4H PRN SBP >/=165; DBP >/=110 Hydralazine HCl 10 mg 02/23/21 22:27 Hydralazine 20 Mg/1 Ml Inj IV Q4HR PRN SBP >/=165; DBP >/=110 Hydromorphone HCl 0.5 mg 02/22/21 14:26 02/23/21 01:55 Hydromorphone 1 Mg/1 Ml Inj IV 0.5 mg Q12H PRN Administration Pain , Severe (7-10) Insulin Human Regular 0 units 03/01/21 16:30 03/01/21 23:25 Insulin Regular, Human 100 Units/1 Ml SUB-Q 2 units ACHS DEVAN Administration Protocol Levothyroxine Sodium 50 mcg 02/23/21 10:00 03/01/21 09:57 Levothyroxine 50 Mcg Tab PO Not Given QAM [facility] Methylprednisolone Sodium Succinate 40 mg 02/22/21 22:00 03/02/21 05:30 Methylprednisolone Sod Succinate 40 Mg/1 Ml Inj IV 03/04/21 14:01 40 mg Q8HR DEVAN Administration Midodrine 10 mg 02/28/21 10:00 03/01/21 18:24 Midodrine 5 Mg Tab PO 10 mg BID@1000,1800 DEVAN Administration Multivit/Ca Carb/B Cmplx/FA/Prenat 1 cap 02/23/21 10:00 03/01/21 09:44 Folic Acid/Vit B Comp W-C 1 Mg (Renal Caps) PO 1 cap QDAY DEVAN Administration Ondansetron HCl 4 mg 02/22/21 15:00 02/28/21 21:42 Ondansetron 4 Mg/2 Ml Inj IV 4 mg Q8H PRN Administration Nausea And Vomiting Oxycodone/Acetaminophen 1 tab 02/22/21 14:26 02/28/21 21:54 Oxycodone /Acetaminophen 5-325mg Tab PO 1 tab Q12H PRN Administration Pain, Moderate (4-6) Pantoprazole Sodium 40 mg 02/23/21 10:00 03/01/21 09:45 Pantoprazole 40 Mg Tab PO 40 mg QDAY DEVAN Administration Senna 8.6 mg 02/28/21 11:00 03/02/21 01:34 Sennosides 8.6 Mg Tab PO Not Given Q12H DEVAN Sodium Chloride 10 ml 02/22/21 22:00 03/01/21 23:00 Sodium Chloride 0.9% 10 Ml Flush Syringe IV 10 ml BID DEVAN Administration Sodium Chloride 10 ml 02/22/21 14:26 Sodium Chloride 0.9% 10 Ml Flush Syringe IV PRN PRN LINE FLUSH Sucralfate 1 gm 02/22/21 18:00 03/02/21 05:30 Sucralfate 1 Gm Tab PO 1 gm Q6HR DEVAN Administration Tramadol HCl 50 mg 02/22/21 15:00 02/27/21 22:07 Tramadol 50 Mg Tab PO 50 mg Q6HR PRN Administration Pain, Moderate (4-6) Zinc Sulfate 220 mg 02/22/21 22:00 03/01/21 22:59 Zinc Sulfate 220 Mg Cap PO 220 mg BID DEVAN Administration
[2021-03-02] MEDS: MIDODRINE 5 MG TAB PO SCH ×2 (09:39→17:23)
[2021-03-02] MEDS: LEVOTHYROXINE 50 MCG TAB PO SCH (09:40)
[2021-03-02] MEDS: FOLIC ACID/VIT B COMP W-C 1 MG (RENAL CAPS) PO SCH (09:40)
[2021-03-02] MEDS: PANTOPRAZOLE 40 MG TAB PO SCH (09:40)
[2021-03-02] MEDS: ZINC SULFATE 220 MG CAP PO SCH ×2 (09:41→21:41)
[2021-03-02] MEDS: DOCUSATE SODIUM 100 MG CAP PO SCH (09:41)
[2021-03-02] MEDS: ASCORBIC ACID 500 MG TAB PO SCH ×2 (09:42→21:42)
[2021-03-02] MEDS: APIXABAN 2.5 MG TAB PO SCH ×2 (09:42→21:42)
[2021-03-02] MEDS: CHOLECALCIFEROL (VIT D3) 1000 UNIT (25 mcg) TAB PO SCH (09:42)
[2021-03-02] MEDS: CETIRIZINE 10 MG TAB PO SCH (09:43)
[2021-03-02 10:38] LABS: Hematocrit 25.5 % (30.3-42.9); Hemoglobin 8.3 gm/dl (10.1-14.3); Mean Corpuscular HGB Conc 32 % (30-34); Mean Corpuscular Volume 102 fl (79-97); Platelet Count 138 K/mm3 (140-440); Red Blood Count 2.51 M/mm3 (3.65-5.03); Red Cell Distribution Width 15.1 % (13.2-15.2)
[2021-03-02 10:57] LABS: Calcium 8.7 mg/dL (8.4-10.2)
[2021-03-02 12:53] LABS: Total Cells Counted 100
[2021-03-02 12:54] LABS: Platelet Estimate Consistent w Auto
[2021-03-02] MEDS ORDERED: SODIUM POLYSTYRENE 15 GM/60 ML ORAL LIQD PO ONE (13:24)
[2021-03-02] MEDS ORDERED: SENNOSIDES 8.6 MG TAB PO PRN (14:42)
--- NOTE | 2021-03-02 14:48 | Progress Note ---
Assessment and Plan Assessment and plan: #Acute on chronic hypoxic respiratory failure-resolved -Currently on 3-4 L nasal cannula (baseline home oxygen requirements); saturating at 94+% -diagnosed with Covid 2 weeks ago; patient is technically out of infectious timeframe. -Pulmonology consulted, assistance appreciated -etiology secondary to COVID versus CHF #Diarrhea -Changing scheduled senna and docusate to as needed; low clinical suspicion for infectious etiology -Administering 1 dose of loperamide for symptomatic relief -We will continue to monitor #Hyperkalemia-stable -Potassium 5.2 (will be resolved with hemodialysis) -Likely improved after obtaining hemodialysis yesterday -We will likely improve if hemodialysis is performed again today -We will continue to monitor #Congestive heart failure-stable -Patient does not report previous history of CHF -BNP 70,000 -Euvolemic on exam -TTE ordered -Cardiology consulted assistance appreciated #COVID-19 pneumonia-resolved -Antibiotic course completed -Patient currently stable; will continue to monitor #COVID-19 infection-stable -diagnosed 2 weeks ago -patient was discharged from outside hospital on last week -IV steroids (completed) #ESRD on HD -// schedule -Need for hemodialysis as assessed daily by nephrology -Nephrology consulted, assistance appreciated #Constipation -Increasing bowel regimen to include docusate and senna; patient prefers not to use MiraLAX #Deconditioning -patient utilizes rolling walker at home -PT recommends rehab for approximately 4 weeks prior to discharge home #Discharge planning -Pending repeat COVID-19 test in order to be accepted at rehab center; hopefully results will be in on 03/03/2021 -Case management currently working on rehab placement -Patient states she is ready for discharge whenever deemed medically cleared Disposition Plan: Pending rehab placement Total Time Spent with Patient (Minutes): 30 min History Interval history: No acute events over night Hospitalist Physical - Constitutional Vitals: Temp Pulse Resp BP Pulse Ox 97.8 F 88 18 102/43 96 03/02/21 06:09 03/02/21 06:09 03/02/21 06:09 03/02/21 06:09 03/02/21 06:09 General appearance: Present: no acute distress - EENT Eyes: Present: PERRL, EOM intact ENT: hearing intact, clear oral mucosa, edentulous - Neck Neck: Present: supple, normal ROM - Respiratory Respiratory effort: normal (On 4 L nasal cannula) Respiratory: bilateral: rhonchi, negative: CTA, rales, wheezing - Cardiovascular Rhythm: irregularly irregular Heart Sounds: Present: S1 & S2 - Extremities Extremities: no ischemia, pulses intact, pulses symmetrical, No edema, normal temperature, normal color Peripheral Pulses: within normal limits - Abdominal General gastrointestinal: soft, non-tender, non-distended, normal bowel sounds - Integumentary Integumentary: Present: clear (Age-related skin changes), warm, dry - Psychiatric Psychiatric: appropriate mood/affect, intact judgment & insight, memory intact, cooperative - Neurologic Neurologic: CNII-XII intact, moves all extremities - Allied Health Allied health notes reviewed: nursing HEART Score - HEART Score EKG: Non-specific Age: > 65 Risk factors: > 3 risk factors or hx of atherosclerotic disease Troponin: Troponin T 0.097 ng/mL (0.00-0.029) H 02/22/21 11:31 Troponin: < normal limit - Critical Actions Critical Actions: 4-6 pts:12-16.6% risk of adverse cardiac event. Should be admitted Results - Labs CBC & Chem 7: 03/02/21 10:22 03/02/21 10:22 Labs: Laboratory Last Values WBC 12.2 K/mm3 (4.5-11.0) H 03/02/21 10:22 RBC 2.51 M/mm3 (3.65-5.03) L 03/02/21 10:22 Hgb 8.3 gm/dl (10.1-14.3) L 03/02/21 10:22 Hct 25.5 % (30.3-42.9) L 03/02/21 10:22 MCV 102 fl (79-97) H 03/02/21 10:22 MCH 33 pg (28-32) H 03/02/21 10:22 MCHC 32 % (30-34) 03/02/21 10:22 RDW 15.1 % (13.2-15.2) 03/02/21 10:22 Plt Count 138 K/mm3 (140-440) L 03/02/21 10:22 Lymph % (Auto) 5.7 % (13.4-35.0) L 02/23/21 03:40 [place] % (Auto) 3.7 % (0.0-7.3) 02/23/21 03:40 Eos % (Auto) 0.1 % (0.0-4.3) 02/23/21 03:40 Baso % (Auto) 0.7 % (0.0-1.8) 02/23/21 03:40 Lymph # (Auto) 0.3 K/mm3 (1.2-5.4) L 02/23/21 03:40 [place] # (Auto) 0.2 K/mm3 (0.0-0.8) 02/23/21 03:40 Eos # (Auto) 0.0 K/mm3 (0.0-0.4) 02/23/21 03:40 Baso # (Auto) 0.0 K/mm3 (0.0-0.1) 02/23/21 03:40 Add Manual Diff Complete 03/02/21 10:22 Total Counted 100 03/02/21 10:22 Seg Neutrophils % Building [employer]ist 03/02/21 10:22 Seg Neuts % (Manual) 98.0 % (40.0-70.0) H 03/02/21 10:22 Band Neutrophils % 1.0 % 03/01/21 09:40 Lymphocytes % (Manual) 1.0 % (13.4-35.0) L 03/02/21 10:22 Reactive Lymphs % (Man) 1.0 % 02/28/21 08:33 Monocytes % (Manual) 1.0 % (0.0-7.3) 03/02/21 10:22 Nucleated RBC % Not Reportable 03/02/21 10:22 Seg Neutrophils # 4.5 K/mm3 (1.8-7.7) 02/23/21 03:40 Seg Neutrophils # Man 12.0 K/mm3 (1.8-7.7) H 03/02/21 10:22 Band Neutrophils # 0.0 K/mm3 03/02/21 10:22 Lymphocytes # (Manual) 0.1 K/mm3 (1.2-5.4) L 03/02/21 10:22 Abs React Lymphs (Man) 0.0 K/mm3 03/02/21 10:22 Monocytes # (Manual) 0.1 K/mm3 (0.0-0.8) 03/02/21 10:22 Eosinophils # (Manual) 0.0 K/mm3 (0.0-0.4) 03/02/21 10:22 Basophils # (Manual) 0.0 K/mm3 (0.0-0.1) 03/02/21 10:22 Metamyelocytes # 0.0 K/mm3 03/02/21 10:22 Myelocytes # 0.0 K/mm3 03/02/21 10:22 Promyelocytes # 0.0 K/mm3 03/02/21 10:22 Blast Cells # 0.0 K/mm3 03/02/21 10:22 WBC Morphology Not Reportable 03/02/21 10:22 WBC Morphology TNR 03/02/21 10:22 Hypersegmented Neuts Not Reportable 03/02/21 10:22 Hyposegmented Neuts Not Reportable 03/02/21 10:22 Hypogranular Neuts Not Reportable 03/02/21 10:22 Smudge Cells Not Reportable 03/02/21 10:22 Toxic Granulation Not Reportable 03/02/21 10:22 Toxic Vacuolation Not Reportable 03/02/21 10:22 Dohle Bodies Not Reportable 03/02/21 10:22 Pelger-Huet Anomaly Not Reportable 03/02/21 10:22 Sumeet Rods Not Reportable 03/02/21 10:22 Platelet Estimate Consistent w auto 03/02/21 10:22 Clumped Platelets Not Reportable 03/02/21 10:22 Plt Clumps, EDTA Not Reportable 03/02/21 10:22 Large Platelets Not Reportable 03/02/21 10:22 Giant Platelets Not Reportable 03/02/21 10:22 Platelet Satelliting Not Reportable 03/02/21 10:22 Plt Morphology Comment Not Reportable 03/02/21 10:22 RBC Morphology Not Reportable 03/02/21 10:22 Dimorphic RBCs Not Reportable 03/02/21 10:22 Polychromasia Not Reportable 03/02/21 10:22 Hypochromasia Not Reportable 03/02/21 10:22 Poikilocytosis Not Reportable 03/02/21 10:22 Anisocytosis Not Reportable 03/02/21 10:22 Microcytosis Not Reportable 03/02/21 10:22 Macrocytosis Not Reportable 03/02/21 10:22 Spherocytes Not Reportable 03/02/21 10:22 Pappenheimer Bodies Not Reportable 03/02/21 10:22 Sickle Cells Not Reportable 03/02/21 10:22 Target Cells Not Reportable 03/02/21 10:22 Tear Drop Cells Not Reportable 03/02/21 10:22 Ovalocytes Not Reportable 03/02/21 10:22 Helmet Cells Not Reportable 03/02/21 10:22 [place] Bodies Not Reportable 03/02/21 10:22 [place] Rings Not Reportable 03/02/21 10:22 Gopi Cells Not Reportable 03/02/21 10:22 Bite Cells Not Reportable 03/02/21 10:22 Crenated Cell Not Reportable 03/02/21 10:22 Elliptocytes 1+ 03/02/21 10:22 Acanthocytes (Spur) Not Reportable 03/02/21 10:22 Rouleaux Not Reportable 03/02/21 10:22 Hemoglobin C Crystals Not Reportable 03/02/21 10:22 Schistocytes Not Reportable 03/02/21 10:22 Malaria parasites Not Reportable 03/02/21 10:22 Ervin Bodies Not Reportable 03/02/21 10:22 Hem Pathologist Commnt No 03/02/21 10:22 PT 16.5 Sec. (12.2-14.9) H 02/26/21 03:06 INR 1.28 (0.87-1.13) H 02/26/21 03:06 APTT 34.2 Sec. (24.2-36.6) 02/26/21 03:06 D-Dimer 721.62 ng/mlDDU (0-234) H 03/01/21 09:40 ABG pH 7.478 (7.320-7.450) H 02/22/21 13:21 POC ABG pCO2 33.5 mmHg (32.0-48.0) 02/22/21 13:21 POC ABG pO2 70.7 mmHg (83-108) L 02/22/21 13:21 POC ABG HCO3 24.3 02/22/21 13:21 ABG O2 Saturation 94.6 (0-100) 02/22/21 13:21 POC ABG Base Excess 1.0 02/22/21 13:21 ABG Hemoglobin 9.4 (12.0-17.5) L 02/22/21 13:21 ABG Oxyhemoglobin 93.7 (94-98) L 02/22/21 13:21 ABG Methemoglobin 0.3 (0.0-1.5) 02/22/21 13:21 ABG Sodium 131.6 mmol/L (136.0-145.0) L 02/22/21 13:21 ABG Potassium 4.0 mmol/L (3.40-4.50) 02/22/21 13:21 ABG Chloride 100.0 mmol/L (98-107) 02/22/21 13:21 ABG Glucose 87 mg/dL (65-95) 02/22/21 13:21 Carboxyhemoglobin 0.6 (0.5-1.5) 02/22/21 13:21 FiO2 % 70.0 02/22/21 13:21 Sodium 135 mmol/L (137-145) L 03/02/21 10:22 Potassium 5.2 mmol/L (3.6-5.0) H 03/02/21 10:22 Chloride 98.0 mmol/L (98-107) 03/02/21 10:22 Carbon Dioxide 24 mmol/L (22-30) 03/02/21 10:22 Anion Gap 18 mmol/L 03/02/21 10:22 BUN 58 mg/dL (7-17) H 03/02/21 10:22 Creatinine 4.2 mg/dL (0.6-1.2) H 03/02/21 10:22 Estimated GFR 10 ml/min 03/02/21 10:22 BUN/Creatinine Ratio 14 % 03/02/21 10:22 Glucose 197 mg/dL (65-100) H 03/02/21 10:22 POC Glucose 196 mg/dL (70-105) H 03/02/21 10:48 Calcium 8.7 mg/dL (8.4-10.2) 03/02/21 10:22 Phosphorus 5.20 mg/dL (2.5-4.5) H 03/02/21 10:22 Magnesium 2.00 mg/dL (1.7-2.3) 03/02/21 10:22 Ferritin 2112.0 ng/mL (10.0-200.0) H 03/01/21 09:40 Total Bilirubin 0.40 mg/dL (0.1-1.2) 02/27/21 05:12 Direct Bilirubin < 0.2 mg/dL (0-0.2) 02/27/21 05:12 Indirect Bilirubin 0.2 mg/dL 02/27/21 05:12 AST 18 units/L (5-40) 02/27/21 05:12 ALT 46 units/L (7-56) 02/27/21 05:12 Alkaline Phosphatase 82 units/L (35-129) 02/27/21 05:12 Lactate Dehydrogenase 284 units/L (91-180) H 03/01/21 09:40 Troponin T 0.097 ng/mL (0.00-0.029) H 02/22/21 11:31 C-Reactive Protein 0.90 mg/dL (0.00-1.30) 03/01/21 09:40 NT-Pro-B Natriuret Pep 87741 pg/mL (0-900) H 02/22/21 11:31 Total Protein 5.4 g/dL (6.3-8.2) L 02/27/21 05:12 Albumin 2.8 g/dL (3.9-5) L 02/27/21 05:12 Albumin/Globulin Ratio 1.1 % 02/27/21 05:12 Arterial Blood Glucose 87 mg/dL (65-95) 02/22/21 13:21 Arterial Blood Ionized Calcium 4.7 mg/dL (4.6-5.3) 02/22/21 13:21 Nasal Screen MRSA (PCR) Negative (Negative) 02/25/21 06:30 Coronavirus (PCR) Positive (Negative) A 02/24/21 Unknown Hepatitis A IgM Ab Non-reactive (NonReactive) 02/26/21 03:06 Hep Bs Antigen Nonreactive (Negative) 02/26/21 03:06 Hep B Core IgM Ab Non-reactive (NonReactive) 02/26/21 03:06 Hepatitis C Antibody Non-reactive (NonReactive) 02/26/21 03:06 [place]/IV: Voiding Method Diaper Active Medications - Current Medications Current Medications: Generic Name Dose Route Start Last Admin Trade Name Freq PRN Reason Stop Dose Admin Acetaminophen 650 mg 02/22/21 15:00 02/26/21 05:44 Acetaminophen 325 Mg Tab PO 650 mg Q4H PRN Administration Pain MILD(1-3)/Fever >100.5/GAUTAM Albuterol 2.5 mg 02/22/21 14:26 02/23/21 21:41 Albuterol 2.5 Mg/3 Ml Nebu IH 2.5 mg Q4HRT PRN Administration Shortness Of Breath Alprazolam 0.5 mg 02/22/21 14:29 03/01/21 22:59 Alprazolam 0.5 Mg Tab PO 0.5 mg Q8H PRN Administration Anxiety Amiodarone HCl 200 mg 02/27/21 22:00 03/02/21 09:41 Amiodarone 200 Mg Tab PO 200 mg BID DEVAN Administration Apixaban 2.5 mg 02/25/21 22:00 03/02/21 09:42 Apixaban 2.5 Mg Tab PO 2.5 mg Q12HR DEVAN Administration Protocol Ascorbic Acid 500 mg 02/22/21 22:00 03/02/21 09:42 Ascorbic Acid 500 Mg Tab PO 500 mg BID DEVAN Administration Atorvastatin Calcium 10 mg 02/22/21 22:00 03/01/21 23:00 Atorvastatin 10 Mg Tab PO 10 mg QHS DEVAN Administration Calcium Acetate 1,334 mg 02/23/21 17:00 03/02/21 12:00 Calcium Acetate 667 Mg Cap PO 1,334 mg TIDWM DEVAN Administration Cetirizine HCl 10 mg 02/23/21 10:00 03/02/21 09:43 Cetirizine 10 Mg Tab PO 10 mg DAILY DEVAN Administration Cholecalciferol 1,000 unit 02/23/21 10:00 03/02/21 09:42 Cholecalciferol (Vit D3) 1000 Unit (25 Mcg) Tab PO 1,000 unit QDAY DEVAN Administration Dextrose 50 ml 03/01/21 13:28 Dextrose 50% In Water (25gm) 50 Ml Syringe IV Q30MIN PRN Hypoglycemia Protocol Docusate Sodium 100 mg 03/02/21 15:00 Docusate Sodium 100 Mg Cap PO PRN DEVAN Guaifenesin 200 mg 02/24/21 13:10 02/27/21 22:06 Guaifenesin 200 Mg Tab PO 200 mg Q6H PRN Administration Cough Hydralazine HCl 10 mg 02/23/21 22:06 Hydralazine 10 Mg Tab PO Q4H PRN SBP >/=165; DBP >/=110 Hydralazine HCl 10 mg 02/23/21 22:27 Hydralazine 20 Mg/1 Ml Inj IV Q4HR PRN SBP >/=165; DBP >/=110 Hydromorphone HCl 0.5 mg 02/22/21 14:26 02/23/21 01:55 Hydromorphone 1 Mg/1 Ml Inj IV 0.5 mg Q12H PRN Administration Pain , Severe (7-10) Insulin Human Regular 0 units 03/01/21 16:30 03/02/21 11:30 Insulin Regular, Human 100 Units/1 Ml SUB-Q 2 units ACHS DEVAN Administration Protocol Levothyroxine Sodium 50 mcg 02/23/21 10:00 03/02/21 09:40 Levothyroxine 50 Mcg Tab PO 50 mcg QAM DEVAN Administration Loperamide HCl 2 mg 03/02/21 14:40 Loperamide 2 Mg Cap PO 03/02/21 14:41 ONCE ONE Methylprednisolone Sodium Succinate 40 mg 02/22/21 22:00 03/02/21 13:52 Methylprednisolone Sod Succinate 40 Mg/1 Ml Inj IV 03/04/21 14:01 40 mg Q8HR DEVAN Administration Midodrine 10 mg 02/28/21 10:00 03/02/21 09:39 Midodrine 5 Mg Tab PO 10 mg BID@1000,1800 DEVAN Administration Multivit/Ca Carb/B Cmplx/FA/Prenat 1 cap 02/23/21 10:00 03/02/21 09:40 Folic Acid/Vit B Comp W-C 1 Mg (Renal Caps) PO 1 cap QDAY DEVAN Administration Ondansetron HCl 4 mg 02/22/21 15:00 02/28/21 21:42 Ondansetron 4 Mg/2 Ml Inj IV 4 mg Q8H PRN Administration Nausea And Vomiting Oxycodone/Acetaminophen 1 tab 02/22/21 14:26 02/28/21 21:54 Oxycodone /Acetaminophen 5-325mg Tab PO 1 tab Q12H PRN Administration Pain, Moderate (4-6) Pantoprazole Sodium 40 mg 02/23/21 10:00 03/02/21 09:40 Pantoprazole 40 Mg Tab PO 40 mg QDAY DEVAN Administration Senna 8.6 mg 03/02/21 14:42 Sennosides 8.6 Mg Tab PO 03/12/21 14:40 PRN PRN Constipation Sodium Chloride 10 ml 02/22/21 22:00 03/02/21 09:43 Sodium Chloride 0.9% 10 Ml Flush Syringe IV 10 ml BID DEVAN Administration Sodium Chloride 10 ml 02/22/21 14:26 Sodium Chloride 0.9% 10 Ml Flush Syringe IV PRN PRN LINE FLUSH Sucralfate 1 gm 02/22/21 18:00 03/02/21 12:00 Sucralfate 1 Gm Tab PO 1 gm Q6HR DEVAN Administration Tramadol HCl 50 mg 02/22/21 15:00 02/27/21 22:07 Tramadol 50 Mg Tab PO 50 mg Q6HR PRN Administration Pain, Moderate (4-6) Zinc Sulfate 220 mg 02/22/21 22:00 03/02/21 09:41 Zinc Sulfate 220 Mg Cap PO 220 mg BID DEVAN Administration Nutrition/Malnutrition Assess - Dietary Evaluation Nutrition/Malnutrition Findings: Nutrition Notes Start: 02/27/21 13:22 Freq: Status: Active Protocol: Document 02/27/21 13:30 EB (Rec: 02/27/21 13:50 EB [id number]) Nutrition Notes Need for Assessment generated from: LOS Initial or Follow up Assessment Current Diagnosis CKD (stage V CKD),Heart Failure,Respiratory Failure Other Pertinent Diagnosis Covid +, Pneumonia, A. fib Current Diet Cardiac Labs/Tests K 5.1 Glu 183 Na 132 BUN 60 Cr 5.8 Pertinent Medications Vit. C Vit. D Solu-medrol Zinc Height 5 ft 2.99 in Weight 85.5 kg [place] Body Weight (kg) 52.25 BMI 33.4 Intake Prior to Admission Fair Weight Status Obese Subjective/Other Information RD screen for LOS. Skin risk documented in chart is 14. Pt ESRD on HD, T, Am[place], Sat. Per nurse notes, pt is able to feed herself, but has low appetite. Per RN report today via phone, pt appetite has declined and will only drink Nepro. Percent of energy/protein needs met: 31%/27% Burn Absent Trauma Absent GI Symptoms Nausea Current % PO Poor (25-49%) Minimum of two criteria No #1 Nutrition Diagnosis Increased nutrient needs ( specify in comment below) Comments: Protein Etiology ESRD As Evidenced by Signs and Symptoms on HD T, Th, Sat Is patient on ventilator? No Is Patient Ambulatory and/or Out of Bed No REE-([place]-confined to bed) 1553.556 Kcal/Kg value to use for calculation 21 Approximate Energy Requirements Using 1796 kcal/Kg Calculation Used for Recommendations Kcal/kg Additional Notes Protein: 78-104 g/day (1.5-2 g /kg IBW) Fluids 1 mL/kcal or per MD order Nutrition Intervention Add Supplement/Snack (indicate name/kcal Nepro TID /protein ) Provides kCal: 1,260 Provides Protein (gm) 57 Goal #1 Meet at least 75-100% of syed and protein needs via PO and ONS intake Anticipated Discharge Needs: Renal/Cardiac diet Follow-Up By: 03/03/[address] to follow for PO and ONS intake - Attestation Statement I have reviewed and agreed w/ Malnutrition eval & tx plan: Yes
[2021-03-02] MEDS ORDERED: LOPERAMIDE 2 MG CAP PO NR (15:00)
[2021-03-02] MEDS ORDERED: DOCUSATE SODIUM 100 MG CAP PO SCH (15:00)
[2021-03-02] MEDS: ALPRAZolam 0.5 MG TAB PO PRN (21:41)
[2021-03-03] MEDS: SUCRALFATE 1 GM TAB PO SCH ×4 (00:05→17:45)
[2021-03-03] MEDS: methylPREDNISolone Sod Succinate 40 MG/1 ML INJ IV SCH ×3 (06:00→21:33)
[2021-03-03 09:28] LABS: Hemoglobin 8.6 gm/dl (10.1-14.3); Mean Corpuscular HGB Conc 33 % (30-34); Mean Corpuscular Volume 100 fl (79-97); Platelet Count 131 K/mm3 (140-440); Red Cell Distribution Width 14.9 % (13.2-15.2)
--- NOTE | 2021-03-03 10:30 | Progress Note ---
Assessment and Plan Assessment: End Stage Renal Disease on Hemodialysis Acute Hypoxic Respiratory failure Recent COVID-19 Infection Hypertension CHF Plan: Hemodialysis tomorrow for UF and clearance Fluid restriction of 1 liter per day Obtain daily weights Monitor I/O's daily Renally dose medications Assess dialysis needs daily Plan of care reviewed by Dr. Young Subjective Date of service: 03/03/21 Principal diagnosis: ESRD, Volume overload, AFIB Interval history: Patient on isolation for COVID-19 infection Objective - Vital Signs Vital signs: Vital Signs - 12hr 03/03/21 03/03/21 04:00 06:47 Temperature 97.7 F Pulse Rate 99 H 115 H Respiratory 20 Rate Blood Pressure 85/69 O2 Sat by Pulse 96 Oximetry - Lab 03/03/21 08:41 03/03/21 08:41 Most recent lab results ABG pH 7.478 (7.320-7.450) H 02/22/21 13:21 ABG O2 Saturation 94.6 (0-100) 02/22/21 13:21 Calcium 9.0 mg/dL (8.4-10.2) 03/03/21 08:41 Phosphorus 6.70 mg/dL (2.5-4.5) H D 03/03/21 08:41 Magnesium 2.00 mg/dL (1.7-2.3) 03/03/21 08:41 Medications & Allergies - Medications Allergies/Adverse Reactions: Allergies amoxicillin Allergy (Verified 02/22/21 11:14) Unknown codeine Allergy (Verified 02/22/21 11:14) Unknown Penicillins Allergy (Verified 02/22/21 11:14) Unknown Sulfa (Sulfonamide Antibiotics) Allergy (Verified 02/22/21 11:14) Unknown Home Medications: Home Medications Medication Instructions Recorded Confirmed Last Taken Type AtorvaSTATin 10 mg PO QHS 02/22/21 02/22/21 Unknown History Calcium Acetate [Phoslo] 1,334 mg PO TID 02/22/21 02/22/21 Unknown History Cetirizine HCl [Cetirizine 10mg 10 mg PO QDAY 02/22/21 02/22/21 Unknown History chew] L. Acidophilus/Bifid. Animalis 1 each PO QDAY 02/22/21 02/22/21 Unknown History [Dialyvite Chewable Probiotic] Levothyroxine [Synthroid] 50 mcg PO QAM 02/22/21 02/22/21 Unknown History Pantoprazole [Protonix TAB] 40 mg PO QDAY 02/22/21 02/22/21 Unknown History Sucralfate [Carafate] 1 gm PO Q6HR 02/22/21 02/22/21 Unknown History Temazepam [Restoril] 7.5 mg PO QHS 02/22/21 02/22/21 Unknown History traMADoL [Ultram 50 MG tab] 50 mg PO Q6HR PRN 02/22/21 02/22/21 Unknown History Amiodarone [Cordarone 200 MG TAB] 200 mg PO BID #90 tablet 03/02/21 Unknown Rx Apixaban [Eliquis] 2.5 mg PO Q12HR 90 Days tablet 03/02/21 Unknown Rx Cholecalciferol Vit D3 [Vitamin D3 1,000 unit PO QDAY #90 tablet 03/02/21 Unknown Rx 1,000 UNIT TAB] Midodrine [Proamatine] 10 mg PO BID@1000,1800 90 Days 03/02/21 Unknown Rx tablet Active Medications: Generic Name Dose Route Start Last Admin Trade Name Freq PRN Reason Stop Dose Admin Acetaminophen 650 mg 02/22/21 15:00 02/26/21 05:44 Acetaminophen 325 Mg Tab PO 650 mg Q4H PRN Administration Pain MILD(1-3)/Fever >100.5/GAUTAM Albuterol 2.5 mg 02/22/21 14:26 02/23/21 21:41 Albuterol 2.5 Mg/3 Ml Nebu IH 2.5 mg Q4HRT PRN Administration Shortness Of Breath Alprazolam 0.5 mg 02/22/21 14:29 03/02/21 21:41 Alprazolam 0.5 Mg Tab PO 0.5 mg Q8H PRN Administration Anxiety Amiodarone HCl 200 mg 02/27/21 22:00 03/02/21 22:03 Amiodarone 200 Mg Tab PO Not Given BID DEVAN Apixaban 2.5 mg 02/25/21 22:00 03/02/21 21:42 Apixaban 2.5 Mg Tab PO 2.5 mg Q12HR DEVAN Administration Protocol Ascorbic Acid 500 mg 02/22/21 22:00 03/02/21 21:42 Ascorbic Acid 500 Mg Tab PO 500 mg BID DEVAN Administration Atorvastatin Calcium 10 mg 02/22/21 22:00 03/02/21 21:41 Atorvastatin 10 Mg Tab PO 10 mg QHS DEVAN Administration Calcium Acetate 1,334 mg 02/23/21 17:00 03/02/21 17:22 Calcium Acetate 667 Mg Cap PO 1,334 mg TIDWM DEVAN Administration Cetirizine HCl 10 mg 02/23/21 10:00 03/02/21 09:43 Cetirizine 10 Mg Tab PO 10 mg DAILY DEVAN Administration Cholecalciferol 1,000 unit 02/23/21 10:00 03/02/21 09:42 Cholecalciferol (Vit D3) 1000 Unit (25 Mcg) Tab PO 1,000 unit QDAY DEVAN Administration Dextrose 50 ml 03/01/21 13:28 Dextrose 50% In Water (25gm) 50 Ml Syringe IV Q30MIN PRN Hypoglycemia Protocol Guaifenesin 200 mg 02/24/21 13:10 02/27/21 22:06 Guaifenesin 200 Mg Tab PO 200 mg Q6H PRN Administration Cough Hydralazine HCl 10 mg 02/23/21 22:06 Hydralazine 10 Mg Tab PO Q4H PRN SBP >/=165; DBP >/=110 Hydralazine HCl 10 mg 02/23/21 22:27 Hydralazine 20 Mg/1 Ml Inj IV Q4HR PRN SBP >/=165; DBP >/=110 Hydromorphone HCl 0.5 mg 02/22/21 14:26 02/23/21 01:55 Hydromorphone 1 Mg/1 Ml Inj IV 0.5 mg Q12H PRN Administration Pain , Severe (7-10) Insulin Human Regular 0 units 03/01/21 16:30 03/02/21 21:59 Insulin Regular, Human 100 Units/1 Ml SUB-Q Not Given ACHS [facility] Protocol Levothyroxine Sodium 50 mcg 02/23/21 10:00 03/02/21 09:40 Levothyroxine 50 Mcg Tab PO 50 mcg QAM DEVAN Administration Methylprednisolone Sodium Succinate 40 mg 02/22/21 22:00 03/03/21 06:00 Methylprednisolone Sod Succinate 40 Mg/1 Ml Inj IV 03/04/21 14:01 40 mg Q8HR DEVAN Administration Midodrine 10 mg 02/28/21 10:00 03/02/21 17:23 Midodrine 5 Mg Tab PO 10 mg BID@1000,1800 DEVAN Administration Multivit/Ca Carb/B Cmplx/FA/Prenat 1 cap 02/23/21 10:00 03/02/21 09:40 Folic Acid/Vit B Comp W-C 1 Mg (Renal Caps) PO 1 cap QDAY DEVAN Administration Ondansetron HCl 4 mg 02/22/21 15:00 02/28/21 21:42 Ondansetron 4 Mg/2 Ml Inj IV 4 mg Q8H PRN Administration Nausea And Vomiting Oxycodone/Acetaminophen 1 tab 02/22/21 14:26 02/28/21 21:54 Oxycodone /Acetaminophen 5-325mg Tab PO 1 tab Q12H PRN Administration Pain, Moderate (4-6) Pantoprazole Sodium 40 mg 02/23/21 10:00 03/02/21 09:40 Pantoprazole 40 Mg Tab PO 40 mg QDAY DEVAN Administration Sodium Chloride 10 ml 02/22/21 22:00 03/02/21 22:02 Sodium Chloride 0.9% 10 Ml Flush Syringe IV 10 ml BID DEVAN Administration Sodium Chloride 10 ml 02/22/21 14:26 Sodium Chloride 0.9% 10 Ml Flush Syringe IV PRN PRN LINE FLUSH Sucralfate 1 gm 02/22/21 18:00 03/03/21 06:00 Sucralfate 1 Gm Tab PO 1 gm Q6HR DEVAN Administration Tramadol HCl 50 mg 02/22/21 15:00 02/27/21 22:07 Tramadol 50 Mg Tab PO 50 mg Q6HR PRN Administration Pain, Moderate (4-6) Trazodone HCl 75 mg 03/03/21 22:00 Trazodone 50 Mg Tab PO QHS DEVAN Zinc Sulfate 220 mg 02/22/21 22:00 03/02/21 21:41 Zinc Sulfate 220 Mg Cap PO 220 mg BID DEVAN Administration
[2021-03-03] MEDS: INSULIN REGULAR, HUMAN 100 UNITS/1 ML SUB-Q SCH ×3 (10:39→18:06)
[2021-03-03] MEDS: CHOLECALCIFEROL (VIT D3) 1000 UNIT (25 mcg) TAB PO SCH (10:42)
[2021-03-03] MEDS: MIDODRINE 5 MG TAB PO SCH ×2 (10:42→17:45)
[2021-03-03] MEDS: PANTOPRAZOLE 40 MG TAB PO SCH (10:42)
[2021-03-03] MEDS: CALCIUM ACETATE 667 MG CAP PO SCH ×3 (10:42→17:45)
[2021-03-03] MEDS: CETIRIZINE 10 MG TAB PO SCH (10:42)
[2021-03-03] MEDS: LEVOTHYROXINE 50 MCG TAB PO SCH (10:42)
[2021-03-03] MEDS: FOLIC ACID/VIT B COMP W-C 1 MG (RENAL CAPS) PO SCH (10:42)
[2021-03-03] MEDS: ZINC SULFATE 220 MG CAP PO SCH ×2 (10:42→21:34)
[2021-03-03] MEDS: ASCORBIC ACID 500 MG TAB PO SCH ×2 (10:42→21:34)
[2021-03-03] MEDS: APIXABAN 2.5 MG TAB PO SCH ×2 (10:42→21:34)
--- NOTE | 2021-03-03 10:49 | Progress Note ---
Assessment and Plan Patient is a 80 y/o female with PMHx of of ESRD on HD,HTN, hypothyroidism, chronic respiratory failure, interstitial lung disease, and COVID+ ESRD on HD Volume overload * BNP noted to be elevated in setting of missing incomplete HD session. EKG shows sinus 79 with no acute ischemic changes. * Troponins minimally elevated in setting of incomplete HD session. Patient has no complaint of chest pain * Echo 06/11/2020- LVEF of 60-65%. LV diastolic function is indeterminate given severe MAC. Diastolic predominant pulmonary venous flow suggesting elevated filling pressures. RV systolic function is normal. LA is severely-enlarged in volume. RA is mildly-enlarged in volume. Aortic valve with moderately- thickened and calcified leaflets. Mild to moderate aortic stenosis. No aortic regurgitation. Mitral valve with severely thickened and calcified leaflets (image 80). Severe calcific non-rheumatic mitral stenosis (MG = 10mmHg at 67 BPM). No mitral regurgitation. Severe concentric mitral annular calcification extending into the leaflets, the aortomitral continuity and he posterior left atrium. Calcified pap muscle. Normal tricuspid valve morphology. No tricuspid regurgitation. Pulmonic valve not well seen. No pulmonic regurgitation * Echo- - EF 50 to 55%, mild diastolic dysfunction impaired relaxation pattern, right ventricle systolic function is normal, right ventricle mildly dilated left and right atrium are normal in size, there is aortic valve leaflet calcification no aortic valvular stenosis, mitral valve leaflets are calcified mild mitral regurgitation, moderate mitral stenosis, mild to moderate tricuspid regurgitation. * Nephrology following COVID-19 PNA Acute on Chronic Respiratory failure * COVD PCR positive * Patient at [facility] 2 weeks ago for COVID * Pulmonology following New onset Afib * Telemetry reviewed: Patient currently afib with RVR * Most recent EKG: shows Afib rate [address]-T abnormalities HTN * Patient currently hypotensive. Agree with holding BP meds and midodrine Plan: Continue amio 200mg PO BID and Eliquis for anticoagualtion. Patient seen in conjunction with Dr. Velazquez who agrees with this plan of care. Will continue to follow - Patient Problems (1) Afib Current Visit: Yes Status: Acute (2) Acute hypoxemic respiratory failure Current Visit: Yes Status: Acute (3) COVID-19 virus infection Current Visit: Yes Status: Acute (4) ESRD (end stage renal disease) on dialysis Current Visit: Yes Status: Acute (5) Hypoxia Current Visit: Yes Status: Acute (6) Leukocytosis Current Visit: Yes Status: Acute Qualifiers: Leukocytosis type: other Qualified Code(s): D72.828 - Other elevated white blood cell count (7) Pneumonia Current Visit: Yes Status: Acute (8) Pulmonary edema Current Visit: Yes Status: Acute Qualifiers: Chronicity: acute Qualified Code(s): J81.0 - Acute pulmonary edema Subjective Date of service: 03/03/21 Principal diagnosis: ESRD, Volume overload, AFIB Interval history: Patient lying in bed reports feeling tired today. No cardiac complaints Patient Afib with RVR into 120s on monitor Objective Vital Signs Temp Pulse Resp Resp BP BP Pulse Ox 03/03/21 06:47 97.7 F 115 H 20 85/69 96 03/03/21 04:00 99 H 03/02/21 21:39 97.7 F 118 H 17 85/46 96 03/02/21 21:21 95 03/02/21 20:41 18 17 97 03/02/21 16:53 94 H 19 84/40 97 - Physical Examination General: No Apparent Distress HEENT: Positive: PERRL Neck: Positive: neck supple Cardiac: Positive: irregularly irregular Lungs: Positive: Decreased Breath Sounds Neuro: Positive: Grossly Intact Abdomen: Positive: Soft, Active Bowel Sounds Skin: Positive: Bruising. Negative: Rash, Suspicious Lesions, Ulceration Extremities: Present: upper extr. pulses, lower extr. pulses. Absent: edema - Labs and Meds CBC 03/03/21 Range/Units 08:41 WBC 12.3 H (4.5-11.0) K/mm3 RBC 2.60 L (3.65-5.03) M/mm3 Hgb 8.6 L (10.1-14.3) gm/dl Hct 26.0 L (30.3-42.9) % Plt Count 131 L (140-440) K/mm3 Comprehensive Metabolic Panel 03/02/21 03/03/21 Range/Units 10:22 08:41 Sodium 135 L 137 (137-145) mmol/L Potassium 5.2 H 4.7 (3.6-5.0) mmol/L Chloride 98.0 95.7 L (98-107) mmol/L Carbon Dioxide 24 26 (22-30) mmol/L BUN 58 H 81 H (7-17) mg/dL Creatinine 4.2 H 5.5 H (0.6-1.2) mg/dL Glucose 197 H 138 H (65-100) mg/dL Calcium 8.7 9.0 (8.4-10.2) mg/dL - Imaging and Cardiology EKG: report reviewed, image reviewed Echo: report reviewed - Telemetry EKG Rhythm: Atrial Fibrillation - EKG Supraventricular dysrhythmia: atrial fibrillation Repolarization changes or abnormalities: nonspecific abnormality, ST segment, and/or T wave
--- NOTE | 2021-03-03 12:26 | Progress Note ---
Assessment and Plan Assessment and plan: #Acute on chronic hypoxic respiratory failure-resolved -Currently on 3-4 L nasal cannula (baseline home oxygen requirements); saturating at 94+% -diagnosed with Covid 2 weeks ago; patient is technically out of infectious timeframe. -Pulmonology consulted, assistance appreciated -etiology secondary to COVID versus CHF #Diarrhea-improved -Discontinue senna and docusate; low clinical suspicion for infectious etiology -Administering 1 dose of loperamide for symptomatic relief -We will continue to monitor #Hyperkalemia-stable -Potassium 5.2 (will be resolved with hemodialysis) -Likely improved after obtaining hemodialysis yesterday -We will likely improve if hemodialysis is performed again today -We will continue to monitor #Congestive heart failure-stable -Patient does not report previous history of CHF -BNP 70,000 -Euvolemic on exam -TTE ordered -Cardiology consulted assistance appreciated #COVID-19 pneumonia-resolved -Antibiotic course completed -Patient currently stable; will continue to monitor #COVID-19 infection-stable -diagnosed 2 weeks ago -patient was discharged from outside hospital on last week -IV steroids (completed) #ESRD on HD -// schedule -Need for hemodialysis as assessed daily by nephrology -Nephrology consulted, assistance appreciated #Constipation-resolved -Discontinued bowel regimen #Deconditioning -patient utilizes rolling walker at home -PT recommends rehab for approximately 4 weeks prior to discharge home #Discharge planning -Pending repeat COVID-19 test in order to be accepted at rehab center; hopefully results will be in on 03/03/2021 -Case management currently working on rehab placement -Patient states she is ready for discharge whenever deemed medically cleared Disposition Plan: Pending discharge to rehab Total Time Spent with Patient (Minutes): 35 History Interval history: No acute events overnight Hospitalist Physical - Constitutional Vitals: Temp Pulse Resp BP Pulse Ox 97.7 F 115 H 20 85/69 93 03/03/21 06:47 03/03/21 06:47 03/03/21 06:47 03/03/21 06:47 03/03/21 10:00 General appearance: Present: no acute distress - EENT Eyes: Present: PERRL, EOM intact ENT: hearing intact, clear oral mucosa, dentition normal - Neck Neck: Present: supple, normal ROM - Respiratory Respiratory effort: normal - Cardiovascular Rhythm: irregularly irregular Heart Sounds: Present: S1 & S2 - Extremities Extremities: no ischemia, pulses intact, pulses symmetrical, No edema, normal temperature, normal color Peripheral Pulses: within normal limits - Abdominal General gastrointestinal: soft, non-tender, non-distended, normal bowel sounds - Integumentary Integumentary: Present: clear (Age-related skin changes), warm, dry - Psychiatric Psychiatric: appropriate mood/affect, intact judgment & insight, memory intact, cooperative - Neurologic Neurologic: CNII-XII intact, moves all extremities - Allied Health Allied health notes reviewed: nursing HEART Score - HEART Score EKG: Non-specific Age: > 65 Risk factors: > 3 risk factors or hx of atherosclerotic disease Troponin: Troponin T 0.097 ng/mL (0.00-0.029) H 02/22/21 11:31 Troponin: < normal limit - Critical Actions Critical Actions: 4-6 pts:12-16.6% risk of adverse cardiac event. Should be admitted Results - Labs CBC & Chem 7: 03/03/21 08:41 03/03/21 08:41 Labs: Laboratory Last Values WBC 12.3 K/mm3 (4.5-11.0) H 03/03/21 08:41 RBC 2.60 M/mm3 (3.65-5.03) L 03/03/21 08:41 Hgb 8.6 gm/dl (10.1-14.3) L 03/03/21 08:41 Hct 26.0 % (30.3-42.9) L 03/03/21 08:41 MCV 100 fl (79-97) H 03/03/21 08:41 MCH 33 pg (28-32) H 03/03/21 08:41 MCHC 33 % (30-34) 03/03/21 08:41 RDW 14.9 % (13.2-15.2) 03/03/21 08:41 Plt Count 131 K/mm3 (140-440) L 03/03/21 08:41 Lymph % (Auto) 5.7 % (13.4-35.0) L 02/23/21 03:40 [place] % (Auto) 3.7 % (0.0-7.3) 02/23/21 03:40 Eos % (Auto) 0.1 % (0.0-4.3) 02/23/21 03:40 Baso % (Auto) 0.7 % (0.0-1.8) 02/23/21 03:40 Lymph # (Auto) 0.3 K/mm3 (1.2-5.4) L 02/23/21 03:40 [place] # (Auto) 0.2 K/mm3 (0.0-0.8) 02/23/21 03:40 Eos # (Auto) 0.0 K/mm3 (0.0-0.4) 02/23/21 03:40 Baso # (Auto) 0.0 K/mm3 (0.0-0.1) 02/23/21 03:40 Add Manual Diff Complete 03/02/21 10:22 Total Counted 100 03/02/21 10:22 Seg Neutrophils % Plastics Engineer 03/03/21 08:41 Seg Neuts % (Manual) 98.0 % (40.0-70.0) H 03/02/21 10:22 Band Neutrophils % 1.0 % 03/01/21 09:40 Lymphocytes % (Manual) 1.0 % (13.4-35.0) L 03/02/21 10:22 Reactive Lymphs % (Man) 1.0 % 02/28/21 08:33 Monocytes % (Manual) 1.0 % (0.0-7.3) 03/02/21 10:22 Nucleated RBC % Not Reportable 03/02/21 10:22 Seg Neutrophils # 4.5 K/mm3 (1.8-7.7) 02/23/21 03:40 Seg Neutrophils # Man 12.0 K/mm3 (1.8-7.7) H 03/02/21 10:22 Band Neutrophils # 0.0 K/mm3 03/02/21 10:22 Lymphocytes # (Manual) 0.1 K/mm3 (1.2-5.4) L 03/02/21 10:22 Abs React Lymphs (Man) 0.0 K/mm3 03/02/21 10:22 Monocytes # (Manual) 0.1 K/mm3 (0.0-0.8) 03/02/21 10:22 Eosinophils # (Manual) 0.0 K/mm3 (0.0-0.4) 03/02/21 10:22 Basophils # (Manual) 0.0 K/mm3 (0.0-0.1) 03/02/21 10:22 Metamyelocytes # 0.0 K/mm3 03/02/21 10:22 Myelocytes # 0.0 K/mm3 03/02/21 10:22 Promyelocytes # 0.0 K/mm3 03/02/21 10:22 Blast Cells # 0.0 K/mm3 03/02/21 10:22 WBC Morphology Not Reportable 03/02/21 10:22 WBC Morphology TNR 03/02/21 10:22 Hypersegmented Neuts Not Reportable 03/02/21 10:22 Hyposegmented Neuts Not Reportable 03/02/21 10:22 Hypogranular Neuts Not Reportable 03/02/21 10:22 Smudge Cells Not Reportable 03/02/21 10:22 Toxic Granulation Not Reportable 03/02/21 10:22 Toxic Vacuolation Not Reportable 03/02/21 10:22 Dohle Bodies Not Reportable 03/02/21 10:22 Pelger-Huet Anomaly Not Reportable 03/02/21 10:22 Sumeet Rods Not Reportable 03/02/21 10:22 Platelet Estimate Consistent w auto 03/02/21 10:22 Clumped Platelets Not Reportable 03/02/21 10:22 Plt Clumps, EDTA Not Reportable 03/02/21 10:22 Large Platelets Not Reportable 03/02/21 10:22 Giant Platelets Not Reportable 03/02/21 10:22 Platelet Satelliting Not Reportable 03/02/21 10:22 Plt Morphology Comment Not Reportable 03/02/21 10:22 RBC Morphology Not Reportable 03/02/21 10:22 Dimorphic RBCs Not Reportable 03/02/21 10:22 Polychromasia Not Reportable 03/02/21 10:22 Hypochromasia Not Reportable 03/02/21 10:22 Poikilocytosis Not Reportable 03/02/21 10:22 Anisocytosis Not Reportable 03/02/21 10:22 Microcytosis Not Reportable 03/02/21 10:22 Macrocytosis Not Reportable 03/02/21 10:22 Spherocytes Not Reportable 03/02/21 10:22 Pappenheimer Bodies Not Reportable 03/02/21 10:22 Sickle Cells Not Reportable 03/02/21 10:22 Target Cells Not Reportable 03/02/21 10:22 Tear Drop Cells Not Reportable 03/02/21 10:22 Ovalocytes Not Reportable 03/02/21 10:22 Helmet Cells Not Reportable 03/02/21 10:22 [place] Bodies Not Reportable 03/02/21 10:22 [place] Rings Not Reportable 03/02/21 10:22 Gopi Cells Not Reportable 03/02/21 10:22 Bite Cells Not Reportable 03/02/21 10:22 Crenated Cell Not Reportable 03/02/21 10:22 Elliptocytes 1+ 03/02/21 10:22 Acanthocytes (Spur) Not Reportable 03/02/21 10:22 Rouleaux Not Reportable 03/02/21 10:22 Hemoglobin C Crystals Not Reportable 03/02/21 10:22 Schistocytes Not Reportable 03/02/21 10:22 Malaria parasites Not Reportable 03/02/21 10:22 Erivn Bodies Not Reportable 03/02/21 10:22 Hem Pathologist Commnt No 03/02/21 10:22 PT 16.5 Sec. (12.2-14.9) H 02/26/21 03:06 INR 1.28 (0.87-1.13) H 02/26/21 03:06 APTT 34.2 Sec. (24.2-36.6) 02/26/21 03:06 D-Dimer 721.62 ng/mlDDU (0-234) H 03/01/21 09:40 ABG pH 7.478 (7.320-7.450) H 02/22/21 13:21 POC ABG pCO2 33.5 mmHg (32.0-48.0) 02/22/21 13:21 POC ABG pO2 70.7 mmHg (83-108) L 02/22/21 13:21 POC ABG HCO3 24.3 02/22/21 13:21 ABG O2 Saturation 94.6 (0-100) 02/22/21 13:21 POC ABG Base Excess 1.0 02/22/21 13:21 ABG Hemoglobin 9.4 (12.0-17.5) L 02/22/21 13:21 ABG Oxyhemoglobin 93.7 (94-98) L 02/22/21 13:21 ABG Methemoglobin 0.3 (0.0-1.5) 02/22/21 13:21 ABG Sodium 131.6 mmol/L (136.0-145.0) L 02/22/21 13:21 ABG Potassium 4.0 mmol/L (3.40-4.50) 02/22/21 13:21 ABG Chloride 100.0 mmol/L (98-107) 02/22/21 13:21 ABG Glucose 87 mg/dL (65-95) 02/22/21 13:21 Carboxyhemoglobin 0.6 (0.5-1.5) 02/22/21 13:21 FiO2 % 70.0 02/22/21 13:21 Sodium 137 mmol/L (137-145) 03/03/21 08:41 Potassium 4.7 mmol/L (3.6-5.0) 03/03/21 08:41 Chloride 95.7 mmol/L (98-107) L 03/03/21 08:41 Carbon Dioxide 26 mmol/L (22-30) 03/03/21 08:41 Anion Gap 20 mmol/L 03/03/21 08:41 BUN 81 mg/dL (7-17) H 03/03/21 08:41 Creatinine 5.5 mg/dL (0.6-1.2) H 03/03/21 08:41 Estimated GFR 7 ml/min 03/03/21 08:41 BUN/Creatinine Ratio 15 % 03/03/21 08:41 Glucose 138 mg/dL (65-100) H 03/03/21 08:41 POC Glucose 184 mg/dL (70-105) H 03/03/21 11:56 Calcium 9.0 mg/dL (8.4-10.2) 03/03/21 08:41 Phosphorus 6.70 mg/dL (2.5-4.5) H D 03/03/21 08:41 Magnesium 2.00 mg/dL (1.7-2.3) 03/03/21 08:41 Ferritin 2112.0 ng/mL (10.0-200.0) H 03/01/21 09:40 Total Bilirubin 0.40 mg/dL (0.1-1.2) 02/27/21 05:12 Direct Bilirubin < 0.2 mg/dL (0-0.2) 02/27/21 05:12 Indirect Bilirubin 0.2 mg/dL 02/27/21 05:12 AST 18 units/L (5-40) 02/27/21 05:12 ALT 46 units/L (7-56) 02/27/21 05:12 Alkaline Phosphatase 82 units/L (35-129) 02/27/21 05:12 Lactate Dehydrogenase 284 units/L (91-180) H 03/01/21 09:40 Troponin T 0.097 ng/mL (0.00-0.029) H 02/22/21 11:31 C-Reactive Protein 0.90 mg/dL (0.00-1.30) 03/01/21 09:40 NT-Pro-B Natriuret Pep 90871 pg/mL (0-900) H 02/22/21 11:31 Total Protein 5.4 g/dL (6.3-8.2) L 02/27/21 05:12 Albumin 2.8 g/dL (3.9-5) L 02/27/21 05:12 Albumin/Globulin Ratio 1.1 % 02/27/21 05:12 Arterial Blood Glucose 87 mg/dL (65-95) 02/22/21 13:21 Arterial Blood Ionized Calcium 4.7 mg/dL (4.6-5.3) 02/22/21 13:21 Nasal Screen MRSA (PCR) Negative (Negative) 02/25/21 06:30 Coronavirus (PCR) Positive (Negative) A 02/24/21 Unknown Hepatitis A IgM Ab Non-reactive (NonReactive) 02/26/21 03:06 Hep Bs Antigen Nonreactive (Negative) 02/26/21 03:06 Hep B Core IgM Ab Non-reactive (NonReactive) 02/26/21 03:06 Hepatitis C Antibody Non-reactive (NonReactive) 02/26/21 03:06 [place]/IV: Voiding Method Diaper Active Medications - Current Medications Current Medications: Generic Name Dose Route Start Last Admin Trade Name Freq PRN Reason Stop Dose Admin Acetaminophen 650 mg 02/22/21 15:00 02/26/21 05:44 Acetaminophen 325 Mg Tab PO 650 mg Q4H PRN Administration Pain MILD(1-3)/Fever >100.5/GAUTAM Albuterol 2.5 mg 02/22/21 14:26 02/23/21 21:41 Albuterol 2.5 Mg/3 Ml Nebu IH 2.5 mg Q4HRT PRN Administration Shortness Of Breath Alprazolam 0.5 mg 02/22/21 14:29 03/02/21 21:41 Alprazolam 0.5 Mg Tab PO 0.5 mg Q8H PRN Administration Anxiety Amiodarone HCl 200 mg 02/27/21 22:00 03/02/21 22:03 Amiodarone 200 Mg Tab PO Not Given BID DEVAN Apixaban 2.5 mg 02/25/21 22:00 03/03/21 10:42 Apixaban 2.5 Mg Tab PO 2.5 mg Q12HR DEVAN Administration Protocol Ascorbic Acid 500 mg 02/22/21 22:00 03/03/21 10:42 Ascorbic Acid 500 Mg Tab PO 500 mg BID DEVAN Administration Atorvastatin Calcium 10 mg 02/22/21 22:00 03/02/21 21:41 Atorvastatin 10 Mg Tab PO 10 mg QHS DEVAN Administration Calcium Acetate 1,334 mg 02/23/21 17:00 03/03/21 10:42 Calcium Acetate 667 Mg Cap PO 1,334 mg TIDWM DEVAN Administration Cetirizine HCl 10 mg 02/23/21 10:00 03/03/21 10:42 Cetirizine 10 Mg Tab PO 10 mg DAILY DEVAN Administration Cholecalciferol 1,000 unit 02/23/21 10:00 03/03/21 10:42 Cholecalciferol (Vit D3) 1000 Unit (25 Mcg) Tab PO 1,000 unit QDAY DEVAN Administration Dextrose 50 ml 03/01/21 13:28 Dextrose 50% In Water (25gm) 50 Ml Syringe IV Q30MIN PRN Hypoglycemia Protocol Guaifenesin 200 mg 02/24/21 13:10 02/27/21 22:06 Guaifenesin 200 Mg Tab PO 200 mg Q6H PRN Administration Cough Hydralazine HCl 10 mg 02/23/21 22:06 Hydralazine 10 Mg Tab PO Q4H PRN SBP >/=165; DBP >/=110 Hydralazine HCl 10 mg 02/23/21 22:27 Hydralazine 20 Mg/1 Ml Inj IV Q4HR PRN SBP >/=165; DBP >/=110 Hydromorphone HCl 0.5 mg 02/22/21 14:26 02/23/21 01:55 Hydromorphone 1 Mg/1 Ml Inj IV 0.5 mg Q12H PRN Administration Pain , Severe (7-10) Insulin Human Regular 0 units 03/01/21 16:30 03/03/21 10:39 Insulin Regular, Human 100 Units/1 Ml SUB-Q Not Given ACHS [facility] Protocol Levothyroxine Sodium 50 mcg 02/23/21 10:00 03/03/21 10:42 Levothyroxine 50 Mcg Tab PO 50 mcg QAM DEVAN Administration Methylprednisolone Sodium Succinate 40 mg 02/22/21 22:00 03/03/21 06:00 Methylprednisolone Sod Succinate 40 Mg/1 Ml Inj IV 03/04/21 14:01 40 mg Q8HR DEVAN Administration Midodrine 10 mg 02/28/21 10:00 03/03/21 10:42 Midodrine 5 Mg Tab PO 10 mg BID@1000,1800 DEVAN Administration Multivit/Ca Carb/B Cmplx/FA/Prenat 1 cap 02/23/21 10:00 03/03/21 10:42 Folic Acid/Vit B Comp W-C 1 Mg (Renal Caps) PO 1 cap QDAY DEVAN Administration Ondansetron HCl 4 mg 02/22/21 15:00 02/28/21 21:42 Ondansetron 4 Mg/2 Ml Inj IV 4 mg Q8H PRN Administration Nausea And Vomiting Oxycodone/Acetaminophen 1 tab 02/22/21 14:26 02/28/21 21:54 Oxycodone /Acetaminophen 5-325mg Tab PO 1 tab Q12H PRN Administration Pain, Moderate (4-6) Pantoprazole Sodium 40 mg 02/23/21 10:00 03/03/21 10:42 Pantoprazole 40 Mg Tab PO 40 mg QDAY DEVAN Administration Sodium Chloride 10 ml 02/22/21 22:00 03/03/21 10:44 Sodium Chloride 0.9% 10 Ml Flush Syringe IV 10 ml BID DEVAN Administration Sodium Chloride 10 ml 02/22/21 14:26 Sodium Chloride 0.9% 10 Ml Flush Syringe IV PRN PRN LINE FLUSH Sucralfate 1 gm 02/22/21 18:00 03/03/21 06:00 Sucralfate 1 Gm Tab PO 1 gm Q6HR DEVAN Administration Tramadol HCl 50 mg 02/22/21 15:00 02/27/21 22:07 Tramadol 50 Mg Tab PO 50 mg Q6HR PRN Administration Pain, Moderate (4-6) Trazodone HCl 75 mg 03/03/21 22:00 Trazodone 50 Mg Tab PO QHS DEVAN Zinc Sulfate 220 mg 02/22/21 22:00 03/03/21 10:42 Zinc Sulfate 220 Mg Cap PO 220 mg BID DEVAN Administration Nutrition/Malnutrition Assess - Dietary Evaluation Nutrition/Malnutrition Findings: Nutrition Notes Start: 02/27/21 13:22 Freq: Status: Active Protocol: Document 02/27/21 13:30 EB (Rec: 02/27/21 13:50 EB [id number]) Nutrition Notes Need for Assessment generated from: LOS Initial or Follow up Assessment Current Diagnosis CKD (stage V CKD),Heart Failure,Respiratory Failure Other Pertinent Diagnosis Covid +, Pneumonia, A. fib Current Diet Cardiac Labs/Tests K 5.1 Glu 183 Na 132 BUN 60 Cr 5.8 Pertinent Medications Vit. C Vit. D Solu-medrol Zinc Height 5 ft 2.99 in Weight 85.5 kg [place] Body Weight (kg) 52.25 BMI 33.4 Intake Prior to Admission Fair Weight Status Obese Subjective/Other Information RD screen for LOS. Skin risk documented in chart is 14. Pt ESRD on HD, T, Am[place], Sat. Per nurse notes, pt is able to feed herself, but has low appetite. Per RN report today via phone, pt appetite has declined and will only drink Nepro. Percent of energy/protein needs met: 31%/27% Burn Absent Trauma Absent GI Symptoms Nausea Current % PO Poor (25-49%) Minimum of two criteria No #1 Nutrition Diagnosis Increased nutrient needs ( specify in comment below) Comments: Protein Etiology ESRD As Evidenced by Signs and Symptoms on HD T, Th, Sat Is patient on ventilator? No Is Patient Ambulatory and/or Out of Bed No REE-([facility]-confined to bed) 1553.556 Kcal/Kg value to use for calculation 21 Approximate Energy Requirements Using 1796 kcal/Kg Calculation Used for Recommendations Kcal/kg Additional Notes Protein: 78-104 g/day (1.5-2 g /kg IBW) Fluids 1 mL/kcal or per MD order Nutrition Intervention Add Supplement/Snack (indicate name/kcal Nepro TID /protein ) Provides kCal: 1,260 Provides Protein (gm) 57 Goal #1 Meet at least 75-100% of syed and protein needs via PO and ONS intake Anticipated Discharge Needs: Renal/Cardiac diet Follow-Up By: 03/03/[address] to follow for PO and ONS intake - Attestation Statement I have reviewed and agreed w/ Malnutrition eval & tx plan: Yes
[2021-03-03] MEDS: AMIODARONE 200 MG TAB PO SCH (14:07)
[2021-03-03 16:37] LABS: RBC Morphology Normal; Total Cells Counted 100
[2021-03-03 16:38] LABS: Platelet Estimate Consistent w Auto
[2021-03-03] MEDS: traZODone 50 MG TAB PO SCH (21:34)
[2021-03-03] MEDS: ONDANSETRON 4 MG/2 ML INJ IV PRN (21:35)
[2021-03-04] MEDS: traMADol 50 MG TAB PO PRN ×2 (01:01→22:12)
[2021-03-04] MEDS: AMIODARONE 200 MG TAB PO SCH ×2 (01:01→10:02)
[2021-03-04] MEDS: SUCRALFATE 1 GM TAB PO SCH ×4 (05:56→17:18)
[2021-03-04] MEDS: methylPREDNISolone Sod Succinate 40 MG/1 ML INJ IV SCH ×2 (05:56→13:12)
--- NOTE | 2021-03-04 07:32 | Progress Note ---
Assessment and Plan Assessment and plan: #Acute on chronic hypoxic respiratory failure, resolved -currently on 3 to 4 L nasal cannula (home oxygen requirement) -Pulmonology consulted, assistance appreciated -continue steroid taper -etiology secondary to COVID versus CHF #New onset atrial fibrillation -[id number] 5 -continue amiodarone 200 mg twice daily and Eliquis -management per Cardiology #Hyperkalemia -Labs pending hemodialysis #Heart failure preserved ejection fraction -No prior history of CHF, BNP 70k on admission -TTE 02/22/21: EF 50 to 50%, mild diastolic dysfunction -Cardiology following #COVID-19 infection #COVID-19 pneumonia -diagnosed 3 weeks ago -Status post antibiotics -IV steroids #ESRD on HD -// schedule -HD today -Nephrology following, assistance appreciated #Deconditioning -Rolling walker at home -PT recommend inpatient rehab #Discharge planning -repeat Covid test 03/03 was positive -Case management following for rehab placement Disposition Plan: [facility] facility Total Time Spent with Patient (Minutes): 20 minutes History Interval history: No acute events. Tolerating nasal cannula.. Denies any discomfort or complaint s at this time. Hospitalist Physical - Physical exam Narrative exam: GENERAL: Obese. Lying in bed in no acute distress. HEENT: NC @4 LPM CHEST/LUNGS: Coarse breath sounds bilaterally. HEART/CARDIOVASCULAR: Irregular irregular rhythm. No murmur, rubs or gallops appreciated. ABDOMEN: +BS. NT/ND. SKIN: Bruising at LUE. Wallace intact at old R AVF NEURO: No focal motor deficit. Follows all commands. EXTREMITIES: R and L upper extremity AVF. No cyanosis, clubbing or edema. PSYCH: Cooperative. - Constitutional Vitals: Temp Pulse Resp BP Pulse Ox 98.1 F 122 H 20 98/43 95 03/04/21 05:26 03/04/21 05:26 03/04/21 05:26 03/04/21 05:26 03/04/21 05:26 General appearance: Present: no acute distress HEART Score - HEART Score EKG: Non-specific Age: > 65 Risk factors: > 3 risk factors or hx of atherosclerotic disease Troponin: Troponin T 0.097 ng/mL (0.00-0.029) H 02/22/21 11:31 Troponin: < normal limit - Critical Actions Critical Actions: 4-6 pts:12-16.6% risk of adverse cardiac event. Should be admitted Results - Labs CBC & Chem 7: 03/03/21 08:41 03/03/21 08:41 Labs: Laboratory Last Values WBC 12.3 K/mm3 (4.5-11.0) H 03/03/21 08:41 RBC 2.60 M/mm3 (3.65-5.03) L 03/03/21 08:41 Hgb 8.6 gm/dl (10.1-14.3) L 03/03/21 08:41 Hct 26.0 % (30.3-42.9) L 03/03/21 08:41 MCV 100 fl (79-97) H 03/03/21 08:41 MCH 33 pg (28-32) H 03/03/21 08:41 MCHC 33 % (30-34) 03/03/21 08:41 RDW 14.9 % (13.2-15.2) 03/03/21 08:41 Plt Count 131 K/mm3 (140-440) L 03/03/21 08:41 Lymph % (Auto) 5.7 % (13.4-35.0) L 02/23/21 03:40 Maury % (Auto) 3.7 % (0.0-7.3) 02/23/21 03:40 Eos % (Auto) 0.1 % (0.0-4.3) 02/23/21 03:40 Baso % (Auto) 0.7 % (0.0-1.8) 02/23/21 03:40 Lymph # (Auto) 0.3 K/mm3 (1.2-5.4) L 02/23/21 03:40 Maury # (Auto) 0.2 K/mm3 (0.0-0.8) 02/23/21 03:40 Eos # (Auto) 0.0 K/mm3 (0.0-0.4) 02/23/21 03:40 Baso # (Auto) 0.0 K/mm3 (0.0-0.1) 02/23/21 03:40 Add Manual Diff Complete 03/03/21 08:41 Total Counted 100 03/03/21 08:41 Seg Neutrophils % [facility] 03/03/21 08:41 Seg Neuts % (Manual) 100.0 % (40.0-70.0) H 03/03/21 08:41 Band Neutrophils % 1.0 % 03/01/21 09:40 Lymphocytes % (Manual) 1.0 % (13.4-35.0) L 03/02/21 10:22 Reactive Lymphs % (Man) 1.0 % 02/28/21 08:33 Monocytes % (Manual) 1.0 % (0.0-7.3) 03/02/21 10:22 Nucleated RBC % Not Reportable 03/03/21 08:41 Seg Neutrophils # 4.5 K/mm3 (1.8-7.7) 02/23/21 03:40 Seg Neutrophils # Man 12.3 K/mm3 (1.8-7.7) H 03/03/21 08:41 Band Neutrophils # 0.0 K/mm3 03/03/21 08:41 Lymphocytes # (Manual) 0.0 K/mm3 (1.2-5.4) L 03/03/21 08:41 Abs React Lymphs (Man) 0.0 K/mm3 03/03/21 08:41 Monocytes # (Manual) 0.0 K/mm3 (0.0-0.8) 03/03/21 08:41 Eosinophils # (Manual) 0.0 K/mm3 (0.0-0.4) 03/03/21 08:41 Basophils # (Manual) 0.0 K/mm3 (0.0-0.1) 03/03/21 08:41 Metamyelocytes # 0.0 K/mm3 03/03/21 08:41 Myelocytes # 0.0 K/mm3 03/03/21 08:41 Promyelocytes # 0.0 K/mm3 03/03/21 08:41 Blast Cells # 0.0 K/mm3 03/03/21 08:41 WBC Morphology Not Reportable 03/03/21 08:41 Hypersegmented Neuts Not Reportable 03/03/21 08:41 Hyposegmented Neuts Not Reportable 03/03/21 08:41 Hypogranular Neuts Not Reportable 03/03/21 08:41 Smudge Cells Not Reportable 03/03/21 08:41 Toxic Granulation Not Reportable 03/03/21 08:41 Toxic Vacuolation Not Reportable 03/03/21 08:41 Dohle Bodies Not Reportable 03/03/21 08:41 Pelger-Huet Anomaly Not Reportable 03/03/21 08:41 Sumeet Rods Not Reportable 03/03/21 08:41 Platelet Estimate Consistent w auto 03/03/21 08:41 Clumped Platelets Not Reportable 03/03/21 08:41 Plt Clumps, EDTA Not Reportable 03/03/21 08:41 Large Platelets Not Reportable 03/03/21 08:41 Giant Platelets Not Reportable 03/03/21 08:41 Platelet Satelliting Not Reportable 03/03/21 08:41 Plt Morphology Comment Not Reportable 03/03/21 08:41 RBC Morphology Normal 03/03/21 08:41 Dimorphic RBCs Not Reportable 03/03/21 08:41 Polychromasia Not Reportable 03/03/21 08:41 Hypochromasia Not Reportable 03/03/21 08:41 Poikilocytosis Not Reportable 03/03/21 08:41 Anisocytosis Not Reportable 03/03/21 08:41 Microcytosis Not Reportable 03/03/21 08:41 Macrocytosis Not Reportable 03/03/21 08:41 Spherocytes Not Reportable 03/03/21 08:41 Pappenheimer Bodies Not Reportable 03/03/21 08:41 Sickle Cells Not Reportable 03/03/21 08:41 Target Cells Not Reportable 03/03/21 08:41 Tear Drop Cells Not Reportable 03/03/21 08:41 Ovalocytes Not Reportable 03/03/21 08:41 Helmet Cells Not Reportable 03/03/21 08:41 [place]qu[place] Bodies Not Reportable 03/03/21 08:41 [place] Rings Not Reportable 03/03/21 08:41 Gopi Cells Not Reportable 03/03/21 08:41 Bite Cells Not Reportable 03/03/21 08:41 Crenated Cell Not Reportable 03/03/21 08:41 Elliptocytes Not Reportable 03/03/21 08:41 Acanthocytes (Spur) Not Reportable 03/03/21 08:41 Rouleaux Not Reportable 03/03/21 08:41 Hemoglobin C Crystals Not Reportable 03/03/21 08:41 Schistocytes Not Reportable 03/03/21 08:41 Malaria parasites Not Reportable 03/03/21 08:41 Ervin Bodies Not Reportable 03/03/21 08:41 Hem Pathologist Commnt No 03/03/21 08:41 PT 16.5 Sec. (12.2-14.9) H 02/26/21 03:06 INR 1.28 (0.87-1.13) H 02/26/21 03:06 APTT 34.2 Sec. (24.2-36.6) 02/26/21 03:06 D-Dimer 721.62 ng/mlDDU (0-234) H 03/01/21 09:40 ABG pH 7.478 (7.320-7.450) H 02/22/21 13:21 POC ABG pCO2 33.5 mmHg (32.0-48.0) 02/22/21 13:21 POC ABG pO2 70.7 mmHg (83-108) L 02/22/21 13:21 POC ABG HCO3 24.3 02/22/21 13:21 ABG O2 Saturation 94.6 (0-100) 02/22/21 13:21 POC ABG Base Excess 1.0 02/22/21 13:21 ABG Hemoglobin 9.4 (12.0-17.5) L 02/22/21 13:21 ABG Oxyhemoglobin 93.7 (94-98) L 02/22/21 13:21 ABG Methemoglobin 0.3 (0.0-1.5) 02/22/21 13:21 ABG Sodium 131.6 mmol/L (136.0-145.0) L 02/22/21 13:21 ABG Potassium 4.0 mmol/L (3.40-4.50) 02/22/21 13:21 ABG Chloride 100.0 mmol/L (98-107) 02/22/21 13:21 ABG Glucose 87 mg/dL (65-95) 02/22/21 13:21 Carboxyhemoglobin 0.6 (0.5-1.5) 02/22/21 13:21 FiO2 % 70.0 02/22/21 13:21 Sodium 137 mmol/L (137-145) 03/03/21 08:41 Potassium 4.7 mmol/L (3.6-5.0) 03/03/21 08:41 Chloride 95.7 mmol/L (98-107) L 03/03/21 08:41 Carbon Dioxide 26 mmol/L (22-30) 03/03/21 08:41 Anion Gap 20 mmol/L 03/03/21 08:41 BUN 81 mg/dL (7-17) H 03/03/21 08:41 Creatinine 5.5 mg/dL (0.6-1.2) H 03/03/21 08:41 Estimated GFR 7 ml/min 03/03/21 08:41 BUN/Creatinine Ratio 15 % 03/03/21 08:41 Glucose 138 mg/dL (65-100) H 03/03/21 08:41 POC Glucose 174 mg/dL (70-105) H 03/03/21 22:09 Calcium 9.0 mg/dL (8.4-10.2) 03/03/21 08:41 Phosphorus 6.70 mg/dL (2.5-4.5) H D 03/03/21 08:41 Magnesium 2.00 mg/dL (1.7-2.3) 03/03/21 08:41 Ferritin 2112.0 ng/mL (10.0-200.0) H 03/01/21 09:40 Total Bilirubin 0.40 mg/dL (0.1-1.2) 02/27/21 05:12 Direct Bilirubin < 0.2 mg/dL (0-0.2) 02/27/21 05:12 Indirect Bilirubin 0.2 mg/dL 02/27/21 05:12 AST 18 units/L (5-40) 02/27/21 05:12 ALT 46 units/L (7-56) 02/27/21 05:12 Alkaline Phosphatase 82 units/L (35-129) 02/27/21 05:12 Lactate Dehydrogenase 284 units/L (91-180) H 03/01/21 09:40 Troponin T 0.097 ng/mL (0.00-0.029) H 02/22/21 11:31 C-Reactive Protein 0.90 mg/dL (0.00-1.30) 03/01/21 09:40 NT-Pro-B Natriuret Pep 64756 pg/mL (0-900) H 02/22/21 11:31 Total Protein 5.4 g/dL (6.3-8.2) L 02/27/21 05:12 Albumin 2.8 g/dL (3.9-5) L 02/27/21 05:12 Albumin/Globulin Ratio 1.1 % 02/27/21 05:12 Arterial Blood Glucose 87 mg/dL (65-95) 02/22/21 13:21 Arterial Blood Ionized Calcium 4.7 mg/dL (4.6-5.3) 02/22/21 13:21 Nasal Screen MRSA (PCR) Negative (Negative) 02/25/21 06:30 Coronavirus (PCR) Positive (Negative) A 03/03/21 Unknown Hepatitis A IgM Ab Non-reactive (NonReactive) 02/26/21 03:06 Hep Bs Antigen Nonreactive (Negative) 02/26/21 03:06 Hep B Core IgM Ab Non-reactive (NonReactive) 02/26/21 03:06 Hepatitis C Antibody Non-reactive (NonReactive) 02/26/21 03:06 [place]/IV: Voiding Method Bedpan Active Medications - Current Medications Current Medications: Generic Name Dose Route Start Last Admin Trade Name Freq PRN Reason Stop Dose Admin Acetaminophen 650 mg 02/22/21 15:00 02/26/21 05:44 Acetaminophen 325 Mg Tab PO 650 mg Q4H PRN Administration Pain MILD(1-3)/Fever >100.5/GAUTAM Albuterol 2.5 mg 02/22/21 14:26 02/23/21 21:41 Albuterol 2.5 Mg/3 Ml Nebu IH 2.5 mg Q4HRT PRN Administration Shortness Of Breath Alprazolam 0.5 mg 02/22/21 14:29 03/02/21 21:41 Alprazolam 0.5 Mg Tab PO 0.5 mg Q8H PRN Administration Anxiety Amiodarone HCl 200 mg 02/27/21 22:00 03/04/21 01:01 Amiodarone 200 Mg Tab PO 200 mg BID DEAVN Administration Apixaban 2.5 mg 02/25/21 22:00 03/03/21 21:34 Apixaban 2.5 Mg Tab PO 2.5 mg Q12HR DEVAN Administration Protocol Ascorbic Acid 500 mg 02/22/21 22:00 03/03/21 21:34 Ascorbic Acid 500 Mg Tab PO 500 mg BID DEVAN Administration Atorvastatin Calcium 10 mg 02/22/21 22:00 03/03/21 21:34 Atorvastatin 10 Mg Tab PO 10 mg QHS DEVAN Administration Calcium Acetate 1,334 mg 02/23/21 17:00 03/03/21 17:45 Calcium Acetate 667 Mg Cap PO 1,334 mg TIDWM DEVAN Administration Cetirizine HCl 10 mg 02/23/21 10:00 03/03/21 10:42 Cetirizine 10 Mg Tab PO 10 mg DAILY DEVAN Administration Cholecalciferol 1,000 unit 02/23/21 10:00 03/03/21 10:42 Cholecalciferol (Vit D3) 1000 Unit (25 Mcg) Tab PO 1,000 unit QDAY DEVAN Administration Dextrose 50 ml 03/01/21 13:28 Dextrose 50% In Water (25gm) 50 Ml Syringe IV Q30MIN PRN Hypoglycemia Protocol Guaifenesin 200 mg 02/24/21 13:10 02/27/21 22:06 Guaifenesin 200 Mg Tab PO 200 mg Q6H PRN Administration Cough Hydralazine HCl 10 mg 02/23/21 22:06 Hydralazine 10 Mg Tab PO Q4H PRN SBP >/=165; DBP >/=110 Hydralazine HCl 10 mg 02/23/21 22:27 Hydralazine 20 Mg/1 Ml Inj IV Q4HR PRN SBP >/=165; DBP >/=110 Hydromorphone HCl 0.5 mg 02/22/21 14:26 02/23/21 01:55 Hydromorphone 1 Mg/1 Ml Inj IV 0.5 mg Q12H PRN Administration Pain , Severe (7-10) Insulin Human Regular 0 units 03/01/21 16:30 03/04/21 00:00 Insulin Regular, Human 100 Units/1 Ml SUB-Q 2 units ACHS DEVAN Administration Protocol Levothyroxine Sodium 50 mcg 02/23/21 10:00 03/03/21 10:42 Levothyroxine 50 Mcg Tab PO 50 mcg QAM DEVAN Administration Methylprednisolone Sodium Succinate 40 mg 02/22/21 22:00 03/04/21 05:56 Methylprednisolone Sod Succinate 40 Mg/1 Ml Inj IV 03/04/21 14:01 40 mg Q8HR DEVAN Administration Midodrine 10 mg 02/28/21 10:00 03/03/21 17:45 Midodrine 5 Mg Tab PO 10 mg BID@1000,1800 DEVAN Administration Multivit/Ca Carb/B Cmplx/FA/Prenat 1 cap 02/23/21 10:00 03/03/21 10:42 Folic Acid/Vit B Comp W-C 1 Mg (Renal Caps) PO 1 cap QDAY DEVAN Administration Ondansetron HCl 4 mg 02/22/21 15:00 03/03/21 21:35 Ondansetron 4 Mg/2 Ml Inj IV 4 mg Q8H PRN Administration Nausea And Vomiting Oxycodone/Acetaminophen 1 tab 02/22/21 14:26 02/28/21 21:54 Oxycodone /Acetaminophen 5-325mg Tab PO 1 tab Q12H PRN Administration Pain, Moderate (4-6) Pantoprazole Sodium 40 mg 02/23/21 10:00 03/03/21 10:42 Pantoprazole 40 Mg Tab PO 40 mg QDAY DEVAN Administration Sodium Chloride 10 ml 02/22/21 22:00 03/03/21 21:36 Sodium Chloride 0.9% 10 Ml Flush Syringe IV 10 ml BID DEVAN Administration Sodium Chloride 10 ml 02/22/21 14:26 Sodium Chloride 0.9% 10 Ml Flush Syringe IV PRN PRN LINE FLUSH Sucralfate 1 gm 02/22/21 18:00 03/04/21 05:56 Sucralfate 1 Gm Tab PO 1 gm Q6HR DEVAN Administration Tramadol HCl 50 mg 02/22/21 15:00 03/04/21 01:01 Tramadol 50 Mg Tab PO 50 mg Q6HR PRN Administration Pain, Moderate (4-6) Trazodone HCl 75 mg 03/03/21 22:00 03/03/21 21:34 Trazodone 50 Mg Tab PO 75 mg QHS DEVAN Administration Zinc Sulfate 220 mg 02/22/21 22:00 03/03/21 21:34 Zinc Sulfate 220 Mg Cap PO 220 mg BID DEVAN Administration Nutrition/Malnutrition Assess - Dietary Evaluation Nutrition/Malnutrition Findings: Nutrition Notes Start: 02/27/21 13:22 Freq: Status: Active Protocol: Document 03/03/21 15:47 GB (Rec: 03/03/21 15:55 GB [email or web address]) Nutrition Notes Initial or Follow up Reassessment Current Diagnosis CKD (stage V CKD),Heart Failure,Respiratory Failure Other Pertinent Diagnosis Covid +, Pneumonia, A. fib Current Diet Renal, Low K, mechanical soft Labs/Tests 03/03: BUN 81, creatinine 5.5, glucose 138, P 6.7 Pertinent Medications Vit. C Vit. D3 Ca Acetate Zinc Sulfate Multivitamin Height 5 ft 2.99 in Weight 85.5 kg Anita Body Weight (kg) 52.25 BMI 33.4 Weight change and time frame Weight stable Weight Status Overweight Subjective/Other Information PO intake recorded at 50% for past two days. Per MD note recommend 1000ml fluid restriction r/t to overload. Hemodialysis dependent T/Th/ Sat Percent of energy/protein needs met: PO intake of meals 50% or greater meets 100% or greater of estimated energy needs. Burn Absent Trauma Absent GI Symptoms None Current % PO Fair (50-74%) Minimum of two criteria No #1 Nutrition Diagnosis Increased nutrient needs ( specify in comment below) Comments: Protein Etiology ESRD As Evidenced by Signs and Symptoms on HD T, Th, Sat Diagnosis Progress(for reassessment Continues documentation) Is patient on ventilator? No Is Patient Ambulatory and/or Out of Bed No REE-([facility]-confined to bed) 1553.556 Kcal/Kg value to use for calculation 17 Approximate Energy Requirements Using 1454 kcal/Kg Calculation Used for Recommendations Kcal/kg Additional Notes Protein 1-1.2 g/kg @ 86k- 103g Nutrition Intervention Change Diet Order: Continue with Renal Nutrition Support: n/a Goal #1 PO intake of meals to be 50% or greater TID daily for LOS Goal #2 Weight to maintain within +/-3 % current weight for LOS Anticipated Discharge Needs: Renal/Cardiac diet Revisit per MD consult or patient Sign Off request: Additional Comments Ready for discharge with placement opening
[2021-03-04] MEDS: INSULIN REGULAR, HUMAN 100 UNITS/1 ML SUB-Q SCH ×5 (07:52→23:46)
[2021-03-04] MEDS: CALCIUM ACETATE 667 MG CAP PO SCH ×3 (07:58→17:18)
[2021-03-04] MEDS: MIDODRINE 5 MG TAB PO SCH ×2 (10:03→17:18)
[2021-03-04] MEDS: APIXABAN 2.5 MG TAB PO SCH ×2 (10:03→22:12)
[2021-03-04] MEDS: CETIRIZINE 10 MG TAB PO SCH (10:03)
[2021-03-04] MEDS: ZINC SULFATE 220 MG CAP PO SCH ×2 (10:03→22:11)
[2021-03-04] MEDS: FOLIC ACID/VIT B COMP W-C 1 MG (RENAL CAPS) PO SCH (10:03)
[2021-03-04] MEDS: CHOLECALCIFEROL (VIT D3) 1000 UNIT (25 mcg) TAB PO SCH (10:03)
[2021-03-04] MEDS: ASCORBIC ACID 500 MG TAB PO SCH ×2 (10:03→22:11)
[2021-03-04] MEDS: LEVOTHYROXINE 50 MCG TAB PO SCH (10:04)
[2021-03-04] MEDS: PANTOPRAZOLE 40 MG TAB PO SCH (10:04)
--- NOTE | 2021-03-04 10:31 | Progress Note ---
Assessment and Plan Patient is a 80 y/o female with PMHx of of ESRD on HD, HTN, hypothyroidism, chronic respiratory failure, interstitial lung disease, and COVID+ ESRD on HD Volume overload * Echo 06/11/2020- LVEF of 60-65%. LV diastolic function is indeterminate given severe MAC. Diastolic predominant pulmonary venous flow suggesting elevated filling pressures. RV systolic function is normal. LA is severely-enlarged in volume. RA is mildly-enlarged in volume. Aortic valve with moderately- thickened and calcified leaflets. Mild to moderate aortic stenosis. No aortic regurgitation. Mitral valve with severely thickened and calcified leaflets (image 80). Severe calcific non-rheumatic mitral stenosis (MG = 10mmHg at 67 BPM). No mitral regurgitation. Severe concentric mitral annular calcification extending into the leaflets, the aortomitral continuity and he posterior left atrium. Calcified pap muscle. Normal tricuspid valve morphology. No tricuspid regurgitation. Pulmonic valve not well seen. No pulmonic regurgitation * Echo- - EF 50 to 55%, mild diastolic dysfunction impaired relaxation pattern, right ventricle systolic function is normal, right ventricle mildly dilated left and right atrium are normal in size, there is aortic valve leaflet calcification no aortic valvular stenosis, mitral valve leaflets are calcified mild mitral regurgitation, moderate mitral stenosis, mild to moderate tricuspid regurgitation. * Nephrology following COVID-19 PNA Acute on Chronic Respiratory failure * COVD PCR positive * Patient at [place] 2 weeks ago for COVID * Pulmonology following New onset Afib * Telemetry reviewed: Patient currently afib with RVR * Most recent EKG: shows Afib rate [address]-T abnormalities HTN * Patient currently hypotensive. Agree with holding BP meds and midodrine Plan: Continue amio 200mg PO BID and Eliquis for anticoagualtion. Patient seen in conjunction with Dr. Velazquez who agrees with this plan of care. Will continue to follow - Patient Problems (1) Afib Current Visit: Yes Status: Acute (2) Acute hypoxemic respiratory failure Current Visit: Yes Status: Acute (3) COVID-19 virus infection Current Visit: Yes Status: Acute (4) ESRD (end stage renal disease) on dialysis Current Visit: Yes Status: Acute (5) Hypoxia Current Visit: Yes Status: Acute (6) Leukocytosis Current Visit: Yes Status: Acute Qualifiers: Leukocytosis type: other Qualified Code(s): D72.828 - Other elevated white blood cell count (7) Pneumonia Current Visit: Yes Status: Acute (8) Pulmonary edema Current Visit: Yes Status: Acute Qualifiers: Chronicity: acute Qualified Code(s): J81.0 - Acute pulmonary edema Subjective Date of service: 03/04/21 Principal diagnosis: ESRD, Volume overload, AFIB Interval history: Patient resting in bed but reports feeling better today. No cardiac complaints Patient Afib 100s with RVR into 130s on monitor Objective Vital Signs Temp Pulse Resp BP BP Pulse Ox 03/04/21 05:26 98.1 F 122 H 20 98/43 95 03/04/21 02:01 17 03/04/21 01:01 18 03/03/21 23:31 98.1 F 94 H 20 114/74 93 03/03/21 22:00 94 03/03/21 20:15 19 96 03/03/21 17:31 98.1 F 127 H 22 149/114 93 03/03/21 12:03 98.0 F 108 H 24 111/53 95 - Physical Examination General: No Apparent Distress HEENT: Positive: PERRL Neck: Positive: neck supple Cardiac: Positive: irregularly irregular Lungs: Positive: Decreased Breath Sounds Neuro: Positive: Grossly Intact Abdomen: Positive: Soft, Active Bowel Sounds Skin: Positive: Bruising. Negative: Rash, Suspicious Lesions, Ulceration Extremities: Present: upper extr. pulses, lower extr. pulses. Absent: edema - Imaging and Cardiology EKG: report reviewed, image reviewed Echo: report reviewed - Telemetry EKG Rhythm: Atrial Fibrillation - EKG Supraventricular dysrhythmia: atrial fibrillation Repolarization changes or abnormalities: nonspecific abnormality, ST segment, and/or T wave
--- NOTE | 2021-03-04 11:04 | Progress Note ---
Assessment and Plan End Stage Renal Disease on Hemodialysis Acute Hypoxic Respiratory failure Recent COVID-19 Infection Hypertension CHF Plan: Hemodialysis today for UF and clearance Fluid restriction of 1 liter per day Obtain daily weights Monitor I/O's daily Renally dose medications Assess dialysis needs daily Subjective Date of service: 03/04/21 Principal diagnosis: ESRD, Volume overload, AFIB Interval history: no overnight events reported Objective - Vital Signs Vital signs: Vital Signs - 12hr 03/03/21 03/04/21 03/04/21 23:31 01:01 02:01 Temperature 98.1 F Pulse Rate 94 H Respiratory 20 18 17 Rate Blood Pressure Blood Pressure 114/74 [Left] O2 Sat by Pulse 93 Oximetry 03/04/21 05:26 Temperature 98.1 F Pulse Rate 122 H Respiratory 20 Rate Blood Pressure 98/43 Blood Pressure [Left] O2 Sat by Pulse 95 Oximetry - Lab 03/03/21 08:41 03/03/21 08:41 Most recent lab results ABG pH 7.478 (7.320-7.450) H 02/22/21 13:21 ABG O2 Saturation 94.6 (0-100) 02/22/21 13:21 Calcium 9.0 mg/dL (8.4-10.2) 03/03/21 08:41 Phosphorus 6.70 mg/dL (2.5-4.5) H D 03/03/21 08:41 Magnesium 2.00 mg/dL (1.7-2.3) 03/03/21 08:41 Medications & Allergies - Medications Allergies/Adverse Reactions: Allergies amoxicillin Allergy (Verified 02/22/21 11:14) Unknown codeine Allergy (Verified 02/22/21 11:14) Unknown Penicillins Allergy (Verified 02/22/21 11:14) Unknown Sulfa (Sulfonamide Antibiotics) Allergy (Verified 02/22/21 11:14) Unknown Home Medications: Home Medications Medication Instructions Recorded Confirmed Last Taken Type AtorvaSTATin 10 mg PO QHS 02/22/21 02/22/21 Unknown History Calcium Acetate [Phoslo] 1,334 mg PO TID 02/22/21 02/22/21 Unknown History Cetirizine HCl [Cetirizine 10mg 10 mg PO QDAY 02/22/21 02/22/21 Unknown History chew] L. Acidophilus/Bifid. Animalis 1 each PO QDAY 02/22/21 02/22/21 Unknown History [Dialyvite Chewable Probiotic] Levothyroxine [Synthroid] 50 mcg PO QAM 02/22/21 02/22/21 Unknown History Pantoprazole [Protonix TAB] 40 mg PO QDAY 02/22/21 02/22/21 Unknown History Sucralfate [Carafate] 1 gm PO Q6HR 02/22/21 02/22/21 Unknown History Temazepam [Restoril] 7.5 mg PO QHS 02/22/21 02/22/21 Unknown History traMADoL [Ultram 50 MG tab] 50 mg PO Q6HR PRN 02/22/21 02/22/21 Unknown History Amiodarone [Cordarone 200 MG TAB] 200 mg PO BID #90 tablet 03/02/21 Unknown Rx Apixaban [Eliquis] 2.5 mg PO Q12HR 90 Days tablet 03/02/21 Unknown Rx Cholecalciferol Vit D3 [Vitamin D3 1,000 unit PO QDAY #90 tablet 03/02/21 Unknown Rx 1,000 UNIT TAB] Midodrine [Proamatine] 10 mg PO BID@1000,1800 90 Days 03/02/21 Unknown Rx tablet Active Medications: Generic Name Dose Route Start Last Admin Trade Name Freq PRN Reason Stop Dose Admin Acetaminophen 650 mg 02/22/21 15:00 02/26/21 05:44 Acetaminophen 325 Mg Tab PO 650 mg Q4H PRN Administration Pain MILD(1-3)/Fever >100.5/GAUTAM Albuterol 2.5 mg 02/22/21 14:26 02/23/21 21:41 Albuterol 2.5 Mg/3 Ml Nebu IH 2.5 mg Q4HRT PRN Administration Shortness Of Breath Alprazolam 0.5 mg 02/22/21 14:29 03/02/21 21:41 Alprazolam 0.5 Mg Tab PO 0.5 mg Q8H PRN Administration Anxiety Amiodarone HCl 200 mg 02/27/21 22:00 03/04/21 10:02 Amiodarone 200 Mg Tab PO 200 mg BID DEVAN Administration Apixaban 2.5 mg 02/25/21 22:00 03/04/21 10:03 Apixaban 2.5 Mg Tab PO 2.5 mg Q12HR DEVAN Administration Protocol Ascorbic Acid 500 mg 02/22/21 22:00 03/04/21 10:03 Ascorbic Acid 500 Mg Tab PO 500 mg BID DEVAN Administration Atorvastatin Calcium 10 mg 02/22/21 22:00 03/03/21 21:34 Atorvastatin 10 Mg Tab PO 10 mg QHS DEVAN Administration Calcium Acetate 1,334 mg 02/23/21 17:00 03/04/21 07:58 Calcium Acetate 667 Mg Cap PO 1,334 mg TIDWM DEVAN Administration Cetirizine HCl 10 mg 02/23/21 10:00 03/04/21 10:03 Cetirizine 10 Mg Tab PO 10 mg DAILY DEVAN Administration Cholecalciferol 1,000 unit 02/23/21 10:00 03/04/21 10:03 Cholecalciferol (Vit D3) 1000 Unit (25 Mcg) Tab PO 1,000 unit QDAY DEVAN Administration Dextrose 50 ml 03/01/21 13:28 Dextrose 50% In Water (25gm) 50 Ml Syringe IV Q30MIN PRN Hypoglycemia Protocol Guaifenesin 200 mg 02/24/21 13:10 02/27/21 22:06 Guaifenesin 200 Mg Tab PO 200 mg Q6H PRN Administration Cough Hydralazine HCl 10 mg 02/23/21 22:06 Hydralazine 10 Mg Tab PO Q4H PRN SBP >/=165; DBP >/=110 Hydralazine HCl 10 mg 02/23/21 22:27 Hydralazine 20 Mg/1 Ml Inj IV Q4HR PRN SBP >/=165; DBP >/=110 Hydromorphone HCl 0.5 mg 02/22/21 14:26 02/23/21 01:55 Hydromorphone 1 Mg/1 Ml Inj IV 0.5 mg Q12H PRN Administration Pain , Severe (7-10) Insulin Human Regular 0 units 03/01/21 16:30 03/04/21 07:52 Insulin Regular, Human 100 Units/1 Ml SUB-Q Not Given ACHS [facility] Protocol Levothyroxine Sodium 50 mcg 02/23/21 10:00 03/04/21 10:04 Levothyroxine 50 Mcg Tab PO 50 mcg QAM DEVAN Administration Methylprednisolone Sodium Succinate 40 mg 02/22/21 22:00 03/04/21 05:56 Methylprednisolone Sod Succinate 40 Mg/1 Ml Inj IV 03/04/21 14:01 40 mg Q8HR DEVAN Administration Midodrine 10 mg 02/28/21 10:00 03/04/21 10:03 Midodrine 5 Mg Tab PO 10 mg BID@1000,1800 DEVAN Administration Multivit/Ca Carb/B Cmplx/FA/Prenat 1 cap 02/23/21 10:00 03/04/21 10:03 Folic Acid/Vit B Comp W-C 1 Mg (Renal Caps) PO 1 cap QDAY DEVAN Administration Ondansetron HCl 4 mg 02/22/21 15:00 03/03/21 21:35 Ondansetron 4 Mg/2 Ml Inj IV 4 mg Q8H PRN Administration Nausea And Vomiting Oxycodone/Acetaminophen 1 tab 02/22/21 14:26 02/28/21 21:54 Oxycodone /Acetaminophen 5-325mg Tab PO 1 tab Q12H PRN Administration Pain, Moderate (4-6) Pantoprazole Sodium 40 mg 02/23/21 10:00 03/04/21 10:04 Pantoprazole 40 Mg Tab PO 40 mg QDAY DEVAN Administration Sodium Chloride 10 ml 02/22/21 22:00 03/04/21 10:03 Sodium Chloride 0.9% 10 Ml Flush Syringe IV 10 ml BID DEVAN Administration Sodium Chloride 10 ml 02/22/21 14:26 Sodium Chloride 0.9% 10 Ml Flush Syringe IV PRN PRN LINE FLUSH Sucralfate 1 gm 02/22/21 18:00 03/04/21 05:56 Sucralfate 1 Gm Tab PO 1 gm Q6HR DEVAN Administration Tramadol HCl 50 mg 02/22/21 15:00 03/04/21 01:01 Tramadol 50 Mg Tab PO 50 mg Q6HR PRN Administration Pain, Moderate (4-6) Trazodone HCl 75 mg 03/03/21 22:00 03/03/21 21:34 Trazodone 50 Mg Tab PO 75 mg QHS DEVAN Administration Zinc Sulfate 220 mg 02/22/21 22:00 03/04/21 10:03 Zinc Sulfate 220 Mg Cap PO 220 mg BID DEVAN Administration
[2021-03-04] MEDS: traZODone 50 MG TAB PO SCH (22:11)
[2021-03-05] MEDS: AMIODARONE 200 MG TAB PO SCH ×3 (00:15→23:19)
[2021-03-05] MEDS: SUCRALFATE 1 GM TAB PO SCH ×4 (05:48→17:30)
[2021-03-05] MEDS: INSULIN REGULAR, HUMAN 100 UNITS/1 ML SUB-Q SCH ×4 (08:29→23:34)
[2021-03-05] MEDS: CALCIUM ACETATE 667 MG CAP PO SCH ×3 (08:32→17:30)
[2021-03-05] MEDS: FOLIC ACID/VIT B COMP W-C 1 MG (RENAL CAPS) PO SCH (10:50)
[2021-03-05] MEDS: predniSONE 20 MG TAB PO SCH (10:50)
[2021-03-05] MEDS: MIDODRINE 5 MG TAB PO SCH ×3 (10:51→18:24)
[2021-03-05] MEDS: APIXABAN 2.5 MG TAB PO SCH ×2 (10:51→23:20)
[2021-03-05] MEDS: ZINC SULFATE 220 MG CAP PO SCH ×2 (10:52→23:21)
[2021-03-05] MEDS: ASCORBIC ACID 500 MG TAB PO SCH ×2 (10:52→23:18)
[2021-03-05] MEDS: PANTOPRAZOLE 40 MG TAB PO SCH (10:52)
[2021-03-05] MEDS: CETIRIZINE 10 MG TAB PO SCH (10:52)
[2021-03-05] MEDS: CHOLECALCIFEROL (VIT D3) 1000 UNIT (25 mcg) TAB PO SCH (10:52)
[2021-03-05] MEDS: LEVOTHYROXINE 50 MCG TAB PO SCH (10:53)
--- NOTE | 2021-03-05 12:08 | Progress Note ---
Assessment and Plan Assessment: End Stage Renal Disease on Hemodialysis Acute Hypoxic Respiratory failure Recent COVID-19 Infection Hypertension CHF Plan: Hemodialysis tomorrow for UF and clearance Fluid restriction of 1 liter per day Obtain daily weights Monitor I/O's daily Renally dose medications Assess dialysis needs daily Awaiting rehab placement, CM onboard Plan of care reviewed by Dr. Young Subjective Date of service: 03/05/21 Principal diagnosis: ESRD, Volume overload, AFIB Interval history: Patient on isolation for COVID-19 infection Objective - Vital Signs Vital signs: Vital Signs - 12hr 03/05/21 03/05/21 03/05/21 00:25 00:55 05:43 Temperature 98.1 F 97.7 F Pulse Rate 139 H 120 H 141 H Respiratory 20 20 Rate Blood Pressure 99/63 Blood Pressure 123/69 98/36 [Left] O2 Sat by Pulse 93 95 Oximetry 03/05/21 11:00 Temperature 98.3 F Pulse Rate 131 H Respiratory 16 Rate Blood Pressure Blood Pressure 133/100 [Left] O2 Sat by Pulse 95 Oximetry - Lab 03/03/21 08:41 03/03/21 08:41 Most recent lab results ABG pH 7.478 (7.320-7.450) H 02/22/21 13:21 ABG O2 Saturation 94.6 (0-100) 02/22/21 13:21 Calcium 9.0 mg/dL (8.4-10.2) 03/03/21 08:41 Phosphorus 6.70 mg/dL (2.5-4.5) H D 03/03/21 08:41 Magnesium 2.00 mg/dL (1.7-2.3) 03/03/21 08:41 Medications & Allergies - Medications Allergies/Adverse Reactions: Allergies amoxicillin Allergy (Verified 02/22/21 11:14) Unknown codeine Allergy (Verified 02/22/21 11:14) Unknown Penicillins Allergy (Verified 02/22/21 11:14) Unknown Sulfa (Sulfonamide Antibiotics) Allergy (Verified 02/22/21 11:14) Unknown Home Medications: Home Medications Medication Instructions Recorded Confirmed Last Taken Type AtorvaSTATin 10 mg PO QHS 02/22/21 02/22/21 Unknown History Calcium Acetate [Phoslo] 1,334 mg PO TID 02/22/21 02/22/21 Unknown History Cetirizine HCl [Cetirizine 10mg 10 mg PO QDAY 02/22/21 02/22/21 Unknown History chew] L. Acidophilus/Bifid. Animalis 1 each PO QDAY 02/22/21 02/22/21 Unknown History [Dialyvite Chewable Probiotic] Levothyroxine [Synthroid] 50 mcg PO QAM 02/22/21 02/22/21 Unknown History Pantoprazole [Protonix TAB] 40 mg PO QDAY 02/22/21 02/22/21 Unknown History Sucralfate [Carafate] 1 gm PO Q6HR 02/22/21 02/22/21 Unknown History Temazepam [Restoril] 7.5 mg PO QHS 02/22/21 02/22/21 Unknown History traMADoL [Ultram 50 MG tab] 50 mg PO Q6HR PRN 02/22/21 02/22/21 Unknown History Amiodarone [Cordarone 200 MG TAB] 200 mg PO BID #90 tablet 03/02/21 Unknown Rx Apixaban [Eliquis] 2.5 mg PO Q12HR 90 Days tablet 03/02/21 Unknown Rx Cholecalciferol Vit D3 [Vitamin D3 1,000 unit PO QDAY #90 tablet 03/02/21 Unknown Rx 1,000 UNIT TAB] Midodrine [Proamatine] 10 mg PO BID@1000,1800 90 Days 03/02/21 Unknown Rx tablet Active Medications: Generic Name Dose Route Start Last Admin Trade Name Freq PRN Reason Stop Dose Admin Acetaminophen 650 mg 02/22/21 15:00 02/26/21 05:44 Acetaminophen 325 Mg Tab PO 650 mg Q4H PRN Administration Pain MILD(1-3)/Fever >100.5/GAUTAM Albuterol 2.5 mg 02/22/21 14:26 02/23/21 21:41 Albuterol 2.5 Mg/3 Ml Nebu IH 2.5 mg Q4HRT PRN Administration Shortness Of Breath Alprazolam 0.5 mg 02/22/21 14:29 03/02/21 21:41 Alprazolam 0.5 Mg Tab PO 0.5 mg Q8H PRN Administration Anxiety Amiodarone HCl 200 mg 02/27/21 22:00 03/05/21 10:52 Amiodarone 200 Mg Tab PO 200 mg BID DEVAN Administration Apixaban 2.5 mg 02/25/21 22:00 03/05/21 10:51 Apixaban 2.5 Mg Tab PO 2.5 mg Q12HR DEVAN Administration Protocol Ascorbic Acid 500 mg 02/22/21 22:00 03/05/21 10:52 Ascorbic Acid 500 Mg Tab PO 500 mg BID DEVAN Administration Atorvastatin Calcium 10 mg 02/22/21 22:00 03/04/21 22:11 Atorvastatin 10 Mg Tab PO 10 mg QHS DEVAN Administration Calcium Acetate 1,334 mg 02/23/21 17:00 03/05/21 08:32 Calcium Acetate 667 Mg Cap PO 1,334 mg TIDWM DEVAN Administration Cetirizine HCl 10 mg 02/23/21 10:00 03/05/21 10:52 Cetirizine 10 Mg Tab PO 10 mg DAILY DEVAN Administration Cholecalciferol 1,000 unit 02/23/21 10:00 03/05/21 10:52 Cholecalciferol (Vit D3) 1000 Unit (25 Mcg) Tab PO 1,000 unit QDAY DEVAN Administration Dextrose 50 ml 03/01/21 13:28 Dextrose 50% In Water (25gm) 50 Ml Syringe IV Q30MIN PRN Hypoglycemia Protocol Guaifenesin 200 mg 02/24/21 13:10 02/27/21 22:06 Guaifenesin 200 Mg Tab PO 200 mg Q6H PRN Administration Cough Hydralazine HCl 10 mg 02/23/21 22:06 Hydralazine 10 Mg Tab PO Q4H PRN SBP >/=165; DBP >/=110 Hydromorphone HCl 0.5 mg 02/22/21 14:26 02/23/21 01:55 Hydromorphone 1 Mg/1 Ml Inj IV 0.5 mg Q12H PRN Administration Pain , Severe (7-10) Insulin Human Regular 0 units 03/01/21 16:30 03/05/21 08:29 Insulin Regular, Human 100 Units/1 Ml SUB-Q Not Given ACHS [facility] Protocol Levothyroxine Sodium 50 mcg 02/23/21 10:00 03/05/21 10:53 Levothyroxine 50 Mcg Tab PO 50 mcg QAM DEVAN Administration Metoprolol Tartrate 25 mg 03/05/21 14:00 Metoprolol Tartrate 25 Mg Tab PO TID DEVAN Midodrine 10 mg 02/28/21 10:00 03/05/21 10:51 Midodrine 5 Mg Tab PO Not Given BID@1000,1800 DEVAN Multivit/Ca Carb/B Cmplx/FA/Prenat 1 cap 02/23/21 10:00 03/05/21 10:50 Folic Acid/Vit B Comp W-C 1 Mg (Renal Caps) PO 1 cap QDAY DEVAN Administration Ondansetron HCl 4 mg 02/22/21 15:00 03/03/21 21:35 Ondansetron 4 Mg/2 Ml Inj IV 4 mg Q8H PRN Administration Nausea And Vomiting Oxycodone/Acetaminophen 1 tab 02/22/21 14:26 02/28/21 21:54 Oxycodone /Acetaminophen 5-325mg Tab PO 1 tab Q12H PRN Administration Pain, Moderate (4-6) Pantoprazole Sodium 40 mg 02/23/21 10:00 03/05/21 10:52 Pantoprazole 40 Mg Tab PO 40 mg QDAY DEVAN Administration Prednisone 60 mg 03/05/21 10:00 03/05/21 10:50 Prednisone 20 Mg Tab PO 60 mg QDAY DEVAN Administration Sodium Chloride 10 ml 02/22/21 22:00 03/05/21 10:54 Sodium Chloride 0.9% 10 Ml Flush Syringe IV 10 ml BID DEVAN Administration Sodium Chloride 10 ml 02/22/21 14:26 Sodium Chloride 0.9% 10 Ml Flush Syringe IV PRN PRN LINE FLUSH Sucralfate 1 gm 02/22/21 18:00 03/05/21 05:48 Sucralfate 1 Gm Tab PO 1 gm Q6HR DEVAN Administration Tramadol HCl 50 mg 02/22/21 15:00 03/04/21 22:12 Tramadol 50 Mg Tab PO 50 mg Q6HR PRN Administration Pain, Moderate (4-6) Trazodone HCl 75 mg 03/03/21 22:00 03/04/21 22:11 Trazodone 50 Mg Tab PO 75 mg QHS DEVAN Administration Zinc Sulfate 220 mg 02/22/21 22:00 03/05/21 10:52 Zinc Sulfate 220 Mg Cap PO 220 mg BID DEVAN Administration
[2021-03-05] MEDS: traMADol 50 MG TAB PO PRN (12:42)
--- NOTE | 2021-03-05 13:59 | Progress Note ---
Assessment and Plan Assessment and plan: #Acute on chronic hypoxic respiratory failure, resolved -currently on 3 to 4 L nasal cannula (home oxygen requirement) -Pulmonology consulted, assistance appreciated -continue steroid taper -etiology secondary to COVID versus CHF #New onset atrial fibrillation -[id number] -continue amiodarone 200 mg twice daily and Eliquis -Rate not controlled, metoprolol added -management per Cardiology #Hyperkalemia -Resolved #Heart failure preserved ejection fraction -No prior history of CHF, BNP 70k on admission -TTE 02/22/21: EF 50 to 50%, mild diastolic dysfunction -Cardiology following #COVID-19 infection #COVID-19 pneumonia -diagnosed 3 weeks ago -Status post antibiotics -IV steroids #ESRD on HD -/ schedule -Nephrology following, assistance appreciated -Labs with dialysis #Deconditioning -Rolling walker at home -PT recommend inpatient rehab, patient prefers [facility] #Discharge planning -repeat Covid test 03/03 was positive -Case management following for rehab placement Disposition Plan: [facility] Total Time Spent with Patient (Minutes): 20 minutes History Interval history: No acute events. Tolerating nasal cannula. Reports left-sided hip pain. Hospitalist Physical - Physical exam Narrative exam: GENERAL: Obese. Lying in bed in no acute distress. HEENT: NC @3 LPM CHEST/LUNGS: Coarse breath sounds bilaterally. HEART/CARDIOVASCULAR: Irregular irregular rhythm. No murmur, rubs or gallops appreciated. ABDOMEN: +BS. NT/ND. SKIN: Bruising at LUE. Thornton intact at old R AVF EXTREMITIES: R and L upper extremity AVF. No cyanosis, clubbing or edema. PSYCH: Cooperative. - Constitutional Vitals: Temp Pulse Resp BP Pulse Ox 98.3 F 131 H 16 133/100 95 03/05/21 11:00 03/05/21 11:00 03/05/21 11:00 03/05/21 11:00 03/05/21 11:00 General appearance: Present: no acute distress HEART Score - HEART Score EKG: Non-specific Age: > 65 Risk factors: > 3 risk factors or hx of atherosclerotic disease Troponin: Troponin T 0.097 ng/mL (0.00-0.029) H 02/22/21 11:31 Troponin: < normal limit - Critical Actions Critical Actions: 4-6 pts:12-16.6% risk of adverse cardiac event. Should be admitted Results - Labs CBC & Chem 7: 03/03/21 08:41 03/03/21 08:41 Labs: Laboratory Last Values WBC 12.3 K/mm3 (4.5-11.0) H 03/03/21 08:41 RBC 2.60 M/mm3 (3.65-5.03) L 03/03/21 08:41 Hgb 8.6 gm/dl (10.1-14.3) L 03/03/21 08:41 Hct 26.0 % (30.3-42.9) L 03/03/21 08:41 MCV 100 fl (79-97) H 03/03/21 08:41 MCH 33 pg (28-32) H 03/03/21 08:41 MCHC 33 % (30-34) 03/03/21 08:41 RDW 14.9 % (13.2-15.2) 03/03/21 08:41 Plt Count 131 K/mm3 (140-440) L 03/03/21 08:41 Lymph % (Auto) 5.7 % (13.4-35.0) L 02/23/21 03:40 [place] % (Auto) 3.7 % (0.0-7.3) 02/23/21 03:40 Eos % (Auto) 0.1 % (0.0-4.3) 02/23/21 03:40 Baso % (Auto) 0.7 % (0.0-1.8) 02/23/21 03:40 Lymph # (Auto) 0.3 K/mm3 (1.2-5.4) L 02/23/21 03:40 R[place]els # (Auto) 0.2 K/mm3 (0.0-0.8) 02/23/21 03:40 Eos # (Auto) 0.0 K/mm3 (0.0-0.4) 02/23/21 03:40 Baso # (Auto) 0.0 K/mm3 (0.0-0.1) 02/23/21 03:40 Add Manual Diff Complete 03/03/21 08:41 Total Counted 100 03/03/21 08:41 Seg Neutrophils % H[employer]er 03/03/21 08:41 Seg Neuts % (Manual) 100.0 % (40.0-70.0) H 03/03/21 08:41 Band Neutrophils % 1.0 % 03/01/21 09:40 Lymphocytes % (Manual) 1.0 % (13.4-35.0) L 03/02/21 10:22 Reactive Lymphs % (Man) 1.0 % 02/28/21 08:33 Monocytes % (Manual) 1.0 % (0.0-7.3) 03/02/21 10:22 Nucleated RBC % Not Reportable 03/03/21 08:41 Seg Neutrophils # 4.5 K/mm3 (1.8-7.7) 02/23/21 03:40 Seg Neutrophils # Man 12.3 K/mm3 (1.8-7.7) H 03/03/21 08:41 Band Neutrophils # 0.0 K/mm3 03/03/21 08:41 Lymphocytes # (Manual) 0.0 K/mm3 (1.2-5.4) L 03/03/21 08:41 Abs React Lymphs (Man) 0.0 K/mm3 03/03/21 08:41 Monocytes # (Manual) 0.0 K/mm3 (0.0-0.8) 03/03/21 08:41 Eosinophils # (Manual) 0.0 K/mm3 (0.0-0.4) 03/03/21 08:41 Basophils # (Manual) 0.0 K/mm3 (0.0-0.1) 03/03/21 08:41 Metamyelocytes # 0.0 K/mm3 03/03/21 08:41 Myelocytes # 0.0 K/mm3 03/03/21 08:41 Promyelocytes # 0.0 K/mm3 03/03/21 08:41 Blast Cells # 0.0 K/mm3 03/03/21 08:41 WBC Morphology Not Reportable 03/03/21 08:41 Hypersegmented Neuts Not Reportable 03/03/21 08:41 Hyposegmented Neuts Not Reportable 03/03/21 08:41 Hypogranular Neuts Not Reportable 03/03/21 08:41 Smudge Cells Not Reportable 03/03/21 08:41 Toxic Granulation Not Reportable 03/03/21 08:41 Toxic Vacuolation Not Reportable 03/03/21 08:41 Dohle Bodies Not Reportable 03/03/21 08:41 Pelger-Huet Anomaly Not Reportable 03/03/21 08:41 Sumeet Rods Not Reportable 03/03/21 08:41 Platelet Estimate Consistent w auto 03/03/21 08:41 Clumped Platelets Not Reportable 03/03/21 08:41 Plt Clumps, EDTA Not Reportable 03/03/21 08:41 Large Platelets Not Reportable 03/03/21 08:41 Giant Platelets Not Reportable 03/03/21 08:41 Platelet Satelliting Not Reportable 03/03/21 08:41 Plt Morphology Comment Not Reportable 03/03/21 08:41 RBC Morphology Normal 03/03/21 08:41 Dimorphic RBCs Not Reportable 03/03/21 08:41 Polychromasia Not Reportable 03/03/21 08:41 Hypochromasia Not Reportable 03/03/21 08:41 Poikilocytosis Not Reportable 03/03/21 08:41 Anisocytosis Not Reportable 03/03/21 08:41 Microcytosis Not Reportable 03/03/21 08:41 Macrocytosis Not Reportable 03/03/21 08:41 Spherocytes Not Reportable 03/03/21 08:41 Pappenheimer Bodies Not Reportable 03/03/21 08:41 Sickle Cells Not Reportable 03/03/21 08:41 Target Cells Not Reportable 03/03/21 08:41 Tear Drop Cells Not Reportable 03/03/21 08:41 Ovalocytes Not Reportable 03/03/21 08:41 Helmet Cells Not Reportable 03/03/21 08:41 Amezquita-Bridger Bodies Not Reportable 03/03/21 08:41 [place] Rings Not Reportable 03/03/21 08:41 [place] Cells Not Reportable 03/03/21 08:41 Bite Cells Not Reportable 03/03/21 08:41 Crenated Cell Not Reportable 03/03/21 08:41 Elliptocytes Not Reportable 03/03/21 08:41 Acanthocytes (Spur) Not Reportable 03/03/21 08:41 Rouleaux Not Reportable 03/03/21 08:41 Hemoglobin C Crystals Not Reportable 03/03/21 08:41 Schistocytes Not Reportable 03/03/21 08:41 Malaria parasites Not Reportable 03/03/21 08:41 Ervin Bodies Not Reportable 03/03/21 08:41 Hem Pathologist Commnt No 03/03/21 08:41 PT 16.5 Sec. (12.2-14.9) H 02/26/21 03:06 INR 1.28 (0.87-1.13) H 02/26/21 03:06 APTT 34.2 Sec. (24.2-36.6) 02/26/21 03:06 D-Dimer 721.62 ng/mlDDU (0-234) H 03/01/21 09:40 ABG pH 7.478 (7.320-7.450) H 02/22/21 13:21 POC ABG pCO2 33.5 mmHg (32.0-48.0) 02/22/21 13:21 POC ABG pO2 70.7 mmHg (83-108) L 02/22/21 13:21 POC ABG HCO3 24.3 02/22/21 13:21 ABG O2 Saturation 94.6 (0-100) 02/22/21 13:21 POC ABG Base Excess 1.0 02/22/21 13:21 ABG Hemoglobin 9.4 (12.0-17.5) L 02/22/21 13:21 ABG Oxyhemoglobin 93.7 (94-98) L 02/22/21 13:21 ABG Methemoglobin 0.3 (0.0-1.5) 02/22/21 13:21 ABG Sodium 131.6 mmol/L (136.0-145.0) L 02/22/21 13:21 ABG Potassium 4.0 mmol/L (3.40-4.50) 02/22/21 13:21 ABG Chloride 100.0 mmol/L (98-107) 02/22/21 13:21 ABG Glucose 87 mg/dL (65-95) 02/22/21 13:21 Carboxyhemoglobin 0.6 (0.5-1.5) 02/22/21 13:21 FiO2 % 70.0 02/22/21 13:21 Sodium 137 mmol/L (137-145) 03/03/21 08:41 Potassium 4.7 mmol/L (3.6-5.0) 03/03/21 08:41 Chloride 95.7 mmol/L (98-107) L 03/03/21 08:41 Carbon Dioxide 26 mmol/L (22-30) 03/03/21 08:41 Anion Gap 20 mmol/L 03/03/21 08:41 BUN 81 mg/dL (7-17) H 03/03/21 08:41 Creatinine 5.5 mg/dL (0.6-1.2) H 03/03/21 08:41 Estimated GFR 7 ml/min 03/03/21 08:41 BUN/Creatinine Ratio 15 % 03/03/21 08:41 Glucose 138 mg/dL (65-100) H 03/03/21 08:41 POC Glucose 142 mg/dL (70-105) H 03/05/21 11:17 Calcium 9.0 mg/dL (8.4-10.2) 03/03/21 08:41 Phosphorus 6.70 mg/dL (2.5-4.5) H D 03/03/21 08:41 Magnesium 2.00 mg/dL (1.7-2.3) 03/03/21 08:41 Ferritin 2112.0 ng/mL (10.0-200.0) H 03/01/21 09:40 Total Bilirubin 0.40 mg/dL (0.1-1.2) 02/27/21 05:12 Direct Bilirubin < 0.2 mg/dL (0-0.2) 02/27/21 05:12 Indirect Bilirubin 0.2 mg/dL 02/27/21 05:12 AST 18 units/L (5-40) 02/27/21 05:12 ALT 46 units/L (7-56) 02/27/21 05:12 Alkaline Phosphatase 82 units/L (35-129) 02/27/21 05:12 Lactate Dehydrogenase 284 units/L (91-180) H 03/01/21 09:40 Troponin T 0.097 ng/mL (0.00-0.029) H 02/22/21 11:31 C-Reactive Protein 0.90 mg/dL (0.00-1.30) 03/01/21 09:40 NT-Pro-B Natriuret Pep 15691 pg/mL (0-900) H 02/22/21 11:31 Total Protein 5.4 g/dL (6.3-8.2) L 02/27/21 05:12 Albumin 2.8 g/dL (3.9-5) L 02/27/21 05:12 Albumin/Globulin Ratio 1.1 % 02/27/21 05:12 Arterial Blood Glucose 87 mg/dL (65-95) 02/22/21 13:21 Arterial Blood Ionized Calcium 4.7 mg/dL (4.6-5.3) 02/22/21 13:21 Nasal Screen MRSA (PCR) Negative (Negative) 02/25/21 06:30 Coronavirus (PCR) Positive (Negative) A 03/03/21 Unknown Hepatitis A IgM Ab Non-reactive (NonReactive) 02/26/21 03:06 Hep Bs Antigen Nonreactive (Negative) 02/26/21 03:06 Hep B Core IgM Ab Non-reactive (NonReactive) 02/26/21 03:06 Hepatitis C Antibody Non-reactive (NonReactive) 02/26/21 03:06 [place]/IV: Voiding Method Diaper Active Medications - Current Medications Current Medications: Generic Name Dose Route Start Last Admin Trade Name Freq PRN Reason Stop Dose Admin Acetaminophen 650 mg 02/22/21 15:00 02/26/21 05:44 Acetaminophen 325 Mg Tab PO 650 mg Q4H PRN Administration Pain MILD(1-3)/Fever >100.5/GAUTAM Albuterol 2.5 mg 02/22/21 14:26 02/23/21 21:41 Albuterol 2.5 Mg/3 Ml Nebu IH 2.5 mg Q4HRT PRN Administration Shortness Of Breath Alprazolam 0.5 mg 02/22/21 14:29 03/02/21 21:41 Alprazolam 0.5 Mg Tab PO 0.5 mg Q8H PRN Administration Anxiety Amiodarone HCl 200 mg 02/27/21 22:00 03/05/21 10:52 Amiodarone 200 Mg Tab PO 200 mg BID DEVAN Administration Apixaban 2.5 mg 02/25/21 22:00 03/05/21 10:51 Apixaban 2.5 Mg Tab PO 2.5 mg Q12HR DEVAN Administration Protocol Ascorbic Acid 500 mg 02/22/21 22:00 03/05/21 10:52 Ascorbic Acid 500 Mg Tab PO 500 mg BID DEVAN Administration Atorvastatin Calcium 10 mg 02/22/21 22:00 03/04/21 22:11 Atorvastatin 10 Mg Tab PO 10 mg QHS DEVAN Administration Calcium Acetate 1,334 mg 02/23/21 17:00 03/05/21 12:25 Calcium Acetate 667 Mg Cap PO 1,334 mg TIDWM DEVAN Administration Cetirizine HCl 10 mg 02/23/21 10:00 03/05/21 10:52 Cetirizine 10 Mg Tab PO 10 mg DAILY DEVAN Administration Cholecalciferol 1,000 unit 02/23/21 10:00 03/05/21 10:52 Cholecalciferol (Vit D3) 1000 Unit (25 Mcg) Tab PO 1,000 unit QDAY DEVAN Administration Dextrose 50 ml 03/01/21 13:28 Dextrose 50% In Water (25gm) 50 Ml Syringe IV Q30MIN PRN Hypoglycemia Protocol Guaifenesin 200 mg 02/24/21 13:10 02/27/21 22:06 Guaifenesin 200 Mg Tab PO 200 mg Q6H PRN Administration Cough Hydralazine HCl 10 mg 02/23/21 22:06 Hydralazine 10 Mg Tab PO Q4H PRN SBP >/=165; DBP >/=110 Hydromorphone HCl 0.5 mg 02/22/21 14:26 02/23/21 01:55 Hydromorphone 1 Mg/1 Ml Inj IV 0.5 mg Q12H PRN Administration Pain , Severe (7-10) Insulin Human Regular 0 units 03/01/21 16:30 03/05/21 12:24 Insulin Regular, Human 100 Units/1 Ml SUB-Q Not Given ACHS [facility] Protocol Levothyroxine Sodium 50 mcg 02/23/21 10:00 03/05/21 10:53 Levothyroxine 50 Mcg Tab PO 50 mcg QAM [facility] Administration Metoprolol Tartrate 25 mg 03/05/21 14:00 Metoprolol Tartrate 25 Mg Tab PO TID [facility] Midodrine 10 mg 02/28/21 10:00 03/05/21 10:51 Midodrine 5 Mg Tab PO Not Given BID@1000,1800 [facility] Multivit/Ca Carb/B Cmplx/FA/Prenat 1 cap 02/23/21 10:00 03/05/21 10:50 Folic Acid/Vit B Comp W-C 1 Mg (Renal Caps) PO 1 cap QDAY DEVAN Administration Ondansetron HCl 4 mg 02/22/21 15:00 03/03/21 21:35 Ondansetron 4 Mg/2 Ml Inj IV 4 mg Q8H PRN Administration Nausea And Vomiting Oxycodone/Acetaminophen 1 tab 02/22/21 14:26 02/28/21 21:54 Oxycodone /Acetaminophen 5-325mg Tab PO 1 tab Q12H PRN Administration Pain, Moderate (4-6) Pantoprazole Sodium 40 mg 02/23/21 10:00 03/05/21 10:52 Pantoprazole 40 Mg Tab PO 40 mg QDAY DEVAN Administration Prednisone 60 mg 03/05/21 10:00 03/05/21 10:50 Prednisone 20 Mg Tab PO 60 mg QDAY DEVAN Administration Sodium Chloride 10 ml 02/22/21 22:00 03/05/21 10:54 Sodium Chloride 0.9% 10 Ml Flush Syringe IV 10 ml BID DEVAN Administration Sodium Chloride 10 ml 02/22/21 14:26 Sodium Chloride 0.9% 10 Ml Flush Syringe IV PRN PRN LINE FLUSH Sucralfate 1 gm 02/22/21 18:00 03/05/21 12:26 Sucralfate 1 Gm Tab PO 1 gm Q6HR DEVAN Administration Tramadol HCl 50 mg 02/22/21 15:00 03/05/21 12:42 Tramadol 50 Mg Tab PO 50 mg Q6HR PRN Administration Pain, Moderate (4-6) Trazodone HCl 75 mg 03/03/21 22:00 03/04/21 22:11 Trazodone 50 Mg Tab PO 75 mg QHS DEVAN Administration Zinc Sulfate 220 mg 02/22/21 22:00 03/05/21 10:52 Zinc Sulfate 220 Mg Cap PO 220 mg BID DEVAN Administration Nutrition/Malnutrition Assess - Dietary Evaluation Nutrition/Malnutrition Findings: Nutrition Notes Start: 02/27/21 13:22 Freq: Status: Active Protocol: Document 03/03/21 15:47 GB (Rec: 03/03/21 15:55 GB [id number]) Nutrition Notes Initial or Follow up Reassessment Current Diagnosis CKD (stage V CKD),Heart Failure,Respiratory Failure Other Pertinent Diagnosis Covid +, Pneumonia, A. fib Current Diet Renal, Low K, mechanical soft Labs/Tests 03/03: BUN 81, creatinine 5.5, glucose 138, P 6.7 Pertinent Medications Vit. C Vit. D3 Ca Acetate Zinc Sulfate Multivitamin Height 5 ft 2.99 in Weight 85.5 kg [place] Body Weight (kg) 52.25 BMI 33.4 Weight change and time frame Weight stable Weight Status Overweight Subjective/Other Information PO intake recorded at 50% for past two days. Per MD note recommend 1000ml fluid restriction r/t to overload. Hemodialysis dependent T/Th/ Sat Percent of energy/protein needs met: PO intake of meals 50% or greater meets 100% or greater of estimated energy needs. Burn Absent Trauma Absent GI Symptoms None Current % PO Fair (50-74%) Minimum of two criteria No #1 Nutrition Diagnosis Increased nutrient needs ( specify in comment below) Comments: Protein Etiology ESRD As Evidenced by Signs and Symptoms on HD T, Th, Sat Diagnosis Progress(for reassessment Continues documentation) Is patient on ventilator? No Is Patient Ambulatory and/or Out of Bed No REE-([facility]-confined to bed) 1553.556 Kcal/Kg value to use for calculation 17 Approximate Energy Requirements Using 1454 kcal/Kg Calculation Used for Recommendations Kcal/kg Additional Notes Protein 1-1.2 g/kg @ 86k- 103g Nutrition Intervention Change Diet Order: Continue with Renal Nutrition Support: n/a Goal #1 PO intake of meals to be 50% or greater TID daily for LOS Goal #2 Weight to maintain within +/-3 % current weight for LOS Anticipated Discharge Needs: Renal/Cardiac diet Revisit per MD consult or patient Sign Off request: Additional Comments Ready for discharge with placement opening
--- NOTE | 2021-03-05 14:14 | Progress Note ---
Assessment and Plan Patient is a 80 y/o female with PMHx of of ESRD on HD, HTN, hypothyroidism, chronic respiratory failure, interstitial lung disease, and COVID+ ESRD on HD Volume overload * Echo 06/11/2020- LVEF of 60-65%. LV diastolic function is indeterminate given severe MAC. Diastolic predominant pulmonary venous flow suggesting elevated filling pressures. RV systolic function is normal. LA is severely-enlarged in volume. RA is mildly-enlarged in volume. Aortic valve with moderately- thickened and calcified leaflets. Mild to moderate aortic stenosis. No aortic regurgitation. Mitral valve with severely thickened and calcified leaflets (image 80). Severe calcific non-rheumatic mitral stenosis (MG = 10mmHg at 67 BPM). No mitral regurgitation. Severe concentric mitral annular calcification extending into the leaflets, the aortomitral continuity and he posterior left atrium. Calcified pap muscle. Normal tricuspid valve morphology. No tricuspid regurgitation. Pulmonic valve not well seen. No pulmonic regurgitation * Echo- - EF 50 to 55%, mild diastolic dysfunction impaired relaxation pattern, right ventricle systolic function is normal, right ventricle mildly dilated left and right atrium are normal in size, there is aortic valve leaflet calcification no aortic valvular stenosis, mitral valve leaflets are calcified mild mitral regurgitation, moderate mitral stenosis, mild to moderate tricuspid regurgitation. * Nephrology following COVID-19 PNA Acute on Chronic Respiratory failure * COVD PCR positive * Patient at [place] 2 weeks ago for COVID * Pulmonology following New onset Afib * Telemetry reviewed: Patient currently afib with RVR * EKG: shows Afib rate [address]-T abnormalities HTN * Patient currently hypotensive. Agree with holding BP meds and midodrine Plan: Patient rate trending 130s-140s. Started patient on metoprolol 25mg PO TID. Continue amio 200mg PO BID and Eliquis for anticoagualtion. Patient seen in conjunction with Dr. Velazquez who agrees with this plan of care. Will continue to follow - Patient Problems (1) Afib Current Visit: Yes Status: Acute (2) Acute hypoxemic respiratory failure Current Visit: Yes Status: Acute (3) COVID-19 virus infection Current Visit: Yes Status: Acute (4) ESRD (end stage renal disease) on dialysis Current Visit: Yes Status: Acute (5) Hypoxia Current Visit: Yes Status: Acute (6) Leukocytosis Current Visit: Yes Status: Acute Qualifiers: Leukocytosis type: other Qualified Code(s): D72.828 - Other elevated white blood cell count (7) Pneumonia Current Visit: Yes Status: Acute (8) Pulmonary edema Current Visit: Yes Status: Acute Qualifiers: Chronicity: acute Qualified Code(s): J81.0 - Acute pulmonary edema Subjective Date of service: 03/05/21 Principal diagnosis: ESRD, Volume overload, AFIB Interval history: Patient resting in bed but reports feeling better today. No cardiac complaints Patient Afib with RVR 130s-140s on monitor Objective Vital Signs Temp Pulse Resp BP BP Pulse Ox Pulse Ox 03/05/21 11:00 98.3 F 131 H 16 133/100 95 03/05/21 05:43 97.7 F 141 H 20 99/63 95 03/05/21 00:55 120 H 98/36 03/05/21 00:25 98.1 F 139 H 20 123/69 93 03/04/21 23:12 17 03/04/21 22:47 141 H 118/71 94 03/04/21 21:10 98.0 F 92 H 18 145/52 99 03/04/21 20:48 99 03/04/21 20:45 100 H 126/40 03/04/21 20:39 96 03/04/21 20:30 102 H 126/38 03/04/21 20:15 110 H 136/54 03/04/21 20:00 98 H 100/54 03/04/21 19:45 92 H 95/58 03/04/21 19:30 95 H 105/43 03/04/21 19:15 96 H 101/18 03/04/21 19:00 88 102/66 03/04/21 18:45 83 94/27 03/04/21 18:30 82 89/26 03/04/21 18:15 82 158/114 03/04/21 18:00 81 134/66 03/04/21 17:45 98.7 F 105 H 18 137/97 99 Pulse Ox 03/05/21 11:00 03/05/21 05:43 03/05/21 00:55 03/05/21 00:25 03/04/21 23:12 03/04/21 22:47 03/04/21 21:10 99 03/04/21 20:48 03/04/21 20:45 03/04/21 20:39 03/04/21 20:30 03/04/21 20:15 03/04/21 20:00 03/04/21 19:45 03/04/21 19:30 03/04/21 19:15 03/04/21 19:00 03/04/21 18:45 03/04/21 18:30 03/04/21 18:15 03/04/21 18:00 03/04/21 17:45 99 - Physical Examination General: No Apparent Distress HEENT: Positive: PERRL Neck: Positive: neck supple Cardiac: Positive: irregularly irregular, Tachycardia Lungs: Positive: Decreased Breath Sounds Neuro: Positive: Grossly Intact Abdomen: Positive: Soft, Active Bowel Sounds Skin: Positive: Bruising. Negative: Rash, Suspicious Lesions, Ulceration Extremities: Present: upper extr. pulses, lower extr. pulses. Absent: edema - Imaging and Cardiology EKG: report reviewed, image reviewed Echo: report reviewed - Telemetry EKG Rhythm: Atrial Fibrillation - EKG Supraventricular dysrhythmia: atrial fibrillation Repolarization changes or abnormalities: nonspecific abnormality, ST segment, and/or T wave
[2021-03-05] MEDS: METOPROLOL TARTRATE 25 MG TAB PO SCH ×2 (15:18→23:19)
[2021-03-05] MEDS: traZODone 50 MG TAB PO SCH (23:19)
[2021-03-05] MEDS: ALPRAZolam 0.5 MG TAB PO PRN (23:32)
[2021-03-06] MEDS: SUCRALFATE 1 GM TAB PO SCH ×4 (02:06→17:34)
[2021-03-06] MEDS: INSULIN REGULAR, HUMAN 100 UNITS/1 ML SUB-Q SCH ×3 (08:08→16:58)
[2021-03-06] MEDS: METOPROLOL TARTRATE 25 MG TAB PO SCH ×2 (08:08→13:39)
[2021-03-06] MEDS: PANTOPRAZOLE 40 MG TAB PO SCH (09:30)
[2021-03-06] MEDS: CETIRIZINE 10 MG TAB PO SCH (09:30)
[2021-03-06] MEDS: CALCIUM ACETATE 667 MG CAP PO SCH ×3 (09:30→16:59)
[2021-03-06] MEDS: FOLIC ACID/VIT B COMP W-C 1 MG (RENAL CAPS) PO SCH (09:30)
[2021-03-06] MEDS: predniSONE 20 MG TAB PO SCH (09:30)
[2021-03-06] MEDS: APIXABAN 2.5 MG TAB PO SCH (09:30)
[2021-03-06] MEDS: LEVOTHYROXINE 50 MCG TAB PO SCH (09:31)
[2021-03-06] MEDS: AMIODARONE 200 MG TAB PO SCH (09:31)
[2021-03-06] MEDS: MIDODRINE 5 MG TAB PO SCH ×2 (09:31→18:11)
--- NOTE | 2021-03-06 11:20 | Progress Note ---
Assessment and Plan End Stage Renal Disease on Hemodialysis Acute Hypoxic Respiratory failure Recent COVID-19 Infection Hypertension CHF Plan: Hemodialysis today for UF and clearance Fluid restriction of 1 liter per day Obtain daily weights Monitor I/O's daily Renally dose medications Assess dialysis needs daily Subjective Date of service: 03/06/21 Principal diagnosis: ESRD, Volume overload, AFIB Interval history: no overnight events reported Objective - Vital Signs Vital signs: Vital Signs - 12hr 03/06/21 03/06/21 08:08 08:23 Pulse Rate 118 H Blood Pressure 94/54 O2 Sat by Pulse 94 Oximetry - Lab 03/03/21 08:41 03/03/21 08:41 Most recent lab results ABG pH 7.478 (7.320-7.450) H 02/22/21 13:21 ABG O2 Saturation 94.6 (0-100) 02/22/21 13:21 Calcium 9.0 mg/dL (8.4-10.2) 03/03/21 08:41 Phosphorus 6.70 mg/dL (2.5-4.5) H D 03/03/21 08:41 Magnesium 2.00 mg/dL (1.7-2.3) 03/03/21 08:41 Medications & Allergies - Medications Allergies/Adverse Reactions: Allergies amoxicillin Allergy (Verified 02/22/21 11:14) Unknown codeine Allergy (Verified 02/22/21 11:14) Unknown Penicillins Allergy (Verified 02/22/21 11:14) Unknown Sulfa (Sulfonamide Antibiotics) Allergy (Verified 02/22/21 11:14) Unknown Home Medications: Home Medications Medication Instructions Recorded Confirmed Last Taken Type AtorvaSTATin 10 mg PO QHS 02/22/21 02/22/21 Unknown History Calcium Acetate [Phoslo] 1,334 mg PO TID 02/22/21 02/22/21 Unknown History Cetirizine HCl [Cetirizine 10mg 10 mg PO QDAY 02/22/21 02/22/21 Unknown History chew] L. Acidophilus/Bifid. Animalis 1 each PO QDAY 02/22/21 02/22/21 Unknown History [Dialyvite Chewable Probiotic] Levothyroxine [Synthroid] 50 mcg PO QAM 02/22/21 02/22/21 Unknown History Pantoprazole [Protonix TAB] 40 mg PO QDAY 02/22/21 02/22/21 Unknown History Sucralfate [Carafate] 1 gm PO Q6HR 02/22/21 02/22/21 Unknown History Temazepam [Restoril] 7.5 mg PO QHS 02/22/21 02/22/21 Unknown History traMADoL [Ultram 50 MG tab] 50 mg PO Q6HR PRN 02/22/21 02/22/21 Unknown History Amiodarone [Cordarone 200 MG TAB] 200 mg PO BID #90 tablet 03/02/21 Unknown Rx Apixaban [Eliquis] 2.5 mg PO Q12HR 90 Days tablet 03/02/21 Unknown Rx Cholecalciferol Vit D3 [Vitamin D3 1,000 unit PO QDAY #90 tablet 03/02/21 Unknown Rx 1,000 UNIT TAB] Midodrine [Proamatine] 10 mg PO BID@1000,1800 90 Days 03/02/21 Unknown Rx tablet Active Medications: Generic Name Dose Route Start Last Admin Trade Name Freq PRN Reason Stop Dose Admin Acetaminophen 650 mg 02/22/21 15:00 02/26/21 05:44 Acetaminophen 325 Mg Tab PO 650 mg Q4H PRN Administration Pain MILD(1-3)/Fever >100.5/GAUTAM Albuterol 2.5 mg 02/22/21 14:26 02/23/21 21:41 Albuterol 2.5 Mg/3 Ml Nebu IH 2.5 mg Q4HRT PRN Administration Shortness Of Breath Alprazolam 0.5 mg 02/22/21 14:29 03/05/21 23:32 Alprazolam 0.5 Mg Tab PO 0.5 mg Q8H PRN Administration Anxiety Amiodarone HCl 200 mg 02/27/21 22:00 03/06/21 09:31 Amiodarone 200 Mg Tab PO 200 mg BID DEVAN Administration Apixaban 2.5 mg 02/25/21 22:00 03/06/21 09:30 Apixaban 2.5 Mg Tab PO 2.5 mg Q12HR DEVAN Administration Protocol Atorvastatin Calcium 10 mg 02/22/21 22:00 03/05/21 23:19 Atorvastatin 10 Mg Tab PO 10 mg QHS DEVAN Administration Calcium Acetate 1,334 mg 02/23/21 17:00 03/06/21 09:30 Calcium Acetate 667 Mg Cap PO 1,334 mg TIDWM DEVAN Administration Cetirizine HCl 10 mg 02/23/21 10:00 03/06/21 09:30 Cetirizine 10 Mg Tab PO 10 mg DAILY DEVAN Administration Dextrose 50 ml 03/01/21 13:28 Dextrose 50% In Water (25gm) 50 Ml Syringe IV Q30MIN PRN Hypoglycemia Protocol Guaifenesin 200 mg 02/24/21 13:10 02/27/21 22:06 Guaifenesin 200 Mg Tab PO 200 mg Q6H PRN Administration Cough Hydralazine HCl 10 mg 02/23/21 22:06 Hydralazine 10 Mg Tab PO Q4H PRN SBP >/=165; DBP >/=110 Hydromorphone HCl 0.5 mg 02/22/21 14:26 02/23/21 01:55 Hydromorphone 1 Mg/1 Ml Inj IV 0.5 mg Q12H PRN Administration Pain , Severe (7-10) Insulin Human Regular 0 units 03/01/21 16:30 03/06/21 08:08 Insulin Regular, Human 100 Units/1 Ml SUB-Q Not Given ACHS [facility] Protocol Levothyroxine Sodium 50 mcg 02/23/21 10:00 03/06/21 09:31 Levothyroxine 50 Mcg Tab PO 50 mcg QAM DEVAN Administration Metoprolol Tartrate 25 mg 03/05/21 14:00 03/06/21 08:08 Metoprolol Tartrate 25 Mg Tab PO Not Given TID DEVAN Midodrine 10 mg 02/28/21 10:00 03/06/21 09:31 Midodrine 5 Mg Tab PO 10 mg BID@1000,1800 DEVAN Administration Multivit/Ca Carb/B Cmplx/FA/Prenat 1 cap 02/23/21 10:00 03/06/21 09:30 Folic Acid/Vit B Comp W-C 1 Mg (Renal Caps) PO 1 cap QDAY DEVAN Administration Ondansetron HCl 4 mg 02/22/21 15:00 03/03/21 21:35 Ondansetron 4 Mg/2 Ml Inj IV 4 mg Q8H PRN Administration Nausea And Vomiting Oxycodone/Acetaminophen 1 tab 02/22/21 14:26 02/28/21 21:54 Oxycodone /Acetaminophen 5-325mg Tab PO 1 tab Q12H PRN Administration Pain, Moderate (4-6) Pantoprazole Sodium 40 mg 02/23/21 10:00 03/06/21 09:30 Pantoprazole 40 Mg Tab PO 40 mg QDAY DEVAN Administration Prednisone 60 mg 03/05/21 10:00 03/06/21 09:30 Prednisone 20 Mg Tab PO 60 mg QDAY DEVAN Administration Sodium Chloride 10 ml 02/22/21 22:00 03/06/21 09:31 Sodium Chloride 0.9% 10 Ml Flush Syringe IV 10 ml BID DEVAN Administration Sodium Chloride 10 ml 02/22/21 14:26 Sodium Chloride 0.9% 10 Ml Flush Syringe IV PRN PRN LINE FLUSH Sucralfate 1 gm 02/22/21 18:00 03/06/21 06:42 Sucralfate 1 Gm Tab PO 1 gm Q6HR DEVAN Administration Tramadol HCl 50 mg 02/22/21 15:00 03/05/21 12:42 Tramadol 50 Mg Tab PO 50 mg Q6HR PRN Administration Pain, Moderate (4-6) Trazodone HCl 75 mg 03/03/21 22:00 03/05/21 23:19 Trazodone 50 Mg Tab PO 75 mg QHS DEVAN Administration
--- NOTE | 2021-03-06 12:37 | Progress Note ---
Assessment and Plan Acute on Chronic Respiratory Failure / Interstitial Lung Disease // COVID-19 PNA -On 3L NC (baseline) New Onset AF with RVR -Continue anticoagulation with Eliquis -Unable to tolerate Metoprolol d/t hypotension -Continue PO Amiodarone 200mg BID -Check TSH Non-Rheumatic Mitral Stenosis -Moderate on last echo 02/22/2021 ESRD on HD -Volume optimization via HD Hypothyroidism -On Synthroid Pt seen in conjunction with Dr. Velazquez, who agrees with the assessment and plan of care. - Patient Problems (1) Acute and chronic respiratory failure ([id number]) Current Visit: Yes Status: Acute (2) Pneumonia due to COVID-19 virus Current Visit: Yes Status: Acute (3) ESRD on hemodialysis Current Visit: Yes Status: Chronic (4) Atrial fibrillation with RVR Current Visit: Yes Status: Acute (5) Hypothyroidism Current Visit: Yes Status: Chronic Subjective Date of service: 03/06/21 Principal diagnosis: AF with RVR Interval history: No acute events overnight. Remains in AF 120s on tele. Objective Last Vital Signs Temp 97.7 F 03/06/21 11:40 Pulse 123 H 03/06/21 11:40 Resp 19 03/06/21 11:40 BP 93/48 03/06/21 11:42 Pulse Ox 94 03/06/21 11:40 - Imaging and Cardiology EKG: report reviewed, image reviewed Echo: report reviewed - Telemetry EKG Rhythm: Atrial Fibrillation - EKG Supraventricular dysrhythmia: atrial fibrillation - Allied health notes Allied health notes reviewed: nursing
[2021-03-06] MEDS: guaiFENesin 200 MG TAB PO PRN (13:51)
--- NOTE | 2021-03-06 15:38 | Discharge Summary ---
Providers - Providers Date of Admission: 02/22/21 14:26 Date of discharge: 03/06/21 Attending physician: CINTHIA PACE MD 02/22/21 14:31 Consult to Physician [CONS] Routine Comment: Consulting Provider: DREW JOHN Physician Instructions: Reason For Exam: esrd Consult to Physician [CONS] Routine Comment: Consulting Provider: KAMRAN NGO Physician Instructions: Reason For Exam: covid 02/22/21 14:32 Consult to Physician [CONS] Routine Comment: Consulting Provider: GWENDOLYN WILEY Physician Instructions: Reason For Exam: chf 02/27/21 13:12 Physical Therapy Evaluation and Treat [CONS] Routine Comment: Reason For Exam: Extended weakness 2/2 hospital stay Primary care physician: GATHERING MACHINE [employer]TER Hospitalization Reason for admission: Acute hypoxic respiratory failure Condition: Stable Hospital course: 80-year-old female history of ESRD on HD, hypothyroidism and COVID-19 infection diagnosed early February who presented with shortness of breath on 02/22. She was admitted for acute hypoxic respiratory failure. She is on oxygen at home anywhere from 2 to 3 L. She was found to have a pulse ox of 86% while on her home O2 . Echocardiogram showed a LVEF of 50 to 55%. She was eventually weaned down to her original home oxygen requirement. Physical therapy evaluated the patient and recommended halfway facility. Once stable, she was transferred to halfway facility for further care. She was also found to have pneumonia and was treated with antibiotics. Disposition: 03 [facility] Final Discharge Diagnosis (Prints w/discharge instructions): Acute hypoxic respiratory failure. Pneumonia. Debility Core Measure Documentation - Palliative Care Palliative Care/ Comfort Measures: Not Applicable - Core Measures Any of the following diagnoses?: none Exam - Constitutional Vitals: Temp Pulse Resp BP Pulse Ox 97.7 F 123 H 19 93/48 94 03/06/21 11:40 03/06/21 11:40 03/06/21 11:40 03/06/21 11:42 03/06/21 11:40 Plan Care Plan Goals: Intensive physical therapy and rehab facility. Dialysis at rehab facility. Continue treatment for atrial fibrillation. Follow up with: JESSENIA LAURENT MD [Primary Care Provider] - 3-5 Days MURRAY GAMBOA MD [Staff Physician] - 7 Days Prescriptions: Amiodarone [Cordarone 200 MG TAB] 200 mg PO BID #90 tablet Apixaban [Eliquis] 2.5 mg PO Q12HR 90 Days tablet Midodrine [Proamatine] 10 mg PO BID@1000,1800 90 Days tablet Cholecalciferol Vit D3 [Vitamin D3 1,000 UNIT TAB] 1,000 unit PO QDAY #90 tablet
[2021-03-06 20:14] VITALS: BP 116/72
== END 2021-03-06 20:00 | DRG 177 ==
LOC: ED 10:42 → CC1 14:26 → IMCU 02-24 23:01 → 3A 02-27 16:01
PROVIDERS: ADMIT Internal Medicine; ATTEND Student in an Organized Health Care Education/Training Program
PROC: 4A033R1 Measurement of Arterial Saturation, Peripheral, Percutaneous Approach (ICD-10-PCS; 2021-02-22)
PROC: 5A0945A Assistance with Respiratory Ventilation, 24-96 Consecutive Hours, High Flow/Velocity Cannula (ICD-10-PCS; 2021-02-24)
PROC: 5A1D70Z Performance of Urinary Filtration, Intermittent, Less than 6 Hours Per Day (ICD-10-PCS; principal; 2021-02-26)
PROC: 5A1D70Z Performance of Urinary Filtration, Intermittent, Less than 6 Hours Per Day (ICD-10-PCS; 2021-02-27)
PROC: 5A1D70Z Performance of Urinary Filtration, Intermittent, Less than 6 Hours Per Day (ICD-10-PCS; 2021-03-01)
PROC: 5A1D70Z Performance of Urinary Filtration, Intermittent, Less than 6 Hours Per Day (ICD-10-PCS; 2021-03-04)
PROC: 5A1D70Z Performance of Urinary Filtration, Intermittent, Less than 6 Hours Per Day (ICD-10-PCS; 2021-03-06)
DX: U07.1 COVID-19 (principal); J96.21 Acute and chronic respiratory failure with hypoxia; N18.6 End stage renal disease; J12.82 Pneumonia due to coronavirus disease 2019; I50.30 Unspecified diastolic (congestive) heart failure; J81.1 Chronic pulmonary edema; I13.2 Hypertensive heart and chronic kidney disease with heart failure and with stage 5 chronic kidney disease, or end stage renal disease; I48.91 Unspecified atrial fibrillation; Z88.6 Allergy status to analgesic agent; Z88.0 Allergy status to penicillin; Z88.8 Allergy status to other drugs, medicaments and biological substances; K21.9 Gastro-esophageal reflux disease without esophagitis; F01.50 Vascular dementia, unspecified severity, without behavioral disturbance, psychotic disturbance, mood disturbance, and anxiety; E78.5 Hyperlipidemia, unspecified; Z82.49 Family history of ischemic heart disease and other diseases of the circulatory system; E03.9 Hypothyroidism, unspecified; E87.5 Hyperkalemia; K59.00 Constipation, unspecified; I05.0 Rheumatic mitral stenosis
CPT/HCPCS: 36415; 71045; 80048; 80074; 80076; 82565; 82728; 82805; 82962; 83615; 83735; 83880; 84100; 84132; 84484; 85007; 85025; 85027; 85379; 85610; 85730; 86140; 87641; 93005; 93306; 94640; 94760; G0378; J0456; J1170; J1644; J1720; J1815; J1940; J2405; J2920; J7030; J7050; J7512; U0003